=== PATIENT | female | born 1970 | race African-American/Black ===

== ENCOUNTER 2016-12-03 16:21 | Emergency (ER) | payer MEDICARE, OTHER ==
[~2016-12-03] VITALS: Ht 149.9 cm; Wt 85.5 kg
[~2016-12-03 16:21] MED LIST: ALPR0.5T PO; AMLO10TA2 PO; AMLO5TAB4 PO; ATORVASTATIN CA80 MG PO; BENZ100C2 PO; CETI10TA22 PO; CLOB15CR TP; DULERA; EZET10TA3 PO; FLUT16SP NS; FLUT9.9S NS; HYDR-2666 PO; HYDR-2762 PO; IPRA3AMP NEB; LOSA25TA PO; LOSA50TA6 PO; MECL25TA PO; METO-269 PO; MOME13HF2 IH; MONT10TA9 PO; MV,C1TAB19 PO; OXYC10TA PO; OXYC1TAB9 PO; PANT40TA3 PO; PRED-220 PO; PREG50CA PO; PROAIR HFA8.5 GM INH; Promethazine Hcl/Codeine PO; TOPI50TA38 PO
[2016-12-03 19:31] LABS: BASO # 0.1 x10^3/uL (0.0-0.2); BASO % 1 % (0-3); EOS % 0 % (0-3); HEMATOCRIT 45.2 % (36.0-47.0); HEMOGLOBIN 14.7 g/dL (12.0-15.5); LYMPH # 2.5 x10^3/uL (1.0-4.8); LYMPH % 30 % (24-48); MEAN CORPUSCULAR HEMOGLOBIN 30 pg (25-35); MEAN CORPUSCULAR HGB CONC 33 g/dL (31-37); MEAN CORPUSCULAR VOLUME 92 fL (79-100); MONO % 8 % (0-9); NEUT % 60 % (31-73); PLATELET COUNT 179 x10^3/uL (140-400); RED BLOOD COUNT 4.92 x10^6/uL (3.50-5.40); RED CELL DISTRIBUTION WIDTH 14.5 % (11.5-14.5); WHITE BLOOD COUNT 8.5 x10^3/uL (4.0-11.0)
[2016-12-03 19:52] LABS: CALCIUM 9.8 mg/dL (8.5-10.1); CREATININE 0.9 mg/dL (0.6-1.0); GFR 81.2; POTASSIUM 3.7 mmol/L (3.5-5.1)
[2016-12-03 19:58] LABS: DIRECT BILIRUBIN 0.1 mg/dL (0.0-0.2); TOTAL BILIRUBIN 0.4 mg/dL (0.2-1.0); TOTAL PROTEIN 8.4 g/dL (6.4-8.2)
[2016-12-03] MEDS ORDERED: ONDANSETRON PF 4 MG/2 ML VIAL. IV PRN ×2 (20:15→21:45)
[2016-12-03] MEDS ORDERED: IOHEXOL 300 MG/ML 75 ML VIAL IV ONE (20:15)
[2016-12-03] MEDS ORDERED: IPRATRPIUM/ALBUTEROL 0.5/2.5MG 3 ML NEBU. NEB ONE (20:15)
[2016-12-03] MEDS ORDERED: IV NORMAL SALINE 1000ML BAG 1,000 ML IV ONE (20:15)
--- NOTE | 2016-12-03 20:48 | RAD ---
PROCEDURE CT abdomen pelvis with intravenous contrast. HISTORY Epigastric pain, hemoptysis for 3 days. TECHNIQUE After administration of intravenous contrast only, 75 mL Omnipaque 300, CT of the abdomen and pelvis was performed. Exposure: One or more of the following individualized dose reduction techniques were utilized for this examination: 1. Automated exposure control. 2. Adjustment of the mA and/or kV according to patient size. 3. Use of iterative reconstruction technique. COMPARISON CT abdomen pelvis April 11, 2013. FINDINGS Evaluation of enteric structures may be limited by lack of oral contrast. Liver, spleen, pancreas, and bilateral adrenal glands are unremarkable. Gallbladder is absent. Bilateral kidneys enhance symmetrically. No bowel obstruction or inflammation is appreciated. Appendix is without evidence of inflammation. Urinary bladder is unremarkable. Uterus is absent. Right ovary demonstrates 3.1 centimeter cyst. IMPRESSION 1. No acute abnormality identified in the abdomen or pelvis. 2. Status post cholecystectomy and hysterectomy. 3. 3.1 centimeter right ovarian cyst. Electronically signed by: Vijay Angeles MD (Dec 03, 2016 20:47:40)
[2016-12-03] MEDS: HYDROMORPHONE 2 MG/ML VIAL. IV PRN (20:51)
[2016-12-03] MEDS ORDERED: HYDR-2666 PO (21:11)
[2016-12-03] MEDS ORDERED: PROAIR HFA8.5 GM INH (21:11)
--- NOTE | 2016-12-03 21:11 | PHYS DOC ---
Past Medical History Past Medical History: Asthma, COPD, High Cholesterol, Hypertension, Other Additional Past Medical Histor: ibs Past Surgical History: Cholecystectomy, Hysterectomy, Tubal ligation, Other Additional Past Surgical Histo: neck sx, hernia repair, Alcohol Use: Rarely Drug Use: None Adult General Chief Complaint Chief Complaint: SHORTNESS OF BREATH HPI HPI 46-year-old female presenting to the emergency department with multiple complaints. Chiefly her complaint is epigastric abdominal pain for the last 5 days. She has taken Bentyl without relief. The pain is sharp nonradiating moderate and intermittent. She denies blood in her stool. She denies nausea or vomiting. She also has had worsening dyspnea over the past 2 days. Review of Systems Review of Systems ROS positive for shortness of breath abdominal pain. She denies chest pain. She denies blood in stools. She denies fevers or chills. All other review of systems is negative unless otherwise noted in history of present illness. Current Medications Current Medications Current Medications Medications (Trade) Dose Ordered Sig/Guillermina Start Time Stop Time Status Last Admin Dose Admin Albuterol/ Ipratropium (Duoneb) 3 ml 1X ONCE 12/03/16 20:15 12/03/16 20:16 DC 12/03/16 20:26 3 ML Hydromorphone HCl 0.5 mg 0.5 mg PRN Q1HR PRN 12/03/16 20:15 12/04/16 20:14 12/03/16 20:51 0.5 MG Iohexol (Omnipaque 300 Mg/ml) 75 ml 1X ONCE 12/03/16 20:15 12/03/16 20:16 DC 12/03/16 20:31 75 ML Ondansetron HCl (Zofran) 4 mg PRN Q30MIN PRN 12/03/16 20:15 12/04/16 20:14 12/03/16 20:51 4 MG Sodium Chloride (Iv Sodium Chloride 0.9% 1000ml Bag) 1,000 ml @ 1,000 mls/hr 1X ONCE 12/03/16 20:15 12/03/16 21:14 DC 12/03/16 20:52 1,000 MLS/HR Allergies Allergies Allergies Coded Allergies Type Severity Reaction Last Updated Verified poppyseed oil Allergy Severe Hives 05/02/16 Yes Penicillins Allergy Intermediate HIVES 05/02/16 Yes Physical Exam Physical Exam Constitutional: Well developed, well nourished, no acute distress, non-toxic appearance. HENT: Normocephalic, atraumatic, bilateral external ears normal, oropharynx moist, no oral exudates, nose normal. [] Eyes: PERRLA, EOMI, conjunctiva normal, no discharge. Neck: Normal range of motion, no tenderness, supple, no stridor. [] Cardiovascular:Heart rate regular rhythm, no murmur [] Lungs & Thorax: mild wheezing present. Abdomen: Abdomen shows mild tenderness in the epigastric region. No rebound tenderness or guarding present. Nontender appendix. Skin: Warm, dry, no erythema, no rash. Back: No tenderness, no CVA tenderness. [] Extremities: No tenderness, no cyanosis, no clubbing, ROM intact, no edema. Neurologic: Alert and oriented X 3, normal motor function, normal sensory function, no focal deficits noted. [] Psychologic: Affect normal, judgement normal, mood normal. [] Current Patient Data Vital Signs Vital Signs Date Time Temp Pulse Resp B/P Pulse Ox O2 Delivery O2 Flow Rate FiO2 12/03/16 21:25 98 18 154/79 98 Room Air 12/03/16 18:47 98.6 98.6 Lab Values Laboratory Tests Test 12/03/16 19:00 White Blood Count 8.5x10^3/uL (4.0-11.0) Red Blood Count 4.92x10^6/uL (3.50-5.40) Hemoglobin 14.7g/dL (12.0-15.5) Hematocrit 45.2% (36.0-47.0) Mean Corpuscular Volume 92fL (79-100) Mean Corpuscular Hemoglobin 30pg (25-35) Mean Corpuscular Hemoglobin Concent 33g/dL (31-37) Red Cell Distribution Width 14.5% (11.5-14.5) Platelet Count 179x10^3/uL (140-400) Neutrophils (%) (Auto) 60% (31-73) Lymphocytes (%) (Auto) 30% (24-48) Monocytes (%) (Auto) 8% (0-9) Eosinophils (%) (Auto) 0% (0-3) Basophils (%) (Auto) 1% (0-3) Neutrophils # (Auto) 5.1x10^3uL (1.8-7.7) Lymphocytes # (Auto) 2.5x10^3/uL (1.0-4.8) Monocytes # (Auto) 0.7x10^3/uL (0.0-1.1) Eosinophils # (Auto) 0.0x10^3/uL (0.0-0.7) Basophils # (Auto) 0.1x10^3/uL (0.0-0.2) Sodium Level 140mmol/L (136-145) Potassium Level 3.7mmol/L (3.5-5.1) Chloride Level 102mmol/L (98-107) Carbon Dioxide Level 29mmol/L (21-32) Anion Gap 9 (6-14) Blood Urea Nitrogen 13mg/dL (7-20) Creatinine 0.9mg/dL (0.6-1.0) Estimated GFR (Cockcroft-Gault) 81.2 Glucose Level 91mg/dL (70-99) Calcium Level 9.8mg/dL (8.5-10.1) Total Bilirubin 0.4mg/dL (0.2-1.0) Direct Bilirubin 0.1mg/dL (0.0-0.2) Aspartate Amino Transferase (AST) 18U/L (15-37) Alanine Aminotransferase (ALT) 33U/L (14-59) Alkaline Phosphatase 74U/L (46-116) Troponin I Quantitative < 0.017ng/mL (0.000-0.055) SQ-Spm-P-Type Natriuretic Peptide 23pg/mL (0-124) Total Protein 8.4g/dL (6.4-8.2) H Albumin 4.0g/dL (3.4-5.0) Lipase 138U/L (73-393) Laboratory Tests 12/03/16 19:00 Laboratory Tests 12/03/16 19:00 EKG EKG EKG shows sinus rhythm with a regular rate. [place] leftward. ST segments congruent. Intervals normal. [] Radiology/Procedures Radiology/Procedures [facility] [address] [place], [place] [id number] IMAGING REPORT Signed PATIENT: GABRIELE MUHAMMAD ACCOUNT: [id number] : 1970 LOCATION: ER AGE: 46 SEX: F EXAM STATUS: REG ER ORD. PHYSICIAN: MANA PHAN MD REASON: abdominal pain epigastric eval gallbladder and appendix PROCEDURE: ABD PELV W/ IV CONTRAST ONLY PROCEDURE CT abdomen pelvis with intravenous contrast. HISTORY Epigastric pain, hemoptysis for 3 days. TECHNIQUE After administration of intravenous contrast only, 75 mL Omnipaque 300, CT of the abdomen and pelvis was performed. Exposure: One or more of the following individualized dose reduction techniques were utilized for this examination: 1. Automated exposure control. 2. Adjustment of the mA and/or kV according to patient size. 3. Use of iterative reconstruction technique. COMPARISON CT abdomen pelvis April 11, 2013. FINDINGS Evaluation of enteric structures may be limited by lack of oral contrast. Liver, spleen, pancreas, and bilateral adrenal glands are unremarkable. Gallbladder is absent. Bilateral kidneys enhance symmetrically. No bowel obstruction or inflammation is appreciated. Appendix is without evidence of inflammation. Urinary bladder is unremarkable. Uterus is absent. Right ovary demonstrates 3.1 centimeter cyst. IMPRESSION 1. No acute abnormality identified in the abdomen or pelvis. 2. Status post cholecystectomy and hysterectomy. 3. 3.1 centimeter right ovarian cyst. Electronically signed by: Vijay Angeles MD (Dec 03, 2016 20:47:40) [] Course & Med Decision Making Course & Med Decision Making Pertinent Labs and Imaging studies reviewed. (See chart for details) [] 46-year-old female presenting to the emergency department with shortness of breath and abdominal pain. On evaluation the patient had normal vital signs other than a very mild hypertension. Physical exam showed a mildly tender in abdomen in the epigastric region otherwise showed mild wheezing in her lungs. Chest x-ray showed no obvious infiltrate or pneumothorax. CT the abdomen pelvis was unremarkable for acute pathology. She did have an ovarian cyst that I recommended she follow up with her PCP about. Her shortness of breath improved with a nebulizer in the emergency department. Otherwise the patient blood work was unremarkable. EKG unremarkable. On reevaluation, the patient's pain had not improved. She was subsequently admitted for further evaluation workup and care. Dragon Disclaimer Dragon Disclaimer This electronic medical record was generated, in whole or in part, using a voice recognition dictation system. Departure Departure Impression: Primary Impression: Shortness of breath Additional Impression: Abdominal pain Disposition: ADMITTED INPATIENT Condition: IMPROVED Referrals: SHARMIN ESQUEDA (PCP) Patient Instructions: Abdominal Pain, Shortness of Breath Scripts Hydrocodone Bit/Acetaminophen (Hydrocodone-Apap 5-325 )1 Each Tablet1 Tab PO PRN Q6HRS PRN PAIN #15 TAB Be careful as this medication may cause you to be drowsy or tired. Do not drive on this medication. Prov:MANA PHAN MD 12/03/16 Albuterol Sulfate (Proair Hfa Inhaler)8.5 Gm Hfa.[id number].[id number] Puff INH PRN Q6HRS PRN SHORTNESS OF BREATH #1 INHALER Prov:MANA PHAN MD 12/03/16 Problem Qualifiers MANA PHAN MD Dec 03, 2016 21:11
[2016-12-03] MEDS ORDERED: FENTANYL PF 100 MCG/2 ML VIAL. IV PRN (21:45)
--- NOTE | 2016-12-03 23:28 | ACF ---
Admission Forms Criteria ABDOMINAL PAIN Clinical Indications for Admission to Inpatient Care (Place 'X' for any and all applicable criteria): Admission is indicated for ANY ONE of the following(1)(2)(3)(4)(5): [ X]I. Inpatient admission required rather than observation care (Also use Abdominal Pain: Observation Care, as appropriate) because of ANY ONE of the following: [ X]a) Severe pain requiring acute inpatient management [ ]b) Identification of etiology/finding that requires inpatient care (eg, aortic dissection, free air) [ ]c) Absent bowel sounds with complete ileus(6) [ ]d) Suspected toxic megacolon [ ]e) Severe electrolyte abnormalities requiring inpatient care [ ]f) High fever or infection requiring inpatient admission as indicated by ANY ONE of following(7)(8): [ ] i) Appropriate outpatient or observational care antimicrobial treatment unavailable, not effective, or not feasible [ ] ii) Documented bacteremia [ ] iii) Temperature > 104.9 degrees F (oral) [ ] iv) T >103.1 F (oral) or < 96.8 F(rectal) that does not respond to all emergency treatment measures [ ]g) Signs of intestinal obstruction [B] [ ]h) Hemodynamic instability [ ]i) IV fluid to replace significant ongoing losses (greater than 3 L/m2 per day) (12)(13) [ ]j) Percutaneous or open drainage (eg, abscess, biliary tract ) procedures [ ]k) Parenteral nutrition regimen that must be implemented on inpatient basis [ X]l) Other condition,treatment or monitoring requiring inpatient admission. [ ]II. Peritoneal signs present [ ]III. Surgery needed that cannot be performed on an ambulatory basis. [ ]IV. Evaluation requires patient to not eat or drink for extended period ( eg, more than 24 hours). [ ]V. Contraindications and/or Inappropriate clinical situations for Observational Care in patients with abdominal pain, when ANY ONE of the following is required: [ ]a) Thorough evaluation is required to prevent catastrophic events due to delays in diagnosing (e.g.Mesenteric ischemia) 1,3 [ ]b) Patient with severe pathology or with chronic symptoms unlikely to improve in the ED stay (3) [ ]. General contraindications and/or Inappropriate clinical situations for Observational Care in patients with abdominal pain, when ANY ONE of the following is required: [ ]a) Prediction of prolongation of LOS based on ANY ONE of the following may be considered as a contraindication for observational care 2, 3, 4, 5, 6, 7, 8, 9, 10, 11 [ ]i) Age > 65 yrs. [ ]ii) Patient arriving by ambulance [ ]iii) Patient with high acuity [ ]iv) Patient requiring vital sign monitoring [ ]v) Patient on IV medication [ ]b) Systolic blood pressures 180mmHg 3,12 [ ]c) Patient with altered mental status including delirium and other alteration of consciousness, (3) [ ]d) Patient whose discharge disposition will be to a residential home or rehabilitation home should not be managed in Emergency Department Observation Unit. CMS rule requires 3 days hospital stay before such placement.3,13 [ ]e) Patient with failure to thrive due to broad array of etiologies 3,16,17 [ ]f) Inability to ambulate 3,14 Extended stay beyond goal length of stay may be needed for(2)(3): [ ]a) Persistent abdominal pain with suspected intra-abdominal process [ ]b) Diagnosed condition requiring continued stay (e.g., pancreatitis, complicated diverticulitis) [ ]c) Surgery (e.g., colectomy) The original [employer] content created by [employer] has been revised. The portions of the content which have been revised are identified through the use of italic text or in bold, and [facility] [employer] has neither reviewed nor approved the modified material.All other unmodified content is copyright [employer]. Please see references footnoted in the original [employer] edition 2016 Admission Criteria Met?: Yes VLADIMIR PEÑA Dec 03, 2016 23:28
[2016-12-04] VITALS (7 sets, daily range): BP systolic 128–156; BP diastolic 85–101
[2016-12-04] MEDS ORDERED: LOSA50TA6 PO (01:00)
[2016-12-04] MEDS ORDERED: OXYC10TA PO (01:00)
[2016-12-04] MEDS ORDERED: METO25TA9 PO (01:02)
[2016-12-04] MEDS: HYDROMORPHONE 2 MG/ML VIAL. IV PRN ×2 (01:17→07:42)
[2016-12-04 04:57] LABS: BASO % 0 % (0-3); EOS % 1 % (0-3); HEMATOCRIT 38.1 % (36.0-47.0); HEMOGLOBIN 12.4 g/dL (12.0-15.5); LYMPH # 2.6 x10^3/uL (1.0-4.8); LYMPH % 34 % (24-48); MEAN CORPUSCULAR HEMOGLOBIN 30 pg (25-35); MEAN CORPUSCULAR HGB CONC 33 g/dL (31-37); MEAN CORPUSCULAR VOLUME 92 fL (79-100); MONO % 12 % (0-9); NEUT % 53 % (31-73); PLATELET COUNT 149 x10^3/uL (140-400); RED BLOOD COUNT 4.15 x10^6/uL (3.50-5.40); RED CELL DISTRIBUTION WIDTH 14.5 % (11.5-14.5); WHITE BLOOD COUNT 7.7 x10^3/uL (4.0-11.0)
[2016-12-04 05:25] LABS: CALCIUM 8.6 mg/dL (8.5-10.1); CREATININE 0.8 mg/dL (0.6-1.0); POTASSIUM 3.7 mmol/L (3.5-5.1)
--- NOTE | 2016-12-04 08:54 | RAD ---
Portable chest, 12/03/2016: History: Chest pain Comparison is made to a study from 11/03/2016. The heart size and pulmonary vascularity are normal. The lungs are clear. There is no evidence of pleural fluid. Moderate spurring is present in the spine. IMPRESSION: No acute cardiopulmonary abnormality is detected.
[2016-12-04] MEDS: MORPHINE SULFATE 2 MG/ML DISP.SYRIN. IV PRN ×4 (12:02→21:24)
--- NOTE | 2016-12-04 12:19 | EKG ---
[facility] [address] [place] [address] Test Date: 2016-12-03 Test Time: 20:01:18 Pat Name: GABRIELE MUHAMMAD Department: Room: 565 Gender: F Sensitizer: : 1970 Requested By: MANA PHAN Order Number: [id number] Reading MD: Alcira Rock Measurements Intervals [place] Rate: 85 P: 48 [place]: 132 QRS: -4 QRSD: 76 T: 7 QT: 364 QTc: 433 Interpretive Statements SINUS RHYTHM LEFT ATRIAL ABNORMALITY LEFTWARD AXIS ABNORMAL ECG RI6.01 Compared to ECG 11/03/2016 20:04:29 Myocardial infarct finding no longer present Electronically Signed On 12-06-2016 0:22:45 [employer] MAN by Alcira Rock
--- NOTE | 2016-12-04 14:13 | PDOC1 ---
History and Physical Date of Admission Date of Admission 12/04/16 Identification/Chief Complaint Chief Complaint diarrhea Problems: Source Source: Chart review, Patient History of Present Illness History of Present Illness HPI HPI 46-year-old female presenting to the emergency department with diarrhea and abd pain , epigastric , for 5ds. Denies eating anything wrong. no N/V, fever, chills. no sob. pt USUALly comes here every 2-3 months for [address]hma. abd ct neg. Past Medical History CENTRAL NERVOUS SYSTEM: Other Heme/Onc: Anemia NOS Hepatobiliary: No pertinent hx Rheumatologic: No pertinent hx Infectious disease: No pertinent hx Renal/: Other Endocrine: Diabetes Past Surgical History Past Surgical History: Cholecystectomy, Hernia Repair, Tubal Ligation, Hysterectomy, Other Family History Family History: Cancer, Other Social History Smoke: No ALCOHOL: social Drugs: None Current Problem List Problem List Problems Medical Problems: (1) Abdominal pain Status: Acute (2) Continuous severe abdominal pain Status: Acute (3) Shortness of breath Status: Acute Current Medications Current Medications Current Medications Medications (Trade) Dose Ordered Sig/Guillermina Start Time Stop Time Status Last Admin Dose Admin Albuterol/ Ipratropium (Duoneb) 3 ml 1X ONCE 12/03/16 20:15 12/03/16 20:16 DC 12/03/16 20:26 3 ML Fentanyl Citrate (Fentanyl 2ml Vial) 50 mcg PRN Q2HR PRN 12/03/16 21:45 12/04/16 21:44 Hydromorphone HCl 0.5 mg 0.5 mg PRN Q1HR PRN 12/03/16 20:15 12/04/16 07:42 DC 12/04/16 07:42 0.5 MG Iohexol (Omnipaque 300 Mg/ml) 75 ml 1X ONCE 12/03/16 20:15 12/03/16 20:16 DC 12/03/16 20:31 75 ML Morphine Sulfate 2 mg PRN Q2HR PRN 12/03/16 21:45 12/04/16 21:44 12/04/16 12:02 2 MG Ondansetron HCl (Zofran) 4 mg PRN Q8HRS PRN 12/03/16 21:45 12/04/16 21:44 Sodium Chloride (Iv Sodium Chloride 0.9% 1000ml Bag) 1,000 ml @ 1,000 mls/hr 1X ONCE 12/03/16 20:15 12/03/16 21:14 DC 12/03/16 20:52 1,000 MLS/HR Allergies Allergies Allergies Coded Allergies Type Severity Reaction Last Updated Verified poppyseed oil Allergy Severe Hives 05/02/16 Yes Penicillins Allergy Intermediate HIVES 05/02/16 Yes ROS Review of System CONSTITUTIONAL: No fever or chills EYES: No recent changes SKIN: No rash or itching CARDIOVASCULAR: No chest pain, syncope, palpitations, or edema RESPIRATORY: No SOB or cough GASTROINTESTINAL: No nausea, vomiting or abdominal pain NEUROLOGICAL: No headaches or weakness ENDOCRINE: No cold or heat intolerance GENITOURINARY: No urgency or frequency of urination MUSCULOSKELETAL: No back pain or joint pain LYMPHATICS: No enlarged lymph nodes PSYCHIATRIC: No anxiety or depression Physical Exam Physical Exam GEN.: No apparent distress. Alert and oriented. HEENT: Head is normocephalic, atraumatic NECK: Supple. LUNGS: Clear to auscultation. HEART: RRR, S1, S2 present. Peripheral pulses intact ABDOMEN: Soft, Positive bowel sounds. upper abd mild tenderness EXTREMITIES: Without any cyanosis. NEUROLOGIC: Normal speech, normal tone PSYCHIATRIC: Normal affect, normal mood. SKIN: No ulcerations Vitals Vitals Vital Signs Date Time Temp Pulse Resp B/P Pulse Ox O2 Delivery O2 Flow Rate FiO2 12/04/16 11:13 98.2 87 18 128/85 97 Room Air 98.2 Labs Labs Laboratory Tests Test 12/03/16 19:00 12/03/16 22:05 12/04/16 04:00 White Blood Count 8.5x10^3/uL (4.0-11.0) 7.7x10^3/uL (4.0-11.0) Red Blood Count 4.92x10^6/uL (3.50-5.40) 4.15x10^6/uL (3.50-5.40) Hemoglobin 14.7g/dL (12.0-15.5) 12.4g/dL (12.0-15.5) Hematocrit 45.2% (36.0-47.0) 38.1% (36.0-47.0) Mean Corpuscular Volume 92fL (79-100) 92fL (79-100) Mean Corpuscular Hemoglobin 30pg (25-35) 30pg (25-35) Mean Corpuscular Hemoglobin Concent 33g/dL (31-37) 33g/dL (31-37) Red Cell Distribution Width 14.5% (11.5-14.5) 14.5% (11.5-14.5) Platelet Count 179x10^3/uL (140-400) 149x10^3/uL (140-400) Neutrophils (%) (Auto) 60% (31-73) 53% (31-73) Lymphocytes (%) (Auto) 30% (24-48) 34% (24-48) Monocytes (%) (Auto) 8% (0-9) 12% (0-9) Eosinophils (%) (Auto) 0% (0-3) 1% (0-3) Basophils (%) (Auto) 1% (0-3) 0% (0-3) Neutrophils # (Auto) 5.1x10^3uL (1.8-7.7) 4.1x10^3uL (1.8-7.7) Lymphocytes # (Auto) 2.5x10^3/uL (1.0-4.8) 2.6x10^3/uL (1.0-4.8) Monocytes # (Auto) 0.7x10^3/uL (0.0-1.1) 0.9x10^3/uL (0.0-1.1) Eosinophils # (Auto) 0.0x10^3/uL (0.0-0.7) 0.1x10^3/uL (0.0-0.7) Basophils # (Auto) 0.1x10^3/uL (0.0-0.2) 0.0x10^3/uL (0.0-0.2) Sodium Level 140mmol/L (136-145) 139mmol/L (136-145) Potassium Level 3.7mmol/L (3.5-5.1) 3.7mmol/L (3.5-5.1) Chloride Level 102mmol/L (98-107) 105mmol/L (98-107) Carbon Dioxide Level 29mmol/L (21-32) 24mmol/L (21-32) Anion Gap 9 (6-14) 10 (6-14) Blood Urea Nitrogen 13mg/dL (7-20) 13mg/dL (7-20) Creatinine 0.9mg/dL (0.6-1.0) 0.8mg/dL (0.6-1.0) Estimated GFR (Cockcroft-Gault) 81.2 93.0 Glucose Level 91mg/dL (70-99) 102mg/dL (70-99) Calcium Level 9.8mg/dL (8.5-10.1) 8.6mg/dL (8.5-10.1) Total Bilirubin 0.4mg/dL (0.2-1.0) Direct Bilirubin 0.1mg/dL (0.0-0.2) Aspartate Amino Transf (AST/SGOT) 18U/L (15-37) Alanine Aminotransferase (ALT/SGPT) 33U/L (14-59) Alkaline Phosphatase 74U/L (46-116) Troponin I Quantitative < 0.017ng/mL (0.000-0.055) GW-Wia-G-Type Natriuretic Peptide 23pg/mL (0-124) Total Protein 8.4g/dL (6.4-8.2) Albumin 4.0g/dL (3.4-5.0) Lipase 138U/L (73-393) Lactic Acid Level 0.9mmol/L (0.4-2.0) Laboratory Tests Test 12/03/16 19:00 12/03/16 22:05 12/04/16 04:00 White Blood Count 8.5x10^3/uL (4.0-11.0) 7.7x10^3/uL (4.0-11.0) Red Blood Count 4.92x10^6/uL (3.50-5.40) 4.15x10^6/uL (3.50-5.40) Hemoglobin 14.7g/dL (12.0-15.5) 12.4g/dL (12.0-15.5) Hematocrit 45.2% (36.0-47.0) 38.1% (36.0-47.0) Mean Corpuscular Volume 92fL (79-100) 92fL (79-100) Mean Corpuscular Hemoglobin 30pg (25-35) 30pg (25-35) Mean Corpuscular Hemoglobin Concent 33g/dL (31-37) 33g/dL (31-37) Red Cell Distribution Width 14.5% (11.5-14.5) 14.5% (11.5-14.5) Platelet Count 179x10^3/uL (140-400) 149x10^3/uL (140-400) Neutrophils (%) (Auto) 60% (31-73) 53% (31-73) Lymphocytes (%) (Auto) 30% (24-48) 34% (24-48) Monocytes (%) (Auto) 8% (0-9) 12% (0-9) Eosinophils (%) (Auto) 0% (0-3) 1% (0-3) Basophils (%) (Auto) 1% (0-3) 0% (0-3) Neutrophils # (Auto) 5.1x10^3uL (1.8-7.7) 4.1x10^3uL (1.8-7.7) Lymphocytes # (Auto) 2.5x10^3/uL (1.0-4.8) 2.6x10^3/uL (1.0-4.8) Monocytes # (Auto) 0.7x10^3/uL (0.0-1.1) 0.9x10^3/uL (0.0-1.1) Eosinophils # (Auto) 0.0x10^3/uL (0.0-0.7) 0.1x10^3/uL (0.0-0.7) Basophils # (Auto) 0.1x10^3/uL (0.0-0.2) 0.0x10^3/uL (0.0-0.2) Sodium Level 140mmol/L (136-145) 139mmol/L (136-145) Potassium Level 3.7mmol/L (3.5-5.1) 3.7mmol/L (3.5-5.1) Chloride Level 102mmol/L (98-107) 105mmol/L (98-107) Carbon Dioxide Level 29mmol/L (21-32) 24mmol/L (21-32) Anion Gap 9 (6-14) 10 (6-14) Blood Urea Nitrogen 13mg/dL (7-20) 13mg/dL (7-20) Creatinine 0.9mg/dL (0.6-1.0) 0.8mg/dL (0.6-1.0) Estimated GFR (Cockcroft-Gault) 81.2 93.0 Glucose Level 91mg/dL (70-99) 102mg/dL (70-99) Calcium Level 9.8mg/dL (8.5-10.1) 8.6mg/dL (8.5-10.1) Total Bilirubin 0.4mg/dL (0.2-1.0) Direct Bilirubin 0.1mg/dL (0.0-0.2) Aspartate Amino Transf (AST/SGOT) 18U/L (15-37) Alanine Aminotransferase (ALT/SGPT) 33U/L (14-59) Alkaline Phosphatase 74U/L (46-116) Troponin I Quantitative < 0.017ng/mL (0.000-0.055) TE-Zve-O-Type Natriuretic Peptide 23pg/mL (0-124) Total Protein 8.4g/dL (6.4-8.2) Albumin 4.0g/dL (3.4-5.0) Lipase 138U/L (73-393) Lactic Acid Level 0.9mmol/L (0.4-2.0) VTE Prophylaxis Ordered VTE Prophylaxis Devices: No VTE Pharmacological Prophylaxi: Yes Assessment/Plan Assessment/Plan 1. diarrhea, enteritis viral likely 2. asthma, copd 3. HTN 4. hld 5. chronic coarse voice 6. obesity 7. possible RADHIKA plan: 1. check stool cx, cdiff 2. ivf 3. full liquid 4 cont home meds labs tmr dvt ,gi ppx RADHA WILKERSON MD Dec 04, 2016 14:13
[2016-12-04] MEDS ORDERED: ALPRAZOLAM 0.5 MG TABLET PO PRN (14:15)
[2016-12-04] MEDS ORDERED: ONDANSETRON PF 4 MG/2 ML VIAL. IV PRN (14:15)
[2016-12-04] MEDS ORDERED: HYDROCODONE/APAP 7.5/325MG TABLET. PO PRN (14:15)
[2016-12-04] MEDS ORDERED: MORPHINE SULFATE 2 MG/ML DISP.SYRIN. IV PRN (14:15)
[2016-12-04] MEDS ORDERED: NON FORMULARY ITEM (Albuterol Sulfate (Proair Hfa Inhaler) 1 PUFF) INH PRN (14:15)
[2016-12-04] MEDS ORDERED: ACETAMINOPHEN 325 MG TABLET. PO PRN (14:15)
[2016-12-04] MEDS ORDERED: METOPROLOL SUCC 24HR ER 50 MG TAB.ER.24H. PO SCH ×2 (15:00→21:00)
[2016-12-04] MEDS ORDERED: ALBUTEROL SULFATE 2.5 MG/3 ML NEBU. NEB PRN (15:00)
[2016-12-04] MEDS ORDERED: OXYCODONE IR 5 MG TABLET. PO PRN (15:00)
[2016-12-04] MEDS ORDERED: NON FORMULARY ITEM (Oxycodone Hcl 1 TAB) PO PRN (15:00)
[2016-12-04] MEDS ORDERED: ENOXAPARIN 40 MG/0.4 ML DISP.SYRIN. SQ SCH (15:00)
[2016-12-04] MEDS: LOSARTAN POTASSIUM 50 MG TABLET. PO SCH (15:17)
[2016-12-04] MEDS: AMLODIPINE BESYLATE 10 MG TABLET PO SCH (15:17)
[2016-12-04] MEDS: PANTOPRAZOLE 40 MG TABLET. PO SCH (17:26)
[2016-12-04] MEDS: IPRATRPIUM/ALBUTEROL 0.5/2.5MG 3 ML NEBU. NEB SCH (17:59)
[2016-12-04] MEDS ORDERED: EZETIMIBE 10 MG TABLET PO SCH (21:00)
[2016-12-04] MEDS ORDERED: ATORVASTATIN CALCIUM 40 MG TABLET. PO SCH (21:00)
[2016-12-05 02:33] VITALS: BP 138/94
[2016-12-05] MEDS: IPRATRPIUM/ALBUTEROL 0.5/2.5MG 3 ML NEBU. NEB SCH ×2 (07:44→11:34)
[2016-12-05 08:00] VITALS: BP 109/73
[2016-12-05] MEDS: PANTOPRAZOLE 40 MG TABLET. PO SCH (08:24)
[2016-12-05 08:59] LABS: BASO % 1 % (0-3); EOS % 2 % (0-3); HEMATOCRIT 41.5 % (36.0-47.0); HEMOGLOBIN 13.4 g/dL (12.0-15.5); LYMPH # 2.3 x10^3/uL (1.0-4.8); LYMPH % 40 % (24-48); MEAN CORPUSCULAR HEMOGLOBIN 30 pg (25-35); MEAN CORPUSCULAR HGB CONC 32 g/dL (31-37); MEAN CORPUSCULAR VOLUME 92 fL (79-100); MONO % 10 % (0-9); NEUT % 48 % (31-73); PLATELET COUNT 157 x10^3/uL (140-400); RED BLOOD COUNT 4.52 x10^6/uL (3.50-5.40); RED CELL DISTRIBUTION WIDTH 14.4 % (11.5-14.5); WHITE BLOOD COUNT 5.6 x10^3/uL (4.0-11.0)
[2016-12-05] MEDS: LOSARTAN POTASSIUM 50 MG TABLET. PO SCH (09:19)
[2016-12-05] MEDS: AMLODIPINE BESYLATE 10 MG TABLET PO SCH (09:19)
[2016-12-05 09:20] VITALS: BP 134/96
[2016-12-05 09:24] LABS: CREATININE 0.7 mg/dL (0.6-1.0); GFR 108.5; POTASSIUM 3.9 mmol/L (3.5-5.1)
[2016-12-05 11:15] VITALS: BP 123/88
[2016-12-05] MEDS ORDERED: Promethazine Hcl/Codeine PO (11:22)
--- NOTE | 2016-12-05 13:23 | PDOC3 ---
Discharge Summary [facility] Date of Admission: Dec 03, 2016 Discharge Date: Dec 05, 2016 Admitting Diagnosis 1. diarrhea, enteritis viral likely 2. asthma, copd 3. HTN 4. hld 5. chronic coarse voice 6. obesity 7. possible RADHIKA Problems: Final Diagnosis Problems Medical Problems: (1) Abdominal pain Status: Acute (2) Continuous severe abdominal pain Status: Acute (3) Shortness of breath Status: Acute Brief Hospital Course 46-year-old female presenting to the emergency department with diarrhea and abd pain , epigastric , for 5ds. Denies eating anything wrong. no N/V, fever, chills. no sob. pt USUALly comes here every 2-[address] abd [address] neg. pt abd pain better, no diarrhea, no stool sample enough to check cdiff. dc home dc time 35min GEN.: No apparent distress. Alert and oriented. HEENT: Head is normocephalic, atraumatic NECK: Supple. LUNGS: Clear to auscultation. HEART: RRR, S1, S2 present. Peripheral pulses intact ABDOMEN: Soft, Positive bowel sounds. upper abd mild tenderness EXTREMITIES: Without any cyanosis. NEUROLOGIC: Normal speech, normal tone PSYCHIATRIC: Normal affect, normal mood. SKIN: No ulcerations Patient History: FH: lung cancer grandfather FH: sarcoidosis 33 FATHER Family history: Diabetes mellitus (situation) maternal grandmother Family history: Hypertension (situation) maternal grandmother Unknown Problems: Disposition home CONDITION AT DISCHARGE: Improved Diet regular Scheduled Amlodipine Besylate (Amlodipine Besylate) 10 MG PO DAILY Atorvastatin Calcium (Atorvastatin Calcium) 80 MG PO HS (Reported) Ezetimibe (Zetia) 1 TAB PO QHS (Reported) Losartan Potassium (Losartan Potassium) 50 MG PO DAILY (Reported) Metoprolol Succinate (Metoprolol Succinate ( Xl )) 2 TAB PO DAILY (Reported) Pantoprazole Sodium (Protonix) 40 MG PO DAILYAC Scheduled PRN ([Promethazine Hcl/Codeine]) 5 ML PO PRN Q6HRS PRN PRN COUGH Albuterol Sulfate (Proair Hfa Inhaler) 2 PUFF INH PRN Q6HRS PRN PRN SHORTNESS OF BREATH (Reported) Albuterol Sulfate (Proair Hfa Inhaler) 1 PUFF INH PRN Q6HRS PRN PRN SHORTNESS OF BREATH Alprazolam (Xanax) 1 TAB PO BID PRN PRN ANXIETY / AGITATION (Reported) Hydrocodone Bit/Acetaminophen (Hydrocodone-Apap 7.5-325 ) 1 TAB PO PRN TID PRN PRN PAIN (Reported) Ipratropium/Albuterol Sulfate (Duoneb 0.5-3(2.5) Mg/3 Ml) 3 ML NEB QIDPRN PRN PRN WHEEZING (Reported) Oxycodone Hcl (Oxycodone Hcl) 1 TAB PO PRN QID PRN PRN PAIN (Reported) Follow Up pcp in 2 weeks RADHA WILKERSON MD Dec 05, 2016 13:23
--- NOTE | 2016-12-05 22:52 | CONS ---
DATE OF CONSULTATION: 12/05/[address] Gerson Zamora dictating a GI consultation for Dr. Sandeep Gillespie. I am covering for him today. REQUESTING PHYSICIAN: Dr. Fierro PRIMARY CARE PHYSICIAN: Dr. Sharmin Mg REASON FOR CONSULTATION: Abdominal pain. HISTORY OF PRESENT ILLNESS: This is a 46-year-old female with a past medical history of asthma who was admitted to [facility] on 12/04/2016 for abdominal pain. She reports a 5-day history of epigastric abdominal pain and diarrhea. She denies any blood in her stool or dark tarry stools. She also had nausea without any emesis. She reports that she has had an EGD and colonoscopy at [facility] within the last 2 years, reportedly negative. She denies NSAID use and had been taking Protonix daily. She has not had an antibiotic in over a month. She also denies eating any unusual foods. Her evaluation did include a CT scan of the abdomen and pelvis that showed a post-cholecystectomy state, but no abnormalities within the GI tract. A 3.1 cm right ovarian cyst was noted. Her laboratory values showed a normal CBC and a normal BMP. Her LFTs were normal on 12/03/2016. Currently, she reports resolution of her pain. She states that she was having the pain at home despite taking oxycodone which she had for neck pain. PAST MEDICAL HISTORY: 1. Cholecystectomy. 2. Hernia repair. 3. Tubal ligation. 4. Hysterectomy. 5. She reports an EGD and colonoscopy at [facility] within the last 2 years are reportedly negative. FAMILY MEDICAL HISTORY: Her paternal aunt with colon cancer. SOCIAL HISTORY: No tobacco. She drinks socially. No IV drug abuse. HOME MEDICATIONS: Include: 1. Albuterol. 2. Alprazolam. 3. Amlodipine. 4. Atorvastatin. 5. Zetia. 6. Hydrocodone. 7. Losartan. 8. Metoprolol. 9. Oxycodone. 10. Protonix. REVIEW OF SYSTEMS: She admits to anemia, but otherwise, 13-point review of systems is positive as per HPI and otherwise negative. ALLERGIES: Poppy seed oil and penicillin. PHYSICAL EXAMINATION: VITAL SIGNS: Temperature is 97.9, blood pressure 109/73, heart rate 74. GENERAL: She is a well-developed -Thai female in no apparent distress. HEENT: Oropharynx is clear. CARDIOVASCULAR: S1, S2. LUNGS: Have decreased breath sounds anteriorly. ABDOMEN: Has normoactive bowel sounds, is soft and is tender to palpation in epigastric region. EXTREMITIES: No edema. NEUROLOGIC: Awake, alert and oriented x 3. LABORATORY VALUES: White blood cell count of 5.6 with a hemoglobin of 13, MCV of 92, platelets are 157, LFTs are normal. Today, her sodium is 138, potassium is 3.9 and her glucose is 131. IMAGING: CT of the abdomen and pelvis demonstrates a 3.1 cm right ovarian cyst and is status post cholecystectomy and hysterectomy. ASSESSMENT AND PLAN: 1. Epigastric pain: This has resolved today. She reports that she had been taking Protonix as well as taking oxycodone with this pain previously. She denies any alcohol use and her LFTs are normal. I think it is reasonable to check. Her lipase is also normal on 12/03/2016 at 138. 2. Peptic ulcer disease does remain in the differential given her history of asthma and likely steroid use. She would like to go home today, but does not want to have to return as an outpatient for an endoscopy. I think that if her symptoms are stable, she can likely go home and if she has a recurrence, could be seen as an outpatient. I will discuss this with Dr. Gillespie. He was consulted ____ he would prefer to keep her in-house for an EGD. 3. Nausea: This has resolved. There was no vomiting associated with it. 4. Diarrhea: This has resolved since she has been admitted. No stool studies have been collected. 5. Family history of colorectal cancer: This is in her paternal aunt. Thank you for allowing me and Dr. Gillespie to participate in the care of this patient. Fax number: [phone]. GERSON ZAMORA MD DR: YENY/darien JOB#: [id number] / [id number] SHARMIN Suero MD, RADHA ORTEZ MD, MD
== END 2016-12-05 13:37 | disposition home or self-care (01) ==
LOC: ER 16:21 → EEVIPCON 16:21 → 5 SOUTH 21:41
PROVIDERS: ADMIT Internal Medicine; ATTEND Internal Medicine
DX: R10.13 Epigastric pain (principal); R19.7 Diarrhea, unspecified; J44.9 Chronic obstructive pulmonary disease, unspecified; J45.909 Unspecified asthma, uncomplicated; E78.00 Pure hypercholesterolemia, unspecified; E11.9 Type 2 diabetes mellitus without complications; N83.201 Unspecified ovarian cyst, right side; I10 Essential (primary) hypertension; R11.0 Nausea; K58.9 Irritable bowel syndrome, unspecified; E78.5 Hyperlipidemia, unspecified; E66.9 Obesity, unspecified; Z80.0 Family history of malignant neoplasm of digestive organs; Z82.49 Family history of ischemic heart disease and other diseases of the circulatory system; Z83.3 Family history of diabetes mellitus
CPT/HCPCS: 36415; 71010; 74177; 80048; 80076; 82947; 83605; 83690; 83880; 84484; 85027; 93005; 94250; 94640; 96361; 96372; 96374; 96375; 96376; 99285; G0378; J1170; J1650; J2270; J2405; J7030; J7620; Q9967; G0379

== ENCOUNTER 2016-12-25 18:13 | Emergency (ER) | payer MEDICARE, OTHER ==
[~2016-12-25 18:13] MED LIST changes: +METO25TA9 PO
[2016-12-25 18:24] VITALS: BP 151/87
[2016-12-25] MEDS ORDERED: methylPREDNISolone SOD SUCC PF 125 MG/2 ML VIAL. IV ONE (18:30)
[2016-12-25] MEDS ORDERED: IPRATRPIUM/ALBUTEROL 0.5/2.5MG 3 ML NEBU. NEB ONE (18:30)
[2016-12-25 18:43] LABS: BASO # 0.1 x10^3/uL (0.0-0.2); BASO % 1 % (0-3); EOS % 1 % (0-3); HEMATOCRIT 43.2 % (36.0-47.0); HEMOGLOBIN 14.3 g/dL (12.0-15.5); LYMPH # 4.1 x10^3/uL (1.0-4.8); LYMPH % 33 % (24-48); MEAN CORPUSCULAR HEMOGLOBIN 30 pg (25-35); MEAN CORPUSCULAR HGB CONC 33 g/dL (31-37); MEAN CORPUSCULAR VOLUME 89 fL (79-100); MONO % 7 % (0-9); NEUT % 59 % (31-73); PLATELET COUNT 192 x10^3/uL (140-400); RED BLOOD COUNT 4.85 x10^6/uL (3.50-5.40); RED CELL DISTRIBUTION WIDTH 13.8 % (11.5-14.5); WHITE BLOOD COUNT 12.6 x10^3/uL (4.0-11.0)
[2016-12-25 18:58] LABS: CALCIUM 9.3 mg/dL (8.5-10.1); CREATININE 0.9 mg/dL (0.6-1.0); GFR 81.2; POTASSIUM 3.5 mmol/L (3.5-5.1)
[2016-12-25 19:04] LABS: ALBUMIN 3.5 g/dL (3.4-5.0); ALBUMIN/GLOBULIN RATIO 1.1 (1.0-1.7); TOTAL BILIRUBIN 0.2 mg/dL (0.2-1.0); TOTAL PROTEIN 6.8 g/dL (6.4-8.2)
--- NOTE | 2016-12-25 19:04 | EKG ---
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
[2016-12-25] MEDS ORDERED: PRED20TA PO (19:11)
[2016-12-25] MEDS ORDERED: PROVENTIL HFA6.7 GM IH (19:11)
[2016-12-25] MEDS ORDERED: AZIT250T PO (19:11)
--- NOTE | 2016-12-25 19:11 | PHYS DOC ---
Past Medical History Past Medical History: Asthma, COPD, High Cholesterol, Hypertension, Other Additional Past Medical Histor: ibs Past Surgical History: Cholecystectomy, Hysterectomy, Tubal ligation, Other Additional Past Surgical Histo: neck sx, hernia repair, Alcohol Use: Rarely Drug Use: None Adult General Chief Complaint Chief Complaint: SHORTNESS OF BREATH HPI HPI 46-year-old female with history of asthma/COPD presents with a several hour history of progressive wheezing. She states she uses nebulizers at home without relief. Patient denies any fever chills sweats nausea vomiting or diarrhea. She denies any chest pain. She denies hemoptysis. [] Review of Systems Review of Systems Constitutional: Denies fever or chills [] Eyes: Denies change in visual acuity, redness, or eye pain [] HENT: Denies nasal congestion or sore throat [] Respiratory: Per history of present illness [] Cardiovascular: No additional information not addressed in HPI [] GI: Denies abdominal pain, nausea, vomiting, bloody stools or diarrhea [] : Denies dysuria or hematuria [] Musculoskeletal: Denies back pain or joint pain [] Integument: Denies rash or skin lesions [] Neurologic: Denies headache, focal weakness or sensory changes [] Endocrine: Denies polyuria or polydipsia [] Current Medications Current Medications Current Medications Medications (Trade) Dose Ordered Sig/Guillermina Start Time Stop Time Status Last Admin Dose Admin Albuterol/ Ipratropium (Duoneb) 6 ml 1X ONCE 12/25/16 18:30 12/25/16 18:31 DC 12/25/16 18:24 6 ML Methylprednisolone Sodium Succinate (Solu-Medrol 125mg Vial) 125 mg 1X ONCE 12/25/16 18:30 12/25/16 18:31 DC 12/25/16 18:35 125 MG Allergies Allergies Allergies Coded Allergies Type Severity Reaction Last Updated Verified poppyseed oil Allergy Severe Hives 05/02/16 Yes Penicillins Allergy Intermediate HIVES 05/02/16 Yes Physical Exam Physical Exam Constitutional: Well developed, well nourished, no acute distress, non-toxic appearance. [] HENT: Normocephalic, atraumatic, bilateral external ears normal, oropharynx moist, no oral exudates, nose normal. [] Eyes: PERRLA, EOMI, conjunctiva normal, no discharge. [] Neck: Normal range of motion, no tenderness, supple, no stridor. [] Cardiovascular:Heart rate regular rhythm, no murmur [] Lungs & Thorax: Bilateral breath sounds clear to auscultation [] Abdomen: Bowel sounds normal, soft, no tenderness, no masses, no pulsatile masses. [] Skin: Warm, dry, no erythema, no rash. [] Back: No tenderness, no CVA tenderness. [] Extremities: No tenderness, no cyanosis, no clubbing, ROM intact, no edema. [] Neurologic: Alert and oriented X 3, normal motor function, normal sensory function, no focal deficits noted. [] Psychologic: Affect normal, judgement normal, mood normal. [] Current Patient Data Vital Signs Vital Signs Date Time Temp Pulse Resp B/P Pulse Ox O2 Delivery O2 Flow Rate FiO2 12/25/16 18:26 95 Room Air 12/25/16 18:24 98.5 114 14 151/87 98.5 Lab Values Laboratory Tests Test 12/25/16 18:30 White Blood Count 12.6x10^3/uL (4.0-11.0) H Red Blood Count 4.85x10^6/uL (3.50-5.40) Hemoglobin 14.3g/dL (12.0-15.5) Hematocrit 43.2% (36.0-47.0) Mean Corpuscular Volume 89fL (79-100) Mean Corpuscular Hemoglobin 30pg (25-35) Mean Corpuscular Hemoglobin Concent 33g/dL (31-37) Red Cell Distribution Width 13.8% (11.5-14.5) Platelet Count 192x10^3/uL (140-400) Neutrophils (%) (Auto) 59% (31-73) Lymphocytes (%) (Auto) 33% (24-48) Monocytes (%) (Auto) 7% (0-9) Eosinophils (%) (Auto) 1% (0-3) Basophils (%) (Auto) 1% (0-3) Neutrophils # (Auto) 7.4x10^3uL (1.8-7.7) Lymphocytes # (Auto) 4.1x10^3/uL (1.0-4.8) Monocytes # (Auto) 0.9x10^3/uL (0.0-1.1) Eosinophils # (Auto) 0.1x10^3/uL (0.0-0.7) Basophils # (Auto) 0.1x10^3/uL (0.0-0.2) Sodium Level 139mmol/L (136-145) Potassium Level 3.5mmol/L (3.5-5.1) Chloride Level 100mmol/L (98-107) Carbon Dioxide Level 28mmol/L (21-32) Anion Gap 11 (6-14) Blood Urea Nitrogen 18mg/dL (7-20) Creatinine 0.9mg/dL (0.6-1.0) Estimated GFR (Cockcroft-Gault) 81.2 BUN/Creatinine Ratio 20 (6-20) Glucose Level 110mg/dL (70-99) H Calcium Level 9.3mg/dL (8.5-10.1) Total Bilirubin Pending Aspartate Amino Transferase (AST) Pending Alanine Aminotransferase (ALT) Pending Alkaline Phosphatase Pending Total Protein Pending Albumin Pending Albumin/Globulin Ratio Pending Laboratory Tests 12/25/16 18:30 Laboratory Tests 12/25/16 18:30 EKG EKG EKG: Normal sinus rhythm rate of [address]-T changes [] Radiology/Procedures Radiology/Procedures [] Impressions: Chest x-ray: Poor inspiration otherwise unremarkable as interpreted by me Course & Med Decision Making Course & Med Decision Making Pertinent Labs and Imaging studies reviewed. (See chart for details) [ED course: Evaluation reveals a 46-year-old female who was wheezing. She was given [id number] DuoNeb treatments as well as 125 of Solu-Medrol. After the treatments her reexamination showed that she had no further wheezing in her lungs. Patient is stable for discharge home.] Dragon Disclaimer Dragon Disclaimer This electronic medical record was generated, in whole or in part, using a voice recognition dictation system. Departure Departure Impression: Primary Impression: Asthma exacerbation Disposition: 01 HOME, SELF-CARE Condition: IMPROVED Referrals: SHARMIN ESQUEDA (PCP) Patient Instructions: Asthma Attacks, Prevention, Asthma, Acute Bronchospasm Additional Instructions: Thank you for allowing us to participate in your care today. Followup with your primary care physician in 3 days if your symptoms do not improve. Return to the emergency department you have any new or concerning findings. This should be evaluated by the primary care physician and any necessary consulting services for continued management within a few days after discharge. Return to emergency room if you have any new or concerning symptoms including but not limited to fever, chills, nausea, vomiting, intractable pain, any new rashes, chest pain, shortness of air, uncontrolled bleeding, difficulty breathing, and/or vision loss. You may have been prescribed medication that can change in your level of thinking and ability to operate machinery. These medications include hydrocodone and Ativan. Also, Benadryl has been known to do this as well. Be sure to check with your pharmacist and ask if the medications you've prescribed can affect your level of consciousness. I recommend not operating heavy machinery or driving while on medication such as these. Scripts Albuterol Sulfate (Proventil Hfa Inhaler)6.7 Gm Hfa.aer.ad1 Puff IH PRN Q4HRS PRN asthma #1 INHALER NS Prov:OLIVIA LEWIS DO 12/25/16 Prednisone 20 Mg Tablet2 Tab PO DAILY PRN COUGH #14 TAB Prov:OLIVIA LEWIS DO 12/25/16 Azithromycin (Zithromax)250 Mg Tablet1 Pkg PO UD bronchitis #6 TAB Take 2 tablets on day 1 and then 1 tablet each day for the next 4 days as directed Prov:OLIVIA LEWIS DO 12/25/16 OLIVIA LEWIS DO Dec 25, 2016 19:11
--- NOTE | 2016-12-26 07:50 | RAD ---
Single view chest History:Shortness of air and wheezing for about 1 hour, diagnosed with pneumonia a few days ago An AP view of the chest is submitted. Comparison: 12/03/2016. Findings: There is a lesser degree of inspiration for this exam, lower lung volumes. There is no significant infiltrate, pleural effusion, or pneumothorax. The pericardial cardiac silhouette is within normal limits in size. The trachea is in the midline. No acute osseous abnormality is identified. Impression: There is suboptimal inspiration, no new infiltrate identified..
== END 2016-12-25 19:25 | disposition home or self-care (01) ==
LOC: ER 18:13
DX: J45.901 Unspecified asthma with (acute) exacerbation (principal); J44.9 Chronic obstructive pulmonary disease, unspecified; E78.00 Pure hypercholesterolemia, unspecified; I10 Essential (primary) hypertension; K58.9 Irritable bowel syndrome, unspecified; Z91.018 Allergy to other foods; Z88.0 Allergy status to penicillin; Z90.49 Acquired absence of other specified parts of digestive tract; Z90.710 Acquired absence of both cervix and uterus
CPT/HCPCS: 36415; 71010; 80053; 83880; 84484; 85027; 93005; 94640; 96374; 99285; J2930; J7620

== ENCOUNTER 2017-01-02 21:39 | Emergency (ER) | payer MEDICARE, OTHER ==
[~2017-01-02] VITALS: Ht 149.9 cm; Wt 85.3 kg
[~2017-01-02 21:39] MED LIST changes: +AZIT250T PO; +PRED20TA PO; +PROVENTIL HFA6.7 GM IH
[2017-01-02 22:21] VITALS: BP 143/74
[2017-01-02 23:02] LABS: BASO # 0.1 x10^3/uL (0.0-0.2); BASO % 1 % (0-3); EOS % 2 % (0-3); LYMPH # 2.7 x10^3/uL (1.0-4.8); LYMPH % 28 % (24-48); MEAN CORPUSCULAR HEMOGLOBIN 30 pg (25-35); MEAN CORPUSCULAR HGB CONC 33 g/dL (31-37); MEAN CORPUSCULAR VOLUME 89 fL (79-100); MONO % 7 % (0-9); NEUT % 62 % (31-73); PLATELET COUNT 145 x10^3/uL (140-400); RED BLOOD COUNT 4.04 x10^6/uL (3.50-5.40); RED CELL DISTRIBUTION WIDTH 13.7 % (11.5-14.5); WHITE BLOOD COUNT 9.8 x10^3/uL (4.0-11.0)
[2017-01-02 23:12] LABS: ANION GAP 9 (6-14); BLOOD UREA NITROGEN 14 mg/dL (7-20); CALCIUM 8.9 mg/dL (8.5-10.1); CARBON DIOXIDE 28 mmol/L (21-32); CHLORIDE 104 mmol/L (98-107); CREATININE 0.8 mg/dL (0.6-1.0); GLUCOSE 140 mg/dL (70-99); POTASSIUM 3.9 mmol/L (3.5-5.1); SODIUM 141 mmol/L (136-145)
[2017-01-02 23:18] LABS: ALBUMIN 3.1 g/dL (3.4-5.0); ALK PHOS 57 U/L (46-116); ALT (SGPT) 43 U/L (14-59); AST (SGOT) 15 U/L (15-37); DIRECT BILIRUBIN < 0.1 mg/dL (0.0-0.2); TOTAL BILIRUBIN 0.2 mg/dL (0.2-1.0); TOTAL PROTEIN 6.1 g/dL (6.4-8.2)
[2017-01-03 01:13] LABS: BILIRUBIN,URINE NEGATIVE (NEG); GLUCOSE,URINE NEGATIVE (NEG); NITRITE,URINE NEGATIVE (NEG); PROTEIN,URINE NEGATIVE (NEG-TRACE); UROBILINOGEN,URINE 0.2 mg/dL (0.2 mg/dL)
[2017-01-03 01:21] LABS: BACTERIA,URINE 0 /HPF (0-FEW); RBC,URINE 0 /HPF (0-2); SQUAMOUS EPITHELIAL CELL,UR FEW /LPF; WBC,URINE 0 /HPF (0-4)
--- NOTE | 2017-01-03 01:32 | PHYS DOC ---
Past Medical History Past Medical History: Asthma, COPD, High Cholesterol, Hypertension, Other Additional Past Medical Histor: ibs Past Surgical History: Cholecystectomy, Hysterectomy, Tubal ligation, Other Additional Past Surgical Histo: neck sx, hernia repair, Alcohol Use: Rarely Drug Use: None Adult General Chief Complaint Chief Complaint: DIZZY/LIGHT HEADED HPI HPI 46-year-old female presenting the emergency department with lightheadedness and intermittent blurred vision with swelling bilaterally. She describes her lightheadedness is worse when she stands up. She denies vertigo. She states that her vision currently is not blurry. Onset started on . Location generalized. Duration intermittent. Worse with standing up. No alleviating factors present. The patient also reports recently starting on prazosin for hypertension. Review of systems is negative for chest pain shortness of breath abdominal pain nausea or vomiting. All other review of systems is negative unless otherwise noted in history of present illness. Review of Systems Review of Systems SEE ABOVE. Allergies Allergies Allergies Coded Allergies Type Severity Reaction Last Updated Verified poppyseed oil Allergy Severe Hives 05/02/16 Yes Penicillins Allergy Intermediate HIVES 05/02/16 Yes Physical Exam Physical Exam Constitutional: Well developed, well nourished, no acute distress, non-toxic appearance. HENT: Normocephalic, atraumatic, bilateral external ears normal, oropharynx moist, no oral exudates, nose normal. [] Eyes: PERRLA, EOMI, conjunctiva normal, no discharge. Neck: Normal range of motion, no tenderness, supple, no stridor. Cardiovascular:Heart rate regular rhythm, no murmur [] Lungs & Thorax: Bilateral breath sounds clear to auscultation Abdomen: Bowel sounds normal, soft, no tenderness, no masses, no pulsatile masses. Skin: Warm, dry, no erythema, no rash. [] Back: No tenderness, no CVA tenderness. Extremities: No tenderness, no cyanosis, no clubbing, ROM intact, 1+ edema. Neurologic: Alert and oriented X 3, normal motor function, normal sensory function, no focal deficits noted. Psychologic: Affect normal, judgement normal, mood normal. [] Current Patient Data Vital Signs Vital Signs Date Time Temp Pulse Resp B/P Pulse Ox O2 Delivery O2 Flow Rate FiO2 01/02/17 22:21 98.6 85 20 143/74 98 Room Air 98.6 Lab Values Laboratory Tests Test 01/02/17 22:52 01/03/17 01:00 White Blood Count 9.8x10^3/uL (4.0-11.0) Red Blood Count 4.04x10^6/uL (3.50-5.40) Hemoglobin 12.0g/dL (12.0-15.5) Hematocrit 36.0% (36.0-47.0) Mean Corpuscular Volume 89fL (79-100) Mean Corpuscular Hemoglobin 30pg (25-35) Mean Corpuscular Hemoglobin Concent 33g/dL (31-37) Red Cell Distribution Width 13.7% (11.5-14.5) Platelet Count 145x10^3/uL (140-400) Neutrophils (%) (Auto) 62% (31-73) Lymphocytes (%) (Auto) 28% (24-48) Monocytes (%) (Auto) 7% (0-9) Eosinophils (%) (Auto) 2% (0-3) Basophils (%) (Auto) 1% (0-3) Neutrophils # (Auto) 6.1x10^3uL (1.8-7.7) Lymphocytes # (Auto) 2.7x10^3/uL (1.0-4.8) Monocytes # (Auto) 0.7x10^3/uL (0.0-1.1) Eosinophils # (Auto) 0.2x10^3/uL (0.0-0.7) Basophils # (Auto) 0.1x10^3/uL (0.0-0.2) Sodium Level 141mmol/L (136-145) Potassium Level 3.9mmol/L (3.5-5.1) Chloride Level 104mmol/L (98-107) Carbon Dioxide Level 28mmol/L (21-32) Anion Gap 9 (6-14) Blood Urea Nitrogen 14mg/dL (7-20) Creatinine 0.8mg/dL (0.6-1.0) Estimated GFR (Cockcroft-Gault) 93.0 Glucose Level 140mg/dL (70-99) H Calcium Level 8.9mg/dL (8.5-10.1) Total Bilirubin 0.2mg/dL (0.2-1.0) Direct Bilirubin < 0.1mg/dL (0.0-0.2) Aspartate Amino Transferase (AST) 15U/L (15-37) Alanine Aminotransferase (ALT) 43U/L (14-59) Alkaline Phosphatase 57U/L (46-116) Troponin I Quantitative < 0.017ng/mL (0.000-0.055) Total Protein 6.1g/dL (6.4-8.2) L Albumin 3.1g/dL (3.4-5.0) L Lipase 140U/L (73-393) Urine Collection Type Unknown Urine Color Yellow Urine Clarity Clear Urine pH 7.0 Urine Specific [place] 1.010 Urine Protein Negativemg/dL (NEG-TRACE) Urine Glucose (UA) Negativemg/dL (NEG) Urine Ketones (Stick) Negativemg/dL (NEG) Urine Blood Negative (NEG) Urine Nitrite Negative (NEG) Urine Bilirubin Negative (NEG) Urine Urobilinogen Dipstick 0.2mg/dL (0.2 mg/dL) Urine Leukocyte Esterase Negative (NEG) Urine RBC 0/HPF (0-2) Urine WBC 0/HPF (0-4) Urine Squamous Epithelial Cells Few/LPF Urine Bacteria 0/HPF (0-FEW) Urine Mucus Slight/LPF Laboratory Tests 01/02/17 22:52 Laboratory Tests 01/02/17 22:52 EKG EKG [] Radiology/Procedures Radiology/Procedures []Chest x-ray reviewed by myself shows no obvious infiltrate or pneumothorax present. No obvious acute cardiopulmonary process present. Course & Med Decision Making Course & Med Decision Making Pertinent Labs and Imaging studies reviewed. (See chart for details) [] 46-year-old female presenting to the emergency department today with lightheadedness and mild swelling of the ankles after starting a medication prazosin. On examination the patient was afebrile with normal vital signs. Physical exam was otherwise unremarkable. Blood work is obtained which was unremarkable. Given the timing of the medication being administered I recommended stopping the prazosin and following up with her primary care physician in 2-3 days for further evaluation workup and care in the outpatient setting. She did have mild edema without any clinical evidence of pulmonary edema. Not hypoxic. Not dyspneic. Dragon Disclaimer Dragon Disclaimer This electronic medical record was generated, in whole or in part, using a voice recognition dictation system. Departure Departure Impression: Primary Impression: Edema Additional Impressions: Lightheadedness Malaise Disposition: 01 HOME, SELF-CARE Condition: STABLE Referrals: SHARMIN ESQUEDA (PCP) Patient Instructions: Dizziness Additional Instructions: Thank you for allowing us to participate in your care today. I recommend you stop taking prazosin and follow up with her primary care doctor over the next day or 2 to reevaluate her blood pressure medications. Followup with your primary care physician in 1-2 days. If you do not have a primary care provider you can ask for a list of our primary care providers. Return to the emergency department you have any new or concerning findings. This should be evaluated by the primary care physician and any necessary consulting services for continued management within a few days after discharge. Return to emergency room if you have any new or concerning symptoms including but not limited to fever, chills, nausea, vomiting, intractable pain, any new rashes, chest pain, shortness of air, uncontrolled bleeding, difficulty breathing, and/or vision loss. Problem Qualifiers MANA PHAN MD Jan 03, 2017 01:32
--- NOTE | 2017-01-03 07:17 | RAD ---
Chest, 2 views, 01/02/2017: History: Asthma, lightheadedness The heart size and pulmonary vascularity are normal. No pulmonary infiltrates are seen. There is no evidence of pleural fluid. Moderate spurring is present in the spine. IMPRESSION: No acute cardiopulmonary abnormality is detected.
--- NOTE | 2017-01-03 09:23 | EKG ---
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
== END 2017-01-03 01:51 | disposition home or self-care (01) ==
LOC: ER 21:39
DX: R60.0 Localized edema (principal); R42 Dizziness and giddiness; R53.81 Other malaise; J45.909 Unspecified asthma, uncomplicated; J44.9 Chronic obstructive pulmonary disease, unspecified; E78.00 Pure hypercholesterolemia, unspecified; I10 Essential (primary) hypertension; K58.9 Irritable bowel syndrome, unspecified; Z79.899 Other long term (current) drug therapy; Z91.018 Allergy to other foods; Z88.0 Allergy status to penicillin
CPT/HCPCS: 36415; 71020; 80048; 80076; 81001; 83690; 84484; 85027; 93005; 99285-25

== ENCOUNTER 2017-02-11 12:36 | Emergency (ER) | payer MEDICARE, OTHER ==
[~2017-02-11] VITALS: Ht 152.4 cm; Wt 84.8 kg
[2017-02-11 13:02] VITALS: BP 151/92
--- NOTE | 2017-02-11 14:29 | PHYS DOC ---
Past Medical History Past Medical History: Asthma, COPD, DVT, High Cholesterol, Hypertension, Other Additional Past Medical Histor: ibs Past Surgical History: Cholecystectomy, Hysterectomy, Tubal ligation, Other Additional Past Surgical Histo: neck sx, hernia repair, Alcohol Use: Rarely Drug Use: None Adult General Chief Complaint Chief Complaint: LOWER EXT PAIN HPI HPI Patient is a 46 year old female who presents with right calf pain. Patient reports 2 day history of soreness in right posterior calf and behind her right knee. Denies any history of trauma. Denies fevers or chills, chest pain or shortness of breath, skin changes. Recently hospitalized 5 days at an outside hospital for allergic reaction. States she was not receiving DVT prophylaxis at that time. She has previous history of lower extremity DVT, not on chronic anticoagulation. Otherwise previously healthy, denies use of control. Review of Systems Review of Systems Constitutional: Denies fever or chills HENT: Denies nasal congestion or sore throat Respiratory: Denies cough or shortness of breath Cardiovascular: Denies chest pain or edema GI: Denies abdominal pain, nausea, vomiting Musculoskeletal: Denies back pain, reports calf pain Integument: Denies rash or skin lesions Neurologic: Denies headache Allergies Allergies Allergies Coded Allergies Type Severity Reaction Last Updated Verified poppyseed oil Allergy Severe Hives 02/11/17 Yes Penicillins Allergy Intermediate HIVES 02/11/17 Yes Uncoded Allergies Type Severity Reaction Last Updated Verified mustard seed Allergy Severe hives/angioedema 02/11/17 Physical Exam Physical Exam Constitutional: Obese, no acute distress, non-toxic appearance. HENT: Normocephalic, atraumatic, bilateral external ears normal, oropharynx moist, nose normal. Eyes: conjunctiva normal, no discharge. Neck: supple, no stridor. Cardiovascular: RRR, no murmurs, no edema. Lungs & Thorax: LCTAB, no wheezing, no respiratory distress. Abdomen: nondistended. Skin: Warm, dry, no erythema, no rash. Extremities: Right lower extremity no swelling or deformity, tenderness posteriorly over the calf, no erythema, warmth, swelling, no edema, distally neurovascularly intact. Neurologic: Alert and oriented X 3 Current Patient Data Vital Signs Vital Signs Date Time Temp Pulse Resp B/P Pulse Ox O2 Delivery O2 Flow Rate FiO2 02/11/17 13:02 98.8 71 20 151/92 99 Room Air 98.8 EKG EKG [] Radiology/Procedures Radiology/Procedures [] Course & Med Decision Making Course & Med Decision Making Pertinent Labs and Imaging studies reviewed. (See chart for details) Patient presents with calf pain on the right lower extremity. She declined need for pain medication. She was concerned about DVT due to previous history. Ultrasound was ordered. There were several patients ahead of this individual to receive ultrasound exam. She became impatient while waiting and needed to leave to pick her son up from school. The technical sales support specialist was in the doorway and available to complete the exam immediately but the patient stated she needed to leave rather than having the exam completed. She is in stable condition and I encouraged her that she could return at any time if she is significantly concerned, otherwise she may follow up with her primary care physician. She is discharged in stable condition. Dragon Disclaimer Dragon Disclaimer This electronic medical record was generated, in whole or in part, using a voice recognition dictation system. Departure Departure Impression: Primary Impression: Calf pain Disposition: 01 HOME, SELF-CARE Condition: STABLE Referrals: SHARMIN ESQUEDA (PCP) Patient Instructions: Musculoskeletal Pain Additional Instructions: You were seen in the emergency department today for calf pain. An ultrasound was ordered but you needed to leave before be performed. We were not able to tell you whether or not you have a blood clot. Please follow-up with primary care physician as soon as possible if symptoms don't go away. Come back for severe shortness of breath or chest pain, or any otherwise worsening condition. GENNY BRYANT MD Feb 11, 2017 14:29
== END 2017-02-11 14:40 | disposition home or self-care (01) ==
LOC: ER 12:36
DX: M79.661 Pain in right lower leg (principal); E78.00 Pure hypercholesterolemia, unspecified; J44.0 Chronic obstructive pulmonary disease with (acute) lower respiratory infection; J45.909 Unspecified asthma, uncomplicated; K58.9 Irritable bowel syndrome, unspecified; I10 Essential (primary) hypertension; Z86.718 Personal history of other venous thrombosis and embolism; Z88.0 Allergy status to penicillin; Z90.710 Acquired absence of both cervix and uterus; Z90.49 Acquired absence of other specified parts of digestive tract; Z98.51 Tubal ligation status; Z98.890 Other specified postprocedural states; Z91.018 Allergy to other foods
CPT/HCPCS: 99284

== ENCOUNTER 2017-02-17 08:40 | Emergency (ER) | payer MEDICARE, OTHER ==
[~2017-02-17] VITALS: Ht 152.4 cm; Wt 82.6 kg
[2017-02-17 08:43] VITALS: BP 148/93
[2017-02-17] MEDS ORDERED: FAMO-63 PO (09:00)
--- NOTE | 2017-02-17 09:00 | PHYS DOC ---
Past Medical History Past Medical History: Asthma, COPD, DVT, High Cholesterol, Hypertension, Other Additional Past Medical Histor: ibs Past Surgical History: Cholecystectomy, Hysterectomy, Tubal ligation, Other Additional Past Surgical Histo: neck sx, hernia repair, Alcohol Use: Rarely Drug Use: None Adult General Chief Complaint Chief Complaint: FACE PROBLEM HPI HPI Patient is a 46 year old female presents emergency room with complaint of swelling and redness to the left side of her for head and around her left eye secondary to an insect bite or sting that occurred yesterday afternoon. Patient states that she took Benadryl last night. She has not taken any additional Benadryl. She is also been applying warm compresses to the area. Patient denies any other facial swelling, airway swelling or difficulty breathing. Review of Systems Review of Systems Constitutional: Denies fever or chills [] Eyes: Denies change in visual acuity, redness, or eye pain [] HENT: Denies nasal congestion or sore throat [] Respiratory: Denies cough or shortness of breath [] Cardiovascular: No additional information not addressed in HPI [] GI: Denies abdominal pain, nausea, vomiting, bloody stools or diarrhea [] : Denies dysuria or hematuria [] Musculoskeletal: Denies back pain or joint pain [] Integument: Denies rash or skin lesions [] Neurologic: Denies headache, focal weakness or sensory changes [] Endocrine: Denies polyuria or polydipsia [] Allergies Allergies Allergies Coded Allergies Type Severity Reaction Last Updated Verified poppyseed oil Allergy Severe Hives 02/11/17 Yes Penicillins Allergy Intermediate HIVES 02/11/17 Yes Uncoded Allergies Type Severity Reaction Last Updated Verified mustard seed Allergy Severe hives/angioedema 02/11/17 Physical Exam Physical Exam Constitutional: Well developed, well nourished, no acute distress, non-toxic appearance. [] HENT: Normocephalic, atraumatic, bilateral external ears normal, oropharynx moist, no oral exudates, nose normal. There is no angioedema. There is a mild amount of swelling to the left lateral eyebrow and left lower lid. There is mild erythema to the area. There is no heat to the touch. There is a punctum in the center of the swelling to the left lateral forehead. Eyes: PERRLA, EOMI, conjunctiva normal, no discharge. Neck: Normal range of motion, no tenderness, supple, no stridor. [] Cardiovascular:Heart rate regular rhythm, no murmur [] Lungs & Thorax: Bilateral breath sounds clear to auscultation [] Abdomen: Bowel sounds normal, soft, no tenderness, no masses, no pulsatile masses. [] Skin: Warm, dry, no erythema, no rash. [] Back: No tenderness, no CVA tenderness. [] Extremities: No tenderness, no cyanosis, no clubbing, ROM intact, no edema. [] Neurologic: Alert and oriented X 3, normal motor function, normal sensory function, no focal deficits noted. [] Psychologic: Affect normal, judgement normal, mood normal. [] Current Patient Data Vital Signs Vital Signs Date Time Temp Pulse Resp B/P Pulse Ox O2 Delivery O2 Flow Rate FiO2 02/17/17 08:43 98.1 83 18 98 Room Air 98.1 EKG EKG [] Radiology/Procedures Radiology/Procedures [] Course & Med Decision Making Course & Med Decision Making Pertinent Labs and Imaging studies reviewed. (See chart for details) [] Dragon Disclaimer Dragon Disclaimer This electronic medical record was generated, in whole or in part, using a voice recognition dictation system. Departure Departure Impression: Primary Impression: Insect sting Disposition: HOME, SELF-CARE Condition: GOOD Referrals: SHARMIN ESQUEDA (PCP) Patient Instructions: Insect Bite, [id number] Additional Instructions: 1. There is no evidence of infection. As discussed, it takes 72-96 hours to develop an infection from an insect bite or sting if it is going to happen. 2. Take Benadryl every 6-8 hours for the itching, apply [id number] antibiotic cream such as bacitracin or triple antibiotic 3 times a day to help prevent an infection. Apply cool compresses to the area every 2 hours for 20-30 minutes at a time to help with the swelling. 3. Review the discharge instructions provided for self-care and reasons to return to the emergency department. 4. Take the medications as prescribed. 5. Contact your primary care doctor to schedule an appointment for reevaluation by Tuesday. Scripts Famotidine (Pepcid)20 Mg [id number] Mg PO BID insect bite/sting 5 Days Prov:RODRICK BROWN 02/17/17 RODRICK BROWN Feb 17, 2017 09:00
[2017-02-17] MEDS ORDERED: PRED20TA PO (09:05)
== END 2017-02-17 09:15 | disposition home or self-care (01) ==
LOC: ER 08:40
DX: T63.481A Toxic effect of venom of other arthropod, accidental (unintentional), initial encounter (principal); J45.909 Unspecified asthma, uncomplicated; J44.9 Chronic obstructive pulmonary disease, unspecified; E78.00 Pure hypercholesterolemia, unspecified; I10 Essential (primary) hypertension; K58.9 Irritable bowel syndrome, unspecified; Z86.718 Personal history of other venous thrombosis and embolism; Z91.018 Allergy to other foods; Z88.0 Allergy status to penicillin; Y92.89 Other specified places as the place of occurrence of the external cause
CPT/HCPCS: 99283

== ENCOUNTER 2017-02-22 22:19 | Inpatient (IN) | payer MEDICARE, OTHER ==
[~2017-02-22] VITALS: Ht 152.4 cm; Wt 84.8 kg
[~2017-02-22 22:19] MED LIST changes: +FAMO-63 PO
[2017-02-22 22:58] LABS: BASO # 0.1 x10^3/uL (0.0-0.2); BASO % 1 % (0-3); EOS % 3 % (0-3); HEMATOCRIT 39.2 % (36.0-47.0); HEMOGLOBIN 12.9 g/dL (12.0-15.5); LYMPH # 2.2 x10^3/uL (1.0-4.8); LYMPH % 29 % (24-48); MEAN CORPUSCULAR HEMOGLOBIN 29 pg (25-35); MEAN CORPUSCULAR HGB CONC 33 g/dL (31-37); MEAN CORPUSCULAR VOLUME 88 fL (79-100); MONO % 10 % (0-9); NEUT % 57 % (31-73); PLATELET COUNT 169 x10^3/uL (140-400); RED BLOOD COUNT 4.44 x10^6/uL (3.50-5.40); RED CELL DISTRIBUTION WIDTH 14.4 % (11.5-14.5); WHITE BLOOD COUNT 7.5 x10^3/uL (4.0-11.0)
[2017-02-22] MEDS ORDERED: IV NORMAL SALINE 1000ML BAG 1,000 ML IV SCH (23:00)
[2017-02-22] MEDS ORDERED: NITROGLYCERIN SUBLINGUAL 0.4 MG BOTTLE OF 25. SL PRN (23:00)
[2017-02-22] MEDS ORDERED: ASPIRIN CHEWABLE 81 MG TABLET. PO ONE (23:00)
--- NOTE | 2017-02-22 23:00 | PHYS DOC ---
Past Medical History Past Medical History: Asthma, COPD, DVT, High Cholesterol, Hypertension, Other Additional Past Medical Histor: ibs Past Surgical History: Cholecystectomy, Hysterectomy, Tubal ligation, Other Additional Past Surgical Histo: neck sx, hernia repair, Alcohol Use: Rarely Drug Use: None Adult General Chief Complaint Chief Complaint: CHEST PAIN HPI HPI Patient is a 46 year old female who presents with complaint of chest pain. Patient states her symptoms started approximately 1 hour prior to arrival. Patient states that her symptoms came on suddenly at rest. Patient states that the pain is in the middle of her chest but also notes pain and discomfort in her right jaw. Patient has had associated shortness of breath and nausea with her symptoms. The patient states that she has history of DVT and she is concerned that she may be having a recurrence as she has been having right calf pain for the last week. Patient is not currently on any blood thinners. Patient rates her pain as 4 out of 10. Patient denies any exacerbating symptoms. Patient also admits to history of hypertension and hyperlipidemia as well as history of tobacco use. Patient has not taken any medications to help with her symptoms at this time. Review of Systems Review of Systems Constitutional: Denies fever or chills [] Eyes: Denies change in visual acuity, redness, or eye pain [] HENT: Denies nasal congestion or sore throat [] Respiratory: Shortness of breath [] Cardiovascular: Chest pain, denies edema [] GI: Nausea, denies abdominal pain, vomiting, bloody stools or diarrhea [] : Denies dysuria or hematuria [] Musculoskeletal: Denies back pain or joint pain [] Integument: Denies rash or skin lesions [] Neurologic: Denies headache, focal weakness or sensory changes [] Current Medications Current Medications Current Medications Medications (Trade) Dose Ordered Sig/Guillermina Start Time Stop Time Status Last Admin Dose Admin Acetaminophen (Tylenol) 650 mg PRN Q4HRS PRN 02/23/17 00:00 02/23/17 23:59 Aspirin (Children'S Aspirin) 324 mg 1X ONCE 02/22/17 23:00 02/22/17 23:01 DC 02/22/17 23:14 324 MG Fentanyl Citrate 50 mcg 50 mcg PRN Q2HR PRN 02/23/17 00:00 02/23/17 23:59 Nitroglycerin (Nitrostat) 0.4 mg PRN Q5MIN PRN 02/22/17 23:00 02/23/17 22:59 Ondansetron HCl (Zofran) 4 mg PRN Q8HRS PRN 02/23/17 00:00 02/23/17 23:59 Sodium Chloride (Iv Sodium Chloride 0.9% 1000ml Bag) 1,000 ml @ 100 mls/hr Q10H 02/23/17 00:00 02/23/17 00:01 DC Allergies Allergies Allergies Coded Allergies Type Severity Reaction Last Updated Verified poppyseed oil Allergy Severe Hives 02/11/17 Yes Penicillins Allergy Intermediate HIVES 02/11/17 Yes Uncoded Allergies Type Severity Reaction Last Updated Verified mustard seed Allergy Severe hives/angioedema 02/11/17 Physical Exam Physical Exam Constitutional: Alert, afebrile, appears in mild to moderate discomfort. [] HENT: Normocephalic, atraumatic, bilateral external ears normal, oropharynx moist, no oral exudates, nose normal. [] Eyes: PERRLA, EOMI, conjunctiva normal, no discharge. [] Neck: Normal range of motion, no tenderness, supple, no stridor. [] Cardiovascular:Heart rate regular rhythm, no murmur [] Lungs & Thorax: Bilateral breath sounds clear to auscultation [] Abdomen: Bowel sounds normal, soft, no tenderness, no masses, no pulsatile masses. [] Skin: Warm, dry, no erythema, no rash. [] Back: No tenderness, no CVA tenderness. [] Extremities: Right calf tenderness to palpation, no cyanosis, no clubbing, ROM intact, no edema. [] Neurologic: Alert and oriented X 3, normal motor function, normal sensory function, no focal deficits noted. [] Current Patient Data Vital Signs Vital Signs Date Time Temp Pulse Resp B/P Pulse Ox O2 Delivery O2 Flow Rate FiO2 02/22/17 22:33 98.1 77 16 159/97 100 Room Air 98.1 Lab Values Laboratory Tests Test 02/22/17 22:47 White Blood Count 7.5x10^3/uL (4.0-11.0) Red Blood Count 4.44x10^6/uL (3.50-5.40) Hemoglobin 12.9g/dL (12.0-15.5) Hematocrit 39.2% (36.0-47.0) Mean Corpuscular Volume 88fL (79-100) Mean Corpuscular Hemoglobin 29pg (25-35) Mean Corpuscular Hemoglobin Concent 33g/dL (31-37) Red Cell Distribution Width 14.4% (11.5-14.5) Platelet Count 169x10^3/uL (140-400) Neutrophils (%) (Auto) 57% (31-73) Lymphocytes (%) (Auto) 29% (24-48) Monocytes (%) (Auto) 10% (0-9) H Eosinophils (%) (Auto) 3% (0-3) Basophils (%) (Auto) 1% (0-3) Neutrophils # (Auto) 4.2x10^3uL (1.8-7.7) Lymphocytes # (Auto) 2.2x10^3/uL (1.0-4.8) Monocytes # (Auto) 0.7x10^3/uL (0.0-1.1) Eosinophils # (Auto) 0.2x10^3/uL (0.0-0.7) Basophils # (Auto) 0.1x10^3/uL (0.0-0.2) D-Dimer (Merlene) 0.84ug/mlFEU (0.00-0.50) H Sodium Level 142mmol/L (136-145) Potassium Level 3.9mmol/L (3.5-5.1) Chloride Level 104mmol/L (98-107) Carbon Dioxide Level 26mmol/L (21-32) Anion Gap 12 (6-14) Blood Urea Nitrogen 12mg/dL (7-20) Creatinine 1.3mg/dL (0.6-1.0) H Estimated GFR (Cockcroft-Gault) 53.1 Glucose Level 115mg/dL (70-99) H Calcium Level 8.8mg/dL (8.5-10.1) Magnesium Level 1.6mg/dL (1.8-2.4) L Total Bilirubin 0.5mg/dL (0.2-1.0) Direct Bilirubin 0.1mg/dL (0.0-0.2) Aspartate Amino Transferase (AST) 16U/L (15-37) Alanine Aminotransferase (ALT) 29U/L (14-59) Alkaline Phosphatase 62U/L (46-116) Creatine Kinase 154U/L (26-192) Creatine Kinase MB (Mass) 1.6ng/mL (0.0-3.6) Creatine Kinase MB Relative Index 1.0% (0-4) Troponin I Quantitative 0.021ng/mL (0.000-0.055) Total Protein 6.7g/dL (6.4-8.2) Albumin 3.6g/dL (3.4-5.0) Lipase 84U/L (73-393) Laboratory Tests 02/22/17 22:47 Laboratory Tests 02/22/17 22:47 EKG EKG Interpreted by me: Heart rate 76, sinus rhythm, normal intervals, nonspecific T- wave inversion in lead 3, no acute ST elevations or depressions [] Radiology/Procedures Radiology/Procedures One view AP chest x-ray interpreted by me: No infiltrate, no effusions, normal cardiac silhouette [] Course & Med Decision Making Course & Med Decision Making Pertinent Labs and Imaging studies reviewed. (See chart for details) The patient's initial workup did show a positive D-dimer test. The patient also has significant risk factors for possible coronary artery disease including hyperlipidemia, hypertension, and history of tobacco use. Due to positive d- dimer, chest pain, and history of DVT, the patient will require CT angiography for rule out of pulmonary embolism. The patient will require admission to the hospital for further workup and treatment of patient's chest pain. I spoke with Dr. Dean who accepted care patient in hospital. Patient's CT scan will be completed tonight and results will be followed up by Dr. Ulloa. Dragon Disclaimer Dragon Disclaimer This electronic medical record was generated, in whole or in part, using a voice recognition dictation system. Departure Departure Impression: Primary Impression: Chest pain Disposition: ADMITTED INPATIENT Admitting Physician: Other Condition: STABLE Referrals: SHARMIN ESQUEDA (PCP) Problem Qualifiers Primary Impression: Chest pain Chest pain type: unspecified Qualified Code: R07.9 - Chest pain, unspecified GEOVANNY PATEL MD Feb 22, 2017 23:00
[2017-02-22 23:17] LABS: CALCIUM 8.8 mg/dL (8.5-10.1); CREATININE 1.3 mg/dL (0.6-1.0); GFR 53.1; POTASSIUM 3.9 mmol/L (3.5-5.1)
[2017-02-22 23:24] LABS: ALBUMIN 3.6 g/dL (3.4-5.0); DIRECT BILIRUBIN 0.1 mg/dL (0.0-0.2); TOTAL BILIRUBIN 0.5 mg/dL (0.2-1.0); TOTAL PROTEIN 6.7 g/dL (6.4-8.2)
[2017-02-22] MEDS ORDERED: ONDANSETRON PF 4 MG/2 ML VIAL. IV ONE (23:30)
[2017-02-22 23:47] LABS: CKMB MASS 1.6 ng/mL (0.0-3.6)
[2017-02-23] MEDS ORDERED: IV NORMAL SALINE 1000ML BAG 1,000 ML IV SCH
[2017-02-23] MEDS ORDERED: ONDANSETRON PF 4 MG/2 ML VIAL. IV PRN
--- NOTE | 2017-02-23 00:43 | ACF ---
Admission Forms Criteria CHEST PAIN Clinical Indications for Admission to Inpatient Care (Place 'X' for any and all applicable criteria): Admission is indicated for chest pain and ANY ONE of the following(1)(2)(3)(4)(5 ): [ ]I. Angina with acute coronary syndrome (Also use Myocardial Infarction or Angina guideline) [ ]II. Hemodynamic instability [ ]III. Angina needing acute intervention as indicated by ALL of the following( 11)(12): [ ]a) Unstable angina is present as indicated by angina that is ANY ONE of the following: [ ]i) New onset [ ]ii) Nocturnal [ ]iii) Prolonged at rest [ ]iv) Progressive [ ]b) Angina warrants acute intervention as indicated by ANY ONE of the following: [ ]i) Recurrent angina (e.g, not responding as previously to treatment) [ ]ii) Angina at rest or with low-level activities despite initial medical therapy [ ]iii) New or presumably new ST-segment depression on ECG [ ]iv) Signs or symptoms of heart failure (eg, dyspnea, pulmonary edema) [ ]v) New or worsening mitral regurgitation [ ]vi) Hemodynamic instability [ ]vii) Dangerous arrhythmia (eg, sustained ventricular tachycardia) [ ]viii) History of percutaneous coronary intervention within 6 months [ ]ix) History of coronary artery bypass graft surgery [ ]x) THALIA risk score of 2 or greater[A] [ ]xi) History of Diabetes(14) [ ]xii) High-risk cardiac ischemia findings on noninvasive testing (e.g, echocardiogram, treadmill testing, nuclear scan) [ ]xiii) Chronic renal insufficiency (ie, estimated GFR less than 60 mL/min/1.732m) [ ]xiv) Left ventricular ejection fraction less than 40% [ ]IV. Evidence of AR (eg, cardiac biomarkers positive, ST-segment elevation on ECG) also use Myocardial Infarction Criteria Form. [ ]V. Pulmonary edema [ ]. Respiratory distress [ ]VII. Chest pain indicative of serious diagnosis other than coronary artery disease (eg, aortic dissection) [ ]VIII. Contraindications and/or Inappropriate clinical situations for Observational Care in patients with Chest Pain, when ANY ONE of the following is required: [ ]a) Patient with risk factor for pulmonary embolism, acute coronary syndrome and myocardial infarction (18) [ ]b) Patient with Pulmonary embolism require an average LOS of 4.3 days, therefore emergency department observation management is inappropriate 18,23 [ ]c) Painful condition/s in the elderly, have the highest rate of recidivism after emergency department observation management (10.8%) 20,21,22 [ ]d) Elevated cardiac biomarker requires intensive and exhaustive care (19) [X]IX. General contraindications and/or Inappropriate clinical situations for Observational Care in patients with Chest Pain, when ANY ONE of the following is required: [X]a) Prediction of prolongation of LOS based on ANY ONE of the following may be considered as a contraindication for observational care 2, 3, 4, 5, 6, 7, 8, 9, 10, 11 [ ]i) Age > 65 yrs. [ ]ii) Patient arriving by ambulance [ ]iii) Patient with high acuity [X]iv) Patient requiring vital sign monitoring [ ]v) Patient on IV medication [ ]b) Systolic blood pressures 180mmHg 3,12 [ ]c) Patient with altered mental status including delirium and other alteration of consciousness, (3) [ ]d) Patient whose discharge disposition will be to a prison home or rehabilitation home should not be managed in Emergency Department Observation Unit. CMS rule requires 3 days hospital stay before such placement. 3,13 [ ]e) Patient with failure to thrive due to broad array of etiologies 3,16,17 [ ]f) Inability to ambulate 3,14 Extended stay beyond goal length of stay may be needed for (1)(28): [ ]a) Specific condition diagnosed after evaluation (eg, pulmonary embolism, aortic dissection) [ ]b) Unstable angina [ ]c) Continued suspicion of acute coronary syndrome with inability to complete needed cardiac evaluation (eg, patient clinically unable to undergo stress testing) [ ]d) Myocardial infarction (Contents from ANGINA and CHEST PAIN clinical indications for admission to inpatient care have been integrated in this form) The original [email or web address] content created by [employer] has been revised. The portions of the content which have been revised are identified through the use of italic text or in bold, and [email or web address] [employer] has neither reviewed nor approved the modified material. All other unmodified content is copyright [email or web address]. Please see references footnoted in the original [email or web address] edition 2016 Admission Criteria Met?: Yes CARSON COMBS Feb 23, 2017 00:43
[2017-02-23] MEDS ORDERED: IOHEXOL 300 MG/ML 75 ML VIAL IV ONE (00:45)
--- NOTE | 2017-02-23 01:36 | RAD ---
INDICATION: Chest pain. COMPARISON: July 26, 2016 TECHNIQUE: Axial CT images obtained through the chest. Intravenous contrast was utilized. 3D images processed per protocol. One or more of the following individualized dose reduction techniques were utilized for this examination: 1. Automated exposure control; 2. Adjustment of the mA and/or kV according to patient size; 3. Use of iterative reconstruction technique. FINDINGS: No focal airspace consolidation. No pneumothorax. No pulmonary edema. Thoracic aorta not grossly aneurysmal. Ascending thoracic aorta is largely obscured by motion. No gross osseous destructive lesion. No central pulmonary embolus. Limited peripheral evaluation secondary to motion Similar appearance of 4 millimeter nodules right mid and lower lung anteriorly. Degenerative changes of spine. IMPRESSION: No focal airspace consolidation, pneumothorax or pulmonary edema. No embolus in main, right main or left main pulmonary artery. Large amount of patient motion obscures peripheral vessels. There are couple of sub 4 millimeter right lung pulmonary nodules again seen and similar to prior but the right mid lung nodule may be slightly more prominent when compared to 2015. If the patient has risk factors a follow-up CT could be obtained in a year to ensure no growth. Electronically signed by: Asif Hook (Feb 23, 2017 01:34:07)
[2017-02-23] MEDS: fentaNYL PF VIAL 100 MCG/2 ML VIAL IV PRN ×6 (01:52→21:15)
[2017-02-23] MEDS ORDERED: ALBU2.5V5 NEB (03:08)
[2017-02-23] MEDS ORDERED: PROAIR HFA8.5 GM INH (03:08)
[2017-02-23 03:15] VITALS: BP 133/81
[2017-02-23 06:20] LABS: CALCIUM 8.4 mg/dL (8.5-10.1); CREATININE 1.4 mg/dL (0.6-1.0); GFR 48.8; POTASSIUM 3.7 mmol/L (3.5-5.1)
--- NOTE | 2017-02-23 06:51 | EKG ---
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
[2017-02-23 06:54] LABS: BASO % 1 % (0-3); EOS % 3 % (0-3); HEMOGLOBIN 12.9 g/dL (12.0-15.5); LYMPH # 1.8 x10^3/uL (1.0-4.8); LYMPH % 29 % (24-48); MEAN CORPUSCULAR HEMOGLOBIN 30 pg (25-35); MEAN CORPUSCULAR HGB CONC 34 g/dL (31-37); MEAN CORPUSCULAR VOLUME 87 fL (79-100); MONO % 13 % (0-9); NEUT % 55 % (31-73); PLATELET COUNT 164 x10^3/uL (140-400); RED BLOOD COUNT 4.38 x10^6/uL (3.50-5.40); RED CELL DISTRIBUTION WIDTH 14.3 % (11.5-14.5); WHITE BLOOD COUNT 6.2 x10^3/uL (4.0-11.0)
[2017-02-23 07:00] VITALS: BP 135/67
--- NOTE | 2017-02-23 08:33 | RAD ---
Portable AP upright view CXR: Clinical indications: Chest pain today. Comparison: January 02, 2017. Findings: No acute lung infiltrate or pleural effusion or pulmonary edema or lung mass or pneumothorax is seen. The heart size, pulmonary vasculature, mediastinum and both ronaldo are unremarkable. Impression: No acute radiographic abnormality is seen.
--- NOTE | 2017-02-23 09:13 | PDOC2 ---
SUSIE RAMOS MANAGER NEWS 02/23/17 0913: CARDIAC CONSULT DATE OF CONSULT Date of Consult DATE: 02/23/17 TIME: 09:02 REASON FOR CONSULT Reason for Consult: Chest pain REFERRING PHYSICIAN Referring Physician: Lonny SOURCE Source: Chart review, Patient HISTORY OF PRESENT ILLNESS HISTORY OF PRESENT ILLNESS This is a pleasant 46 yo female admitted for complains of chest pain. Reports that her CP is dull isolated to bilateral lower rib cage region. This has been nagging her. Also with nausea and right side jaw discomfort. All of these symptoms are currently absent. Denies any frequent heartburn. Also has been having feeling of weakness but she is mainly sedentary. Denies any falls, recent injury. Denies any SOA, palpitations. She does have hx of anxiety, chronic pain with her neck and lower back and on chronic opioid use. She had cardiac workup in 10/2016 stress test and echocardiogram which were all normal. She does have persistent right leg pain mainly behind her right knee and she has hx of DVT. PAST MEDICAL HISTORY Past Medical History Cardiovascular: HTN, Hyperlipidemia, Other ("dysrhythmias"?) Pulmonary: Asthma, Other (RLE DVT - 2009) CENTRAL NERVOUS SYSTEM: Other (none) GI: GERD, Irritable bowel disease, Other (? of "spleen bleeding" seen on CT scan 01/2016 @ [facility]) Heme/Onc: Anemia NOS (20 years ago) Hepatobiliary: No pertinent hx Psych: Anxiety, Depression Musculoskeletal: low back pain (chronic; lumbar disease; spinal stenosis; spondylosis), Other (chronic neck pain ) Rheumatologic: No pertinent hx Infectious disease: No pertinent hx ENT: Allergic Rhinitis Renal/: Other (renal calculi) Endocrine: Diabetes (pre-diabetic), subclinical hyperthyroidism Dermatology: No pertinent hx PAST SURGICAL HISTORY Past Surgical History Cholecystectomy, Tubal Ligation, Hysterectomy, Other (cervical neck surgery; hysteroscopy with ablation) FAMILY HISTORY Family History Cancer (lung - father), Other (sarcoidosis - father) SOCIAL HISTORY Social History Smoke: Quit (> 25 years ago) ALCOHOL: social Drugs: None Lives: with Family (son) CURRENT MEDICATIONS CURRENT MEDICATIONS Current Medications Medications (Trade) Dose Ordered Sig/Guillermina Route PRN Reason Start Time Stop Time Status Last Admin Dose Admin Aspirin 324 mg 324 mg 1X ONCE PO 02/22/17 23:00 02/22/17 23:01 DC 02/22/17 23:14 Sodium Chloride (Iv Sodium Chloride 0.9% 1000ml Bag) 1,000 ml @ 100 mls/hr Q10H IV 02/22/17 23:00 02/23/17 08:59 DC 02/22/17 23:15 Ondansetron HCl (Zofran) 4 mg 1X ONCE IV 02/22/17 23:30 02/22/17 23:31 DC 02/22/17 23:19 Fentanyl Citrate (Fentanyl 2ml Vial) 50 mcg PRN Q2HR PRN IV PAIN 02/23/17 00:00 02/23/17 23:59 02/23/17 06:17 Iohexol (Omnipaque 300 Mg/ml) 75 ml 1X ONCE IV 02/23/17 00:45 02/23/17 00:46 DC 02/23/17 01:06 ALLERGIES ALLERGIES: Coded Allergies: poppyseed oil (Verified Allergy, Severe, Hives, 02/11/17) POPPYSEEDS Penicillins (Verified Allergy, Intermediate, HIVES, 02/11/17) Uncoded Allergies: mustard seed (Allergy, Severe, hives/angioedema, 02/11/17) ROS Review of System 14 point ROS evaluated with pertinent positives noted per HPI PHYSICAL EXAM General: Alert, Oriented X3, Cooperative, No acute distress HEENT: Atraumatic, Mucous membr. moist/pink Lungs: Clear to auscultation, Normal air movement Heart: Regular rate (SR), Normal S1, Normal S2, No murmurs Abdomen: Soft, Other (diffuse abdominal tenderness with palpation mainly to upper quadrants; truncal obesity) Extremities: No cyanosis, No edema, Other (tenderness to RLE) Skin: No breakdown, No significant lesion Neuro: Normal speech, Sensation intact Psych/Mental Status: Mental status NL, Mood NL MUSCULOSKELETAL: Osteoarthritic changes both hands VITALS VITALS Vital Signs Date Time Temp Pulse Resp B/P Pulse Ox O2 Delivery O2 Flow Rate FiO2 02/23/17 08:16 92 18 141/73 99 Room Air 02/23/17 07:00 98.1 98.1 LABS Lab: Laboratory Tests Test 02/22/17 22:47 02/23/17 05:40 White Blood Count 7.5x10^3/uL (4.0-11.0) 6.2x10^3/uL (4.0-11.0) Red Blood Count 4.44x10^6/uL (3.50-5.40) 4.38x10^6/uL (3.50-5.40) Hemoglobin 12.9g/dL (12.0-15.5) 12.9g/dL (12.0-15.5) Hematocrit 39.2% (36.0-47.0) 38.0% (36.0-47.0) Mean Corpuscular Volume 88fL (79-100) 87fL (79-100) Mean Corpuscular Hemoglobin 29pg (25-35) 30pg (25-35) Mean Corpuscular Hemoglobin Concent 33g/dL (31-37) 34g/dL (31-37) Red Cell Distribution Width 14.4% (11.5-14.5) 14.3% (11.5-14.5) Platelet Count 169x10^3/uL (140-400) 164x10^3/uL (140-400) Neutrophils (%) (Auto) 57% (31-73) 55% (31-73) Lymphocytes (%) (Auto) 29% (24-48) 29% (24-48) Monocytes (%) (Auto) 10% (0-9) 13% (0-9) Eosinophils (%) (Auto) 3% (0-3) 3% (0-3) Basophils (%) (Auto) 1% (0-3) 1% (0-3) Neutrophils # (Auto) 4.2x10^3uL (1.8-7.7) 3.4x10^3uL (1.8-7.7) Lymphocytes # (Auto) 2.2x10^3/uL (1.0-4.8) 1.8x10^3/uL (1.0-4.8) Monocytes # (Auto) 0.7x10^3/uL (0.0-1.1) 0.8x10^3/uL (0.0-1.1) Eosinophils # (Auto) 0.2x10^3/uL (0.0-0.7) 0.2x10^3/uL (0.0-0.7) Basophils # (Auto) 0.1x10^3/uL (0.0-0.2) 0.0x10^3/uL (0.0-0.2) D-Dimer (Merlene) 0.84ug/mlFEU (0.00-0.50) Sodium Level 142mmol/L (136-145) 143mmol/L (136-145) Potassium Level 3.9mmol/L (3.5-5.1) 3.7mmol/L (3.5-5.1) Chloride Level 104mmol/L (98-107) 106mmol/L (98-107) Carbon Dioxide Level 26mmol/L (21-32) 29mmol/L (21-32) Anion Gap 12 (6-14) 8 (6-14) Blood Urea Nitrogen 12mg/dL (7-20) 12mg/dL (7-20) Creatinine 1.3mg/dL (0.6-1.0) 1.4mg/dL (0.6-1.0) Estimated GFR (Cockcroft-Gault) 53.1 48.8 Glucose Level 115mg/dL (70-99) 110mg/dL (70-99) Calcium Level 8.8mg/dL (8.5-10.1) 8.4mg/dL (8.5-10.1) Magnesium Level 1.6mg/dL (1.8-2.4) Total Bilirubin 0.5mg/dL (0.2-1.0) Direct Bilirubin 0.1mg/dL (0.0-0.2) Aspartate Amino Transf (AST/SGOT) 16U/L (15-37) Alanine Aminotransferase (ALT/SGPT) 29U/L (14-59) Alkaline Phosphatase 62U/L (46-116) Creatine Kinase 154U/L (26-192) Creatine Kinase MB (Mass) 1.6ng/mL (0.0-3.6) Creatine Kinase MB Relative Index 1.0% (0-4) Troponin I Quantitative 0.021ng/mL (0.000-0.055) < 0.017ng/mL (0.000-0.055) Total Protein 6.7g/dL (6.4-8.2) Albumin 3.6g/dL (3.4-5.0) Lipase 84U/L (73-393) ECHOCARDIOGRAM ECHOCARDIOGRAM <Conclusion> The left ventricular systolic function is normal. The ejection fraction is estimated at 65%. There is normal LV segmental wall motion. Trace tricuspid regurgitation. The PA pressure was estimated at 24 mmHg. There is no evidence of significant pericardial effusion. DATE: 11/04/16 1324 STRESS TEST STRESS TEST Conclusion 1. Regadenoson cardioisotope stress test did not show any evidence of ischemia or infarct. 2. Normal left ventricular systolic function with ejection fraction calculated at 77%. 3. Low risk for cardiac events. DATE: 11/04/16 1322 ASSESSMENT/PLAN ASSESSMENT/PLAN 1. Atypical CP: mainly to bilateral subcostal region with diffuse abd tenderness. Suspect GI vs MSK. Troponins normal, EKG SR without acute changes. Recent MPI/TTE unremarkable 10/2016. CTA neg for PE 2. Right leg pain with hx of DVT 3. Hx of asthma 4. GERD 5. Obesity/dysmetabolic X syndrome/deconditioning 6. Chronic pain syndrome lumbar and cervical radiculopathy 7. Anxiety 8. HTN 9. HLP 10. Suspect CKD3 Recommendations 1, GI cocktail, ASA, PPI 2. Resume opioids per PCP 3. TSH, lipids, replace Mg 4. Encourage exercise, weight loss, diet modifications. 5. Continue compliance with routine meds. 6. LE venous doppler 7. No further cardiac recommendation at this point Problems: REKHA MEZA MD 02/23/17 2235: CARDIAC CONSULT ALLERGIES ALLERGIES: Coded Allergies: poppyseed oil (Verified Allergy, Severe, Hives, 02/11/17) POPPYSEEDS Penicillins (Verified Allergy, Intermediate, HIVES, 02/11/17) Uncoded Allergies: mustard seed (Allergy, Severe, hives/angioedema, 02/11/17) ASSESSMENT/PLAN ASSESSMENT/PLAN Pt. seen and examined. Agree with above NAMED ACCOUNT EXECUTIVE note. 46 y.o woman with asthma. No clear cardiac issues. Significant wheezing on exam. Cardiac eval thus far is negative. Supportive care. Pls call with questions. thanks for consulta. Problems: SUSIE RAMOS APRN Feb 23, 2017 09:13 REKHA MEZA MD Feb 23, 2017 22:35
[2017-02-23] MEDS ORDERED: HYDROcodone/APAP 5/325MG 1 TAB TABLET PO PRN (10:00)
[2017-02-23 10:11] LABS: CHOLESTEROL/HDL RATIO 4.1; MAGNESIUM 1.7 mg/dL (1.8-2.4)
[2017-02-23] MEDS ORDERED: ACETAMINOPHEN 325 MG TABLET. PO PRN ×2 (10:30)
[2017-02-23] MEDS ORDERED: LIDO:MAALOX:DONNATAL 1:1:1 15 ML SINGLE DOSE SWSW PRN (10:30)
[2017-02-23] MEDS ORDERED: MAGNESIUM SULFATE 2GM 50 ML IV ONE (10:45)
[2017-02-23 11:00] VITALS: BP 136/86
[2017-02-23] MEDS ORDERED: METOPROLOL SUCC 24HR ER 50 MG TAB.ER.24H. PO SCH (11:00)
[2017-02-23] MEDS: LOSARTAN POTASSIUM 50 MG TABLET. PO SCH (11:54)
[2017-02-23] MEDS: PANTOPRAZOLE 40 MG TABLET.DR. PO SCH (11:55)
[2017-02-23] MEDS: ASPIRIN ENTERIC COATED 81 MG TABLET.DR. PO SCH (11:55)
[2017-02-23] MEDS ORDERED: NON FORMULARY ITEM (Albuterol Sulfate (Proair Hfa Inhaler) 2 PUFF) INH PRN (12:30)
--- NOTE | 2017-02-23 12:31 | PDOC1 ---
History and Physical Past Medical History CENTRAL NERVOUS SYSTEM: Other Heme/Onc: Anemia NOS Hepatobiliary: No pertinent hx Rheumatologic: No pertinent hx Infectious disease: No pertinent hx Renal/: Other Endocrine: Diabetes Past Surgical History Past Surgical History: Cholecystectomy, Hernia Repair, Tubal Ligation, Hysterectomy, Other Family History Family History: Cancer, Other Social History ALCOHOL: social Drugs: None Current Problem List Problem List Problems Medical Problems: (1) Chest pain Status: Acute Current Medications Current Medications Current Medications Medications (Trade) Dose Ordered Sig/Guillermina Start Time Stop Time Status Last Admin Dose Admin Acetaminophen (Tylenol) 325 mg PRN Q6HRS PRN 02/23/17 10:30 Acetaminophen/ Hydrocodone Bitart (Lortab 5/325) 1 tab PRN Q6HRS PRN 02/23/17 10:00 Acetaminophen/ Hydrocodone Bitart (Lortab 7.5/325) 1 tab PRN TID PRN 02/23/17 12:30 UNV Albuterol Sulfate (Ventolin Neb Soln) 2.5 mg QID 02/23/17 13:00 UNV Alprazolam (Xanax) 0.5 mg BID 02/23/17 21:00 UNV Aspirin (Children'S Aspirin) 324 mg 1X ONCE 02/22/17 23:00 02/22/17 23:01 DC 02/22/17 23:14 324 MG Aspirin (Ecotrin) 81 mg [id number] 02/23/17 12:00 02/23/17 11:55 81 MG Atorvastatin Calcium (Lipitor) 80 mg QHS 02/23/17 21:00 EZETIMIBE (Zetia) 10 mg QHS 02/23/17 21:00 Fentanyl Citrate 50 mcg 50 mcg PRN Q2HR PRN 02/23/17 00:00 02/23/17 23:59 02/23/17 10:56 50 MCG Hydralazine HCl (Apresoline) 10 mg PRN Q4HRS PRN 02/23/17 10:00 Iohexol 75 ml 75 ml 1X ONCE 02/23/17 00:45 02/23/17 00:46 DC 02/23/17 01:06 60 ML Losartan Potassium (Cozaar) 50 mg DAILY 02/23/17 11:00 02/23/17 11:54 50 MG Magnesium Sulfate/ Dextrose (Magnesium Sulfate PREMIX 2GM) 50 ml @ 25 mls/hr 1X ONCE 02/23/17 10:45 02/23/17 12:44 02/23/17 10:56 25 MLS/HR Metoprolol Succinate (Toprol Xl) 50 mg DAILY 02/23/17 11:00 02/23/17 11:55 50 MG Multi-Ingredient Mouthwash/Gargle (Gi Cocktail Single Dose) 15 ml PRN 1X PRN 02/23/17 10:30 Nitroglycerin (Nitrostat) 0.4 mg PRN Q5MIN PRN 02/22/17 23:00 02/23/17 22:59 Non-Formulary Medication 2 puff BID PRN 02/23/17 12:30 UNV Ondansetron HCl (Zofran) 4 mg PRN Q8HRS PRN 02/23/17 10:00 Pantoprazole Sodium (Protonix) 40 mg DAILYAC 02/23/17 11:00 02/23/17 11:55 40 MG Sodium Chloride (Iv Sodium Chloride 0.9% 1000ml Bag) 1,000 ml @ 100 mls/hr Q10H 02/23/17 00:00 02/23/17 00:01 DC 02/23/17 10:52 100 MLS/HR Allergies Allergies Allergies Coded Allergies Type Severity Reaction Last Updated Verified poppyseed oil Allergy Severe Hives 02/11/17 Yes Penicillins Allergy Intermediate HIVES 02/11/17 Yes Uncoded Allergies Type Severity Reaction Last Updated Verified mustard seed Allergy Severe hives/angioedema 02/11/17 ROS Review of System CONSTITUTIONAL: No fever or chills, not feeling well. EYES: No recent changes SKIN: No rash or itching CARDIOVASCULAR: chest pain, no syncope, palpitations, or edema RESPIRATORY: cough GASTROINTESTINAL: No nausea, vomiting or abdominal pain NEUROLOGICAL: No headaches or weakness ENDOCRINE: No cold or heat intolerance GENITOURINARY: No urgency or frequency of urination MUSCULOSKELETAL: No back pain or joint pain LYMPHATICS: No enlarged lymph nodes PSYCHIATRIC: No anxiety or depression Physical Exam Physical Exam GEN.: No apparent distress. Alert and oriented. HEENT: Head is normocephalic, atraumatic NECK: Supple. no JVD LUNGS: wheezing, HEART: RRR, S1, S2 present. Peripheral pulses intact ABDOMEN: Soft, nontender. Positive bowel sounds. EXTREMITIES: Without any cyanosis. NEUROLOGIC: Normal speech, normal tone PSYCHIATRIC: Normal affect, normal mood. SKIN: No ulcerations Vitals Vitals Vital Signs Date Time Temp Pulse Resp B/P Pulse Ox O2 Delivery O2 Flow Rate FiO2 02/23/17 11:58 Room Air 02/23/17 11:55 85 136/86 02/23/17 11:00 97.9 20 96 97.9 Labs Labs Laboratory Tests Test 02/22/17 22:47 02/23/17 05:40 02/23/17 11:30 White Blood Count 7.5x10^3/uL (4.0-11.0) 6.2x10^3/uL (4.0-11.0) Red Blood Count 4.44x10^6/uL (3.50-5.40) 4.38x10^6/uL (3.50-5.40) Hemoglobin 12.9g/dL (12.0-15.5) 12.9g/dL (12.0-15.5) Hematocrit 39.2% (36.0-47.0) 38.0% (36.0-47.0) Mean Corpuscular Volume 88fL (79-100) 87fL (79-100) Mean Corpuscular Hemoglobin 29pg (25-35) 30pg (25-35) Mean Corpuscular Hemoglobin Concent 33g/dL (31-37) 34g/dL (31-37) Red Cell Distribution Width 14.4% (11.5-14.5) 14.3% (11.5-14.5) Platelet Count 169x10^3/uL (140-400) 164x10^3/uL (140-400) Neutrophils (%) (Auto) 57% (31-73) 55% (31-73) Lymphocytes (%) (Auto) 29% (24-48) 29% (24-48) Monocytes (%) (Auto) 10% (0-9) 13% (0-9) Eosinophils (%) (Auto) 3% (0-3) 3% (0-3) Basophils (%) (Auto) 1% (0-3) 1% (0-3) Neutrophils # (Auto) 4.2x10^3uL (1.8-7.7) 3.4x10^3uL (1.8-7.7) Lymphocytes # (Auto) 2.2x10^3/uL (1.0-4.8) 1.8x10^3/uL (1.0-4.8) Monocytes # (Auto) 0.7x10^3/uL (0.0-1.1) 0.8x10^3/uL (0.0-1.1) Eosinophils # (Auto) 0.2x10^3/uL (0.0-0.7) 0.2x10^3/uL (0.0-0.7) Basophils # (Auto) 0.1x10^3/uL (0.0-0.2) 0.0x10^3/uL (0.0-0.2) D-Dimer (Merlene) 0.84ug/mlFEU (0.00-0.50) Sodium Level 142mmol/L (136-145) 143mmol/L (136-145) Potassium Level 3.9mmol/L (3.5-5.1) 3.7mmol/L (3.5-5.1) Chloride Level 104mmol/L (98-107) 106mmol/L (98-107) Carbon Dioxide Level 26mmol/L (21-32) 29mmol/L (21-32) Anion Gap 12 (6-14) 8 (6-14) Blood Urea Nitrogen 12mg/dL (7-20) 12mg/dL (7-20) Creatinine 1.3mg/dL (0.6-1.0) 1.4mg/dL (0.6-1.0) Estimated GFR (Cockcroft-Gault) 53.1 48.8 Glucose Level 115mg/dL (70-99) 110mg/dL (70-99) Calcium Level 8.8mg/dL (8.5-10.1) 8.4mg/dL (8.5-10.1) Magnesium Level 1.6mg/dL (1.8-2.4) 1.7mg/dL (1.8-2.4) Total Bilirubin 0.5mg/dL (0.2-1.0) Direct Bilirubin 0.1mg/dL (0.0-0.2) Aspartate Amino Transf (AST/SGOT) 16U/L (15-37) Alanine Aminotransferase (ALT/SGPT) 29U/L (14-59) Alkaline Phosphatase 62U/L (46-116) Creatine Kinase 154U/L (26-192) Creatine Kinase MB (Mass) 1.6ng/mL (0.0-3.6) Creatine Kinase MB Relative Index 1.0% (0-4) Troponin I Quantitative 0.021ng/mL (0.000-0.055) < 0.017ng/mL (0.000-0.055) < 0.017ng/mL (0.000-0.055) Total Protein 6.7g/dL (6.4-8.2) Albumin 3.6g/dL (3.4-5.0) Lipase 84U/L (73-393) Triglycerides Level 217mg/dL (0-150) Cholesterol Level 199mg/dL (0-200) LDL Cholesterol, Calculated 107mg/dL (0-100) VLDL Cholesterol, Calculated 43mg/dL (0-40) HDL Cholesterol 49mg/dL (40-60) Cholesterol/HDL Ratio 4.1 Thyroid Stimulating Hormone (TSH) 0.667uIU/mL (0.358-3.74) Laboratory Tests Test 02/22/17 22:47 02/23/17 05:40 02/23/17 11:30 White Blood Count 7.5x10^3/uL (4.0-11.0) 6.2x10^3/uL (4.0-11.0) Red Blood Count 4.44x10^6/uL (3.50-5.40) 4.38x10^6/uL (3.50-5.40) Hemoglobin 12.9g/dL (12.0-15.5) 12.9g/dL (12.0-15.5) Hematocrit 39.2% (36.0-47.0) 38.0% (36.0-47.0) Mean Corpuscular Volume 88fL (79-100) 87fL (79-100) Mean Corpuscular Hemoglobin 29pg (25-35) 30pg (25-35) Mean Corpuscular Hemoglobin Concent 33g/dL (31-37) 34g/dL (31-37) Red Cell Distribution Width 14.4% (11.5-14.5) 14.3% (11.5-14.5) Platelet Count 169x10^3/uL (140-400) 164x10^3/uL (140-400) Neutrophils (%) (Auto) 57% (31-73) 55% (31-73) Lymphocytes (%) (Auto) 29% (24-48) 29% (24-48) Monocytes (%) (Auto) 10% (0-9) 13% (0-9) Eosinophils (%) (Auto) 3% (0-3) 3% (0-3) Basophils (%) (Auto) 1% (0-3) 1% (0-3) Neutrophils # (Auto) 4.2x10^3uL (1.8-7.7) 3.4x10^3uL (1.8-7.7) Lymphocytes # (Auto) 2.2x10^3/uL (1.0-4.8) 1.8x10^3/uL (1.0-4.8) Monocytes # (Auto) 0.7x10^3/uL (0.0-1.1) 0.8x10^3/uL (0.0-1.1) Eosinophils # (Auto) 0.2x10^3/uL (0.0-0.7) 0.2x10^3/uL (0.0-0.7) Basophils # (Auto) 0.1x10^3/uL (0.0-0.2) 0.0x10^3/uL (0.0-0.2) D-Dimer (Merlene) 0.84ug/mlFEU (0.00-0.50) Sodium Level 142mmol/L (136-145) 143mmol/L (136-145) Potassium Level 3.9mmol/L (3.5-5.1) 3.7mmol/L (3.5-5.1) Chloride Level 104mmol/L (98-107) 106mmol/L (98-107) Carbon Dioxide Level 26mmol/L (21-32) 29mmol/L (21-32) Anion Gap 12 (6-14) 8 (6-14) Blood Urea Nitrogen 12mg/dL (7-20) 12mg/dL (7-20) Creatinine 1.3mg/dL (0.6-1.0) 1.4mg/dL (0.6-1.0) Estimated GFR (Cockcroft-Gault) 53.1 48.8 Glucose Level 115mg/dL (70-99) 110mg/dL (70-99) Calcium Level 8.8mg/dL (8.5-10.1) 8.4mg/dL (8.5-10.1) Magnesium Level 1.6mg/dL (1.8-2.4) 1.7mg/dL (1.8-2.4) Total Bilirubin 0.5mg/dL (0.2-1.0) Direct Bilirubin 0.1mg/dL (0.0-0.2) Aspartate Amino Transf (AST/SGOT) 16U/L (15-37) Alanine Aminotransferase (ALT/SGPT) 29U/L (14-59) Alkaline Phosphatase 62U/L (46-116) Creatine Kinase 154U/L (26-192) Creatine Kinase MB (Mass) 1.6ng/mL (0.0-3.6) Creatine Kinase MB Relative Index 1.0% (0-4) Troponin I Quantitative 0.021ng/mL (0.000-0.055) < 0.017ng/mL (0.000-0.055) < 0.017ng/mL (0.000-0.055) Total Protein 6.7g/dL (6.4-8.2) Albumin 3.6g/dL (3.4-5.0) Lipase 84U/L (73-393) Triglycerides Level 217mg/dL (0-150) Cholesterol Level 199mg/dL (0-200) LDL Cholesterol, Calculated 107mg/dL (0-100) VLDL Cholesterol, Calculated 43mg/dL (0-40) HDL Cholesterol 49mg/dL (40-60) Cholesterol/HDL Ratio 4.1 Thyroid Stimulating Hormone (TSH) 0.667uIU/mL (0.358-3.74) VTE Prophylaxis Ordered VTE Prophylaxis Devices: Yes VTE Pharmacological Prophylaxi: No PAGE HICKS MD Feb 23, 2017 12:31
[2017-02-23] MEDS: ALBUTEROL SULFATE 2.5 MG/3 ML NEBU. NEB SCH ×3 (12:42→19:13)
--- NOTE | 2017-02-23 12:51 | RAD ---
Bilateral lower extremity venous ultrasound, 02/23/2017: History: Leg pain, previous DVT Duplex evaluation of the deep veins in the lower extremities was performed including grayscale, color-flow and spectral Doppler analysis. The femoral and popliteal veins demonstrate normal compressibility and normal responses to distal augmentation maneuvers. Color imaging of those vessels shows no evidence of intraluminal clot. The visualized deep veins in both calves are patent. IMPRESSION: There is no sonographic evidence of deep vein thrombosis in either lower extremity.
[2017-02-23] MEDS: methylPREDNISolone SOD SUCC PF 40 MG/ML VIAL. IV SCH ×2 (14:38→21:16)
[2017-02-23 15:00] VITALS: BP_SYST 164; BP_DIAS 115; BP_DIAS 86
[2017-02-23] MEDS: ONDANSETRON PF 4 MG/2 ML VIAL. IV PRN (16:53)
[2017-02-23] MEDS ORDERED: diphenhydrAMINE HCL 25 MG CAPSULE PO ONE (18:00)
[2017-02-23] MEDS ORDERED: DOXA4TAB3 PO (18:27)
[2017-02-23 19:48] VITALS: BP 155/92
[2017-02-23] MEDS: EZETIMIBE 10 MG TABLET. PO SCH (21:16)
[2017-02-23] MEDS: ATORVASTATIN CALCIUM 40 MG TABLET. PO SCH (21:16)
[2017-02-23] MEDS: ALPRAZolam 0.5 MG TABLET PO SCH (21:16)
[2017-02-23] MEDS: METOPROLOL SUCC 24HR ER 50 MG TAB.ER.24H. PO SCH (21:54)
[2017-02-23 22:41] VITALS: BP 168/96
[2017-02-24] MEDS: HYDROcodone/APAP 7.5/325MG 1 TAB TABLET PO PRN ×2 (01:47→11:24)
[2017-02-24] MEDS: ALBUTEROL SULFATE 2.5 MG/3 ML NEBU. NEB PRN (01:59)
[2017-02-24 02:13] VITALS: BP 136/96
--- NOTE | 2017-02-24 03:53 | HP ---
ADMIT DATE: 02/23/2017 CHIEF COMPLAINT: Chest pain. HISTORY OF PRESENT ILLNESS: A 46-year-old -[place] female patient with several comorbid conditions such as hypertension, right lower extremity DVT, disabled and chronic back pain, presented to the ER with complaints of chest pain, dull in nature. It has been there for the last few days and this morning, the patient felt some right-sided discomfort, which made her to come to the ER. She denies any nausea, vomiting or profuse sweating. Mostly, the patient is sedentary due to her disability. She denies any syncope or palpitations or lower extremity swelling; however, she had episodic cough and wheezing. PAST MEDICAL HISTORY: Hypertension, hyperlipidemia, right lower extremity DVT, questionable irritable bowel syndrome, anemia, anxiety, depression and chronic low back pain. PAST SURGICAL HISTORY: 1. Cholecystectomy. 2. Tubal ligation. 3. Hysterectomy. FAMILY HISTORY: Cancer in father, sarcoidosis in father. SOCIAL HISTORY: Quit smoking more than 20 years ago. No alcohol, no drug abuse. ALLERGIES: PENICILLIN, ____ POPPY SEEDS. REVIEW OF SYSTEMS AND PHYSICAL EXAMINATION: Please see my electronic H and P. LABORATORY FINDINGS: CBC within normal limits. Chemistry panel: Sodium 145, potassium 3.7, chloride is 106, gap is 8, BUN is 12, creatinine 1.4, glucose 110, calcium is 8.4 and magnesium is 1.7. ____ triglycerides 217, cholesterol 199, LDL 109. IMAGING STUDIES: CTA of the chest, no focal air space consolidation or pneumothorax or pulmonary edema or ____ 4 mm right lung pulmonary nodule seen, which has been compared with 2015. Lower extremity ultrasound: No sonographic evidence of DVT. Chest x-ray: No acute process seen. EKG: Not able to personally review. As per the ER report, no acute ST-T wave changes seen. ASSESSMENT AND PLAN: 1. Atypical chest pain, unclear etiology, possible musculoskeletal in nature. 2. History of asthma with active wheezing. 3. Gastroesophageal reflux disease. 4. Chronic pain syndrome with low back pain. 5. Anxiety. 6. Hypertension. 7. Hyperlipidemia. 8. Hypomagnesemia. PLAN: 1. Electrolytes have been replaced before the patient presented to the ER. 2. At the time of examination, she is actively wheezing and having intractable cough, which could be due to viral reactive process. I will start her on IV Solu-Medrol as the patient has a history of asthma in the past. 3. Periodic nebulizations. 4. If symptoms persist, we will consult Pulmonology. 5. Cardiology has been consulted and we will get 3 sets of troponins and rule out ACS. She had a workup in the past. At that time, she had a stress test, which was negative for any ischemia. 6. Physical therapy and occupational therapy. 7. Home medications reviewed and reconciled. 8. Plan explained to the patient. She needs outpatient followup with Pulmonology for pulmonary nodules. Followup next 1 year. PAGE HICKS MD DR: JOSE/darien JOB#: [id number] / [id number] [facility]
[2017-02-24] MEDS: ONDANSETRON PF 4 MG/2 ML VIAL. IV PRN ×2 (04:51→18:09)
[2017-02-24] MEDS: methylPREDNISolone SOD SUCC PF 40 MG/ML VIAL. IV SCH ×3 (05:14→22:34)
[2017-02-24 05:21] LABS: BASO % 0 % (0-3); EOS % 0 % (0-3); LYMPH # 1.3 x10^3/uL (1.0-4.8); LYMPH % 16 % (24-48); MEAN CORPUSCULAR HEMOGLOBIN 29 pg (25-35); MEAN CORPUSCULAR HGB CONC 33 g/dL (31-37); MEAN CORPUSCULAR VOLUME 88 fL (79-100); MONO % 7 % (0-9); NEUT % 77 % (31-73); PLATELET COUNT 172 x10^3/uL (140-400); RED BLOOD COUNT 4.21 x10^6/uL (3.50-5.40); RED CELL DISTRIBUTION WIDTH 14.4 % (11.5-14.5)
[2017-02-24 05:28] LABS: CALCIUM 8.7 mg/dL (8.5-10.1); CREATININE 1.2 mg/dL (0.6-1.0); GFR 58.3; POTASSIUM 4.1 mmol/L (3.5-5.1)
[2017-02-24 07:00] VITALS: BP 187/102
[2017-02-24] MEDS: ALBUTEROL SULFATE 2.5 MG/3 ML NEBU. NEB SCH ×4 (07:25→20:31)
[2017-02-24] MEDS: ALPRAZolam 0.5 MG TABLET PO SCH ×2 (08:27→20:39)
[2017-02-24] MEDS: ASPIRIN ENTERIC COATED 81 MG TABLET.DR. PO SCH (08:27)
[2017-02-24] MEDS: PANTOPRAZOLE 40 MG TABLET.DR. PO SCH (08:27)
[2017-02-24] MEDS: LOSARTAN POTASSIUM 50 MG TABLET. PO SCH (08:28)
[2017-02-24] MEDS: METOPROLOL SUCC 24HR ER 50 MG TAB.ER.24H. PO SCH ×2 (08:28→20:38)
[2017-02-24 10:36] VITALS: BP 163/90
--- NOTE | 2017-02-24 11:14 | PDOC ---
PROGRESS NOTES Chief Complaint Chief Complaint cc: Chest pain 1. Atypical chest pain, unclear etiology, possible musculoskeletal in nature.: Recent stress test negative, tortonis negative. cardiology signed off. 2. History of asthma with active wheezing, possible exacerbation: on IV solumedrol, prn nebulizations, pulmonology consultation. 3. Gastroesophageal reflux disease with active nausea and vomiting: PRN zofran , NPO, if persists add compazine. 4. Chronic pain syndrome with low back pain.: continue home medications with PRN [place]. 5. Anxiety. 6. Hypertension. 7. Hyperlipidemia. 8. Hypomagnesemia. replaced. History of Present Illness History of Present Illness nausea. wheezing vomiting. Vitals Vitals Vital Signs Date Time Temp Pulse Resp B/P Pulse Ox O2 Delivery O2 Flow Rate FiO2 02/24/17 10:36 98.0 64 24 163/90 99 Room Air 98.0 Physical Exam General: Alert, Oriented X3, Cooperative, No acute distress Heart: Regular rate (SR), Normal S1, Normal S2, No murmurs Lungs: Wheezing, Other Abdomen: Soft, Other Extremities: No cyanosis, No edema, Other Skin: No breakdown, No significant lesion Labs LABS Laboratory Tests Test 02/23/17 11:30 02/24/17 04:50 Troponin I Quantitative < 0.017ng/mL (0.000-0.055) White Blood Count 8.0x10^3/uL (4.0-11.0) Red Blood Count 4.21x10^6/uL (3.50-5.40) Hemoglobin 12.0g/dL (12.0-15.5) Hematocrit 37.0% (36.0-47.0) Mean Corpuscular Volume 88fL (79-100) Mean Corpuscular Hemoglobin 29pg (25-35) Mean Corpuscular Hemoglobin Concent 33g/dL (31-37) Red Cell Distribution Width 14.4% (11.5-14.5) Platelet Count 172x10^3/uL (140-400) Neutrophils (%) (Auto) 77% (31-73) Lymphocytes (%) (Auto) 16% (24-48) Monocytes (%) (Auto) 7% (0-9) Eosinophils (%) (Auto) 0% (0-3) Basophils (%) (Auto) 0% (0-3) Neutrophils # (Auto) 6.2x10^3uL (1.8-7.7) Lymphocytes # (Auto) 1.3x10^3/uL (1.0-4.8) Monocytes # (Auto) 0.5x10^3/uL (0.0-1.1) Eosinophils # (Auto) 0.0x10^3/uL (0.0-0.7) Basophils # (Auto) 0.0x10^3/uL (0.0-0.2) Sodium Level 139mmol/L (136-145) Potassium Level 4.1mmol/L (3.5-5.1) Chloride Level 103mmol/L (98-107) Carbon Dioxide Level 24mmol/L (21-32) Anion Gap 12 (6-14) Blood Urea Nitrogen 10mg/dL (7-20) Creatinine 1.2mg/dL (0.6-1.0) Estimated GFR (Cockcroft-Gault) 58.3 Glucose Level 148mg/dL (70-99) Calcium Level 8.7mg/dL (8.5-10.1) Assessment and Plan Assessmemt and Plan Problems Medical Problems: (1) Chest pain Status: Acute Problems: Comment Review of Relevant I have reviewed the following items meghna (where applicable) has been applied. Labs Laboratory Tests Test 02/22/17 22:47 02/23/17 05:40 02/23/17 11:30 02/24/17 04:50 White Blood Count 7.5x10^3/uL (4.0-11.0) 6.2x10^3/uL (4.0-11.0) 8.0x10^3/uL (4.0-11.0) Red Blood Count 4.44x10^6/uL (3.50-5.40) 4.38x10^6/uL (3.50-5.40) 4.21x10^6/uL (3.50-5.40) Hemoglobin 12.9g/dL (12.0-15.5) 12.9g/dL (12.0-15.5) 12.0g/dL (12.0-15.5) Hematocrit 39.2% (36.0-47.0) 38.0% (36.0-47.0) 37.0% (36.0-47.0) Mean Corpuscular Volume 88fL (79-100) 87fL (79-100) 88fL (79-100) Mean Corpuscular Hemoglobin 29pg (25-35) 30pg (25-35) 29pg (25-35) Mean Corpuscular Hemoglobin Concent 33g/dL (31-37) 34g/dL (31-37) 33g/dL (31-37) Red Cell Distribution Width 14.4% (11.5-14.5) 14.3% (11.5-14.5) 14.4% (11.5-14.5) Platelet Count 169x10^3/uL (140-400) 164x10^3/uL (140-400) 172x10^3/uL (140-400) Neutrophils (%) (Auto) 57% (31-73) 55% (31-73) 77% (31-73) Lymphocytes (%) (Auto) 29% (24-48) 29% (24-48) 16% (24-48) Monocytes (%) (Auto) 10% (0-9) 13% (0-9) 7% (0-9) Eosinophils (%) (Auto) 3% (0-3) 3% (0-3) 0% (0-3) Basophils (%) (Auto) 1% (0-3) 1% (0-3) 0% (0-3) Neutrophils # (Auto) 4.2x10^3uL (1.8-7.7) 3.4x10^3uL (1.8-7.7) 6.2x10^3uL (1.8-7.7) Lymphocytes # (Auto) 2.2x10^3/uL (1.0-4.8) 1.8x10^3/uL (1.0-4.8) 1.3x10^3/uL (1.0-4.8) Monocytes # (Auto) 0.7x10^3/uL (0.0-1.1) 0.8x10^3/uL (0.0-1.1) 0.5x10^3/uL (0.0-1.1) Eosinophils # (Auto) 0.2x10^3/uL (0.0-0.7) 0.2x10^3/uL (0.0-0.7) 0.0x10^3/uL (0.0-0.7) Basophils # (Auto) 0.1x10^3/uL (0.0-0.2) 0.0x10^3/uL (0.0-0.2) 0.0x10^3/uL (0.0-0.2) D-Dimer (Merlene) 0.84ug/mlFEU (0.00-0.50) Sodium Level 142mmol/L (136-145) 143mmol/L (136-145) 139mmol/L (136-145) Potassium Level 3.9mmol/L (3.5-5.1) 3.7mmol/L (3.5-5.1) 4.1mmol/L (3.5-5.1) Chloride Level 104mmol/L (98-107) 106mmol/L (98-107) 103mmol/L (98-107) Carbon Dioxide Level 26mmol/L (21-32) 29mmol/L (21-32) 24mmol/L (21-32) Anion Gap 12 (6-14) 8 (6-14) 12 (6-14) Blood Urea Nitrogen 12mg/dL (7-20) 12mg/dL (7-20) 10mg/dL (7-20) Creatinine 1.3mg/dL (0.6-1.0) 1.4mg/dL (0.6-1.0) 1.2mg/dL (0.6-1.0) Estimated GFR (Cockcroft-Gault) 53.1 48.8 58.3 Glucose Level 115mg/dL (70-99) 110mg/dL (70-99) 148mg/dL (70-99) Calcium Level 8.8mg/dL (8.5-10.1) 8.4mg/dL (8.5-10.1) 8.7mg/dL (8.5-10.1) Magnesium Level 1.6mg/dL (1.8-2.4) 1.7mg/dL (1.8-2.4) Total Bilirubin 0.5mg/dL (0.2-1.0) Direct Bilirubin 0.1mg/dL (0.0-0.2) Aspartate Amino Transf (AST/SGOT) 16U/L (15-37) Alanine Aminotransferase (ALT/SGPT) 29U/L (14-59) Alkaline Phosphatase 62U/L (46-116) Creatine Kinase 154U/L (26-192) Creatine Kinase MB (Mass) 1.6ng/mL (0.0-3.6) Creatine Kinase MB Relative Index 1.0% (0-4) Troponin I Quantitative 0.021ng/mL (0.000-0.055) < 0.017ng/mL (0.000-0.055) < 0.017ng/mL (0.000-0.055) Total Protein 6.7g/dL (6.4-8.2) Albumin 3.6g/dL (3.4-5.0) Lipase 84U/L (73-393) Triglycerides Level 217mg/dL (0-150) Cholesterol Level 199mg/dL (0-200) LDL Cholesterol, Calculated 107mg/dL (0-100) VLDL Cholesterol, Calculated 43mg/dL (0-40) HDL Cholesterol 49mg/dL (40-60) Cholesterol/HDL Ratio 4.1 Thyroid Stimulating Hormone (TSH) 0.667uIU/mL (0.358-3.74) Laboratory Tests Test 02/23/17 11:30 02/24/17 04:50 Troponin I Quantitative < 0.017ng/mL (0.000-0.055) White Blood Count 8.0x10^3/uL (4.0-11.0) Red Blood Count 4.21x10^6/uL (3.50-5.40) Hemoglobin 12.0g/dL (12.0-15.5) Hematocrit 37.0% (36.0-47.0) Mean Corpuscular Volume 88fL (79-100) Mean Corpuscular Hemoglobin 29pg (25-35) Mean Corpuscular Hemoglobin Concent 33g/dL (31-37) Red Cell Distribution Width 14.4% (11.5-14.5) Platelet Count 172x10^3/uL (140-400) Neutrophils (%) (Auto) 77% (31-73) Lymphocytes (%) (Auto) 16% (24-48) Monocytes (%) (Auto) 7% (0-9) Eosinophils (%) (Auto) 0% (0-3) Basophils (%) (Auto) 0% (0-3) Neutrophils # (Auto) 6.2x10^3uL (1.8-7.7) Lymphocytes # (Auto) 1.3x10^3/uL (1.0-4.8) Monocytes # (Auto) 0.5x10^3/uL (0.0-1.1) Eosinophils # (Auto) 0.0x10^3/uL (0.0-0.7) Basophils # (Auto) 0.0x10^3/uL (0.0-0.2) Sodium Level 139mmol/L (136-145) Potassium Level 4.1mmol/L (3.5-5.1) Chloride Level 103mmol/L (98-107) Carbon Dioxide Level 24mmol/L (21-32) Anion Gap 12 (6-14) Blood Urea Nitrogen 10mg/dL (7-20) Creatinine 1.2mg/dL (0.6-1.0) Estimated GFR (Cockcroft-Gault) 58.3 Glucose Level 148mg/dL (70-99) Calcium Level 8.7mg/dL (8.5-10.1) Medications Current Medications Aspirin (Children'S Aspirin) 324 mg 1X ONCE PO Last administered on 02/22/17 23:14; Start 02/22/17 at 23:00; Stop 02/22/17 at 23:01; Status DC Nitroglycerin 0.4 mg 0.4 mg PRN Q5MIN PRN SL CP RATING > 1/10; Start 02/22/17 at 23:00; Stop 02/23/17 at 22:59; Status DC Sodium Chloride (Iv Sodium Chloride 0.9% 1000ml Bag) 1,000 ml @ 100 mls/hr Q10H IV Last administered on 02/22/17 23:15; Start 02/22/17 at 23:00; Stop 10/30 at 08:59; Status DC Ondansetron HCl (Zofran) 4 mg 1X ONCE IV Last administered on 02/22/17 23:19 ; Start 02/22/17 at 23:30; Stop 02/22/17 at 23:31; Status DC Ondansetron HCl (Zofran) 4 mg PRN Q8HRS PRN IV NAUSEA/VOMITING; Start 02/23/17 at 00:00; Stop 02/23/17 at 23:59; Status DC Fentanyl Citrate 50 mcg 50 mcg PRN Q2HR PRN IV PAIN Last administered on 21:15; Start 02/23/17 at 00:00; Stop 02/23/17 at 23:59; Status DC Sodium Chloride (Iv Sodium Chloride 0.9% 1000ml Bag) 1,000 ml @ 100 mls/hr Q10H IV Last administered on 02/23/17 10:52; Start 02/23/17 at 00:00; Stop 10/30 at 00:01; Status DC Acetaminophen (Tylenol) 650 mg PRN Q4HRS PRN PO FEVER; Start 02/23/17 at 00:00 ; Stop 02/23/17 at 23:59; Status DC Iohexol 75 ml 75 ml 1X ONCE IV Last administered on 02/23/17 01:06; Start 10/30 at 00:45; Stop 02/23/17 at 00:46; Status DC Magnesium Sulfate/ Dextrose (Magnesium Sulfate PREMIX 2GM) 50 ml @ 25 mls/hr 1X ONCE IV Last administered on 02/23/17 10:56; Start 02/23/17 at 10:45; Stop 02/23/17 at 12:44; Status DC Acetaminophen (Tylenol) 325 mg PRN Q6HRS PRN PO MILD PAIN / TEMP; Start at 10:30 Acetaminophen/ Hydrocodone Bitart (Lortab 5/325) 1 tab PRN Q6HRS PRN PO MODERATE TO SEVERE PAIN Last administered on 02/23/17 21:16; Start 02/23/17 at 10:00 Hydralazine HCl (Apresoline) 10 mg PRN Q4HRS PRN IVP ELEVATED BP, SEE COMMENTS ; Start 02/23/17 at 10:00 Ondansetron HCl (Zofran) 4 mg PRN Q8HRS PRN IV NAUSEA/VOMITING Last administered on 02/24/17 04:51; Start 02/23/17 at 10:00 Albuterol Sulfate (Ventolin Neb Soln) 2.5 mg PRN Q4HRS PRN NEB SHORTNESS OF BREATH Last administered on 02/24/17 01:59; Start 02/23/17 at 10:00 Multi-Ingredient Mouthwash/Gargle (Gi Cocktail Single Dose) 15 ml PRN 1X PRN SWSW CHEST PAIN; Start 02/23/17 at 10:30 EZETIMIBE (Zetia) 10 mg QHS PO Last administered on 02/23/17 21:16; Start 10/30 at 21:00 Losartan Potassium (Cozaar) 50 mg DAILY PO Last administered on 02/24/17 08:28 ; Start 02/23/17 at 11:00 Metoprolol Succinate (Toprol Xl) 50 mg DAILY PO Last administered on 02/23/17 11:55; Start 02/23/17 at 11:00; Stop 02/23/17 at 21:33; Status DC Pantoprazole Sodium (Protonix) 40 mg DAILYAC PO Last administered on 02/24/17 08:27; Start 02/23/17 at 11:00 Atorvastatin Calcium (Lipitor) 80 mg QHS PO Last administered on 02/23/17 21: 16; Start 02/23/17 at 21:00 Aspirin (Ecotrin) 81 mg DAILYWBKFT PO Last administered on 02/24/17 08:27; Start 02/23/17 at 12:00 Albuterol Sulfate (Ventolin Neb Soln) 2.5 mg QID NEB Last administered on 07:25; Start 02/23/17 at 13:00 Alprazolam (Xanax) 0.5 mg BID PO Last administered on 02/24/17 08:27; Start at 21:00 Acetaminophen/ Hydrocodone Bitart (Lortab 7.5/325) 1 tab PRN TID PRN PO PAIN Last administered on 02/24/17 01:47; Start 02/23/17 at 12:30 Non-Formulary Medication 2 puff BID PRN INH SHORTNESS OF BREATH; Start at 12:30; Status UNV Methylprednisolone Sodium Succinate (Solu-Medrol 40mg Vial) 40 mg Q8HRS IV Last administered on 02/24/17 05:14; Start 02/23/17 at 14:00 Diphenhydramine HCl (Benadryl) 25 mg 1X ONCE PO Last administered on 18:13; Start 02/23/17 at 18:00; Stop 02/23/17 at 18:01; Status DC Metoprolol Succinate (Toprol Xl) 50 mg BID PO Last administered on 02/24/17 08 :28; Start 02/23/17 at 22:00 Active Scripts Active [Promethazine Hcl/Codeine] 5 ML Syrup 5 Ml PO PRN Q6HRS PRN 10 Days Protonix (Pantoprazole Sodium) 40 Mg Tablet 40 Mg PO DAILYAC Reported Doxazosin Mesylate 4 Mg Tablet 1 Tab PO DAILY Albuterol Sulfate Neb Soln (Albuterol Sulfate) 2.5 Mg/3 Ml Vial.neb 1 Vial NEB QID Proair Hfa Inhaler (Albuterol Sulfate) 8.5 Gm Hfa.aer.ad 2 Puff INH BID PRN Metoprolol Succinate ( Xl ) (Metoprolol Succinate) 25 Mg Tab.er.24h 2 Tab PO DAILY Gave last night Take night Losartan Potassium 50 Mg Tablet 50 Mg PO DAILY Gave this morning Take tomorrow Oxycodone Hcl 10 Mg Tablet 1 Tab PO PRN QID PRN Last dose given last night Take when needed Hydrocodone-Apap 7.5-325 (Hydrocodone Bit/Acetaminophen) 1 Each Tablet 1 Tab PO PRN TID PRN Not given on this admission Take when needed Xanax (Alprazolam) 0.5 Mg Tablet 1 Tab PO BID Not given on this admission Take when needed Zetia (Ezetimibe) 10 Mg Tablet 1 Tab PO QHS Gave last night Take tonight Atorvastatin Calcium 80 Mg Tablet 80 Mg PO HS Gave last night Take mahogany Vitals/I & O Vital Sign - Last 24 Hours 02/23/17 02/23/17 02/23/17 02/23/17 11:54 11:55 12:46 14:35 Pulse 85 85 B/P 136/86 136/86 Pulse Ox 100 100 O2 Delivery Room Air Room Air 02/23/17 02/23/17 02/23/17 02/23/17 15:00 15:09 15:51 18:22 Temp 98.9 98.9 Pulse 87 Resp 18 B/P 164/115 Pulse Ox 98 98 O2 Delivery Room Air Room Air Room Air 02/23/17 02/23/17 02/23/17 02/23/17 19:15 19:48 19:49 20:00 Temp 98.4 98.4 Pulse 84 Resp 18 B/P 155/92 Pulse Ox 95 O2 Delivery Room Air Room Air Room Air Room Air 02/23/17 02/23/17 02/23/17 02/23/17 21:15 21:16 21:54 22:41 Temp 98.1 98.1 Pulse 84 89 Resp 18 B/P 155/92 168/96 Pulse Ox 95 95 97 O2 Delivery Room Air Room Air Room Air 02/24/17 02/24/17 02/24/17 02/24/17 01:47 01:59 02:13 07:00 Temp 97.9 97.9 97.9 97.9 Pulse 85 79 Resp 18 B/P 136/96 187/102 Pulse Ox 97 100 97 95 O2 Delivery Room Air Room Air Room Air Room Air 02/24/17 02/24/17 02/24/17 02/24/17 07:25 08:28 08:28 10:36 Temp 98.0 98.0 Pulse 79 79 64 Resp 24 B/P 187/102 187/102 163/90 Pulse Ox 100 99 O2 Delivery Room Air Room Air Intake and Output 02/23/17 02/23/17 02/24/17 14:59 22:59 06:59 Intake Total 300 ml 400 ml 780 ml Output Total 700 ml Balance -400 ml 400 ml 780 ml PAGE HICKS MD Feb 24, 2017 11:14
[2017-02-24] MEDS ORDERED: ONDANSETRON PF 4 MG/2 ML VIAL. IV ONE (12:00)
[2017-02-24] MEDS: IV NORMAL SALINE 1000ML BAG 1,000 ML IV SCH (13:14)
--- NOTE | 2017-02-24 16:23 | RAD ---
Ultrasound of the abdomen 02/24/2017 Clinical history: Abdominal pain. Technique: A real-time ultrasound examination of the abdomen was performed. Multiple images were obtained. Findings: Comparison is made to the patient's CT scan of the abdomen dated 12/03/2016. The gallbladder is not visualized consistent with a cholecystectomy. The common bile duct measures 3 mm in diameter which is within normal limits. The liver is within the upper limits of normal in size measuring 18 cm in length. Increased echogenicity of the liver parenchyma is seen consistent with mild fatty infiltration. No focal abnormality of the liver is noted. The spleen is normal in size measuring 8.2 cm in length. The visualized portions of the pancreas and both kidneys are within normal limits. The abdominal aorta tapers normally. The inferior vena cava is within normal limits. No free fluid is seen. Impression: 1. Status post cholecystectomy. 2. Mild fatty infiltration of the liver.
[2017-02-24 19:00] VITALS: BP 178/70
[2017-02-24] MEDS: fentaNYL PF VIAL 100 MCG/2 ML VIAL IV PRN ×2 (19:25→22:34)
[2017-02-24] MEDS: ATORVASTATIN CALCIUM 40 MG TABLET. PO SCH (20:38)
[2017-02-24] MEDS: EZETIMIBE 10 MG TABLET. PO SCH (20:38)
[2017-02-24 23:00] VITALS: BP 170/94
[2017-02-25] VITALS (7 sets, daily range): BP systolic 147–187; BP diastolic 69–117
[2017-02-25] MEDS: IV NORMAL SALINE 1000ML BAG 1,000 ML IV SCH ×3 (02:36→23:58)
[2017-02-25] MEDS: fentaNYL PF VIAL 100 MCG/2 ML VIAL IV PRN (02:37)
[2017-02-25] MEDS: PROCHLORPERAZINE 10 MG/2 ML VIAL. IV PRN ×2 (02:37→12:41)
[2017-02-25] MEDS: ALBUTEROL SULFATE 2.5 MG/3 ML NEBU. NEB PRN (03:19)
[2017-02-25 04:11] LABS: BASO % 0 % (0-3); EOS % 0 % (0-3); HEMATOCRIT 37.7 % (36.0-47.0); HEMOGLOBIN 12.6 g/dL (12.0-15.5); LYMPH # 1.1 x10^3/uL (1.0-4.8); LYMPH % 10 % (24-48); MEAN CORPUSCULAR HEMOGLOBIN 30 pg (25-35); MEAN CORPUSCULAR HGB CONC 33 g/dL (31-37); MEAN CORPUSCULAR VOLUME 89 fL (79-100); MONO % 3 % (0-9); NEUT % 87 % (31-73); PLATELET COUNT 172 x10^3/uL (140-400); RED BLOOD COUNT 4.26 x10^6/uL (3.50-5.40); RED CELL DISTRIBUTION WIDTH 14.1 % (11.5-14.5); WHITE BLOOD COUNT 11.4 x10^3/uL (4.0-11.0)
[2017-02-25 04:28] LABS: CALCIUM 8.7 mg/dL (8.5-10.1); GFR 71.9; POTASSIUM 4.4 mmol/L (3.5-5.1)
[2017-02-25] MEDS: methylPREDNISolone SOD SUCC PF 40 MG/ML VIAL. IV SCH ×2 (05:35→16:10)
[2017-02-25] MEDS: PANTOPRAZOLE 40 MG TABLET.DR. PO SCH (08:10)
[2017-02-25] MEDS: METOPROLOL SUCC 24HR ER 50 MG TAB.ER.24H. PO SCH ×2 (08:12→20:42)
[2017-02-25] MEDS: ALBUTEROL SULFATE 2.5 MG/3 ML NEBU. NEB SCH ×3 (08:12→21:00)
[2017-02-25] MEDS: LOSARTAN POTASSIUM 50 MG TABLET. PO SCH (08:13)
[2017-02-25] MEDS: ALPRAZolam 0.5 MG TABLET PO SCH ×2 (08:13→20:44)
[2017-02-25] MEDS: ASPIRIN ENTERIC COATED 81 MG TABLET.DR. PO SCH (08:13)
[2017-02-25 10:18] LABS: % BASOS 1 % (0-3)
[2017-02-25 10:23] LABS: PLT ESTIMATE ADEQUATE (ADEQUATE)
[2017-02-25] MEDS: hydrALAZINE 20 MG/ML VIAL. IVP PRN (10:54)
--- NOTE | 2017-02-25 14:43 | PDOC ---
PROGRESS NOTES Chief Complaint Chief Complaint cc: Chest pain 1. Atypical chest pain, unclear etiology, possible musculoskeletal in nature.: Recent stress test negative, tortonis negative. cardiology signed off. 2. History of asthma with active wheezing, possible exacerbation: on IV solumedrol, prn nebulizations, pulmonology consultation. 3. Gastroesophageal reflux disease with active nausea and vomiting: PRN Zofran , NPO, if persists add compazine. , US abdomen, no acute process, consult GI for persistent symptoms 4. Chronic pain syndrome with low back pain.: continue home medications with PRN [place]. 5. Anxiety. 6. Hypertension. 7. Hyperlipidemia. 8. Hypomagnesemia. replaced. History of Present Illness History of Present Illness nausea. wheezing vomiting. Vitals Vitals Vital Signs Date Time Temp Pulse Resp B/P Pulse Ox O2 Delivery O2 Flow Rate FiO2 02/25/17 11:41 79 20 166/95 98 Room Air 02/25/17 11:00 97.5 97.5 Physical Exam General: Alert, Oriented X3, Cooperative, No acute distress Heart: Regular rate, Normal S1, Normal S2, No murmurs Lungs: Wheezing, Other Abdomen: Soft, Other Extremities: No cyanosis, No edema, Other Skin: No breakdown, No significant lesion Labs LABS Laboratory Tests Test 02/25/17 03:30 White Blood Count 11.4x10^3/uL (4.0-11.0) Red Blood Count 4.26x10^6/uL (3.50-5.40) Hemoglobin 12.6g/dL (12.0-15.5) Hematocrit 37.7% (36.0-47.0) Mean Corpuscular Volume 89fL (79-100) Mean Corpuscular Hemoglobin 30pg (25-35) Mean Corpuscular Hemoglobin Concent 33g/dL (31-37) Red Cell Distribution Width 14.1% (11.5-14.5) Platelet Count 172x10^3/uL (140-400) Neutrophils (%) (Auto) 87% (31-73) Lymphocytes (%) (Auto) 10% (24-48) Monocytes (%) (Auto) 3% (0-9) Eosinophils (%) (Auto) 0% (0-3) Basophils (%) (Auto) 0% (0-3) Neutrophils # (Auto) 9.9x10^3uL (1.8-7.7) Lymphocytes # (Auto) 1.1x10^3/uL (1.0-4.8) Monocytes # (Auto) 0.3x10^3/uL (0.0-1.1) Eosinophils # (Auto) 0.0x10^3/uL (0.0-0.7) Basophils # (Auto) 0.0x10^3/uL (0.0-0.2) Segmented Neutrophils % 86% (35-66) Lymphocytes % 9% (24-48) Monocytes % 4% (0-10) Basophils % 1% (0-3) Platelet Estimate Adequate (ADEQUATE) Sodium Level 139mmol/L (136-145) Potassium Level 4.4mmol/L (3.5-5.1) Chloride Level 103mmol/L (98-107) Carbon Dioxide Level 29mmol/L (21-32) Anion Gap 7 (6-14) Blood Urea Nitrogen 15mg/dL (7-20) Creatinine 1.0mg/dL (0.6-1.0) Estimated GFR (Cockcroft-Gault) 71.9 Glucose Level 168mg/dL (70-99) Calcium Level 8.7mg/dL (8.5-10.1) Assessment and Plan Assessmemt and Plan Problems Medical Problems: (1) Chest pain Status: Acute Problems: Comment Review of Relevant I have reviewed the following items meghna (where applicable) has been applied. Labs Laboratory Tests Test 02/24/17 04:50 02/25/17 03:30 White Blood Count 8.0x10^3/uL (4.0-11.0) 11.4x10^3/uL (4.0-11.0) Red Blood Count 4.21x10^6/uL (3.50-5.40) 4.26x10^6/uL (3.50-5.40) Hemoglobin 12.0g/dL (12.0-15.5) 12.6g/dL (12.0-15.5) Hematocrit 37.0% (36.0-47.0) 37.7% (36.0-47.0) Mean Corpuscular Volume 88fL (79-100) 89fL (79-100) Mean Corpuscular Hemoglobin 29pg (25-35) 30pg (25-35) Mean Corpuscular Hemoglobin Concent 33g/dL (31-37) 33g/dL (31-37) Red Cell Distribution Width 14.4% (11.5-14.5) 14.1% (11.5-14.5) Platelet Count 172x10^3/uL (140-400) 172x10^3/uL (140-400) Neutrophils (%) (Auto) 77% (31-73) 87% (31-73) Lymphocytes (%) (Auto) 16% (24-48) 10% (24-48) Monocytes (%) (Auto) 7% (0-9) 3% (0-9) Eosinophils (%) (Auto) 0% (0-3) 0% (0-3) Basophils (%) (Auto) 0% (0-3) 0% (0-3) Neutrophils # (Auto) 6.2x10^3uL (1.8-7.7) 9.9x10^3uL (1.8-7.7) Lymphocytes # (Auto) 1.3x10^3/uL (1.0-4.8) 1.1x10^3/uL (1.0-4.8) Monocytes # (Auto) 0.5x10^3/uL (0.0-1.1) 0.3x10^3/uL (0.0-1.1) Eosinophils # (Auto) 0.0x10^3/uL (0.0-0.7) 0.0x10^3/uL (0.0-0.7) Basophils # (Auto) 0.0x10^3/uL (0.0-0.2) 0.0x10^3/uL (0.0-0.2) Sodium Level 139mmol/L (136-145) 139mmol/L (136-145) Potassium Level 4.1mmol/L (3.5-5.1) 4.4mmol/L (3.5-5.1) Chloride Level 103mmol/L (98-107) 103mmol/L (98-107) Carbon Dioxide Level 24mmol/L (21-32) 29mmol/L (21-32) Anion Gap 12 (6-14) 7 (6-14) Blood Urea Nitrogen 10mg/dL (7-20) 15mg/dL (7-20) Creatinine 1.2mg/dL (0.6-1.0) 1.0mg/dL (0.6-1.0) Estimated GFR (Cockcroft-Gault) 58.3 71.9 Glucose Level 148mg/dL (70-99) 168mg/dL (70-99) Calcium Level 8.7mg/dL (8.5-10.1) 8.7mg/dL (8.5-10.1) Segmented Neutrophils % 86% (35-66) Lymphocytes % 9% (24-48) Monocytes % 4% (0-10) Basophils % 1% (0-3) Platelet Estimate Adequate (ADEQUATE) Laboratory Tests Test 02/25/17 03:30 White Blood Count 11.4x10^3/uL (4.0-11.0) Red Blood Count 4.26x10^6/uL (3.50-5.40) Hemoglobin 12.6g/dL (12.0-15.5) Hematocrit 37.7% (36.0-47.0) Mean Corpuscular Volume 89fL (79-100) Mean Corpuscular Hemoglobin 30pg (25-35) Mean Corpuscular Hemoglobin Concent 33g/dL (31-37) Red Cell Distribution Width 14.1% (11.5-14.5) Platelet Count 172x10^3/uL (140-400) Neutrophils (%) (Auto) 87% (31-73) Lymphocytes (%) (Auto) 10% (24-48) Monocytes (%) (Auto) 3% (0-9) Eosinophils (%) (Auto) 0% (0-3) Basophils (%) (Auto) 0% (0-3) Neutrophils # (Auto) 9.9x10^3uL (1.8-7.7) Lymphocytes # (Auto) 1.1x10^3/uL (1.0-4.8) Monocytes # (Auto) 0.3x10^3/uL (0.0-1.1) Eosinophils # (Auto) 0.0x10^3/uL (0.0-0.7) Basophils # (Auto) 0.0x10^3/uL (0.0-0.2) Segmented Neutrophils % 86% (35-66) Lymphocytes % 9% (24-48) Monocytes % 4% (0-10) Basophils % 1% (0-3) Platelet Estimate Adequate (ADEQUATE) Sodium Level 139mmol/L (136-145) Potassium Level 4.4mmol/L (3.5-5.1) Chloride Level 103mmol/L (98-107) Carbon Dioxide Level 29mmol/L (21-32) Anion Gap 7 (6-14) Blood Urea Nitrogen 15mg/dL (7-20) Creatinine 1.0mg/dL (0.6-1.0) Estimated GFR (Cockcroft-Gault) 71.9 Glucose Level 168mg/dL (70-99) Calcium Level 8.7mg/dL (8.5-10.1) Medications Current Medications Aspirin (Children'S Aspirin) 324 mg 1X ONCE PO Last administered on 02/22/17 23:14; Start 02/22/17 at 23:00; Stop 02/22/17 at 23:01; Status DC Nitroglycerin 0.4 mg 0.4 mg PRN Q5MIN PRN SL CP RATING > 1/10; Start 02/22/17 at 23:00; Stop 02/23/17 at 22:59; Status DC Sodium Chloride (Iv Sodium Chloride 0.9% 1000ml Bag) 1,000 ml @ 100 mls/hr Q10H IV Last administered on 02/22/17 23:15; Start 02/22/17 at 23:00; Stop 10/30 at 08:59; Status DC Ondansetron HCl (Zofran) 4 mg 1X ONCE IV Last administered on 02/22/17 23:19 ; Start 02/22/17 at 23:30; Stop 02/22/17 at 23:31; Status DC Ondansetron HCl (Zofran) 4 mg PRN Q8HRS PRN IV NAUSEA/VOMITING; Start 02/23/17 at 00:00; Stop 02/23/17 at 23:59; Status DC Fentanyl Citrate 50 mcg 50 mcg PRN Q2HR PRN IV PAIN Last administered on 21:15; Start 02/23/17 at 00:00; Stop 02/23/17 at 23:59; Status DC Sodium Chloride (Iv Sodium Chloride 0.9% 1000ml Bag) 1,000 ml @ 100 mls/hr Q10H IV Last administered on 02/23/17 10:52; Start 02/23/17 at 00:00; Stop 10/30 at 00:01; Status DC Acetaminophen (Tylenol) 650 mg PRN Q4HRS PRN PO FEVER; Start 02/23/17 at 00:00 ; Stop 02/23/17 at 23:59; Status DC Iohexol 75 ml 75 ml 1X ONCE IV Last administered on 02/23/17 01:06; Start 10/30 at 00:45; Stop 02/23/17 at 00:46; Status DC Magnesium Sulfate/ Dextrose (Magnesium Sulfate PREMIX 2GM) 50 ml @ 25 mls/hr 1X ONCE IV Last administered on 02/23/17 10:56; Start 02/23/17 at 10:45; Stop 02/23/17 at 12:44; Status DC Acetaminophen (Tylenol) 325 mg PRN Q6HRS PRN PO MILD PAIN / TEMP; Start at 10:30 Acetaminophen/ Hydrocodone Bitart (Lortab 5/325) 1 tab PRN Q6HRS PRN PO MODERATE TO SEVERE PAIN Last administered on 02/23/17 21:16; Start 02/23/17 at 10:00 Hydralazine HCl (Apresoline) 10 mg PRN Q4HRS PRN IVP ELEVATED BP, SEE COMMENTS Last administered on 02/25/17 10:54; Start 02/23/17 at 10:00 Ondansetron HCl (Zofran) 4 mg PRN Q8HRS PRN IV NAUSEA/VOMITING 1ST CHOICE Last administered on 02/24/17 18:09; Start 02/23/17 at 10:00 Albuterol Sulfate (Ventolin Neb Soln) 2.5 mg PRN Q4HRS PRN NEB SHORTNESS OF BREATH Last administered on 02/25/17 03:19; Start 02/23/17 at 10:00 Multi-Ingredient Mouthwash/Gargle (Gi Cocktail Single Dose) 15 ml PRN 1X PRN SWSW CHEST PAIN; Start 02/23/17 at 10:30 EZETIMIBE (Zetia) 10 mg QHS PO Last administered on 02/24/17 20:38; Start 10/30 at 21:00 Losartan Potassium (Cozaar) 50 mg DAILY PO Last administered on 02/25/17 08:13 ; Start 02/23/17 at 11:00 Metoprolol Succinate (Toprol Xl) 50 mg DAILY PO Last administered on 02/23/17 11:55; Start 02/23/17 at 11:00; Stop 02/23/17 at 21:33; Status DC Pantoprazole Sodium (Protonix) 40 mg DAILYAC PO Last administered on 02/25/17 08:10; Start 02/23/17 at 11:00 Atorvastatin Calcium (Lipitor) 80 mg QHS PO Last administered on 02/24/17 20: 38; Start 02/23/17 at 21:00 Aspirin (Ecotrin) 81 mg [id number] PO Last administered on 02/25/17 08:13; Start 02/23/17 at 12:00 Albuterol Sulfate (Ventolin Neb Soln) 2.5 mg QID NEB Last administered on 08:12; Start 02/23/17 at 13:00 Alprazolam (Xanax) 0.5 mg BID PO Last administered on 02/25/17 08:13; Start at 21:00 Acetaminophen/ Hydrocodone Bitart (Lortab 7.5/325) 1 tab PRN TID PRN PO PAIN Last administered on 02/24/17 11:24; Start 02/23/17 at 12:30 Non-Formulary Medication 2 puff BID PRN INH SHORTNESS OF BREATH; Start at 12:30; Status UNV Methylprednisolone Sodium Succinate (Solu-Medrol 40mg Vial) 40 mg Q8HRS IV Last administered on 02/25/17 05:35; Start 02/23/17 at 14:00 Diphenhydramine HCl (Benadryl) 25 mg 1X ONCE PO Last administered on 18:13; Start 02/23/17 at 18:00; Stop 02/23/17 at 18:01; Status DC Metoprolol Succinate (Toprol Xl) 50 mg BID PO Last administered on 02/25/17 08 :12; Start 02/23/17 at 22:00 Ondansetron HCl (Zofran) 4 mg 1X ONCE IV Last administered on 02/24/17 12:00 ; Start 02/24/17 at 12:00; Stop 02/24/17 at 12:01; Status DC Prochlorperazine Edisylate 10 mg 10 mg PRN Q6HRS PRN IV NAUSEA/VOMITING 2ND CHOICE Last administered on 02/25/17 12:41; Start 02/24/17 at 12:00 Sodium Chloride (Iv Sodium Chloride 0.9% 1000ml Bag) 1,000 ml @ 75 mls/hr [id number] IV Last administered on 02/25/17 02:36; Start 02/24/17 at 12:00 Fentanyl Citrate (Fentanyl 2ml Vial) 50 mcg PRN Q2HR PRN IV PAIN Last administered on 02/25/17 02:37; Start 02/24/17 at 18:00 Active Scripts Active [Promethazine Hcl/Codeine] 5 ML Syrup 5 Ml PO PRN Q6HRS PRN 10 Days Protonix (Pantoprazole Sodium) 40 Mg Tablet 40 Mg PO DAILYAC Reported Doxazosin Mesylate 4 Mg Tablet 1 Tab PO DAILY Albuterol Sulfate Neb Soln (Albuterol Sulfate) 2.5 Mg/3 Ml Vial.neb 1 Vial NEB QID Proair Hfa Inhaler (Albuterol Sulfate) 8.5 Gm Hfa.aer.ad 2 Puff INH BID PRN Metoprolol Succinate ( Xl ) (Metoprolol Succinate) 25 Mg Tab.er.24h 2 Tab PO DAILY Gave last night Take night Losartan Potassium 50 Mg Tablet 50 Mg PO DAILY Gave this morning Take tomorrow Oxycodone Hcl 10 Mg Tablet 1 Tab PO PRN QID PRN Last dose given last night Take when needed Hydrocodone-Apap 7.5-325 (Hydrocodone Bit/Acetaminophen) 1 Each Tablet 1 Tab PO PRN TID PRN Not given on this admission Take when needed Xanax (Alprazolam) 0.5 Mg Tablet 1 Tab PO BID Not given on this admission Take when needed Zetia (Ezetimibe) 10 Mg Tablet 1 Tab PO QHS Gave last night Take tonight Atorvastatin Calcium 80 Mg Tablet 80 Mg PO HS Gave last night Take tongiht Vitals/I & O Vital Sign - Last 24 Hours 02/24/17 02/24/17 02/24/17 02/24/17 15:55 19:00 19:25 20:00 Temp 98.1 98.1 Pulse 84 Resp 18 B/P 178/70 Pulse Ox 98 94 O2 Delivery Room Air Room Air Room Air Room Air 02/24/17 02/24/17 02/24/17 02/25/17 20:36 20:38 23:00 03:00 Temp 97.9 97.5 97.9 97.5 Pulse 84 80 68 Resp 18 19 B/P 178/70 170/94 148/69 Pulse Ox 99 98 96 O2 Delivery Room Air Room Air Room Air 02/25/17 02/25/17 02/25/17 02/25/17 03:19 07:00 08:12 08:12 Temp 97.5 97.5 Pulse 71 71 Resp 22 B/P 173/85 173/85 Pulse Ox 95 O2 Delivery Room Air Room Air Room Air 02/25/17 02/25/17 02/25/17 02/25/17 08:13 08:18 10:54 11:00 Temp 97.5 97.5 Pulse 71 67 67 Resp 20 B/P 173/85 187/117 187/117 Pulse Ox 98 98 O2 Delivery Room Air Room Air 02/25/17 11:41 Pulse 79 Resp 20 B/P 166/95 Pulse Ox 98 O2 Delivery Room Air Intake and Output 02/24/17 02/24/17 02/25/17 15:00 23:00 07:00 Intake Total 640 ml 250 ml Output Total 800 ml Balance 640 ml -550 ml PAGE HICKS MD Feb 25, 2017 14:43
[2017-02-25] MEDS ORDERED: fentaNYL PF VIAL 100 MCG/2 ML VIAL IV PRN (14:45)
--- NOTE | 2017-02-25 17:59 | PDOC ---
PULMONARY PROGRESS NOTES Vitals Vital Signs Date Time Temp Pulse Resp B/P Pulse Ox O2 Delivery O2 Flow Rate FiO2 02/25/17 15:00 97.7 77 20 147/76 98 Room Air 97.7 Extremities: No Edema Labs Laboratory Tests Test 02/24/17 04:50 02/25/17 03:30 White Blood Count 8.0x10^3/uL (4.0-11.0) 11.4x10^3/uL (4.0-11.0) Red Blood Count 4.21x10^6/uL (3.50-5.40) 4.26x10^6/uL (3.50-5.40) Hemoglobin 12.0g/dL (12.0-15.5) 12.6g/dL (12.0-15.5) Hematocrit 37.0% (36.0-47.0) 37.7% (36.0-47.0) Mean Corpuscular Volume 88fL (79-100) 89fL (79-100) Mean Corpuscular Hemoglobin 29pg (25-35) 30pg (25-35) Mean Corpuscular Hemoglobin Concent 33g/dL (31-37) 33g/dL (31-37) Red Cell Distribution Width 14.4% (11.5-14.5) 14.1% (11.5-14.5) Platelet Count 172x10^3/uL (140-400) 172x10^3/uL (140-400) Neutrophils (%) (Auto) 77% (31-73) 87% (31-73) Lymphocytes (%) (Auto) 16% (24-48) 10% (24-48) Monocytes (%) (Auto) 7% (0-9) 3% (0-9) Eosinophils (%) (Auto) 0% (0-3) 0% (0-3) Basophils (%) (Auto) 0% (0-3) 0% (0-3) Neutrophils # (Auto) 6.2x10^3uL (1.8-7.7) 9.9x10^3uL (1.8-7.7) Lymphocytes # (Auto) 1.3x10^3/uL (1.0-4.8) 1.1x10^3/uL (1.0-4.8) Monocytes # (Auto) 0.5x10^3/uL (0.0-1.1) 0.3x10^3/uL (0.0-1.1) Eosinophils # (Auto) 0.0x10^3/uL (0.0-0.7) 0.0x10^3/uL (0.0-0.7) Basophils # (Auto) 0.0x10^3/uL (0.0-0.2) 0.0x10^3/uL (0.0-0.2) Sodium Level 139mmol/L (136-145) 139mmol/L (136-145) Potassium Level 4.1mmol/L (3.5-5.1) 4.4mmol/L (3.5-5.1) Chloride Level 103mmol/L (98-107) 103mmol/L (98-107) Carbon Dioxide Level 24mmol/L (21-32) 29mmol/L (21-32) Anion Gap 12 (6-14) 7 (6-14) Blood Urea Nitrogen 10mg/dL (7-20) 15mg/dL (7-20) Creatinine 1.2mg/dL (0.6-1.0) 1.0mg/dL (0.6-1.0) Estimated GFR (Cockcroft-Gault) 58.3 71.9 Glucose Level 148mg/dL (70-99) 168mg/dL (70-99) Calcium Level 8.7mg/dL (8.5-10.1) 8.7mg/dL (8.5-10.1) Segmented Neutrophils % 86% (35-66) Lymphocytes % 9% (24-48) Monocytes % 4% (0-10) Basophils % 1% (0-3) Platelet Estimate Adequate (ADEQUATE) Laboratory Tests Test 02/25/17 03:30 White Blood Count 11.4x10^3/uL (4.0-11.0) Red Blood Count 4.26x10^6/uL (3.50-5.40) Hemoglobin 12.6g/dL (12.0-15.5) Hematocrit 37.7% (36.0-47.0) Mean Corpuscular Volume 89fL (79-100) Mean Corpuscular Hemoglobin 30pg (25-35) Mean Corpuscular Hemoglobin Concent 33g/dL (31-37) Red Cell Distribution Width 14.1% (11.5-14.5) Platelet Count 172x10^3/uL (140-400) Neutrophils (%) (Auto) 87% (31-73) Lymphocytes (%) (Auto) 10% (24-48) Monocytes (%) (Auto) 3% (0-9) Eosinophils (%) (Auto) 0% (0-3) Basophils (%) (Auto) 0% (0-3) Neutrophils # (Auto) 9.9x10^3uL (1.8-7.7) Lymphocytes # (Auto) 1.1x10^3/uL (1.0-4.8) Monocytes # (Auto) 0.3x10^3/uL (0.0-1.1) Eosinophils # (Auto) 0.0x10^3/uL (0.0-0.7) Basophils # (Auto) 0.0x10^3/uL (0.0-0.2) Segmented Neutrophils % 86% (35-66) Lymphocytes % 9% (24-48) Monocytes % 4% (0-10) Basophils % 1% (0-3) Platelet Estimate Adequate (ADEQUATE) Sodium Level 139mmol/L (136-145) Potassium Level 4.4mmol/L (3.5-5.1) Chloride Level 103mmol/L (98-107) Carbon Dioxide Level 29mmol/L (21-32) Anion Gap 7 (6-14) Blood Urea Nitrogen 15mg/dL (7-20) Creatinine 1.0mg/dL (0.6-1.0) Estimated GFR (Cockcroft-Gault) 71.9 Glucose Level 168mg/dL (70-99) Calcium Level 8.7mg/dL (8.5-10.1) Medications Active Scripts Medications Dose Route/Sig Days Date Category Dose Instructions Doxazosin Mesylate 4 Mg Tablet 1 Tab PO DAILY 02/23/17 Reported Albuterol Sulfate Neb Soln (Albuterol Sulfate) 2.5 Mg/3 Ml Vial.neb 1 Vial NEB QID 02/23/17 Reported Proair Hfa Inhaler (Albuterol Sulfate) 8.5 Gm Hfa.aer.ad 2 Puff INH BID PRN 02/23/17 Reported [Promethazine Hcl/Codeine] 5 ML Syrup 5 Ml PO PRN Q6HRS PRN 10 12/05/16 Rx Metoprolol Succinate ( Xl ) (Metoprolol Succinate) 25 Mg Tab.er.24h 2 Tab PO DAILY 12/04/16 Reported Gave last night Take night Losartan Potassium 50 Mg Tablet 50 Mg PO DAILY 12/04/16 Reported Gave this morning Take tomorrow Oxycodone Hcl 10 Mg Tablet 1 Tab PO PRN QID PRN 12/04/16 Reported Last dose given last night Take when needed Hydrocodone-Apap 7.5-325 (Hydrocodone Bit/Acetaminophen) 1 Each Tablet 1 Tab PO PRN TID PRN 07/26/16 Reported Not given on this admission Take when needed Xanax (Alprazolam) 0.5 Mg Tablet 1 Tab PO BID 03/17/15 Reported Not given on this admission Take when needed Zetia (Ezetimibe) 10 Mg Tablet 1 Tab PO QHS 03/17/15 Reported Gave last night Take tonight Protonix (Pantoprazole Sodium) 40 Mg Tablet 40 Mg PO DAILYAC 05/04/14 Rx Atorvastatin Calcium 80 Mg Tablet 80 Mg PO HS 05/03/14 Reported Gave last night Take mahog[place] Impression . [id number] PULMONARY NODULES NEEDS FOLLOW UP AECOPD OK TO D/C IN AM THANKS AIDA OSHEA MD Feb 25, 2017 17:59
[2017-02-25] MEDS ORDERED: CALCIUM CARBONATE 500 MG TAB.CHEW PO PRN (19:00)
[2017-02-25] MEDS: EZETIMIBE 10 MG TABLET. PO SCH (20:42)
[2017-02-25] MEDS: ATORVASTATIN CALCIUM 40 MG TABLET. PO SCH (20:43)
[2017-02-26 03:42] VITALS: BP 162/86
[2017-02-26 05:32] LABS: BASO % 0 % (0-3); EOS % 0 % (0-3); HEMATOCRIT 38.7 % (36.0-47.0); HEMOGLOBIN 12.4 g/dL (12.0-15.5); LYMPH # 1.9 x10^3/uL (1.0-4.8); LYMPH % 15 % (24-48); MEAN CORPUSCULAR HEMOGLOBIN 29 pg (25-35); MEAN CORPUSCULAR HGB CONC 32 g/dL (31-37); MEAN CORPUSCULAR VOLUME 89 fL (79-100); MONO % 7 % (0-9); NEUT % 78 % (31-73); PLATELET COUNT 178 x10^3/uL (140-400); RED BLOOD COUNT 4.35 x10^6/uL (3.50-5.40); RED CELL DISTRIBUTION WIDTH 14.5 % (11.5-14.5); WHITE BLOOD COUNT 12.7 x10^3/uL (4.0-11.0)
[2017-02-26 05:47] LABS: CALCIUM 8.6 mg/dL (8.5-10.1); CREATININE 0.9 mg/dL (0.6-1.0); GFR 81.2; POTASSIUM 3.9 mmol/L (3.5-5.1)
[2017-02-26 07:00] VITALS: BP 196/112
[2017-02-26] MEDS: METOPROLOL SUCC 24HR ER 50 MG TAB.ER.24H. PO SCH (08:07)
[2017-02-26] MEDS: LOSARTAN POTASSIUM 50 MG TABLET. PO SCH (08:08)
[2017-02-26] MEDS: ASPIRIN ENTERIC COATED 81 MG TABLET.DR. PO SCH (08:09)
[2017-02-26] MEDS: PANTOPRAZOLE 40 MG TABLET.DR. PO SCH (08:09)
[2017-02-26] MEDS: ALPRAZolam 0.5 MG TABLET PO SCH ×2 (08:09→10:55)
--- NOTE | 2017-02-26 08:48 | CONS ---
DATE OF CONSULTATION: 02/25/2017 ATTENDING PHYSICIAN: Dr. Cardenas. REASON FOR CONSULTATION: The patient is seen in pulmonary consultation at the request of Dr. Cardenas for abnormal CT chest revealing pulmonary nodules. HISTORY OF PRESENT ILLNESS: The patient is a 46-year-old female, known to me from a previous hospitalization. She has underlying COPD - used to smoke, hypertension, hyperlipidemia, previous lower extremity DVT, anxiety, depression, and chronic lower back pain, who presents mostly with chest pain and increasing shortness of breath. The chest discomfort was radiating down to the right and left lower rib area. The patient was evaluated with CT angiogram. CT angiogram was reviewed. There was no evidence of pulmonary embolism. There are pulmonary nodules. I was asked to see him in consultation. PAST MEDICAL HISTORY: COPD, hypertension, hyperlipidemia, right lower extremity DVT, and anxiety. PAST SURGICAL HISTORY: Status post cholecystectomy, tubal ligation, and hysterectomy. ALLERGIES: TO PENICILLIN. CURRENT MEDICATIONS: List was reviewed. Please see the MRAD. FAMILY HISTORY: Cancer, sarcoid. REVIEW OF SYSTEMS: As indicated in the history of present illness, otherwise, a 14-point system was reviewed and negative. PHYSICAL EXAMINATION: VITAL SIGNS: Stable. O2 saturation on room air 95%. HEENT: Eyes - the sclerae were nonicteric. NECK: Jugular venous distention was not elevated. No lymphadenopathy. CHEST: Full expansion. LUNGS: Adequate airway flow with no wheezes. CARDIOVASCULAR: Regular rate and rhythm with S1 and S2, no S3. ABDOMEN: Soft, nontender, and nondistended. EXTREMITIES: No clubbing, cyanosis, or pitting edema. NEUROLOGIC: The patient was awake and alert, following commands. A detailed neurological exam was not performed. IMPRESSION: 1. Abnormal CT of the chest, revealing pulmonary nodules. No evidence of pulmonary embolism. 2. Several sub 4-mm right lower lobe pulmonary nodules, slightly more prominent in the film of 2014. 3. Acute exacerbation of chronic obstructive pulmonary disease upon presentation. The patient was wheezing, received IV Solu-Medrol, nebulized treatments and is now improved. 4. Obesity. 5. Acute nonspecific bronchitis. 6. Atypical chest pain. PLAN 1. From a pulmonary standpoint of view, the patient has improved, recommend switching over to p.o. prednisone and possibly discharge home in the a.m. 2. Follow up in my office in May with a repeat CT of the chest. 3. Continue nebulized treatments. I do appreciate the privilege in sharing in the patient's care. AIDA OSHEA MD DR: FRANC/darien JOB#: [id number] / [id number]
[2017-02-26] MEDS: ALBUTEROL SULFATE 2.5 MG/3 ML NEBU. NEB SCH (08:49)
[2017-02-26] MEDS ORDERED: predniSONE 20 MG TABLET PO SCH (09:00)
--- NOTE | 2017-02-26 10:51 | PDOC ---
PULMONARY PROGRESS NOTES Subjective no sob, occ cough, no cp, no runny nose Vitals Vital Signs Date Time Temp Pulse Resp B/P Pulse Ox O2 Delivery O2 Flow Rate FiO2 02/26/17 08:49 98 Room Air 02/26/17 08:08 61 196/112 02/26/17 07:00 98.0 16 98.0 ROS: No Nausea, No Chest Pain, No Abdominal Pain General: Alert, Oriented X4 HEENT: Other (nc at perrl. throat nose clear) Lungs: Clear Cardiovascular: S1, S2 Abdomen: Soft, Non-tender Neuro Exam: Alert, Oriented Extremities: No Edema Skin: Warm Labs Laboratory Tests Test 02/25/17 03:30 02/26/17 04:00 White Blood Count 11.4x10^3/uL (4.0-11.0) 12.7x10^3/uL (4.0-11.0) Red Blood Count 4.26x10^6/uL (3.50-5.40) 4.35x10^6/uL (3.50-5.40) Hemoglobin 12.6g/dL (12.0-15.5) 12.4g/dL (12.0-15.5) Hematocrit 37.7% (36.0-47.0) 38.7% (36.0-47.0) Mean Corpuscular Volume 89fL (79-100) 89fL (79-100) Mean Corpuscular Hemoglobin 30pg (25-35) 29pg (25-35) Mean Corpuscular Hemoglobin Concent 33g/dL (31-37) 32g/dL (31-37) Red Cell Distribution Width 14.1% (11.5-14.5) 14.5% (11.5-14.5) Platelet Count 172x10^3/uL (140-400) 178x10^3/uL (140-400) Neutrophils (%) (Auto) 87% (31-73) 78% (31-73) Lymphocytes (%) (Auto) 10% (24-48) 15% (24-48) Monocytes (%) (Auto) 3% (0-9) 7% (0-9) Eosinophils (%) (Auto) 0% (0-3) 0% (0-3) Basophils (%) (Auto) 0% (0-3) 0% (0-3) Neutrophils # (Auto) 9.9x10^3uL (1.8-7.7) 9.8x10^3uL (1.8-7.7) Lymphocytes # (Auto) 1.1x10^3/uL (1.0-4.8) 1.9x10^3/uL (1.0-4.8) Monocytes # (Auto) 0.3x10^3/uL (0.0-1.1) 0.9x10^3/uL (0.0-1.1) Eosinophils # (Auto) 0.0x10^3/uL (0.0-0.7) 0.0x10^3/uL (0.0-0.7) Basophils # (Auto) 0.0x10^3/uL (0.0-0.2) 0.0x10^3/uL (0.0-0.2) Segmented Neutrophils % 86% (35-66) Lymphocytes % 9% (24-48) Monocytes % 4% (0-10) Basophils % 1% (0-3) Platelet Estimate Adequate (ADEQUATE) Sodium Level 139mmol/L (136-145) 140mmol/L (136-145) Potassium Level 4.4mmol/L (3.5-5.1) 3.9mmol/L (3.5-5.1) Chloride Level 103mmol/L (98-107) 102mmol/L (98-107) Carbon Dioxide Level 29mmol/L (21-32) 29mmol/L (21-32) Anion Gap 7 (6-14) 9 (6-14) Blood Urea Nitrogen 15mg/dL (7-20) 16mg/dL (7-20) Creatinine 1.0mg/dL (0.6-1.0) 0.9mg/dL (0.6-1.0) Estimated GFR (Cockcroft-Gault) 71.9 81.2 Glucose Level 168mg/dL (70-99) 107mg/dL (70-99) Calcium Level 8.7mg/dL (8.5-10.1) 8.6mg/dL (8.5-10.1) Laboratory Tests Test 02/26/17 04:00 White Blood Count 12.7x10^3/uL (4.0-11.0) Red Blood Count 4.35x10^6/uL (3.50-5.40) Hemoglobin 12.4g/dL (12.0-15.5) Hematocrit 38.7% (36.0-47.0) Mean Corpuscular Volume 89fL (79-100) Mean Corpuscular Hemoglobin 29pg (25-35) Mean Corpuscular Hemoglobin Concent 32g/dL (31-37) Red Cell Distribution Width 14.5% (11.5-14.5) Platelet Count 178x10^3/uL (140-400) Neutrophils (%) (Auto) 78% (31-73) Lymphocytes (%) (Auto) 15% (24-48) Monocytes (%) (Auto) 7% (0-9) Eosinophils (%) (Auto) 0% (0-3) Basophils (%) (Auto) 0% (0-3) Neutrophils # (Auto) 9.8x10^3uL (1.8-7.7) Lymphocytes # (Auto) 1.9x10^3/uL (1.0-4.8) Monocytes # (Auto) 0.9x10^3/uL (0.0-1.1) Eosinophils # (Auto) 0.0x10^3/uL (0.0-0.7) Basophils # (Auto) 0.0x10^3/uL (0.0-0.2) Sodium Level 140mmol/L (136-145) Potassium Level 3.9mmol/L (3.5-5.1) Chloride Level 102mmol/L (98-107) Carbon Dioxide Level 29mmol/L (21-32) Anion Gap 9 (6-14) Blood Urea Nitrogen 16mg/dL (7-20) Creatinine 0.9mg/dL (0.6-1.0) Estimated GFR (Cockcroft-Gault) 81.2 Glucose Level 107mg/dL (70-99) Calcium Level 8.6mg/dL (8.5-10.1) Medications Active Scripts Medications Dose Route/Sig Days Date Category Dose Instructions Doxazosin Mesylate 4 Mg Tablet 1 Tab PO DAILY 02/23/17 Reported Albuterol Sulfate Neb Soln (Albuterol Sulfate) 2.5 Mg/3 Ml Vial.neb 1 Vial NEB QID 02/23/17 Reported Proair Hfa Inhaler (Albuterol Sulfate) 8.5 Gm Hfa.aer.ad 2 Puff INH BID PRN 02/23/17 Reported [Promethazine Hcl/Codeine] 5 ML Syrup 5 Ml PO PRN Q6HRS PRN 10 12/05/16 Rx Metoprolol Succinate ( Xl ) (Metoprolol Succinate) 25 Mg Tab.er.24h 2 Tab PO DAILY 12/04/16 Reported Gave last night Take night Losartan Potassium 50 Mg Tablet 50 Mg PO DAILY 12/04/16 Reported Gave this morning Take tomorrow Oxycodone Hcl 10 Mg Tablet 1 Tab PO PRN QID PRN 12/04/16 Reported Last dose given last night Take when needed Hydrocodone-Apap 7.5-325 (Hydrocodone Bit/Acetaminophen) 1 Each Tablet 1 Tab PO PRN TID PRN 07/26/16 Reported Not given on this admission Take when needed Xanax (Alprazolam) 0.5 Mg Tablet 1 Tab PO BID 03/17/15 Reported Not given on this admission Take when needed Zetia (Ezetimibe) 10 Mg Tablet 1 Tab PO QHS 03/17/15 Reported Gave last night Take tonight Protonix (Pantoprazole Sodium) 40 Mg Tablet 40 Mg PO DAILYAC 05/04/14 Rx Atorvastatin Calcium 80 Mg Tablet 80 Mg PO HS 05/03/14 Reported Gave last night Take mahogany Impression . IMPRESSION: 1. Abnormal CT of the chest, revealing pulmonary nodules. No evidence of pulmonary embolism. 2. Several sub 4-mm right lower lobe pulmonary nodules, slightly more prominent in the film of 2014. 3. Acute exacerbation of chronic obstructive pulmonary disease upon presentation. The patient was wheezing, received IV Solu-Medrol, nebulized treatments and is now improved. 4. Obesity. 5. Acute nonspecific bronchitis. 6. Atypical chest pain. Plan . PLAN 1. From a pulmonary standpoint of view, the patient has improved, recommend prednisone w taper by 10 mg q 3d, ok to discharge home 2. Follow up in dr rust office in May with a repeat CT of the chest. 3. Continue nebulized treatments. discussed w rn, pt LOUIS DURAN MD Feb 26, 2017 10:51
[2017-02-26 10:53] VITALS: BP 193/118
[2017-02-26] MEDS: hydrALAZINE 20 MG/ML VIAL. IVP PRN (10:56)
--- NOTE | 2017-02-26 11:42 | PDOC ---
PROGRESS NOTES Chief Complaint Chief Complaint cc: Chest pain 1. Atypical chest pain, unclear etiology, possible musculoskeletal in nature.: Recent stress test negative, tortonis negative. cardiology signed off. 2. History of asthma with active wheezing, possible exacerbation: Taper prednisone 3. Gastroesophageal reflux disease with active nausea and vomiting: PRN Zofran , Resolved, US negative. 4. Chronic pain syndrome with low back pain.: continue home medications with PRN [place]. 5. Anxiety. 6. Hypertension. not controlled, anticipated DC today, if SBP< 150. 7. Hyperlipidemia. 8. Hypomagnesemia. replaced. History of Present Illness History of Present Illness no nausea. no sob Vitals Vitals Vital Signs Date Time Temp Pulse Resp B/P Pulse Ox O2 Delivery O2 Flow Rate FiO2 02/26/17 10:56 62 193/118 02/26/17 10:53 97.9 18 100 Room Air 97.9 Physical Exam General: Alert, Oriented X3, Cooperative, No acute distress Heart: Regular rate, Normal S1, Normal S2, No murmurs Lungs: Clear Abdomen: Soft, Other Extremities: No cyanosis, No edema, Other Skin: No breakdown, No significant lesion Labs LABS Laboratory Tests Test 02/26/17 04:00 White Blood Count 12.7x10^3/uL (4.0-11.0) Red Blood Count 4.35x10^6/uL (3.50-5.40) Hemoglobin 12.4g/dL (12.0-15.5) Hematocrit 38.7% (36.0-47.0) Mean Corpuscular Volume 89fL (79-100) Mean Corpuscular Hemoglobin 29pg (25-35) Mean Corpuscular Hemoglobin Concent 32g/dL (31-37) Red Cell Distribution Width 14.5% (11.5-14.5) Platelet Count 178x10^3/uL (140-400) Neutrophils (%) (Auto) 78% (31-73) Lymphocytes (%) (Auto) 15% (24-48) Monocytes (%) (Auto) 7% (0-9) Eosinophils (%) (Auto) 0% (0-3) Basophils (%) (Auto) 0% (0-3) Neutrophils # (Auto) 9.8x10^3uL (1.8-7.7) Lymphocytes # (Auto) 1.9x10^3/uL (1.0-4.8) Monocytes # (Auto) 0.9x10^3/uL (0.0-1.1) Eosinophils # (Auto) 0.0x10^3/uL (0.0-0.7) Basophils # (Auto) 0.0x10^3/uL (0.0-0.2) Sodium Level 140mmol/L (136-145) Potassium Level 3.9mmol/L (3.5-5.1) Chloride Level 102mmol/L (98-107) Carbon Dioxide Level 29mmol/L (21-32) Anion Gap 9 (6-14) Blood Urea Nitrogen 16mg/dL (7-20) Creatinine 0.9mg/dL (0.6-1.0) Estimated GFR (Cockcroft-Gault) 81.2 Glucose Level 107mg/dL (70-99) Calcium Level 8.6mg/dL (8.5-10.1) Assessment and Plan Assessmemt and Plan Problems Medical Problems: (1) Chest pain Status: Acute Problems: Comment Review of Relevant I have reviewed the following items meghna (where applicable) has been applied. Labs Laboratory Tests Test 02/25/17 03:30 02/26/17 04:00 White Blood Count 11.4x10^3/uL (4.0-11.0) 12.7x10^3/uL (4.0-11.0) Red Blood Count 4.26x10^6/uL (3.50-5.40) 4.35x10^6/uL (3.50-5.40) Hemoglobin 12.6g/dL (12.0-15.5) 12.4g/dL (12.0-15.5) Hematocrit 37.7% (36.0-47.0) 38.7% (36.0-47.0) Mean Corpuscular Volume 89fL (79-100) 89fL (79-100) Mean Corpuscular Hemoglobin 30pg (25-35) 29pg (25-35) Mean Corpuscular Hemoglobin Concent 33g/dL (31-37) 32g/dL (31-37) Red Cell Distribution Width 14.1% (11.5-14.5) 14.5% (11.5-14.5) Platelet Count 172x10^3/uL (140-400) 178x10^3/uL (140-400) Neutrophils (%) (Auto) 87% (31-73) 78% (31-73) Lymphocytes (%) (Auto) 10% (24-48) 15% (24-48) Monocytes (%) (Auto) 3% (0-9) 7% (0-9) Eosinophils (%) (Auto) 0% (0-3) 0% (0-3) Basophils (%) (Auto) 0% (0-3) 0% (0-3) Neutrophils # (Auto) 9.9x10^3uL (1.8-7.7) 9.8x10^3uL (1.8-7.7) Lymphocytes # (Auto) 1.1x10^3/uL (1.0-4.8) 1.9x10^3/uL (1.0-4.8) Monocytes # (Auto) 0.3x10^3/uL (0.0-1.1) 0.9x10^3/uL (0.0-1.1) Eosinophils # (Auto) 0.0x10^3/uL (0.0-0.7) 0.0x10^3/uL (0.0-0.7) Basophils # (Auto) 0.0x10^3/uL (0.0-0.2) 0.0x10^3/uL (0.0-0.2) Segmented Neutrophils % 86% (35-66) Lymphocytes % 9% (24-48) Monocytes % 4% (0-10) Basophils % 1% (0-3) Platelet Estimate Adequate (ADEQUATE) Sodium Level 139mmol/L (136-145) 140mmol/L (136-145) Potassium Level 4.4mmol/L (3.5-5.1) 3.9mmol/L (3.5-5.1) Chloride Level 103mmol/L (98-107) 102mmol/L (98-107) Carbon Dioxide Level 29mmol/L (21-32) 29mmol/L (21-32) Anion Gap 7 (6-14) 9 (6-14) Blood Urea Nitrogen 15mg/dL (7-20) 16mg/dL (7-20) Creatinine 1.0mg/dL (0.6-1.0) 0.9mg/dL (0.6-1.0) Estimated GFR (Cockcroft-Gault) 71.9 81.2 Glucose Level 168mg/dL (70-99) 107mg/dL (70-99) Calcium Level 8.7mg/dL (8.5-10.1) 8.6mg/dL (8.5-10.1) Laboratory Tests Test 02/26/17 04:00 White Blood Count 12.7x10^3/uL (4.0-11.0) Red Blood Count 4.35x10^6/uL (3.50-5.40) Hemoglobin 12.4g/dL (12.0-15.5) Hematocrit 38.7% (36.0-47.0) Mean Corpuscular Volume 89fL (79-100) Mean Corpuscular Hemoglobin 29pg (25-35) Mean Corpuscular Hemoglobin Concent 32g/dL (31-37) Red Cell Distribution Width 14.5% (11.5-14.5) Platelet Count 178x10^3/uL (140-400) Neutrophils (%) (Auto) 78% (31-73) Lymphocytes (%) (Auto) 15% (24-48) Monocytes (%) (Auto) 7% (0-9) Eosinophils (%) (Auto) 0% (0-3) Basophils (%) (Auto) 0% (0-3) Neutrophils # (Auto) 9.8x10^3uL (1.8-7.7) Lymphocytes # (Auto) 1.9x10^3/uL (1.0-4.8) Monocytes # (Auto) 0.9x10^3/uL (0.0-1.1) Eosinophils # (Auto) 0.0x10^3/uL (0.0-0.7) Basophils # (Auto) 0.0x10^3/uL (0.0-0.2) Sodium Level 140mmol/L (136-145) Potassium Level 3.9mmol/L (3.5-5.1) Chloride Level 102mmol/L (98-107) Carbon Dioxide Level 29mmol/L (21-32) Anion Gap 9 (6-14) Blood Urea Nitrogen 16mg/dL (7-20) Creatinine 0.9mg/dL (0.6-1.0) Estimated GFR (Cockcroft-Gault) 81.2 Glucose Level 107mg/dL (70-99) Calcium Level 8.6mg/dL (8.5-10.1) Medications Current Medications Aspirin (Children'S Aspirin) 324 mg 1X ONCE PO Last administered on 02/22/17 23:14; Start 02/22/17 at 23:00; Stop 02/22/17 at 23:01; Status DC Nitroglycerin 0.4 mg 0.4 mg PRN Q5MIN PRN SL CP RATING > 10; Start 02/22/17 at 23:00; Stop 02/23/17 at 22:59; Status DC Sodium Chloride (Iv Sodium Chloride 0.9% 1000ml Bag) 1,000 ml @ 100 mls/hr Q10H IV Last administered on 02/22/17 23:15; Start 02/22/17 at 23:00; Stop 10/30 at 08:59; Status DC Ondansetron HCl (Zofran) 4 mg 1X ONCE IV Last administered on 02/22/17 23:19 ; Start 02/22/17 at 23:30; Stop 02/22/17 at 23:31; Status DC Ondansetron HCl (Zofran) 4 mg PRN Q8HRS PRN IV NAUSEA/VOMITING; Start 02/23/17 at 00:00; Stop 02/23/17 at 23:59; Status DC Fentanyl Citrate 50 mcg 50 mcg PRN Q2HR PRN IV PAIN Last administered on 21:15; Start 02/23/17 at 00:00; Stop 02/23/17 at 23:59; Status DC Sodium Chloride (Iv Sodium Chloride 0.9% 1000ml Bag) 1,000 ml @ 100 mls/hr Q10H IV Last administered on 02/23/17 10:52; Start 02/23/17 at 00:00; Stop 10/30 at 00:01; Status DC Acetaminophen (Tylenol) 650 mg PRN Q4HRS PRN PO FEVER; Start 02/23/17 at 00:00 ; Stop 02/23/17 at 23:59; Status DC Iohexol 75 ml 75 ml 1X ONCE IV Last administered on 02/23/17 01:06; Start 10/30 at 00:45; Stop 02/23/17 at 00:46; Status DC Magnesium Sulfate/ Dextrose (Magnesium Sulfate PREMIX 2GM) 50 ml @ 25 mls/hr 1X ONCE IV Last administered on 02/23/17 10:56; Start 02/23/17 at 10:45; Stop 02/23/17 at 12:44; Status DC Acetaminophen (Tylenol) 325 mg PRN Q6HRS PRN PO MILD PAIN / TEMP; Start at 10:30 Acetaminophen/ Hydrocodone Bitart (Lortab 5/325) 1 tab PRN Q6HRS PRN PO MODERATE TO SEVERE PAIN Last administered on 02/23/17 21:16; Start 02/23/17 at 10:00 Hydralazine HCl (Apresoline) 10 mg PRN Q4HRS PRN IVP ELEVATED BP, SEE COMMENTS Last administered on 02/26/17 10:56; Start 02/23/17 at 10:00 Ondansetron HCl (Zofran) 4 mg PRN Q8HRS PRN IV NAUSEA/VOMITING 1ST CHOICE Last administered on 02/24/17 18:09; Start 02/23/17 at 10:00 Albuterol Sulfate (Ventolin Neb Soln) 2.5 mg PRN Q4HRS PRN NEB SHORTNESS OF BREATH Last administered on 02/25/17 03:19; Start 02/23/17 at 10:00 Multi-Ingredient Mouthwash/Gargle (Gi Cocktail Single Dose) 15 ml PRN 1X PRN SWSW CHEST PAIN; Start 02/23/17 at 10:30 EZETIMIBE (Zetia) 10 mg QHS PO Last administered on 02/25/17 20:42; Start 10/30 at 21:00 Losartan Potassium (Cozaar) 50 mg DAILY PO Last administered on 02/26/17 08:08 ; Start 02/23/17 at 11:00 Metoprolol Succinate (Toprol Xl) 50 mg DAILY PO Last administered on 02/23/17 11:55; Start 02/23/17 at 11:00; Stop 02/23/17 at 21:33; Status DC Pantoprazole Sodium (Protonix) 40 mg DAILYAC PO Last administered on 02/26/17 08:09; Start 02/23/17 at 11:00 Atorvastatin Calcium (Lipitor) 80 mg QHS PO Last administered on 02/25/17 20: 43; Start 02/23/17 at 21:00 Aspirin (Ecotrin) 81 mg DAILYWBKFT PO Last administered on 02/26/17 08:09; Start 02/23/17 at 12:00 Albuterol Sulfate (Ventolin Neb Soln) 2.5 mg QID NEB Last administered on 08:49; Start 02/23/17 at 13:00 Alprazolam (Xanax) 0.5 mg BID PO Last administered on 02/26/17 10:55; Start at 21:00 Acetaminophen/ Hydrocodone Bitart (Lortab 7.5/325) 1 tab PRN TID PRN PO PAIN Last administered on 02/24/17 11:24; Start 02/23/17 at 12:30 Non-Formulary Medication 2 puff BID PRN INH SHORTNESS OF BREATH; Start at 12:30; Status UNV Methylprednisolone Sodium Succinate (Solu-Medrol 40mg Vial) 40 mg Q8HRS IV Last administered on 02/25/17 16:10; Start 02/23/17 at 14:00; Stop 02/25/17 at 18:01; Status DC Diphenhydramine HCl (Benadryl) 25 mg 1X ONCE PO Last administered on 18:13; Start 02/23/17 at 18:00; Stop 02/23/17 at 18:01; Status DC Metoprolol Succinate (Toprol Xl) 50 mg BID PO Last administered on 02/26/17 08 :07; Start 02/23/17 at 22:00 Ondansetron HCl (Zofran) 4 mg 1X ONCE IV Last administered on 02/24/17 12:00 ; Start 02/24/17 at 12:00; Stop 02/24/17 at 12:01; Status DC Prochlorperazine Edisylate 10 mg 10 mg PRN Q6HRS PRN IV NAUSEA/VOMITING 2ND CHOICE Last administered on 02/25/17 12:41; Start 02/24/17 at 12:00 Sodium Chloride (Iv Sodium Chloride 0.9% 1000ml Bag) 1,000 ml @ 75 mls/hr [id number] IV Last administered on 02/25/17 02:36; Start 02/24/17 at 12:00 Fentanyl Citrate (Fentanyl 2ml Vial) 50 mcg PRN Q2HR PRN IV PAIN Last administered on 02/25/17 02:37; Start 02/24/17 at 18:00; Stop 02/25/17 at 14:42 ; Status DC Fentanyl Citrate (Fentanyl 2ml Vial) 25 mcg PRN Q2HR PRN IV PAIN Last administered on 02/25/17 23:58; Start 02/25/17 at 14:45 Prednisone (Prednisone) 30 mg DAILY PO Last administered on 02/26/17 08:09; Start 02/26/17 at 09:00 Calcium Carbonate/ Glycine (Tums) 500 mg PRN AFTMEALHC PRN PO INDIGESTION; Start 02/25/17 at 19:00 Active Scripts Active [Promethazine Hcl/Codeine] 5 ML Syrup 5 Ml PO PRN Q6HRS PRN 10 Days Protonix (Pantoprazole Sodium) 40 Mg Tablet 40 Mg PO DAILYAC Reported Doxazosin Mesylate 4 Mg Tablet 1 Tab PO DAILY Albuterol Sulfate Neb Soln (Albuterol Sulfate) 2.5 Mg/3 Ml Vial.neb 1 Vial NEB QID Proair Hfa Inhaler (Albuterol Sulfate) 8.5 Gm Hfa.aer.ad 2 Puff INH BID PRN Metoprolol Succinate ( Xl ) (Metoprolol Succinate) 25 Mg Tab.er.24h 2 Tab PO DAILY Gave last night Take night Losartan Potassium 50 Mg Tablet 50 Mg PO DAILY Gave this morning Take tomorrow Oxycodone Hcl 10 Mg Tablet 1 Tab PO PRN QID PRN Last dose given last night Take when needed Hydrocodone-Apap 7.5-325 (Hydrocodone Bit/Acetaminophen) 1 Each Tablet 1 Tab PO PRN TID PRN Not given on this admission Take when needed Xanax (Alprazolam) 0.5 Mg Tablet 1 Tab PO BID Not given on this admission Take when needed Zetia (Ezetimibe) 10 Mg Tablet 1 Tab PO QHS Gave last night Take tonight Atorvastatin Calcium 80 Mg Tablet 80 Mg PO HS Gave last night Take tongiht Vitals/I & O Vital Sign - Last 24 Hours 02/25/17 02/25/17 02/25/17 02/25/17 11:41 15:00 19:05 19:46 Temp 97.7 97.9 97.7 97.9 Pulse 79 77 76 Resp 20 20 16 B/P 166/95 147/76 165/108 Pulse Ox 98 98 99 O2 Delivery Room Air Room Air Room Air Room Air 02/25/17 02/25/17 02/26/17 02/26/17 20:42 23:10 03:42 07:00 Temp 97.7 97.7 98.0 97.7 97.7 98.0 Pulse 76 69 64 61 Resp 16 16 16 B/P 165/108 160/85 162/86 196/112 Pulse Ox 94 95 97 O2 Delivery Room Air Room Air Room Air 02/26/17 02/26/17 02/26/17 02/26/17 08:00 08:07 08:08 08:49 Pulse 61 61 B/P 196/112 196/112 Pulse Ox 98 O2 Delivery Room Air Room Air 02/26/17 02/26/17 10:53 10:56 Temp 97.9 97.9 Pulse 62 62 Resp 18 B/P 193/118 193/118 Pulse Ox 100 O2 Delivery Room Air Intake and Output 02/25/17 02/25/17 02/26/17 15:00 23:00 07:00 Intake Total 480 ml 480 ml 480 ml Output Total 1000 ml 500 ml Balance 480 ml -520 ml -20 ml PAGE HICKS MD Feb 26, 2017 11:42
[2017-02-26 11:48] VITALS: BP 132/82
--- NOTE | 2017-02-26 14:05 | PDOC ---
G I PROGRESS NOTE Review of Relevant I have reviewed the following items meghna (where applicable) has been applied. Labs Laboratory Tests Test 02/25/17 03:30 02/26/17 04:00 White Blood Count 11.4x10^3/uL (4.0-11.0) 12.7x10^3/uL (4.0-11.0) Red Blood Count 4.26x10^6/uL (3.50-5.40) 4.35x10^6/uL (3.50-5.40) Hemoglobin 12.6g/dL (12.0-15.5) 12.4g/dL (12.0-15.5) Hematocrit 37.7% (36.0-47.0) 38.7% (36.0-47.0) Mean Corpuscular Volume 89fL (79-100) 89fL (79-100) Mean Corpuscular Hemoglobin 30pg (25-35) 29pg (25-35) Mean Corpuscular Hemoglobin Concent 33g/dL (31-37) 32g/dL (31-37) Red Cell Distribution Width 14.1% (11.5-14.5) 14.5% (11.5-14.5) Platelet Count 172x10^3/uL (140-400) 178x10^3/uL (140-400) Neutrophils (%) (Auto) 87% (31-73) 78% (31-73) Lymphocytes (%) (Auto) 10% (24-48) 15% (24-48) Monocytes (%) (Auto) 3% (0-9) 7% (0-9) Eosinophils (%) (Auto) 0% (0-3) 0% (0-3) Basophils (%) (Auto) 0% (0-3) 0% (0-3) Neutrophils # (Auto) 9.9x10^3uL (1.8-7.7) 9.8x10^3uL (1.8-7.7) Lymphocytes # (Auto) 1.1x10^3/uL (1.0-4.8) 1.9x10^3/uL (1.0-4.8) Monocytes # (Auto) 0.3x10^3/uL (0.0-1.1) 0.9x10^3/uL (0.0-1.1) Eosinophils # (Auto) 0.0x10^3/uL (0.0-0.7) 0.0x10^3/uL (0.0-0.7) Basophils # (Auto) 0.0x10^3/uL (0.0-0.2) 0.0x10^3/uL (0.0-0.2) Segmented Neutrophils % 86% (35-66) Lymphocytes % 9% (24-48) Monocytes % 4% (0-10) Basophils % 1% (0-3) Platelet Estimate Adequate (ADEQUATE) Sodium Level 139mmol/L (136-145) 140mmol/L (136-145) Potassium Level 4.4mmol/L (3.5-5.1) 3.9mmol/L (3.5-5.1) Chloride Level 103mmol/L (98-107) 102mmol/L (98-107) Carbon Dioxide Level 29mmol/L (21-32) 29mmol/L (21-32) Anion Gap 7 (6-14) 9 (6-14) Blood Urea Nitrogen 15mg/dL (7-20) 16mg/dL (7-20) Creatinine 1.0mg/dL (0.6-1.0) 0.9mg/dL (0.6-1.0) Estimated GFR (Cockcroft-Gault) 71.9 81.2 Glucose Level 168mg/dL (70-99) 107mg/dL (70-99) Calcium Level 8.7mg/dL (8.5-10.1) 8.6mg/dL (8.5-10.1) Laboratory Tests Test 02/26/17 04:00 White Blood Count 12.7x10^3/uL (4.0-11.0) Red Blood Count 4.35x10^6/uL (3.50-5.40) Hemoglobin 12.4g/dL (12.0-15.5) Hematocrit 38.7% (36.0-47.0) Mean Corpuscular Volume 89fL (79-100) Mean Corpuscular Hemoglobin 29pg (25-35) Mean Corpuscular Hemoglobin Concent 32g/dL (31-37) Red Cell Distribution Width 14.5% (11.5-14.5) Platelet Count 178x10^3/uL (140-400) Neutrophils (%) (Auto) 78% (31-73) Lymphocytes (%) (Auto) 15% (24-48) Monocytes (%) (Auto) 7% (0-9) Eosinophils (%) (Auto) 0% (0-3) Basophils (%) (Auto) 0% (0-3) Neutrophils # (Auto) 9.8x10^3uL (1.8-7.7) Lymphocytes # (Auto) 1.9x10^3/uL (1.0-4.8) Monocytes # (Auto) 0.9x10^3/uL (0.0-1.1) Eosinophils # (Auto) 0.0x10^3/uL (0.0-0.7) Basophils # (Auto) 0.0x10^3/uL (0.0-0.2) Sodium Level 140mmol/L (136-145) Potassium Level 3.9mmol/L (3.5-5.1) Chloride Level 102mmol/L (98-107) Carbon Dioxide Level 29mmol/L (21-32) Anion Gap 9 (6-14) Blood Urea Nitrogen 16mg/dL (7-20) Creatinine 0.9mg/dL (0.6-1.0) Estimated GFR (Cockcroft-Gault) 81.2 Glucose Level 107mg/dL (70-99) Calcium Level 8.6mg/dL (8.5-10.1) Medications Current Medications Aspirin (Children'S Aspirin) 324 mg 1X ONCE PO Last administered on 02/22/17 23:14; Start 02/22/17 at 23:00; Stop 02/22/17 at 23:01; Status DC Nitroglycerin 0.4 mg 0.4 mg PRN Q5MIN PRN SL CP RATING > 1/10; Start 02/22/17 at 23:00; Stop 02/23/17 at 22:59; Status DC Sodium Chloride (Iv Sodium Chloride 0.9% 1000ml Bag) 1,000 ml @ 100 mls/hr Q10H IV Last administered on 02/22/17 23:15; Start 02/22/17 at 23:00; Stop 10/30 at 08:59; Status DC Ondansetron HCl (Zofran) 4 mg 1X ONCE IV Last administered on 02/22/17 23:19 ; Start 02/22/17 at 23:30; Stop 02/22/17 at 23:31; Status DC Ondansetron HCl (Zofran) 4 mg PRN Q8HRS PRN IV NAUSEA/VOMITING; Start 02/23/17 at 00:00; Stop 02/23/17 at 23:59; Status DC Fentanyl Citrate 50 mcg 50 mcg PRN Q2HR PRN IV PAIN Last administered on 21:15; Start 02/23/17 at 00:00; Stop 02/23/17 at 23:59; Status DC Sodium Chloride (Iv Sodium Chloride 0.9% 1000ml Bag) 1,000 ml @ 100 mls/hr Q10H IV Last administered on 02/23/17 10:52; Start 02/23/17 at 00:00; Stop 10/30 at 00:01; Status DC Acetaminophen (Tylenol) 650 mg PRN Q4HRS PRN PO FEVER; Start 02/23/17 at 00:00 ; Stop 02/23/17 at 23:59; Status DC Iohexol 75 ml 75 ml 1X ONCE IV Last administered on 02/23/17 01:06; Start 10/30 at 00:45; Stop 02/23/17 at 00:46; Status DC Magnesium Sulfate/ Dextrose (Magnesium Sulfate PREMIX 2GM) 50 ml @ 25 mls/hr 1X ONCE IV Last administered on 02/23/17 10:56; Start 02/23/17 at 10:45; Stop 02/23/17 at 12:44; Status DC Acetaminophen (Tylenol) 325 mg PRN Q6HRS PRN PO MILD PAIN / TEMP; Start at 10:30; Stop 02/26/17 at 13:07; Status DC Acetaminophen/ Hydrocodone Bitart (Lortab 5/325) 1 tab PRN Q6HRS PRN PO MODERATE TO SEVERE PAIN Last administered on 02/23/17 21:16; Start 02/23/17 at 10:00; Stop 02/26/17 at 13:07; Status DC Hydralazine HCl (Apresoline) 10 mg PRN Q4HRS PRN IVP ELEVATED BP, SEE COMMENTS Last administered on 02/26/17 10:56; Start 02/23/17 at 10:00; Stop 02/26/17 at 13:07; Status DC Ondansetron HCl (Zofran) 4 mg PRN Q8HRS PRN IV NAUSEA/VOMITING 1ST CHOICE Last administered on 02/24/17 18:09; Start 02/23/17 at 10:00; Stop 02/26/17 at 13:07 ; Status DC Albuterol Sulfate (Ventolin Neb Soln) 2.5 mg PRN Q4HRS PRN NEB SHORTNESS OF BREATH Last administered on 02/25/17 03:19; Start 02/23/17 at 10:00; Stop 02/26 at 13:07; Status DC Multi-Ingredient Mouthwash/Gargle (Gi Cocktail Single Dose) 15 ml PRN 1X PRN SWSW CHEST PAIN; Start 02/23/17 at 10:30; Stop 02/26/17 at 13:07; Status DC EZETIMIBE (Zetia) 10 mg QHS PO Last administered on 02/25/17 20:42; Start 10/30 at 21:00; Stop 02/26/17 at 13:07; Status DC Losartan Potassium (Cozaar) 50 mg DAILY PO Last administered on 02/26/17 08:08 ; Start 02/23/17 at 11:00; Stop 02/26/17 at 13:07; Status DC Metoprolol Succinate (Toprol Xl) 50 mg DAILY PO Last administered on 02/23/17 11:55; Start 02/23/17 at 11:00; Stop 02/23/17 at 21:33; Status DC Pantoprazole Sodium (Protonix) 40 mg DAILYAC PO Last administered on 02/26/17 08:09; Start 02/23/17 at 11:00; Stop 02/26/17 at 13:07; Status DC Atorvastatin Calcium (Lipitor) 80 mg QHS PO Last administered on 02/25/17 20: 43; Start 02/23/17 at 21:00; Stop 02/26/17 at 13:07; Status DC Aspirin (Ecotrin) 81 mg [id number] PO Last administered on 02/26/17 08:09; Start 02/23/17 at 12:00; Stop 02/26/17 at 13:07; Status DC Albuterol Sulfate (Ventolin Neb Soln) 2.5 mg QID NEB Last administered on 08:49; Start 02/23/17 at 13:00; Stop 02/26/17 at 13:07; Status DC Alprazolam (Xanax) 0.5 mg BID PO Last administered on 02/26/17 10:55; Start at 21:00; Stop 02/26/17 at 13:07; Status DC Acetaminophen/ Hydrocodone Bitart (Lortab 7.5/325) 1 tab PRN TID PRN PO PAIN Last administered on 02/24/17 11:24; Start 02/23/17 at 12:30; Stop 02/26/17 at 13:07; Status DC Non-Formulary Medication 2 puff BID PRN INH SHORTNESS OF BREATH; Start at 12:30; Status UNV Methylprednisolone Sodium Succinate (Solu-Medrol 40mg Vial) 40 mg Q8HRS IV Last administered on 02/25/17 16:10; Start 02/23/17 at 14:00; Stop 02/25/17 at 18:01; Status DC Diphenhydramine HCl (Benadryl) 25 mg 1X ONCE PO Last administered on 18:13; Start 02/23/17 at 18:00; Stop 02/23/17 at 18:01; Status DC Metoprolol Succinate (Toprol Xl) 50 mg BID PO Last administered on 02/26/17 08 :07; Start 02/23/17 at 22:00; Stop 02/26/17 at 13:07; Status DC Ondansetron HCl (Zofran) 4 mg 1X ONCE IV Last administered on 02/24/17 12:00 ; Start 02/24/17 at 12:00; Stop 02/24/17 at 12:01; Status DC Prochlorperazine Edisylate 10 mg 10 mg PRN Q6HRS PRN IV NAUSEA/VOMITING 2ND CHOICE Last administered on 02/25/17 12:41; Start 02/24/17 at 12:00; Stop 02/26 at 13:07; Status DC Sodium Chloride (Iv Sodium Chloride 0.9% 1000ml Bag) 1,000 ml @ 75 mls/hr [id number] IV Last administered on 02/25/17 02:36; Start 02/24/17 at 12:00; Stop 02/26/17 at 13:07; Status DC Fentanyl Citrate (Fentanyl 2ml Vial) 50 mcg PRN Q2HR PRN IV PAIN Last administered on 02/25/17 02:37; Start 02/24/17 at 18:00; Stop 02/25/17 at 14:42 ; Status DC Fentanyl Citrate (Fentanyl 2ml Vial) 25 mcg PRN Q2HR PRN IV PAIN Last administered on 02/25/17 23:58; Start 02/25/17 at 14:45; Stop 02/26/17 at 13:07 ; Status DC Prednisone (Prednisone) 30 mg DAILY PO Last administered on 02/26/17 08:09; Start 02/26/17 at 09:00; Stop 02/26/17 at 13:07; Status DC Calcium Carbonate/ Glycine (Tums) 500 mg PRN AFTMEALHC PRN PO INDIGESTION; Start 02/25/17 at 19:00; Stop 02/26/17 at 13:07; Status DC Active Scripts Active [Promethazine Hcl/Codeine] 5 ML Syrup 5 Ml PO PRN Q6HRS PRN 10 Days Protonix (Pantoprazole Sodium) 40 Mg Tablet 40 Mg PO DAILYAC Reported Doxazosin Mesylate 4 Mg Tablet 1 Tab PO DAILY Albuterol Sulfate Neb Soln (Albuterol Sulfate) 2.5 Mg/3 Ml Vial.neb 1 Vial NEB QID Proair Hfa Inhaler (Albuterol Sulfate) 8.5 Gm Hfa.aer.ad 2 Puff INH BID PRN Metoprolol Succinate ( Xl ) (Metoprolol Succinate) 25 Mg Tab.er.24h 2 Tab PO DAILY Gave last night Take night Losartan Potassium 50 Mg Tablet 50 Mg PO DAILY Gave this morning Take tomorrow Oxycodone Hcl 10 Mg Tablet 1 Tab PO PRN QID PRN Last dose given last night Take when needed Hydrocodone-Apap 7.5-325 (Hydrocodone Bit/Acetaminophen) 1 Each Tablet 1 Tab PO PRN TID PRN Not given on this admission Take when needed Xanax (Alprazolam) 0.5 Mg Tablet 1 Tab PO BID Not given on this admission Take when needed Zetia (Ezetimibe) 10 Mg Tablet 1 Tab PO QHS Gave last night Take tonight Atorvastatin Calcium 80 Mg Tablet 80 Mg PO HS Gave last night Take mahogany Vitals/I & O Vital Sign - Last 24 Hours 02/25/17 02/25/17 02/25/17 02/25/17 15:00 19:05 19:46 20:42 Temp 97.7 97.9 97.7 97.9 Pulse 77 76 76 Resp 20 16 B/P 147/76 165/108 165/108 Pulse Ox 98 99 O2 Delivery Room Air Room Air Room Air 02/25/17 02/26/17 02/26/17 02/26/17 23:10 03:42 07:00 08:00 Temp 97.7 97.7 98.0 97.7 97.7 98.0 Pulse 69 64 61 Resp 16 16 16 B/P 160/85 162/86 196/112 Pulse Ox 94 95 97 O2 Delivery Room Air Room Air Room Air Room Air 02/26/17 02/26/17 02/26/17 02/26/17 08:07 08:08 08:49 10:53 Temp 97.9 97.9 Pulse 61 61 62 Resp 18 B/P 196/112 196/112 193/118 Pulse Ox 98 100 O2 Delivery Room Air Room Air 02/26/17 02/26/17 10:56 11:48 Temp 98.1 98.1 Pulse 62 90 Resp 16 B/P 193/118 132/82 Pulse Ox 99 O2 Delivery Room Air Intake and Output 02/25/17 02/25/17 02/26/17 15:00 23:00 07:00 Intake Total 480 ml 480 ml 480 ml Output Total 1000 ml 500 ml Balance 480 ml -520 ml -20 ml Problem List Problems Medical Problems: (1) Chest pain Status: Acute Assessment Dismissed before we could see her. Plan of Care: Continue current Tx, Mgmt Plan of Care Note Call if she returns. RADHA DUBON MD Feb 26, 2017 14:05
--- NOTE | 2017-03-06 23:09 | DS ---
DATE OF DISCHARGE: 02/26/2017 DISCHARGE DIAGNOSES: 1. Atypical chest pain, most likely musculoskeletal in nature. The patient's stress test is negative. Troponins negative. 2. History of asthma with active wheezing, possible exacerbation. 3. Gastroesophageal reflux disease with active nausea and vomiting, resolved. 4. Chronic pain syndrome with low back pain. 5. Anxiety, stable. 6. Hypertension, stable. 7. Hyperlipidemia, stable. 8. Hypomagnesemia, replaced. BRIEF HOSPITAL COURSE: A 46-year-old female patient admitted to the hospital on 02/22/2017 for chest pain; however, the patient's chest pain appears to be atypical in nature and also musculoskeletal in nature and Cardiology initially saw her and they signed off. However, the patient developed some active wheezing. She might have asthma excerebration. She was placed on periodic nebulizations and IV Solu-Medrol. Symptoms slowly improved. On 02/26/2017 patient is clinically stable and sent home in stable condition. She is recommended to follow up with Pulmonology for pulmonary nodules. Followup appointment has been scheduled and patient has been educated about it. DISCHARGE EXAMINATION: Please see my progress note. DISCHARGE CONDITION: Stable. MEDICATIONS: Reviewed. Please see my discharge instructions. FOLLOWUP: With primary care doctor and . ____ as scheduled. Total time spent for discharge is 32 minutes for patient education, counseling, and coordination of care. PAGE HICKS MD DR: JOSE/darien JOB#: [id number] / [id number] TRACI
== END 2017-02-26 13:06 | disposition home or self-care (01) | DRG 202 ==
LOC: ER 22:19 → ED HOLD 23:41 → 6 SOUTH 02-23 10:21
PROVIDERS: ADMIT Internal Medicine Hematology & Oncology; ATTEND Internal Medicine Hematology & Oncology
DX: J45.901 Unspecified asthma with (acute) exacerbation (principal); J44.1 Chronic obstructive pulmonary disease with (acute) exacerbation; J20.9 Acute bronchitis, unspecified; R07.89 Other chest pain; K21.9 Gastro-esophageal reflux disease without esophagitis; E66.9 Obesity, unspecified; E11.9 Type 2 diabetes mellitus without complications; E78.00 Pure hypercholesterolemia, unspecified; E78.5 Hyperlipidemia, unspecified; E83.42 Hypomagnesemia; F41.9 Anxiety disorder, unspecified; G89.4 Chronic pain syndrome; I10 Essential (primary) hypertension; K58.9 Irritable bowel syndrome, unspecified; M54.12 Radiculopathy, cervical region; D64.9 Anemia, unspecified; F32.9 Major depressive disorder, single episode, unspecified; M47.9 Spondylosis, unspecified; M48.00 Spinal stenosis, site unspecified; E05.90 Thyrotoxicosis, unspecified without thyrotoxic crisis or storm; M54.5 Low back pain; M79.604 Pain in right leg; R11.2 Nausea with vomiting, unspecified; Z79.891 Long term (current) use of opiate analgesic; Z80.1 Family history of malignant neoplasm of trachea, bronchus and lung; Z86.718 Personal history of other venous thrombosis and embolism; Z87.442 Personal history of urinary calculi; Z87.891 Personal history of nicotine dependence; Z90.49 Acquired absence of other specified parts of digestive tract; Z98.51 Tubal ligation status; Z90.710 Acquired absence of both cervix and uterus; Z79.899 Other long term (current) drug therapy; Z79.82 Long term (current) use of aspirin; Z88.0 Allergy status to penicillin; Z88.8 Allergy status to other drugs, medicaments and biological substances; Z91.018 Allergy to other foods; Z68.36 Body mass index [BMI] 36.0-36.9, adult
CPT/HCPCS: 36415; 71010; 71275; 76700; 80048; 80061; 80076; 82553; 83690; 83735; 84443; 84484; 85007; 85027; 85379; 93005; 93970; 94250; 94640; 94760; 96361; 96374; J0360; J0780; J2405; J2920; J3010; J7030; J7060; J7512; Q0163; Q9967; 99285-25

== ENCOUNTER 2017-04-08 10:04 | Inpatient (IN) | payer MEDICARE, OTHER ==
[~2017-04-08] VITALS: Ht 149.9 cm; Wt 88.5 kg
[~2017-04-08 10:04] MED LIST changes: +ALBU2.5V5 NEB; +DOXA4TAB3 PO
[2017-04-08] MEDS ORDERED: IPRATRPIUM/ALBUTEROL 0.5/2.5MG 3 ML NEBU. NEB ONE (10:30)
[2017-04-08] MEDS ORDERED: methylPREDNISolone SOD SUCC PF 125 MG/2 ML VIAL. IM ONE (10:30)
--- NOTE | 2017-04-08 10:32 | PHYS DOC ---
Past Medical History Past Medical History: Asthma, COPD, DVT, High Cholesterol, Hypertension, Other Additional Past Medical Histor: ibs Past Surgical History: Cholecystectomy, Hysterectomy, Tubal ligation, Other Additional Past Surgical Histo: neck sx, hernia repair, Alcohol Use: Rarely Drug Use: None Adult General Chief Complaint Chief Complaint: ASTHMA HPI HPI Patient is a 47 year old female presents to the emergency department with a history of asthma. Patient had finished prednisone 3 days ago. Patient developed increase SOA with wheezing 2 days ago. She had used her albuterol inhaler without relief. Patient denies fever, chills, nausea or vomiting. Denies productive cough. Review of Systems Review of Systems Constitutional: Denies fever or chills [] Eyes: Denies change in visual acuity, redness, or eye pain [] HENT: Denies nasal congestion or sore throat [] Respiratory: Denies cough C/o shortness of breath and wheezing [] Cardiovascular: No additional information not addressed in HPI [] GI: Denies abdominal pain, nausea, vomiting, bloody stools or diarrhea [] : Denies dysuria or hematuria [] Musculoskeletal: Denies back pain or joint pain [] Integument: Denies rash or skin lesions [] Neurologic: Denies headache, focal weakness or sensory changes [] Endocrine: Denies polyuria or polydipsia [] Current Medications Current Medications Current Medications Medications (Trade) Dose Ordered Sig/Guillermina Start Time Stop Time Status Last Admin Dose Admin Albuterol Sulfate (Ventolin Neb Soln) 10 mg 1X ONCE 04/08/17 11:15 04/08/17 11:16 DC 04/08/17 11:23 10 MG Albuterol/ Ipratropium (Duoneb) 3 ml 1X ONCE 04/08/17 10:30 04/08/17 10:31 DC 04/08/17 10:35 3 ML Methylprednisolone Sodium Succinate (SOLU-Medrol 125MG VIAL) 125 mg 1X ONCE 04/08/17 10:30 04/08/17 10:31 DC 04/08/17 10:52 125 MG Ondansetron HCl (Zofran Odt) 4 mg 1X ONCE 04/08/17 11:15 04/08/17 11:16 DC 04/08/17 11:18 4 MG Sodium Chloride 1,000 ml @ 100 mls/hr Q10H 04/08/17 12:31 04/08/17 22:30 04/08/17 13:20 100 MLS/HR Allergies Allergies Allergies Coded Allergies Type Severity Reaction Last Updated Verified mustard Allergy Severe ANGIOEDEMA/HIVES 02/24/17 Yes poppyseed oil Allergy Severe Hives 02/11/17 Yes Penicillins Allergy Intermediate HIVES 02/11/17 Yes Physical Exam Physical Exam Constitutional: Well developed, well nourished, no acute distress, non-toxic appearance. [] HENT: Normocephalic, atraumatic, bilateral external ears normal, oropharynx moist, no oral exudates, nose normal. [] Eyes: PERRLA, EOMI, conjunctiva normal, no discharge. [] Neck: Normal range of motion, no tenderness, supple, no stridor. [] Cardiovascular:Heart rate regular rhythm, no murmur [] Lungs & Thorax: Bilateral breath sounds decreased breath sounds with audible wheezing noted. Skin: Warm, dry, no erythema, no rash. [] Back: No tenderness Extremities: No tenderness, no cyanosis, no clubbing, ROM intact, no edema. [] Neurologic: Alert and oriented X 3, normal motor function, normal sensory function, no focal deficits noted. [] Psychologic: Affect normal, judgement normal, mood normal. [] Current Patient Data Vital Signs Vital Signs Date Time Temp Pulse Resp B/P (MAP) Pulse Ox O2 Delivery O2 Flow Rate FiO2 04/08/17 12:10 76 24 140/81 (100) 04/08/17 11:40 100 04/08/17 10:13 98.1 98.1 EKG EKG Not performed [] Radiology/Procedures Radiology/Procedures [facility] [address] [place] [address] IMAGING REPORT Signed PATIENT: GABRIELE MUHAMMAD ACCOUNT: [id number] : 1970 LOCATION: ER AGE: 47 SEX: F EXAM STATUS: PRE ER ORD. PHYSICIAN: MELO العراقي APRN REASON: SOA, wheezing PROCEDURE: PORTABLE CHEST 1V Portable chest, 04/08/2017: History: Asthma, shortness of breath, wheezing Comparison is made to a study from 02/22/2017. The patient positioning is lordotic. The depth of inspiration is suboptimal. The heart size and pulmonary vascularity are normal. No pulmonary infiltrates are seen. There is no evidence of pleural fluid. Moderate spurring is present in the spine. IMPRESSION: No acute cardiopulmonary abnormality is detected. DICTATED and SIGNED BY: KEREN MCDANIELS MD DATE: 04/08/17 1059 CC: SHARMIN ESQUEDA; MELO العراقي APRN ~ [] Course & Med Decision Making Course & Med Decision Making Pertinent Labs and Imaging studies reviewed. (See chart for details) Patient continued to have wheezes after her DuoNeb treatment. Patient was provided with a continuous albuterol treatment. [address] Patel in regards to this patient. 1200 care of this patient was given to Dr Patel I took over care of patient at 1200. I evaluated the patient post hour-long treatment with albuterol. The patient continued to display increased work of breathing and audible wheezing. The patient just recently finished up with a prednisone treatment for asthma exacerbation. The patient has failed outpatient treatment and continues to have work of breathing that we'll need further treatment in hospital. Patient started on IV Solu-Medrol. I spoke with Dr. Fierro who accepted care patient in hospital. [] Dragon Disclaimer Dragon Disclaimer This electronic medical record was generated, in whole or in part, using a voice recognition dictation system. Departure Departure Impression: Primary Impression: Asthma exacerbation Disposition: ADMITTED INPATIENT Admitting Physician: Jarret Ontiveros Condition: STABLE Referrals: SHARMIN ESQUEDA (PCP) MELO العراقي APRN April 08, 2017 10:32 GEOVANNY PATEL MD April 08, 2017 12:30
--- NOTE | 2017-04-08 11:03 | RAD ---
Portable chest, 04/08/2017: History: Asthma, shortness of breath, wheezing Comparison is made to a study from 02/22/2017. The patient positioning is lordotic. The depth of inspiration is suboptimal. The heart size and pulmonary vascularity are normal. No pulmonary infiltrates are seen. There is no evidence of pleural fluid. Moderate spurring is present in the spine. IMPRESSION: No acute cardiopulmonary abnormality is detected.
[2017-04-08] MEDS ORDERED: ALBUTEROL SULFATE 2.5 MG/3 ML NEBU. CONT NEB ONE (11:15)
[2017-04-08] MEDS ORDERED: ONDANSETRON ODT 4 MG TAB.RAPDIS. PO ONE (11:15)
[2017-04-08] MEDS ORDERED: IV NORMAL SALINE 1000ML BAG 1,000 ML IV SCH (12:31)
[2017-04-08 12:57] LABS: BASO # 0.1 x10^3/uL (0.0-0.2); BASO % 1 % (0-3); EOS % 1 % (0-3); HEMATOCRIT 39.5 % (36.0-47.0); HEMOGLOBIN 13.3 g/dL (12.0-15.5); LYMPH % 27 % (24-48); MEAN CORPUSCULAR HEMOGLOBIN 30 pg (25-35); MEAN CORPUSCULAR HGB CONC 34 g/dL (31-37); MEAN CORPUSCULAR VOLUME 88 fL (79-100); MONO % 6 % (0-9); NEUT % 64 % (31-73); PLATELET COUNT 201 x10^3/uL (140-400); RED BLOOD COUNT 4.49 x10^6/uL (3.50-5.40); RED CELL DISTRIBUTION WIDTH 14.9 % (11.5-14.5); WHITE BLOOD COUNT 7.4 x10^3/uL (4.0-11.0)
[2017-04-08 13:04] LABS: CALCIUM 9.2 mg/dL (8.5-10.1); CREATININE 1.8 mg/dL (0.6-1.0); GFR 36.3
[2017-04-08 13:10] LABS: ALBUMIN 3.8 g/dL (3.4-5.0); TOTAL BILIRUBIN 0.5 mg/dL (0.2-1.0); TOTAL PROTEIN 7.7 g/dL (6.4-8.2)
[2017-04-08 13:12] LABS: POTASSIUM 4.3 mmol/L (3.5-5.1)
--- NOTE | 2017-04-08 13:33 | PDOC1 ---
History and Physical Date of Admission Date of Admission 04/08/17 Identification/Chief Complaint Chief Complaint sob Problems: Source Source: Chart review, Patient History of Present Illness History of Present Illness HPI HPI Patient is a 47 year old female presents to the emergency department with a history of asthma/copd for 1 day. Pt comes here every month for either sob, chest pain or abd pain, last time was 1m ago for sob. Pt said she was sob and got prednisone from PCP, finished 3 days ago, was doing ok till today , she has severe sob, dry cough. Denies fever, + chills, denies runny nose, sore throat, + chest pain at bl rib cage when coughing. She denies sick contact, not sure about the flare reasons. + nausea, no vomiting, + diarrhea for 2 days, 7-8 times daily with loose stool. low po intake. CXR ok in ER, Cr 1.8. Past Medical History Cardiovascular: HTN Pulmonary: Asthma, COPD CENTRAL NERVOUS SYSTEM: Other Heme/Onc: Anemia NOS Hepatobiliary: No pertinent hx Rheumatologic: No pertinent hx Infectious disease: No pertinent hx Renal/: Other Endocrine: Diabetes Past Surgical History Past Surgical History: Cholecystectomy, Hernia Repair, Tubal Ligation, Hysterectomy, Other Family History Family History: Cancer, Other Social History Smoke: No ALCOHOL: social Drugs: None Current Problem List Problem List Problems Medical Problems: (1) Asthma exacerbation Status: Acute Current Medications Current Medications Current Medications Medications (Trade) Dose Ordered Sig/Guillermina Start Time Stop Time Status Last Admin Dose Admin Albuterol Sulfate (Ventolin Neb Soln) 10 mg 1X ONCE 04/08/17 11:15 04/08/17 11:16 DC 04/08/17 11:23 10 MG Albuterol/ Ipratropium (Duoneb) 3 ml 1X ONCE 04/08/17 10:30 04/08/17 10:31 DC 04/08/17 10:35 3 ML Methylprednisolone Sodium Succinate (SOLU-Medrol 125MG VIAL) 125 mg 1X ONCE 04/08/17 10:30 04/08/17 10:31 DC 04/08/17 10:52 125 MG Ondansetron HCl (Zofran Odt) 4 mg 1X ONCE 04/08/17 11:15 04/08/17 11:16 DC 04/08/17 11:18 4 MG Sodium Chloride 1,000 ml @ 100 mls/hr Q10H 04/08/17 12:31 04/08/17 22:30 04/08/17 13:20 100 MLS/HR Allergies Allergies Allergies Coded Allergies Type Severity Reaction Last Updated Verified mustard Allergy Severe ANGIOEDEMA/HIVES 02/24/17 Yes poppyseed oil Allergy Severe Hives 02/11/17 Yes Penicillins Allergy Intermediate HIVES 02/11/17 Yes ROS Review of System CONSTITUTIONAL: No fever or chills EYES: No recent changes SKIN: No rash or itching CARDIOVASCULAR: No chest pain, syncope, palpitations, or edema RESPIRATORY: No SOB or cough GASTROINTESTINAL: No nausea, vomiting or abdominal pain NEUROLOGICAL: No headaches or weakness ENDOCRINE: No cold or heat intolerance GENITOURINARY: No urgency or frequency of urination MUSCULOSKELETAL: No back pain or joint pain LYMPHATICS: No enlarged lymph nodes PSYCHIATRIC: No anxiety or depression Physical Exam Physical Exam GEN.: mild sob. Alert and oriented. HEENT: Head is normocephalic, atraumatic NECK: Supple. LUNGS: bl coarse bs, left basilar mild wheezing HEART: RRR, S1, S2 present. Peripheral pulses intact ABDOMEN: Soft, nontender. Positive bowel sounds. EXTREMITIES: Without any cyanosis. NEUROLOGIC: Normal speech, normal tone PSYCHIATRIC: Normal affect, normal mood. SKIN: No ulcerations Vitals Vitals Vital Signs Date Time Temp Pulse Resp B/P (MAP) Pulse Ox O2 Delivery O2 Flow Rate FiO2 04/08/17 12:10 76 24 140/81 (100) 04/08/17 11:40 100 Room Air 04/08/17 10:13 98.1 98.1 Labs Labs Laboratory Tests Test 04/08/17 12:50 White Blood Count 7.4 x10^3/uL (4.0-11.0) Red Blood Count 4.49 x10^6/uL (3.50-5.40) Hemoglobin 13.3 g/dL (12.0-15.5) Hematocrit 39.5 % (36.0-47.0) Mean Corpuscular Volume 88 fL (79-100) Mean Corpuscular Hemoglobin 30 pg (25-35) Mean Corpuscular Hemoglobin Concent 34 g/dL (31-37) Red Cell Distribution Width 14.9 % (11.5-14.5) Platelet Count 201 x10^3/uL (140-400) Neutrophils (%) (Auto) 64 % (31-73) Lymphocytes (%) (Auto) 27 % (24-48) Monocytes (%) (Auto) 6 % (0-9) Eosinophils (%) (Auto) 1 % (0-3) Basophils (%) (Auto) 1 % (0-3) Neutrophils # (Auto) 4.8 x10^3uL (1.8-7.7) Lymphocytes # (Auto) 2.0 x10^3/uL (1.0-4.8) Monocytes # (Auto) 0.4 x10^3/uL (0.0-1.1) Eosinophils # (Auto) 0.1 x10^3/uL (0.0-0.7) Basophils # (Auto) 0.1 x10^3/uL (0.0-0.2) Sodium Level 140 mmol/L (136-145) Potassium Level 4.3 mmol/L (3.5-5.1) Chloride Level 102 mmol/L (98-107) Carbon Dioxide Level 27 mmol/L (21-32) Anion Gap 11 (6-14) Blood Urea Nitrogen 25 mg/dL (7-20) Creatinine 1.8 mg/dL (0.6-1.0) Estimated GFR (Cockcroft-Gault) 36.3 BUN/Creatinine Ratio 14 (6-20) Glucose Level 113 mg/dL (70-99) Calcium Level 9.2 mg/dL (8.5-10.1) Total Bilirubin 0.5 mg/dL (0.2-1.0) Aspartate Amino Transf (AST/SGOT) 27 U/L (15-37) Alanine Aminotransferase (ALT/SGPT) 21 U/L (14-59) Alkaline Phosphatase 67 U/L (46-116) Total Protein 7.7 g/dL (6.4-8.2) Albumin 3.8 g/dL (3.4-5.0) Albumin/Globulin Ratio 1.0 (1.0-1.7) Laboratory Tests Test 04/08/17 12:50 White Blood Count 7.4 x10^3/uL (4.0-11.0) Red Blood Count 4.49 x10^6/uL (3.50-5.40) Hemoglobin 13.3 g/dL (12.0-15.5) Hematocrit 39.5 % (36.0-47.0) Mean Corpuscular Volume 88 fL (79-100) Mean Corpuscular Hemoglobin 30 pg (25-35) Mean Corpuscular Hemoglobin Concent 34 g/dL (31-37) Red Cell Distribution Width 14.9 % (11.5-14.5) Platelet Count 201 x10^3/uL (140-400) Neutrophils (%) (Auto) 64 % (31-73) Lymphocytes (%) (Auto) 27 % (24-48) Monocytes (%) (Auto) 6 % (0-9) Eosinophils (%) (Auto) 1 % (0-3) Basophils (%) (Auto) 1 % (0-3) Neutrophils # (Auto) 4.8 x10^3uL (1.8-7.7) Lymphocytes # (Auto) 2.0 x10^3/uL (1.0-4.8) Monocytes # (Auto) 0.4 x10^3/uL (0.0-1.1) Eosinophils # (Auto) 0.1 x10^3/uL (0.0-0.7) Basophils # (Auto) 0.1 x10^3/uL (0.0-0.2) Sodium Level 140 mmol/L (136-145) Potassium Level 4.3 mmol/L (3.5-5.1) Chloride Level 102 mmol/L (98-107) Carbon Dioxide Level 27 mmol/L (21-32) Anion Gap 11 (6-14) Blood Urea Nitrogen 25 mg/dL (7-20) Creatinine 1.8 mg/dL (0.6-1.0) Estimated GFR (Cockcroft-Gault) 36.3 BUN/Creatinine Ratio 14 (6-20) Glucose Level 113 mg/dL (70-99) Calcium Level 9.2 mg/dL (8.5-10.1) Total Bilirubin 0.5 mg/dL (0.2-1.0) Aspartate Amino Transf (AST/SGOT) 27 U/L (15-37) Alanine Aminotransferase (ALT/SGPT) 21 U/L (14-59) Alkaline Phosphatase 67 U/L (46-116) Total Protein 7.7 g/dL (6.4-8.2) Albumin 3.8 g/dL (3.4-5.0) Albumin/Globulin Ratio 1.0 (1.0-1.7) VTE Prophylaxis Ordered VTE Prophylaxis Devices: Yes VTE Pharmacological Prophylaxi: Yes Assessment/Plan Assessment/Plan 1. sob, 2/2 asthma/copd exacerbation likely 2. bronchitis, possible viral infection 3. HTN 4. hld 5. chronic coarse voice 6. morbid obesity 7. possible RADHIKA 8. h/o DVT 9. nausea, diarrhea, low po intake, possible viral infection 10. JOHN , vasomotor plan: pulm consult add solumedrol 60mg iv bid, duoneb qid, albuterol prn cont home meds dvt , gi ppx cough meds ivf labs tmr check cdiff admit >2 nights RADHA WILKERSON MD April 08, 2017 13:33
[2017-04-08] MEDS ORDERED: traMADol 50 MG TABLET PO PRN (13:45)
[2017-04-08] MEDS ORDERED: ACETAMINOPHEN 325 MG TABLET. PO PRN (13:45)
[2017-04-08] MEDS ORDERED: DOCUSATE SODIUM 100 MG CAPSULE. PO PRN (13:45)
[2017-04-08] MEDS ORDERED: ALBUTEROL SULFATE 2.5 MG/3 ML NEBU. NEB PRN ×2 (13:45→14:00)
[2017-04-08] MEDS ORDERED: NON FORMULARY ITEM (Albuterol Sulfate (Proair Hfa Inhaler) 2 PUFF) INH PRN (13:45)
[2017-04-08] MEDS ORDERED: DOXAZOSIN MESYLATE 4 MG TABLET. PO SCH (14:00)
[2017-04-08] MEDS: LOSARTAN POTASSIUM 50 MG TABLET. PO SCH (14:00)
[2017-04-08] MEDS: METOPROLOL SUCC 24HR ER 25 MG TAB.ER.24H. PO SCH (14:00)
--- NOTE | 2017-04-08 14:04 | ACF ---
Admission Forms Criteria ASTHMA Clinical Indications for Admission to Inpatient Care (Place 'X' for any and all applicable criteria): Admission is indicated for ANY ONE of the following (1)(2)(3)(4)(5): [ ]I. Absent or markedly diminished breath sounds (silent chest) [ ]II. Oxygen saturation < 92% [ ]III. PaCO2 = / > 42 mm Hg (5.6 kPa) [ ]IV. Peak expiratory flow rate < 40% of predicted or personal best after treatment. [ ]V. Peak expiratory flow rate < 33% of predicted or personal before after treatment [ ]. Change in mental status [ ]VII. Ventilatory support required [ ]VIII. PaO2 < 60 mm Hg (8.0 kPa) [ ]IX. Cyanosis [ ]X. Cardiac dysrhythmia (e.g., bradycardia) [ ]XI. Hemodynamic instability [ ]XII. Radiographic evidence of complication requiring inpatient treatment (e.g., pneumonia, pneumothorax) [X]XIII. Inpatient admission required rather than observation care (also use Asthma: Observation Care guideline as appropriate) because of ANY ONE of the following: [X]a) Respiratory finding that is severe or persistent (eg, dyspnea, tachypnea, accessory muscle use) [ ]b) Airflow measurements less than 60% of predicted or personal best that persist (e.g., over 24 hours) or worsen despite treatments [ ]c) Supplemental oxygen or respiratory treatments for over 24 hours that are performable only in acute inpatient setting [ ]d) Other condition, treatment or monitoring requiring inpatient admission. Extended stay beyond goal length of stay may be needed for (26)(27)(28): [ ]a) Severe respiratory failure (23) (29) (30) [ ]b) Secondary causes and complications (25) [ ]c) Status asthmaticus [ ]d) Chronic obstructive asthma [ ]e) Older patients (29) [ ]f) Slow resolution [ ]g) Clinically significant exacerbation of comorbidities (eg, sandrita. heart failure, atrial fibrillation) The original [employer] content created by [employer] has been revised. The portions of the content which have been revised are identified through the use of italic text or in bold, and [facility] [employer] has neither reviewed nor approved the modified material. All other unmodified content is copyright [employer] [facility] Please see references footnoted in the original [facility] edition 2016 Admission Criteria Met?: Yes RENAN GUY April 08, 2017 14:04
[2017-04-08 14:05] VITALS: BP 141/91
[2017-04-08] MEDS: ENOXAPARIN 40 MG/0.4 ML SYRINGE. SQ SCH (15:18)
[2017-04-08] MEDS ORDERED: ONDANSETRON PF 4 MG/2 ML VIAL. IV PRN (15:30)
[2017-04-08] MEDS: ONDANSETRON PF 4 MG/2 ML VIAL. IV PRN ×2 (15:47→22:04)
[2017-04-08] MEDS: IPRATRPIUM/ALBUTEROL 0.5/2.5MG 3 ML NEBU. NEB SCH ×2 (15:48→19:25)
[2017-04-08] MEDS: MORPHINE SULFATE 2 MG/ML DISP.SYRIN. IV PRN ×2 (15:54→22:04)
[2017-04-08] MEDS ORDERED: IPRATRPIUM/ALBUTEROL 0.5/2.5MG 3 ML NEBU. NEB SCH (16:00)
[2017-04-08] MEDS ORDERED: methylPREDNISolone SOD SUCC PF 40 MG/ML VIAL. IV SCH (18:00)
[2017-04-08 19:00] VITALS: BP 152/97
[2017-04-08] MEDS: diphenhydrAMINE HCL 25 MG CAPSULE PO PRN (19:51)
[2017-04-08] MEDS: methylPREDNISolone SOD SUCC PF 40 MG/ML VIAL. IV SCH (21:39)
[2017-04-08] MEDS: ATORVASTATIN CALCIUM 40 MG TABLET. PO SCH (22:05)
[2017-04-08] MEDS: DOXAZOSIN MESYLATE 4 MG TABLET. PO SCH (22:05)
[2017-04-08] MEDS: ALPRAZolam 0.5 MG TABLET PO SCH (22:05)
[2017-04-08] MEDS: EZETIMIBE 10 MG TABLET. PO SCH (22:05)
[2017-04-08 23:00] VITALS: BP 132/101
[2017-04-09] MEDS: ALBUTEROL SULFATE 2.5 MG/3 ML NEBU. NEB PRN (00:28)
[2017-04-09 06:15] LABS: BASO % 0 % (0-3); EOS % 0 % (0-3); HEMATOCRIT 35.6 % (36.0-47.0); HEMOGLOBIN 11.7 g/dL (12.0-15.5); LYMPH # 1.2 x10^3/uL (1.0-4.8); LYMPH % 13 % (24-48); MEAN CORPUSCULAR HEMOGLOBIN 29 pg (25-35); MEAN CORPUSCULAR HGB CONC 33 g/dL (31-37); MEAN CORPUSCULAR VOLUME 89 fL (79-100); MONO % 3 % (0-9); NEUT % 84 % (31-73); PLATELET COUNT 192 x10^3/uL (140-400); RED BLOOD COUNT 3.99 x10^6/uL (3.50-5.40); RED CELL DISTRIBUTION WIDTH 14.7 % (11.5-14.5); WHITE BLOOD COUNT 8.9 x10^3/uL (4.0-11.0)
[2017-04-09 06:22] LABS: CREATININE 1.6 mg/dL (0.6-1.0); GFR 41.6; POTASSIUM 4.1 mmol/L (3.5-5.1)
[2017-04-09 07:00] VITALS: BP 125/76
[2017-04-09] MEDS: IPRATRPIUM/ALBUTEROL 0.5/2.5MG 3 ML NEBU. NEB SCH ×4 (07:24→19:49)
[2017-04-09] MEDS: ONDANSETRON PF 4 MG/2 ML VIAL. IV PRN ×2 (10:04→20:59)
[2017-04-09] MEDS: methylPREDNISolone SOD SUCC PF 40 MG/ML VIAL. IV SCH ×2 (10:05→20:59)
--- NOTE | 2017-04-09 10:21 | PDOC ---
PULMONARY PROGRESS NOTES Vitals Vital Signs Date Time Temp Pulse Resp B/P (MAP) Pulse Ox O2 Delivery O2 Flow Rate FiO2 04/09/17 07:24 96 Room Air 04/08/17 23:00 97.7 107 20 132/101 (111) 97.7 General: Alert, Oriented X4 HEENT: Other Lungs: Clear Cardiovascular: S1, S2 Abdomen: Soft, Non-tender Extremities: No Edema Labs Laboratory Tests Test 04/08/17 12:50 04/09/17 05:30 White Blood Count 7.4 x10^3/uL (4.0-11.0) 8.9 x10^3/uL (4.0-11.0) Red Blood Count 4.49 x10^6/uL (3.50-5.40) 3.99 x10^6/uL (3.50-5.40) Hemoglobin 13.3 g/dL (12.0-15.5) 11.7 g/dL (12.0-15.5) Hematocrit 39.5 % (36.0-47.0) 35.6 % (36.0-47.0) Mean Corpuscular Volume 88 fL (79-100) 89 fL (79-100) Mean Corpuscular Hemoglobin 30 pg (25-35) 29 pg (25-35) Mean Corpuscular Hemoglobin Concent 34 g/dL (31-37) 33 g/dL (31-37) Red Cell Distribution Width 14.9 % (11.5-14.5) 14.7 % (11.5-14.5) Platelet Count 201 x10^3/uL (140-400) 192 x10^3/uL (140-400) Neutrophils (%) (Auto) 64 % (31-73) 84 % (31-73) Lymphocytes (%) (Auto) 27 % (24-48) 13 % (24-48) Monocytes (%) (Auto) 6 % (0-9) 3 % (0-9) Eosinophils (%) (Auto) 1 % (0-3) 0 % (0-3) Basophils (%) (Auto) 1 % (0-3) 0 % (0-3) Neutrophils # (Auto) 4.8 x10^3uL (1.8-7.7) 7.5 x10^3uL (1.8-7.7) Lymphocytes # (Auto) 2.0 x10^3/uL (1.0-4.8) 1.2 x10^3/uL (1.0-4.8) Monocytes # (Auto) 0.4 x10^3/uL (0.0-1.1) 0.3 x10^3/uL (0.0-1.1) Eosinophils # (Auto) 0.1 x10^3/uL (0.0-0.7) 0.0 x10^3/uL (0.0-0.7) Basophils # (Auto) 0.1 x10^3/uL (0.0-0.2) 0.0 x10^3/uL (0.0-0.2) Sodium Level 140 mmol/L (136-145) 135 mmol/L (136-145) Potassium Level 4.3 mmol/L (3.5-5.1) 4.1 mmol/L (3.5-5.1) Chloride Level 102 mmol/L (98-107) 99 mmol/L (98-107) Carbon Dioxide Level 27 mmol/L (21-32) 22 mmol/L (21-32) Anion Gap 11 (6-14) 14 (6-14) Blood Urea Nitrogen 25 mg/dL (7-20) 18 mg/dL (7-20) Creatinine 1.8 mg/dL (0.6-1.0) 1.6 mg/dL (0.6-1.0) Estimated GFR (Cockcroft-Gault) 36.3 41.6 BUN/Creatinine Ratio 14 (6-20) Glucose Level 113 mg/dL (70-99) 144 mg/dL (70-99) Calcium Level 9.2 mg/dL (8.5-10.1) 9.0 mg/dL (8.5-10.1) Total Bilirubin 0.5 mg/dL (0.2-1.0) Aspartate Amino Transf (AST/SGOT) 27 U/L (15-37) Alanine Aminotransferase (ALT/SGPT) 21 U/L (14-59) Alkaline Phosphatase 67 U/L (46-116) Total Protein 7.7 g/dL (6.4-8.2) Albumin 3.8 g/dL (3.4-5.0) Albumin/Globulin Ratio 1.0 (1.0-1.7) Laboratory Tests Test 04/08/17 12:50 04/09/17 05:30 White Blood Count 7.4 x10^3/uL (4.0-11.0) 8.9 x10^3/uL (4.0-11.0) Red Blood Count 4.49 x10^6/uL (3.50-5.40) 3.99 x10^6/uL (3.50-5.40) Hemoglobin 13.3 g/dL (12.0-15.5) 11.7 g/dL (12.0-15.5) Hematocrit 39.5 % (36.0-47.0) 35.6 % (36.0-47.0) Mean Corpuscular Volume 88 fL (79-100) 89 fL (79-100) Mean Corpuscular Hemoglobin 30 pg (25-35) 29 pg (25-35) Mean Corpuscular Hemoglobin Concent 34 g/dL (31-37) 33 g/dL (31-37) Red Cell Distribution Width 14.9 % (11.5-14.5) 14.7 % (11.5-14.5) Platelet Count 201 x10^3/uL (140-400) 192 x10^3/uL (140-400) Neutrophils (%) (Auto) 64 % (31-73) 84 % (31-73) Lymphocytes (%) (Auto) 27 % (24-48) 13 % (24-48) Monocytes (%) (Auto) 6 % (0-9) 3 % (0-9) Eosinophils (%) (Auto) 1 % (0-3) 0 % (0-3) Basophils (%) (Auto) 1 % (0-3) 0 % (0-3) Neutrophils # (Auto) 4.8 x10^3uL (1.8-7.7) 7.5 x10^3uL (1.8-7.7) Lymphocytes # (Auto) 2.0 x10^3/uL (1.0-4.8) 1.2 x10^3/uL (1.0-4.8) Monocytes # (Auto) 0.4 x10^3/uL (0.0-1.1) 0.3 x10^3/uL (0.0-1.1) Eosinophils # (Auto) 0.1 x10^3/uL (0.0-0.7) 0.0 x10^3/uL (0.0-0.7) Basophils # (Auto) 0.1 x10^3/uL (0.0-0.2) 0.0 x10^3/uL (0.0-0.2) Sodium Level 140 mmol/L (136-145) 135 mmol/L (136-145) Potassium Level 4.3 mmol/L (3.5-5.1) 4.1 mmol/L (3.5-5.1) Chloride Level 102 mmol/L (98-107) 99 mmol/L (98-107) Carbon Dioxide Level 27 mmol/L (21-32) 22 mmol/L (21-32) Anion Gap 11 (6-14) 14 (6-14) Blood Urea Nitrogen 25 mg/dL (7-20) 18 mg/dL (7-20) Creatinine 1.8 mg/dL (0.6-1.0) 1.6 mg/dL (0.6-1.0) Estimated GFR (Cockcroft-Gault) 36.3 41.6 BUN/Creatinine Ratio 14 (6-20) Glucose Level 113 mg/dL (70-99) 144 mg/dL (70-99) Calcium Level 9.2 mg/dL (8.5-10.1) 9.0 mg/dL (8.5-10.1) Total Bilirubin 0.5 mg/dL (0.2-1.0) Aspartate Amino Transf (AST/SGOT) 27 U/L (15-37) Alanine Aminotransferase (ALT/SGPT) 21 U/L (14-59) Alkaline Phosphatase 67 U/L (46-116) Total Protein 7.7 g/dL (6.4-8.2) Albumin 3.8 g/dL (3.4-5.0) Albumin/Globulin Ratio 1.0 (1.0-1.7) Medications Active Scripts Medications Dose Route/Sig Max Daily Dose Days Date Category Dose Instructions Doxazosin Mesylate 4 Mg Tablet 1 Tab PO DAILY 02/23/17 Reported Albuterol Sulfate Neb Soln (Albuterol Sulfate) 2.5 Mg/3 Ml Vial.neb 1 Vial NEB QID 02/23/17 Reported Proair Hfa Inhaler (Albuterol Sulfate) 8.5 Gm Hfa.aer.ad 2 Puff INH BID PRN 02/23/17 Reported [Promethazine Hcl/Codeine] 5 ML Syrup 5 Ml PO PRN Q6HRS PRN 10 12/05/16 Rx Metoprolol Succinate ( Xl ) (Metoprolol Succinate) 25 Mg Tab.er.24h 2 Tab PO DAILY 12/04/16 Reported Gave last night Take night Losartan Potassium 50 Mg Tablet 50 Mg PO DAILY 12/04/16 Reported Gave this morning Take tomorrow Oxycodone Hcl 10 Mg Tablet 1 Tab PO PRN QID PRN 12/04/16 Reported Last dose given last night Take when needed Hydrocodone-Apap 7.5-325 (Hydrocodone Bit/Acetaminophen) 1 Each Tablet 1 Tab PO PRN TID PRN 07/26/16 Reported Not given on this admission Take when needed Xanax (Alprazolam) 0.5 Mg Tablet 1 Tab PO BID 03/17/15 Reported Not given on this admission Take when needed Zetia (Ezetimibe) 10 Mg Tablet 1 Tab PO QHS 03/17/15 Reported Gave last night Take tonight Protonix (Pantoprazole Sodium) 40 Mg Tablet 40 Mg PO DAILYAC 05/04/14 Rx Atorvastatin Calcium 80 Mg Tablet 80 Mg PO HS 05/03/14 Reported Gave last night Take tongiht Impression . full noted dictated agree with current rx possible d.c in [place] Anand MD April 09, 2017 10:20
[2017-04-09] MEDS: MORPHINE SULFATE 2 MG/ML DISP.SYRIN. IV PRN ×2 (10:44→14:48)
[2017-04-09] MEDS: ALPRAZolam 0.5 MG TABLET PO SCH ×2 (10:45→20:57)
[2017-04-09] MEDS: PANTOPRAZOLE 40 MG TABLET.DR. PO SCH (10:45)
[2017-04-09] MEDS: LOSARTAN POTASSIUM 50 MG TABLET. PO SCH (10:46)
[2017-04-09] MEDS: METOPROLOL SUCC 24HR ER 25 MG TAB.ER.24H. PO SCH (10:47)
[2017-04-09 11:00] VITALS: BP 129/54
[2017-04-09] MEDS ORDERED: PROCHLORPERAZINE 10 MG/2 ML VIAL. IV PRN (12:15)
--- NOTE | 2017-04-09 12:30 | PDOC ---
PROGRESS NOTES Chief Complaint Chief Complaint 1. Asthma 2. COPD 3. HTN 4. Anemia NOS 5. Diabetes-borderline 6. Cholecystectomy 7. Hernia Repair 8. Tubal Ligation 9. Hysterectomy History of Present Illness History of Present Illness Patient seen this am in in NAD. Patient said she doesn't have Diabetes when asked. Informed patient we would continue asthma meds and breathing treatments. Patient understands plan of action. Vitals Vitals Vital Signs Date Time Temp Pulse Resp B/P (MAP) Pulse Ox O2 Delivery O2 Flow Rate FiO2 04/09/17 10:57 Room Air 04/09/17 10:47 96 125/76 04/09/17 10:44 20 96 04/08/17 23:00 97.7 97.7 Physical Exam General: Alert, Oriented X3, Cooperative Heart: Regular rate, Normal S1, Normal S2 Lungs: Clear Abdomen: Normal bowel sounds, Soft, No tenderness Extremities: No cyanosis, No edema Skin: No rashes, No breakdown, No significant lesion Labs LABS Laboratory Tests Test 04/08/17 12:50 04/09/17 05:30 White Blood Count 7.4 x10^3/uL (4.0-11.0) 8.9 x10^3/uL (4.0-11.0) Red Blood Count 4.49 x10^6/uL (3.50-5.40) 3.99 x10^6/uL (3.50-5.40) Hemoglobin 13.3 g/dL (12.0-15.5) 11.7 g/dL (12.0-15.5) Hematocrit 39.5 % (36.0-47.0) 35.6 % (36.0-47.0) Mean Corpuscular Volume 88 fL (79-100) 89 fL (79-100) Mean Corpuscular Hemoglobin 30 pg (25-35) 29 pg (25-35) Mean Corpuscular Hemoglobin Concent 34 g/dL (31-37) 33 g/dL (31-37) Red Cell Distribution Width 14.9 % (11.5-14.5) 14.7 % (11.5-14.5) Platelet Count 201 x10^3/uL (140-400) 192 x10^3/uL (140-400) Neutrophils (%) (Auto) 64 % (31-73) 84 % (31-73) Lymphocytes (%) (Auto) 27 % (24-48) 13 % (24-48) Monocytes (%) (Auto) 6 % (0-9) 3 % (0-9) Eosinophils (%) (Auto) 1 % (0-3) 0 % (0-3) Basophils (%) (Auto) 1 % (0-3) 0 % (0-3) Neutrophils # (Auto) 4.8 x10^3uL (1.8-7.7) 7.5 x10^3uL (1.8-7.7) Lymphocytes # (Auto) 2.0 x10^3/uL (1.0-4.8) 1.2 x10^3/uL (1.0-4.8) Monocytes # (Auto) 0.4 x10^3/uL (0.0-1.1) 0.3 x10^3/uL (0.0-1.1) Eosinophils # (Auto) 0.1 x10^3/uL (0.0-0.7) 0.0 x10^3/uL (0.0-0.7) Basophils # (Auto) 0.1 x10^3/uL (0.0-0.2) 0.0 x10^3/uL (0.0-0.2) Sodium Level 140 mmol/L (136-145) 135 mmol/L (136-145) Potassium Level 4.3 mmol/L (3.5-5.1) 4.1 mmol/L (3.5-5.1) Chloride Level 102 mmol/L (98-107) 99 mmol/L (98-107) Carbon Dioxide Level 27 mmol/L (21-32) 22 mmol/L (21-32) Anion Gap 11 (6-14) 14 (6-14) Blood Urea Nitrogen 25 mg/dL (7-20) 18 mg/dL (7-20) Creatinine 1.8 mg/dL (0.6-1.0) 1.6 mg/dL (0.6-1.0) Estimated GFR (Cockcroft-Gault) 36.3 41.6 BUN/Creatinine Ratio 14 (6-20) Glucose Level 113 mg/dL (70-99) 144 mg/dL (70-99) Calcium Level 9.2 mg/dL (8.5-10.1) 9.0 mg/dL (8.5-10.1) Total Bilirubin 0.5 mg/dL (0.2-1.0) Aspartate Amino Transf (AST/SGOT) 27 U/L (15-37) Alanine Aminotransferase (ALT/SGPT) 21 U/L (14-59) Alkaline Phosphatase 67 U/L (46-116) Total Protein 7.7 g/dL (6.4-8.2) Albumin 3.8 g/dL (3.4-5.0) Albumin/Globulin Ratio 1.0 (1.0-1.7) Review of Systems Review of Systems No SONG/blurry vision No rashes No vomiting Assessment and Plan Assessmemt and Plan Problems Medical Problems: (1) Asthma exacerbation Status: Acute 2. COPD 3. HTN 4. Anemia NOS 5. Diabetes-borderline 6. Cholecystectomy 7. Hernia Repair 8. Tubal Ligation 9. Hysterectomy Plan: -Continue current medications and adjust accordingly as needed. -Administer Compazine q6hrs prn and begin NS 75 ml/hr. -Continue specialty consultation. -Involve PT/OT as tolerated. -Continue breathing treatments as needed. -Albuterol/Ipratropium and Methylprednisolone for acute asthma exacerbation. -Continue daily blood draws to monitor neutrophils. Last was 84% (04/09/17). Problems: Comment Review of Relevant I have reviewed the following items meghna (where applicable) has been applied. Labs Laboratory Tests Test 04/08/17 12:50 04/09/17 05:30 White Blood Count 7.4 x10^3/uL (4.0-11.0) 8.9 x10^3/uL (4.0-11.0) Red Blood Count 4.49 x10^6/uL (3.50-5.40) 3.99 x10^6/uL (3.50-5.40) Hemoglobin 13.3 g/dL (12.0-15.5) 11.7 g/dL (12.0-15.5) Hematocrit 39.5 % (36.0-47.0) 35.6 % (36.0-47.0) Mean Corpuscular Volume 88 fL (79-100) 89 fL (79-100) Mean Corpuscular Hemoglobin 30 pg (25-35) 29 pg (25-35) Mean Corpuscular Hemoglobin Concent 34 g/dL (31-37) 33 g/dL (31-37) Red Cell Distribution Width 14.9 % (11.5-14.5) 14.7 % (11.5-14.5) Platelet Count 201 x10^3/uL (140-400) 192 x10^3/uL (140-400) Neutrophils (%) (Auto) 64 % (31-73) 84 % (31-73) Lymphocytes (%) (Auto) 27 % (24-48) 13 % (24-48) Monocytes (%) (Auto) 6 % (0-9) 3 % (0-9) Eosinophils (%) (Auto) 1 % (0-3) 0 % (0-3) Basophils (%) (Auto) 1 % (0-3) 0 % (0-3) Neutrophils # (Auto) 4.8 x10^3uL (1.8-7.7) 7.5 x10^3uL (1.8-7.7) Lymphocytes # (Auto) 2.0 x10^3/uL (1.0-4.8) 1.2 x10^3/uL (1.0-4.8) Monocytes # (Auto) 0.4 x10^3/uL (0.0-1.1) 0.3 x10^3/uL (0.0-1.1) Eosinophils # (Auto) 0.1 x10^3/uL (0.0-0.7) 0.0 x10^3/uL (0.0-0.7) Basophils # (Auto) 0.1 x10^3/uL (0.0-0.2) 0.0 x10^3/uL (0.0-0.2) Sodium Level 140 mmol/L (136-145) 135 mmol/L (136-145) Potassium Level 4.3 mmol/L (3.5-5.1) 4.1 mmol/L (3.5-5.1) Chloride Level 102 mmol/L (98-107) 99 mmol/L (98-107) Carbon Dioxide Level 27 mmol/L (21-32) 22 mmol/L (21-32) Anion Gap 11 (6-14) 14 (6-14) Blood Urea Nitrogen 25 mg/dL (7-20) 18 mg/dL (7-20) Creatinine 1.8 mg/dL (0.6-1.0) 1.6 mg/dL (0.6-1.0) Estimated GFR (Cockcroft-Gault) 36.3 41.6 BUN/Creatinine Ratio 14 (6-20) Glucose Level 113 mg/dL (70-99) 144 mg/dL (70-99) Calcium Level 9.2 mg/dL (8.5-10.1) 9.0 mg/dL (8.5-10.1) Total Bilirubin 0.5 mg/dL (0.2-1.0) Aspartate Amino Transf (AST/SGOT) 27 U/L (15-37) Alanine Aminotransferase (ALT/SGPT) 21 U/L (14-59) Alkaline Phosphatase 67 U/L (46-116) Total Protein 7.7 g/dL (6.4-8.2) Albumin 3.8 g/dL (3.4-5.0) Albumin/Globulin Ratio 1.0 (1.0-1.7) Laboratory Tests Test 04/08/17 12:50 04/09/17 05:30 White Blood Count 7.4 x10^3/uL (4.0-11.0) 8.9 x10^3/uL (4.0-11.0) Red Blood Count 4.49 x10^6/uL (3.50-5.40) 3.99 x10^6/uL (3.50-5.40) Hemoglobin 13.3 g/dL (12.0-15.5) 11.7 g/dL (12.0-15.5) Hematocrit 39.5 % (36.0-47.0) 35.6 % (36.0-47.0) Mean Corpuscular Volume 88 fL (79-100) 89 fL (79-100) Mean Corpuscular Hemoglobin 30 pg (25-35) 29 pg (25-35) Mean Corpuscular Hemoglobin Concent 34 g/dL (31-37) 33 g/dL (31-37) Red Cell Distribution Width 14.9 % (11.5-14.5) 14.7 % (11.5-14.5) Platelet Count 201 x10^3/uL (140-400) 192 x10^3/uL (140-400) Neutrophils (%) (Auto) 64 % (31-73) 84 % (31-73) Lymphocytes (%) (Auto) 27 % (24-48) 13 % (24-48) Monocytes (%) (Auto) 6 % (0-9) 3 % (0-9) Eosinophils (%) (Auto) 1 % (0-3) 0 % (0-3) Basophils (%) (Auto) 1 % (0-3) 0 % (0-3) Neutrophils # (Auto) 4.8 x10^3uL (1.8-7.7) 7.5 x10^3uL (1.8-7.7) Lymphocytes # (Auto) 2.0 x10^3/uL (1.0-4.8) 1.2 x10^3/uL (1.0-4.8) Monocytes # (Auto) 0.4 x10^3/uL (0.0-1.1) 0.3 x10^3/uL (0.0-1.1) Eosinophils # (Auto) 0.1 x10^3/uL (0.0-0.7) 0.0 x10^3/uL (0.0-0.7) Basophils # (Auto) 0.1 x10^3/uL (0.0-0.2) 0.0 x10^3/uL (0.0-0.2) Sodium Level 140 mmol/L (136-145) 135 mmol/L (136-145) Potassium Level 4.3 mmol/L (3.5-5.1) 4.1 mmol/L (3.5-5.1) Chloride Level 102 mmol/L (98-107) 99 mmol/L (98-107) Carbon Dioxide Level 27 mmol/L (21-32) 22 mmol/L (21-32) Anion Gap 11 (6-14) 14 (6-14) Blood Urea Nitrogen 25 mg/dL (7-20) 18 mg/dL (7-20) Creatinine 1.8 mg/dL (0.6-1.0) 1.6 mg/dL (0.6-1.0) Estimated GFR (Cockcroft-Gault) 36.3 41.6 BUN/Creatinine Ratio 14 (6-20) Glucose Level 113 mg/dL (70-99) 144 mg/dL (70-99) Calcium Level 9.2 mg/dL (8.5-10.1) 9.0 mg/dL (8.5-10.1) Total Bilirubin 0.5 mg/dL (0.2-1.0) Aspartate Amino Transf (AST/SGOT) 27 U/L (15-37) Alanine Aminotransferase (ALT/SGPT) 21 U/L (14-59) Alkaline Phosphatase 67 U/L (46-116) Total Protein 7.7 g/dL (6.4-8.2) Albumin 3.8 g/dL (3.4-5.0) Albumin/Globulin Ratio 1.0 (1.0-1.7) Medications Current Medications Albuterol/ Ipratropium (Duoneb) 3 ml 1X ONCE NEB Last administered on 10:35; Start 04/08/17 at 10:30; Stop 04/08/17 at 10:31; Status DC Methylprednisolone Sodium Succinate (SOLU-Medrol 125MG VIAL) 125 mg 1X ONCE IM Last administered on 04/08/17 10:52; Start 04/08/17 at 10:30; Stop 04/08/17 at 10:31; Status DC Albuterol Sulfate (Ventolin Neb Soln) 10 mg 1X ONCE CONT NEB Last administered on 04/08/17 11:23; Start 04/08/17 at 11:15; Stop 04/08/17 at 11:16 ; Status DC Ondansetron HCl (Zofran Odt) 4 mg 1X ONCE PO Last administered on 04/08/17 11 :18; Start 04/08/17 at 11:15; Stop 04/08/17 at 11:16; Status DC Sodium Chloride 1,000 ml @ 100 mls/hr Q10H IV Last administered on 04/08/17 13:20; Start 04/08/17 at 12:31; Stop 04/08/17 at 22:30; Status DC Albuterol Sulfate (Ventolin Neb Soln) 2.5 mg PRN Q2HR PRN NEB SHORTNESS OF BREATH; Start 04/08/17 at 13:45; Stop 04/08/17 at 13:45; Status DC Alprazolam (Xanax) 0.5 mg BID PO Last administered on 04/09/17 10:45; Start at 21:00 Doxazosin Mesylate (Cardura) 4 mg DAILY PO ; Start 04/08/17 at 14:00; Stop 04/08 at 16:54; Status DC EZETIMIBE (Zetia) 10 mg QHS PO Last administered on 04/08/17 22:05; Start at 21:00 Acetaminophen/ Hydrocodone Bitart (Lortab 7.5/325) 1 tab PRN TID PRN PO PAIN; Start 04/08/17 at 13:45 Losartan Potassium (Cozaar) 50 mg DAILY PO Last administered on 04/09/17 10:46 ; Start 04/08/17 at 14:00 Metoprolol Succinate (Toprol Xl) 50 mg DAILY PO Last administered on 04/09/17 10:47; Start 04/08/17 at 14:00 Pantoprazole Sodium (Protonix) 40 mg DAILYAC PO Last administered on 04/09/17 10:45; Start 04/09/17 at 07:30 Non-Formulary Medication 2 puff BID PRN INH SHORTNESS OF BREATH; Start at 13:45; Stop 04/08/17 at 13:56; Status DC Atorvastatin Calcium (Lipitor) 80 mg QHS PO Last administered on 04/08/17 22: 05; Start 04/08/17 at 21:00 Oxycodone HCl (Roxicodone) 10 mg PRN QID PRN PO PAIN; Start 04/08/17 at 14:00 Promethazine HCl/ Codeine (Phenergan With Codeine) 5 ml PRN Q6HRS PRN PO COUGH ; Start 04/08/17 at 14:00 Acetaminophen (Tylenol) 650 mg PRN Q6HRS PRN PO FEVER; Start 04/08/17 at 13:45 Ondansetron HCl (Zofran) 4 mg PRN Q6HRS PRN IV NAUSEA/VOMITING Last administered on 04/09/17 10:04; Start 04/08/17 at 13:45 Morphine Sulfate 2 mg PRN Q2HR PRN IV PAIN Last administered on 04/09/17 10:44 ; Start 04/08/17 at 13:45 Tramadol HCl (Ultram) 50 mg PRN Q6HRS PRN PO PAIN; Start 04/08/17 at 13:45 Hydralazine HCl (Apresoline) 10 mg PRN Q4HRS PRN IVP ELEVATED BP, SEE COMMENTS ; Start 04/08/17 at 13:45 Docusate Sodium (Colace) 100 mg PRN DAILY PRN PO CONSTIPATION; Start 04/08/17 at 13:45 Albuterol/ Ipratropium (Duoneb) 3 ml RTQID NEB Last administered on 04/09/17 10:56; Start 04/08/17 at 16:00 Albuterol Sulfate (Ventolin Neb Soln) 2.5 mg PRN Q2HR PRN NEB SHORTNESS OF BREATH Last administered on 04/09/17 00:28; Start 04/08/17 at 13:45 Guaifenesin (Mucinex) 600 mg BID PO Last administered on 04/09/17 10:45; Start 04/08/17 at 21:00 Methylprednisolone Sodium Succinate (SOLU-Medrol 40MG VIAL) 60 mg Q12HR IV Last administered on 04/09/17 10:05; Start 04/08/17 at 21:00 Enoxaparin Sodium (Lovenox 40mg Syringe) 40 mg Q24H SQ Last administered on 15:18; Start 04/08/17 at 14:00 Albuterol Sulfate (Ventolin Neb Soln) 2.5 mg PRN BID PRN NEB SHORTNESS OF BREATH; Start 04/08/17 at 14:00; Stop 04/08/17 at 14:00; Status DC Ondansetron HCl (Zofran) 4 mg PRN Q8HRS PRN IV NAUSEA/VOMITING; Start 04/08/17 at 15:30; Stop 04/09/17 at 15:29 Albuterol/ Ipratropium (Duoneb) 3 ml RTQID NEB ; Start 04/08/17 at 16:00; Stop 04/09/17 at 15:59; Status UNV Methylprednisolone Sodium Succinate (SOLU-Medrol 40MG VIAL) 60 mg Q6HRS IV ; Start 04/08/17 at 18:00; Status UNV Doxazosin Mesylate (Cardura) 4 mg QHS PO Last administered on 04/08/17 22:05; Start 04/08/17 at 21:00 Diphenhydramine HCl (Benadryl) 25 mg PRN Q6HRS PRN PO ITCHING Last administered on 04/08/17 19:51; Start 04/08/17 at 19:45 Prochlorperazine Edisylate (Compazine) 10 mg PRN Q6HRS PRN IV NAUSEA/VOMITING; Start 04/09/17 at 12:15 Active Scripts Active [Promethazine Hcl/Codeine] 5 ML Syrup 5 Ml PO PRN Q6HRS PRN 10 Days Protonix (Pantoprazole Sodium) 40 Mg Tablet 40 Mg PO DAILYAC Reported Doxazosin Mesylate 4 Mg Tablet 1 Tab PO DAILY Albuterol Sulfate Neb Soln (Albuterol Sulfate) 2.5 Mg/3 Ml Vial.neb 1 Vial NEB QID Proair Hfa Inhaler (Albuterol Sulfate) 8.5 Gm Hfa.aer.ad 2 Puff INH BID PRN Metoprolol Succinate ( Xl ) (Metoprolol Succinate) 25 Mg Tab.er.24h 2 Tab PO DAILY Gave last night Take night Losartan Potassium 50 Mg Tablet 50 Mg PO DAILY Gave this morning Take tomorrow Oxycodone Hcl 10 Mg Tablet 1 Tab PO PRN QID PRN Last dose given last night Take when needed Hydrocodone-Apap 7.5-325 (Hydrocodone Bit/Acetaminophen) 1 Each Tablet 1 Tab PO PRN TID PRN Not given on this admission Take when needed Xanax (Alprazolam) 0.5 Mg Tablet 1 Tab PO BID Not given on this admission Take when needed Zetia (Ezetimibe) 10 Mg Tablet 1 Tab PO QHS Gave last night Take tonight Atorvastatin Calcium 80 Mg Tablet 80 Mg PO HS Gave last night Take mahogany Vitals/I & O Vital Sign - Last 24 Hours 04/08/17 04/08/17 04/08/17 04/08/17 13:20 13:40 14:05 15:48 Temp 97.9 97.9 Pulse 86 90 Resp 20 18 B/P (MAP) 136/85 (102) 132/75 (94) 141/91 (108) Pulse Ox 96 96 98 O2 Delivery Room Air Room Air Room Air 04/08/17 04/08/17 04/08/17 04/08/17 15:54 16:10 19:00 19:25 Temp 98.4 98.4 Pulse 105 Resp 20 B/P (MAP) 152/97 (115) Pulse Ox 93 98 O2 Delivery Room Air Room Air Room Air 04/08/17 04/08/17 04/08/17 04/08/17 20:00 22:04 22:05 22:34 Pulse 105 Resp 18 B/P (MAP) 152/97 Pulse Ox 98 98 O2 Delivery Room Air Room Air Room Air 04/08/17 04/09/17 04/09/17 04/09/17 23:00 00:30 07:24 10:44 Temp 97.7 97.7 Pulse 107 Resp 20 20 B/P (MAP) 132/101 (111) Pulse Ox 94 96 96 O2 Delivery Room Air Room Air Room Air 04/09/17 04/09/17 04/09/17 10:46 10:47 10:57 Pulse 96 96 B/P (MAP) 125/76 125/76 O2 Delivery Room Air Intake and Output 04/08/17 04/08/17 04/09/17 15:00 23:00 07:00 Intake Total 180 ml 1900 ml Output Total 100 ml Balance 80 ml 1900 ml LYDIA MARSH III DO April 09, 2017 12:30
[2017-04-09] MEDS ORDERED: PROCHLORPERAZINE 10 MG/2 ML VIAL. IM PRN (12:45)
[2017-04-09] MEDS: ENOXAPARIN 40 MG/0.4 ML SYRINGE. SQ SCH (14:41)
[2017-04-09] MEDS: IV NORMAL SALINE 1000ML BAG 1,000 ML IV SCH (14:45)
[2017-04-09 15:00] VITALS: BP 147/78
[2017-04-09] MEDS: PROMETH/CODEINE 6.25/10MG 5 ML SYRUP. PO PRN (15:04)
[2017-04-09 19:00] VITALS: BP 125/77
[2017-04-09] MEDS: ATORVASTATIN CALCIUM 40 MG TABLET. PO SCH (20:57)
[2017-04-09] MEDS: DOXAZOSIN MESYLATE 4 MG TABLET. PO SCH (20:58)
[2017-04-09] MEDS: EZETIMIBE 10 MG TABLET. PO SCH (20:58)
[2017-04-09] MEDS: HYDROcodone/APAP 7.5/325MG 1 TAB TABLET PO PRN (20:58)
[2017-04-09 23:00] VITALS: BP 134/82
--- NOTE | 2017-04-10 00:03 | CONS ---
DATE OF CONSULTATION: 04/09/2017 ATTENDING PHYSICIAN: Dr. Fierro. REASON FOR CONSULTATION: The patient seen in pulmonary consultation at the request of Dr. Fierro for increasing shortness of breath, wheeze. HISTORY OF PRESENT ILLNESS: The patient is a 47-year-old well known to me from previous hospitalization, history of asthma. She has done well in the past with Dulera and p.r.n. albuterol, presented with increasing shortness of breath, cough, wheeze. She got a hold of her primary care doctor. She was unable to see him in the office, as a consequence came into the Emergency Room. She was admitted. Chest x-ray was reviewed. There are no acute infiltrates. PAST MEDICAL HISTORY: Remarkable for: 1. Asthma, mostly driven by allergies. 2. Allergic rhinitis. 3. Seasonal allergies. 4. Hypertension. 5. Hyperlipidemia. 6. Irritable bowel. 7. Gastroesophageal reflux. 8. Anxiety and depression. 9. Abnormal CT, needs followup in 05/2017. PAST SURGICAL HISTORY: No recent major surgeries. ALLERGIES: PENICILLIN. FAMILY HISTORY: Mother with asthma. Two brothers with asthma. REVIEW OF SYSTEMS: As indicated above, otherwise a 10-point system was reviewed and negative. CURRENT MEDICATIONS: List was reviewed. Please see the MRAD. PHYSICAL EXAMINATION: GENERAL: The patient was on no oxygen supplementation. VITAL SIGNS: Stable. O2 saturation was greater than 92%. HEENT: Eyes, the sclerae were nonicteric. NECK: Jugular venous distention was not elevated. No lymphadenopathy. CHEST: Full expansion. LUNGS: Adequate airway flow, no wheezes. CARDIOVASCULAR: Regular rate and rhythm with S1, S2, no S3. ABDOMEN: Soft, nontender, nondistended. EXTREMITIES: No clubbing, cyanosis or edema. IMAGING: Chest x-ray was normal. No acute infiltrates. LABORATORY DATA: Reviewed. White count was normal. Electrolytes were noted. IMPRESSION: 1. Acute asthma exacerbation. 2. Acute nonspecific bronchitis. 3. Abnormal CT of the chest revealing some nodules. The patient is due to follow up in my office in 05/2017. 4. Seasonal allergies. 5. Allergic rhinitis. PLAN. 1. ____ medical management. 2. Possible discharge home in the a.m. and to taper prednisone and bronchodilators. 3. Follow up in my office in May as instructed to do so. I do appreciate the privilege in sharing in this patient's care. AIDA OSHEA MD DR: FRANC/darien JOB#: [id number] / [id number]
[2017-04-10] MEDS: oxyCODONE IR 5 MG TABLET PO PRN ×3 (00:38→18:44)
[2017-04-10] MEDS: IV NORMAL SALINE 1000ML BAG 1,000 ML IV SCH (01:54)
[2017-04-10] MEDS: ALBUTEROL SULFATE 2.5 MG/3 ML NEBU. NEB PRN (02:00)
[2017-04-10] MEDS: PROMETH/CODEINE 6.25/10MG 5 ML SYRUP. PO PRN (03:05)
[2017-04-10 03:13] VITALS: BP 135/73
[2017-04-10 04:29] LABS: BASO % 0 % (0-3); EOS % 0 % (0-3); HEMOGLOBIN 11.7 g/dL (12.0-15.5); LYMPH # 1.2 x10^3/uL (1.0-4.8); LYMPH % 11 % (24-48); MEAN CORPUSCULAR HEMOGLOBIN 29 pg (25-35); MEAN CORPUSCULAR HGB CONC 32 g/dL (31-37); MEAN CORPUSCULAR VOLUME 90 fL (79-100); MONO % 5 % (0-9); NEUT % 84 % (31-73); PLATELET COUNT 174 x10^3/uL (140-400); RED BLOOD COUNT 4.03 x10^6/uL (3.50-5.40); RED CELL DISTRIBUTION WIDTH 14.6 % (11.5-14.5); WHITE BLOOD COUNT 11.1 x10^3/uL (4.0-11.0)
[2017-04-10 04:35] LABS: CALCIUM 8.5 mg/dL (8.5-10.1); CREATININE 1.4 mg/dL (0.6-1.0); GFR 48.6; POTASSIUM 4.2 mmol/L (3.5-5.1)
[2017-04-10 07:00] VITALS: BP 148/89
[2017-04-10] MEDS: IPRATRPIUM/ALBUTEROL 0.5/2.5MG 3 ML NEBU. NEB SCH ×4 (07:20→19:00)
--- NOTE | 2017-04-10 07:20 | PDOC ---
PULMONARY PROGRESS NOTES Subjective PT STILLL SOA AT TIMES SOME ABD PAIN Vitals Vital Signs Date Time Temp Pulse Resp B/P (MAP) Pulse Ox O2 Delivery O2 Flow Rate FiO2 04/10/17 03:13 97.9 83 20 135/73 (93) 94 Room Air 97.9 General: Alert HEENT: Other Lungs: Wheezing Cardiovascular: S1, S2 Abdomen: Soft, Non-tender Neuro Exam: Alert Extremities: No Edema Skin: Warm Labs Laboratory Tests Test 04/08/17 12:50 04/09/17 05:30 04/10/17 03:34 White Blood Count 7.4 x10^3/uL (4.0-11.0) 8.9 x10^3/uL (4.0-11.0) 11.1 x10^3/uL (4.0-11.0) Red Blood Count 4.49 x10^6/uL (3.50-5.40) 3.99 x10^6/uL (3.50-5.40) 4.03 x10^6/uL (3.50-5.40) Hemoglobin 13.3 g/dL (12.0-15.5) 11.7 g/dL (12.0-15.5) 11.7 g/dL (12.0-15.5) Hematocrit 39.5 % (36.0-47.0) 35.6 % (36.0-47.0) 36.0 % (36.0-47.0) Mean Corpuscular Volume 88 fL (79-100) 89 fL (79-100) 90 fL (79-100) Mean Corpuscular Hemoglobin 30 pg (25-35) 29 pg (25-35) 29 pg (25-35) Mean Corpuscular Hemoglobin Concent 34 g/dL (31-37) 33 g/dL (31-37) 32 g/dL (31-37) Red Cell Distribution Width 14.9 % (11.5-14.5) 14.7 % (11.5-14.5) 14.6 % (11.5-14.5) Platelet Count 201 x10^3/uL (140-400) 192 x10^3/uL (140-400) 174 x10^3/uL (140-400) Neutrophils (%) (Auto) 64 % (31-73) 84 % (31-73) 84 % (31-73) Lymphocytes (%) (Auto) 27 % (24-48) 13 % (24-48) 11 % (24-48) Monocytes (%) (Auto) 6 % (0-9) 3 % (0-9) 5 % (0-9) Eosinophils (%) (Auto) 1 % (0-3) 0 % (0-3) 0 % (0-3) Basophils (%) (Auto) 1 % (0-3) 0 % (0-3) 0 % (0-3) Neutrophils # (Auto) 4.8 x10^3uL (1.8-7.7) 7.5 x10^3uL (1.8-7.7) 9.3 x10^3uL (1.8-7.7) Lymphocytes # (Auto) 2.0 x10^3/uL (1.0-4.8) 1.2 x10^3/uL (1.0-4.8) 1.2 x10^3/uL (1.0-4.8) Monocytes # (Auto) 0.4 x10^3/uL (0.0-1.1) 0.3 x10^3/uL (0.0-1.1) 0.5 x10^3/uL (0.0-1.1) Eosinophils # (Auto) 0.1 x10^3/uL (0.0-0.7) 0.0 x10^3/uL (0.0-0.7) 0.0 x10^3/uL (0.0-0.7) Basophils # (Auto) 0.1 x10^3/uL (0.0-0.2) 0.0 x10^3/uL (0.0-0.2) 0.0 x10^3/uL (0.0-0.2) Sodium Level 140 mmol/L (136-145) 135 mmol/L (136-145) 139 mmol/L (136-145) Potassium Level 4.3 mmol/L (3.5-5.1) 4.1 mmol/L (3.5-5.1) 4.2 mmol/L (3.5-5.1) Chloride Level 102 mmol/L (98-107) 99 mmol/L (98-107) 103 mmol/L (98-107) Carbon Dioxide Level 27 mmol/L (21-32) 22 mmol/L (21-32) 23 mmol/L (21-32) Anion Gap 11 (6-14) 14 (6-14) 13 (6-14) Blood Urea Nitrogen 25 mg/dL (7-20) 18 mg/dL (7-20) 17 mg/dL (7-20) Creatinine 1.8 mg/dL (0.6-1.0) 1.6 mg/dL (0.6-1.0) 1.4 mg/dL (0.6-1.0) Estimated GFR (Cockcroft-Gault) 36.3 41.6 48.6 BUN/Creatinine Ratio 14 (6-20) Glucose Level 113 mg/dL (70-99) 144 mg/dL (70-99) 184 mg/dL (70-99) Calcium Level 9.2 mg/dL (8.5-10.1) 9.0 mg/dL (8.5-10.1) 8.5 mg/dL (8.5-10.1) Total Bilirubin 0.5 mg/dL (0.2-1.0) Aspartate Amino Transf (AST/SGOT) 27 U/L (15-37) Alanine Aminotransferase (ALT/SGPT) 21 U/L (14-59) Alkaline Phosphatase 67 U/L (46-116) Total Protein 7.7 g/dL (6.4-8.2) Albumin 3.8 g/dL (3.4-5.0) Albumin/Globulin Ratio 1.0 (1.0-1.7) Laboratory Tests Test 04/10/17 03:34 White Blood Count 11.1 x10^3/uL (4.0-11.0) Red Blood Count 4.03 x10^6/uL (3.50-5.40) Hemoglobin 11.7 g/dL (12.0-15.5) Hematocrit 36.0 % (36.0-47.0) Mean Corpuscular Volume 90 fL (79-100) Mean Corpuscular Hemoglobin 29 pg (25-35) Mean Corpuscular Hemoglobin Concent 32 g/dL (31-37) Red Cell Distribution Width 14.6 % (11.5-14.5) Platelet Count 174 x10^3/uL (140-400) Neutrophils (%) (Auto) 84 % (31-73) Lymphocytes (%) (Auto) 11 % (24-48) Monocytes (%) (Auto) 5 % (0-9) Eosinophils (%) (Auto) 0 % (0-3) Basophils (%) (Auto) 0 % (0-3) Neutrophils # (Auto) 9.3 x10^3uL (1.8-7.7) Lymphocytes # (Auto) 1.2 x10^3/uL (1.0-4.8) Monocytes # (Auto) 0.5 x10^3/uL (0.0-1.1) Eosinophils # (Auto) 0.0 x10^3/uL (0.0-0.7) Basophils # (Auto) 0.0 x10^3/uL (0.0-0.2) Sodium Level 139 mmol/L (136-145) Potassium Level 4.2 mmol/L (3.5-5.1) Chloride Level 103 mmol/L (98-107) Carbon Dioxide Level 23 mmol/L (21-32) Anion Gap 13 (6-14) Blood Urea Nitrogen 17 mg/dL (7-20) Creatinine 1.4 mg/dL (0.6-1.0) Estimated GFR (Cockcroft-Gault) 48.6 Glucose Level 184 mg/dL (70-99) Calcium Level 8.5 mg/dL (8.5-10.1) Medications Active Scripts Medications Dose Route/Sig Max Daily Dose Days Date Category Dose Instructions Doxazosin Mesylate 4 Mg Tablet 1 Tab PO DAILY 02/23/17 Reported Albuterol Sulfate Neb Soln (Albuterol Sulfate) 2.5 Mg/3 Ml Vial.neb 1 Vial NEB QID 02/23/17 Reported Proair Hfa Inhaler (Albuterol Sulfate) 8.5 Gm Hfa.aer.ad 2 Puff INH BID PRN 02/23/17 Reported [Promethazine Hcl/Codeine] 5 ML Syrup 5 Ml PO PRN Q6HRS PRN 10 12/05/16 Rx Metoprolol Succinate ( Xl ) (Metoprolol Succinate) 25 Mg Tab.er.24h 2 Tab PO DAILY 12/04/16 Reported Gave last night Take night Losartan Potassium 50 Mg Tablet 50 Mg PO DAILY 12/04/16 Reported Gave this morning Take tomorrow Oxycodone Hcl 10 Mg Tablet 1 Tab PO PRN QID PRN 12/04/16 Reported Last dose given last night Take when needed Hydrocodone-Apap 7.5-325 (Hydrocodone Bit/Acetaminophen) 1 Each Tablet 1 Tab PO PRN TID PRN 07/26/16 Reported Not given on this admission Take when needed Xanax (Alprazolam) 0.5 Mg Tablet 1 Tab PO BID 03/17/15 Reported Not given on this admission Take when needed Zetia (Ezetimibe) 10 Mg Tablet 1 Tab PO QHS 03/17/15 Reported Gave last night Take tonight Protonix (Pantoprazole Sodium) 40 Mg Tablet 40 Mg PO DAILYAC 05/04/14 Rx Atorvastatin Calcium 80 Mg Tablet 80 Mg PO HS 05/03/14 Reported Gave last night Take calt Impression . 1. Acute asthma exacerbation. 2. Acute nonspecific bronchitis. 3. Abnormal CT of the chest revealing some nodules. The patient is due to follow up in my office in 05/2017. 4. Seasonal allergies. 5. Allergic rhinitis. Plan . 1. Continue medical management.slight improvement 2. Possible d/c tomorrow, taper prednisone and bronchodilators. 3. Follow up in my office in May as instructed to do so. AIDA OSHEA MD April 10, 2017 07:20
[2017-04-10] MEDS: methylPREDNISolone SOD SUCC PF 40 MG/ML VIAL. IV SCH ×2 (09:28→20:26)
[2017-04-10] MEDS: PANTOPRAZOLE 40 MG TABLET.DR. PO SCH (09:29)
[2017-04-10] MEDS: METOPROLOL SUCC 24HR ER 25 MG TAB.ER.24H. PO SCH (09:55)
[2017-04-10] MEDS: LOSARTAN POTASSIUM 50 MG TABLET. PO SCH (09:56)
[2017-04-10] MEDS: ALPRAZolam 0.5 MG TABLET PO SCH ×2 (09:56→20:25)
[2017-04-10] MEDS: ONDANSETRON PF 4 MG/2 ML VIAL. IV PRN (10:03)
[2017-04-10 11:00] VITALS: BP_SYST 167; BP_SYST 187; BP_DIAS 108; BP_DIAS 116
--- NOTE | 2017-04-10 13:18 | PDOC ---
PROGRESS NOTES Chief Complaint Chief Complaint 1. Asthma 2. COPD 3. HTN 4. Anemia NOS 5. Diabetes-borderline 6. Cholecystectomy 7. Hernia Repair 8. Tubal Ligation 9. Hysterectomy History of Present Illness History of Present Illness Patient seen this am in in NAD. Patient's asthma exacerbation has resolved, but she now has abdominal pain. Per patient, she can't keep any food down and it hurts when she eats. Patient says she's nausea, but not having diarrhea. Informed patient we would be consulting GI. Patient is requesting pain medications. Patient understands plan of action. Vitals Vitals Vital Signs Date Time Temp Pulse Resp B/P (MAP) Pulse Ox O2 Delivery O2 Flow Rate FiO2 04/10/17 11:12 Room Air 04/10/17 10:30 20 98 04/10/17 09:56 75 148/89 04/10/17 07:00 97.8 97.8 Physical Exam General: Alert, Oriented X3, Cooperative Heart: Regular rate, Normal S1, Normal S2 Lungs: Clear Abdomen: Normal bowel sounds, Soft, No hepatosplenomegaly Extremities: No cyanosis, No edema Skin: No rashes, No breakdown, No significant lesion Labs LABS Laboratory Tests Test 04/10/17 03:34 White Blood Count 11.1 x10^3/uL (4.0-11.0) Red Blood Count 4.03 x10^6/uL (3.50-5.40) Hemoglobin 11.7 g/dL (12.0-15.5) Hematocrit 36.0 % (36.0-47.0) Mean Corpuscular Volume 90 fL (79-100) Mean Corpuscular Hemoglobin 29 pg (25-35) Mean Corpuscular Hemoglobin Concent 32 g/dL (31-37) Red Cell Distribution Width 14.6 % (11.5-14.5) Platelet Count 174 x10^3/uL (140-400) Neutrophils (%) (Auto) 84 % (31-73) Lymphocytes (%) (Auto) 11 % (24-48) Monocytes (%) (Auto) 5 % (0-9) Eosinophils (%) (Auto) 0 % (0-3) Basophils (%) (Auto) 0 % (0-3) Neutrophils # (Auto) 9.3 x10^3uL (1.8-7.7) Lymphocytes # (Auto) 1.2 x10^3/uL (1.0-4.8) Monocytes # (Auto) 0.5 x10^3/uL (0.0-1.1) Eosinophils # (Auto) 0.0 x10^3/uL (0.0-0.7) Basophils # (Auto) 0.0 x10^3/uL (0.0-0.2) Sodium Level 139 mmol/L (136-145) Potassium Level 4.2 mmol/L (3.5-5.1) Chloride Level 103 mmol/L (98-107) Carbon Dioxide Level 23 mmol/L (21-32) Anion Gap 13 (6-14) Blood Urea Nitrogen 17 mg/dL (7-20) Creatinine 1.4 mg/dL (0.6-1.0) Estimated GFR (Cockcroft-Gault) 48.6 Glucose Level 184 mg/dL (70-99) Calcium Level 8.5 mg/dL (8.5-10.1) Review of Systems Review of Systems No SONG/blurry vision No JVD No rashes Assessment and Plan Assessmemt and Plan Problems Medical Problems: (1) Asthma exacerbation Status: Acute 2. COPD 3. HTN 4. Anemia NOS 5. Diabetes-borderline 6. Cholecystectomy 7. Hernia Repair 8. Tubal Ligation 9. Hysterectomy Plan: -Continue current medications and adjust accordingly as needed. -Patient has morphine and oxycodone prn pain. -Administer procalamine 75 ml/hr, since patient is unable to keep food down. -Continue current speciality consultation. -Consult GI for nausea/stomach pain. -Continue PT/OT as tolerated. Problems: Comment Review of Relevant I have reviewed the following items meghna (where applicable) has been applied. Labs Laboratory Tests Test 04/09/17 05:30 04/10/17 03:34 White Blood Count 8.9 x10^3/uL (4.0-11.0) 11.1 x10^3/uL (4.0-11.0) Red Blood Count 3.99 x10^6/uL (3.50-5.40) 4.03 x10^6/uL (3.50-5.40) Hemoglobin 11.7 g/dL (12.0-15.5) 11.7 g/dL (12.0-15.5) Hematocrit 35.6 % (36.0-47.0) 36.0 % (36.0-47.0) Mean Corpuscular Volume 89 fL (79-100) 90 fL (79-100) Mean Corpuscular Hemoglobin 29 pg (25-35) 29 pg (25-35) Mean Corpuscular Hemoglobin Concent 33 g/dL (31-37) 32 g/dL (31-37) Red Cell Distribution Width 14.7 % (11.5-14.5) 14.6 % (11.5-14.5) Platelet Count 192 x10^3/uL (140-400) 174 x10^3/uL (140-400) Neutrophils (%) (Auto) 84 % (31-73) 84 % (31-73) Lymphocytes (%) (Auto) 13 % (24-48) 11 % (24-48) Monocytes (%) (Auto) 3 % (0-9) 5 % (0-9) Eosinophils (%) (Auto) 0 % (0-3) 0 % (0-3) Basophils (%) (Auto) 0 % (0-3) 0 % (0-3) Neutrophils # (Auto) 7.5 x10^3uL (1.8-7.7) 9.3 x10^3uL (1.8-7.7) Lymphocytes # (Auto) 1.2 x10^3/uL (1.0-4.8) 1.2 x10^3/uL (1.0-4.8) Monocytes # (Auto) 0.3 x10^3/uL (0.0-1.1) 0.5 x10^3/uL (0.0-1.1) Eosinophils # (Auto) 0.0 x10^3/uL (0.0-0.7) 0.0 x10^3/uL (0.0-0.7) Basophils # (Auto) 0.0 x10^3/uL (0.0-0.2) 0.0 x10^3/uL (0.0-0.2) Sodium Level 135 mmol/L (136-145) 139 mmol/L (136-145) Potassium Level 4.1 mmol/L (3.5-5.1) 4.2 mmol/L (3.5-5.1) Chloride Level 99 mmol/L (98-107) 103 mmol/L (98-107) Carbon Dioxide Level 22 mmol/L (21-32) 23 mmol/L (21-32) Anion Gap 14 (6-14) 13 (6-14) Blood Urea Nitrogen 18 mg/dL (7-20) 17 mg/dL (7-20) Creatinine 1.6 mg/dL (0.6-1.0) 1.4 mg/dL (0.6-1.0) Estimated GFR (Cockcroft-Gault) 41.6 48.6 Glucose Level 144 mg/dL (70-99) 184 mg/dL (70-99) Calcium Level 9.0 mg/dL (8.5-10.1) 8.5 mg/dL (8.5-10.1) Laboratory Tests Test 04/10/17 03:34 White Blood Count 11.1 x10^3/uL (4.0-11.0) Red Blood Count 4.03 x10^6/uL (3.50-5.40) Hemoglobin 11.7 g/dL (12.0-15.5) Hematocrit 36.0 % (36.0-47.0) Mean Corpuscular Volume 90 fL (79-100) Mean Corpuscular Hemoglobin 29 pg (25-35) Mean Corpuscular Hemoglobin Concent 32 g/dL (31-37) Red Cell Distribution Width 14.6 % (11.5-14.5) Platelet Count 174 x10^3/uL (140-400) Neutrophils (%) (Auto) 84 % (31-73) Lymphocytes (%) (Auto) 11 % (24-48) Monocytes (%) (Auto) 5 % (0-9) Eosinophils (%) (Auto) 0 % (0-3) Basophils (%) (Auto) 0 % (0-3) Neutrophils # (Auto) 9.3 x10^3uL (1.8-7.7) Lymphocytes # (Auto) 1.2 x10^3/uL (1.0-4.8) Monocytes # (Auto) 0.5 x10^3/uL (0.0-1.1) Eosinophils # (Auto) 0.0 x10^3/uL (0.0-0.7) Basophils # (Auto) 0.0 x10^3/uL (0.0-0.2) Sodium Level 139 mmol/L (136-145) Potassium Level 4.2 mmol/L (3.5-5.1) Chloride Level 103 mmol/L (98-107) Carbon Dioxide Level 23 mmol/L (21-32) Anion Gap 13 (6-14) Blood Urea Nitrogen 17 mg/dL (7-20) Creatinine 1.4 mg/dL (0.6-1.0) Estimated GFR (Cockcroft-Gault) 48.6 Glucose Level 184 mg/dL (70-99) Calcium Level 8.5 mg/dL (8.5-10.1) Medications Current Medications Albuterol/ Ipratropium (Duoneb) 3 ml 1X ONCE NEB Last administered on 10:35; Start 04/08/17 at 10:30; Stop 04/08/17 at 10:31; Status DC Methylprednisolone Sodium Succinate (SOLU-Medrol 125MG VIAL) 125 mg 1X ONCE IM Last administered on 04/08/17 10:52; Start 04/08/17 at 10:30; Stop 04/08/17 at 10:31; Status DC Albuterol Sulfate (Ventolin Neb Soln) 10 mg 1X ONCE CONT NEB Last administered on 04/08/17 11:23; Start 04/08/17 at 11:15; Stop 04/08/17 at 11:16 ; Status DC Ondansetron HCl (Zofran Odt) 4 mg 1X ONCE PO Last administered on 04/08/17 11 :18; Start 04/08/17 at 11:15; Stop 04/08/17 at 11:16; Status DC Sodium Chloride 1,000 ml @ 100 mls/hr Q10H IV Last administered on 04/08/17 13:20; Start 04/08/17 at 12:31; Stop 04/08/17 at 22:30; Status DC Albuterol Sulfate (Ventolin Neb Soln) 2.5 mg PRN Q2HR PRN NEB SHORTNESS OF BREATH; Start 04/08/17 at 13:45; Stop 04/08/17 at 13:45; Status DC Alprazolam (Xanax) 0.5 mg BID PO Last administered on 04/10/17 09:56; Start at 21:00 Doxazosin Mesylate (Cardura) 4 mg DAILY PO ; Start 04/08/17 at 14:00; Stop 04/08 at 16:54; Status DC EZETIMIBE (Zetia) 10 mg QHS PO Last administered on 04/09/17 20:58; Start at 21:00 Acetaminophen/ Hydrocodone Bitart (Lortab 7.5/325) 1 tab PRN TID PRN PO MODERATE PAIN Last administered on 04/09/17 20:58; Start 04/08/17 at 13:45 Losartan Potassium (Cozaar) 50 mg DAILY PO Last administered on 04/10/17 09:56 ; Start 04/08/17 at 14:00 Metoprolol Succinate (Toprol Xl) 50 mg DAILY PO Last administered on 04/10/17 09:55; Start 04/08/17 at 14:00 Pantoprazole Sodium (Protonix) 40 mg DAILYAC PO Last administered on 04/10/17 09:29; Start 04/09/17 at 07:30 Non-Formulary Medication 2 puff BID PRN INH SHORTNESS OF BREATH; Start at 13:45; Stop 04/08/17 at 13:56; Status DC Atorvastatin Calcium (Lipitor) 80 mg QHS PO Last administered on 04/09/17 20: 57; Start 04/08/17 at 21:00 Oxycodone HCl (Roxicodone) 10 mg PRN QID PRN PO SEVERE PAIN Last administered on 04/10/17 09:30; Start 04/08/17 at 14:00 Promethazine HCl/ Codeine (Phenergan With Codeine) 5 ml PRN Q6HRS PRN PO COUGH Last administered on 04/10/17 03:05; Start 04/08/17 at 14:00 Acetaminophen (Tylenol) 650 mg PRN Q6HRS PRN PO FEVER; Start 04/08/17 at 13:45 Ondansetron HCl (Zofran) 4 mg PRN Q6HRS PRN IV NAUSEA/VOMITING Last administered on 04/10/17 10:03; Start 04/08/17 at 13:45 Morphine Sulfate 2 mg PRN Q2HR PRN IV PAIN Last administered on 04/09/17 14:48 ; Start 04/08/17 at 13:45 Tramadol HCl (Ultram) 50 mg PRN Q6HRS PRN PO MILD PAIN; Start 04/08/17 at 13:45 Hydralazine HCl (Apresoline) 10 mg PRN Q4HRS PRN IVP ELEVATED BP, SEE COMMENTS ; Start 04/08/17 at 13:45 Docusate Sodium (Colace) 100 mg PRN DAILY PRN PO CONSTIPATION; Start 04/08/17 at 13:45 Albuterol/ Ipratropium (Duoneb) 3 ml RTQID NEB Last administered on 04/10/17 11:08; Start 04/08/17 at 16:00 Albuterol Sulfate (Ventolin Neb Soln) 2.5 mg PRN Q2HR PRN NEB SHORTNESS OF BREATH Last administered on 04/10/17 02:00; Start 04/08/17 at 13:45 Guaifenesin (Mucinex) 600 mg BID PO Last administered on 04/10/17 09:56; Start 04/08/17 at 21:00 Methylprednisolone Sodium Succinate (SOLU-Medrol 40MG VIAL) 60 mg Q12HR IV Last administered on 04/10/17 09:28; Start 04/08/17 at 21:00 Enoxaparin Sodium (Lovenox 40mg Syringe) 40 mg Q24H SQ Last administered on 14:41; Start 04/08/17 at 14:00 Albuterol Sulfate (Ventolin Neb Soln) 2.5 mg PRN BID PRN NEB SHORTNESS OF BREATH; Start 04/08/17 at 14:00; Stop 04/08/17 at 14:00; Status DC Ondansetron HCl (Zofran) 4 mg PRN Q8HRS PRN IV NAUSEA/VOMITING; Start 04/08/17 at 15:30; Stop 04/09/17 at 15:29; Status DC Albuterol/ Ipratropium (Duoneb) 3 ml RTQID NEB ; Start 04/08/17 at 16:00; Stop 04/09/17 at 15:59; Status UNV Methylprednisolone Sodium Succinate (SOLU-Medrol 40MG VIAL) 60 mg Q6HRS IV ; Start 04/08/17 at 18:00; Status UNV Doxazosin Mesylate (Cardura) 4 mg QHS PO Last administered on 04/09/17 20:58; Start 04/08/17 at 21:00 Diphenhydramine HCl (Benadryl) 25 mg PRN Q6HRS PRN PO ITCHING Last administered on 04/08/17 19:51; Start 04/08/17 at 19:45 Prochlorperazine Edisylate (Compazine) 10 mg PRN Q6HRS PRN IV NAUSEA/VOMITING; Start 04/09/17 at 12:15 Sodium Chloride 1,000 ml @ 75 mls/hr [id number] IV Last administered on 01:54; Start 04/09/17 at 12:45 Prochlorperazine Edisylate (Compazine) 10 mg PRN Q6HRS PRN IM NAUSEA/VOMITING; Start 04/09/17 at 12:45 Active Scripts Active [Promethazine Hcl/Codeine] 5 ML Syrup 5 Ml PO PRN Q6HRS PRN 10 Days Protonix (Pantoprazole Sodium) 40 Mg Tablet 40 Mg PO DAILYAC Reported Doxazosin Mesylate 4 Mg Tablet 1 Tab PO DAILY Albuterol Sulfate Neb Soln (Albuterol Sulfate) 2.5 Mg/3 Ml Vial.neb 1 Vial NEB QID Proair Hfa Inhaler (Albuterol Sulfate) 8.5 Gm Hfa.aer.ad 2 Puff INH BID PRN Metoprolol Succinate ( Xl ) (Metoprolol Succinate) 25 Mg Tab.er.24h 2 Tab PO DAILY Gave last night Take night Losartan Potassium 50 Mg Tablet 50 Mg PO DAILY Gave this morning Take tomorrow Oxycodone Hcl 10 Mg Tablet 1 Tab PO PRN QID PRN Last dose given last night Take when needed Hydrocodone-Apap 7.5-325 (Hydrocodone Bit/Acetaminophen) 1 Each Tablet 1 Tab PO PRN TID PRN Not given on this admission Take when needed Xanax (Alprazolam) 0.5 Mg Tablet 1 Tab PO BID Not given on this admission Take when needed Zetia (Ezetimibe) 10 Mg Tablet 1 Tab PO QHS Gave last night Take tonight Atorvastatin Calcium 80 Mg Tablet 80 Mg PO HS Gave last night Take tonggeovannyt Vitals/I & O Vital Sign - Last 24 Hours 04/09/17 04/09/17 04/09/17 04/09/17 14:48 14:53 15:00 15:18 Temp 96.8 96.8 Pulse 80 Resp 20 16 20 B/P (MAP) 147/78 (101) Pulse Ox 96 98 98 O2 Delivery Room Air Room Air Room Air Room Air 04/09/17 04/09/17 04/09/17 04/09/17 19:00 19:20 19:25 19:45 Temp 97.5 97.5 Pulse 94 Resp 20 B/P (MAP) 125/77 (93) Pulse Ox 97 95 96 O2 Delivery Room Air Room Air Room Air Room Air 04/09/17 04/09/17 04/09/17 04/09/17 20:58 20:58 21:58 23:00 Temp 98.3 98.3 Pulse 72 97 Resp 20 B/P (MAP) 125/77 134/82 (99) Pulse Ox 96 96 98 O2 Delivery Room Air Room Air Room Air 04/10/17 04/10/17 04/10/17 04/10/17 00:38 01:59 03:13 07:00 Temp 97.9 97.8 97.9 97.8 Pulse 83 75 Resp 20 17 B/P (MAP) 135/73 (93) 148/89 (108) Pulse Ox 98 94 98 O2 Delivery Room Air Room Air Room Air Room Air 04/10/17 04/10/17 04/10/17 04/10/17 09:30 09:55 09:56 10:30 Pulse 75 75 Resp 20 20 B/P (MAP) 148/89 148/89 Pulse Ox 98 O2 Delivery Room Air Room Air 04/10/17 11:12 O2 Delivery Room Air Intake and Output 04/09/17 04/09/17 04/10/17 15:00 23:00 07:00 Intake Total 1500 ml Output Total 100 ml Balance -100 ml 1500 ml SALMANIAL K III DO April 10, 2017 13:18
[2017-04-10] MEDS: diphenhydrAMINE HCL 25 MG CAPSULE PO PRN (14:29)
[2017-04-10] MEDS: AMINO AC 3%/ELECTROLYTE/GLYCER 1,000 ML IV SCH (14:29)
[2017-04-10] MEDS: MORPHINE SULFATE 2 MG/ML DISP.SYRIN. IV PRN ×2 (14:30→21:50)
[2017-04-10] MEDS: ENOXAPARIN 40 MG/0.4 ML SYRINGE. SQ SCH (14:30)
[2017-04-10 15:00] VITALS: BP 169/103
--- NOTE | 2017-04-10 15:41 | PDOC2 ---
CONSULT Date of Consult Date of Consult DATE: 04/10/17 TIME: 15:20 Reason for Consult Reason for Consult: Abdominal pain, vomiting. Referring Physician Referring Physician: Dr. Fierro Source Source: Chart review, Patient History of Present Illness Reason for Visit: 47 y/o female known to our office. Admitted this occasion with asthma exacerbation. Along with this has developed abdominal pain, vomiting and intermittent diarrhea. Describes nearly immediate pc pain in lower quadrants w/ o urge to stool, etc. 2 days before admission started diarrhea, now intermittently present. Not bloody, though sees blood occasionally and h/o hemorrhoids. H/o IBS with at least 3 colonoscopies at [facility], last in 09/29. 10 years ago had self-limited colitis on biopsies; subsequently normal. May have had a dark stool recently. Denies PB use. Wt. stable. Appetite OK, but afraid to eat. Paternal aunt with colon cancer, otherwise negative GI FH. Long h/o dyspeptic symptoms with multiple EGD's at [facility] as well, last one with the last colon. "Gastritis" noted with biopsies generally showing inactive mild gastritis and no H.pylori. No one felt esophagus was abnormal, but takes PPI daily chronically. No odynophagia. No PUD, liver or pancreatic disease. Former smoker. Rare alcohol. No ASA or NSAIDS. On steroids and as far as I can tell, not receiving her PPI here until yesterday. Past Medical History Cardiovascular: HTN Pulmonary: Asthma, COPD Heme/Onc: Anemia NOS, Other (past DVT) Psych: Anxiety Musculoskeletal: Osteoarthritis, Other (Chronic neck pain) Renal/: Other (kidney stones) Endocrine: Diabetes Past Surgical History Past Surgical History: Cholecystectomy, Hernia Repair, Tubal Ligation, Hysterectomy, Other Family History Family History: Cancer (lung), Diabetes, Hypertension, Other (sarcoidosis) Social History No ALCOHOL: social Drugs: None Lives: with Family Domestic Violence: Neg Current Problem List Problem List Problems Medical Problems: (1) Asthma exacerbation Status: Acute Current Medications Current Medications Current Medications Albuterol/ Ipratropium (Duoneb) 3 ml 1X ONCE NEB Last administered on t 10:35; Start 04/08/17 at 10:30; Stop 04/08/17 at 10:31; Status DC Methylprednisolone Sodium Succinate (SOLU-Medrol 125MG VIAL) 125 mg 1X ONCE IM Last administered on 04/08/17 10:52; Start 04/08/17 at 10:30; Stop 04/08/17 at 10:31; Status DC Albuterol Sulfate (Ventolin Neb Soln) 10 mg 1X ONCE CONT NEB Last administered on 04/08/17 11:23; Start 04/08/17 at 11:15; Stop 04/08/17 at 11:16 ; Status DC Ondansetron HCl (Zofran Odt) 4 mg 1X ONCE PO Last administered on 04/08/17 11 :18; Start 04/08/17 at 11:15; Stop 04/08/17 at 11:16; Status DC Sodium Chloride 1,000 ml @ 100 mls/hr Q10H IV Last administered on 04/08/17 13:20; Start 04/08/17 at 12:31; Stop 04/08/17 at 22:30; Status DC Albuterol Sulfate (Ventolin Neb Soln) 2.5 mg PRN Q2HR PRN NEB SHORTNESS OF BREATH; Start 04/08/17 at 13:45; Stop 04/08/17 at 13:45; Status DC Alprazolam (Xanax) 0.5 mg BID PO Last administered on 04/10/17 09:56; Start at 21:00 Doxazosin Mesylate (Cardura) 4 mg DAILY PO ; Start 04/08/17 at 14:00; Stop 04/08 at 16:54; Status DC EZETIMIBE (Zetia) 10 mg QHS PO Last administered on 04/09/17 20:58; Start at 21:00 Acetaminophen/ Hydrocodone Bitart (Lortab 7.5/325) 1 tab PRN TID PRN PO MODERATE PAIN Last administered on 04/09/17 20:58; Start 04/08/17 at 13:45 Losartan Potassium (Cozaar) 50 mg DAILY PO Last administered on 04/10/17 09:56 ; Start 04/08/17 at 14:00 Metoprolol Succinate (Toprol Xl) 50 mg DAILY PO Last administered on 04/10/17 09:55; Start 04/08/17 at 14:00 Pantoprazole Sodium (Protonix) 40 mg DAILYAC PO Last administered on 04/10/17 09:29; Start 04/09/17 at 07:30 Non-Formulary Medication 2 puff BID PRN INH SHORTNESS OF BREATH; Start at 13:45; Stop 04/08/17 at 13:56; Status DC Atorvastatin Calcium (Lipitor) 80 mg QHS PO Last administered on 04/09/17 20: 57; Start 04/08/17 at 21:00 Oxycodone HCl (Roxicodone) 10 mg PRN QID PRN PO SEVERE PAIN Last administered on 04/10/17 09:30; Start 04/08/17 at 14:00 Promethazine HCl/ Codeine (Phenergan With Codeine) 5 ml PRN Q6HRS PRN PO COUGH Last administered on 04/10/17 03:05; Start 04/08/17 at 14:00 Acetaminophen (Tylenol) 650 mg PRN Q6HRS PRN PO FEVER; Start 04/08/17 at 13:45 Ondansetron HCl (Zofran) 4 mg PRN Q6HRS PRN IV NAUSEA/VOMITING Last administered on 04/10/17 10:03; Start 04/08/17 at 13:45 Morphine Sulfate 2 mg PRN Q2HR PRN IV PAIN Last administered on 04/10/17 14:30 ; Start 04/08/17 at 13:45 Tramadol HCl (Ultram) 50 mg PRN Q6HRS PRN PO MILD PAIN; Start 04/08/17 at 13:45 Hydralazine HCl (Apresoline) 10 mg PRN Q4HRS PRN IVP ELEVATED BP, SEE COMMENTS ; Start 04/08/17 at 13:45 Docusate Sodium (Colace) 100 mg PRN DAILY PRN PO CONSTIPATION; Start 04/08/17 at 13:45 Albuterol/ Ipratropium (Duoneb) 3 ml RTQID NEB Last administered on 04/10/17 11:08; Start 04/08/17 at 16:00 Albuterol Sulfate (Ventolin Neb Soln) 2.5 mg PRN Q2HR PRN NEB SHORTNESS OF BREATH Last administered on 04/10/17 02:00; Start 04/08/17 at 13:45 Guaifenesin (Mucinex) 600 mg BID PO Last administered on 04/10/17 09:56; Start 04/08/17 at 21:00 Methylprednisolone Sodium Succinate (SOLU-Medrol 40MG VIAL) 60 mg Q12HR IV Last administered on 04/10/17 09:28; Start 04/08/17 at 21:00 Enoxaparin Sodium (Lovenox 40mg Syringe) 40 mg Q24H SQ Last administered on 14:30; Start 04/08/17 at 14:00 Albuterol Sulfate (Ventolin Neb Soln) 2.5 mg PRN BID PRN NEB SHORTNESS OF BREATH; Start 04/08/17 at 14:00; Stop 04/08/17 at 14:00; Status DC Ondansetron HCl (Zofran) 4 mg PRN Q8HRS PRN IV NAUSEA/VOMITING; Start 04/08/17 at 15:30; Stop 04/09/17 at 15:29; Status DC Albuterol/ Ipratropium (Duoneb) 3 ml RTQID NEB ; Start 04/08/17 at 16:00; Stop 04/09/17 at 15:59; Status UNV Methylprednisolone Sodium Succinate (SOLU-Medrol 40MG VIAL) 60 mg Q6HRS IV ; Start 04/08/17 at 18:00; Status UNV Doxazosin Mesylate (Cardura) 4 mg QHS PO Last administered on 04/09/17 20:58; Start 04/08/17 at 21:00 Diphenhydramine HCl (Benadryl) 25 mg PRN Q6HRS PRN PO ITCHING Last administered on 04/10/17 14:29; Start 04/08/17 at 19:45 Prochlorperazine Edisylate (Compazine) 10 mg PRN Q6HRS PRN IV NAUSEA/VOMITING; Start 04/09/17 at 12:15 Sodium Chloride 1,000 ml @ 75 mls/hr [id number] IV Last administered on 01:54; Start 04/09/17 at 12:45; Stop 04/10/17 at 13:41; Status DC Prochlorperazine Edisylate (Compazine) 10 mg PRN Q6HRS PRN IM NAUSEA/VOMITING; Start 5/27/17 at 12:45 Amino Acids/ Glycerin/ Electrolytes 1,000 ml @ 75 mls/hr [id number] IV Last administered on 04/10/17t 14:29; Start 04/10/17 at 13:30 Active Scripts Active [Promethazine Hcl/Codeine] 5 ML Syrup 5 Ml PO PRN Q6HRS PRN 10 Days Protonix (Pantoprazole Sodium) 40 Mg Tablet 40 Mg PO DAILYAC Reported Doxazosin Mesylate 4 Mg Tablet 1 Tab PO DAILY Albuterol Sulfate Neb Soln (Albuterol Sulfate) 2.5 Mg/3 Ml Vial.neb 1 Vial NEB QID Proair Hfa Inhaler (Albuterol Sulfate) 8.5 Gm Hfa.aer.ad 2 Puff INH BID PRN Metoprolol Succinate ( Xl ) (Metoprolol Succinate) 25 Mg Tab.er.24h 2 Tab PO DAILY Gave last night Take night Losartan Potassium 50 Mg Tablet 50 Mg PO DAILY Gave this morning Take tomorrow Oxycodone Hcl 10 Mg Tablet 1 Tab PO PRN QID PRN Last dose given last night Take when needed Hydrocodone-Apap 7.5-325 (Hydrocodone Bit/Acetaminophen) 1 Each Tablet 1 Tab PO PRN TID PRN Not given on this admission Take when needed Xanax (Alprazolam) 0.5 Mg Tablet 1 Tab PO BID Not given on this admission Take when needed Zetia (Ezetimibe) 10 Mg Tablet 1 Tab PO QHS Gave last night Take tonight Atorvastatin Calcium 80 Mg Tablet 80 Mg PO HS Gave last night Take tongiht Allergies Allergies: Coded Allergies: mustard (Verified Allergy, Severe, ANGIOEDEMA/HIVES, 02/24/17) MUSTARD SEED poppyseed oil (Verified Allergy, Severe, Hives, 02/11/17) POPPYSEEDS Penicillins (Verified Allergy, Intermediate, HIVES, 02/11/17) ROS Review of System 10-point review otherwise negative. Physical Exam General: Alert, Oriented X3, Cooperative, No acute distress, Other (anxious) Lungs: Clear to auscultation Heart: Regular rate, Normal S1, Normal S2, No murmurs Abdomen: Normal bowel sounds, Soft, No hepatosplenomegaly, No masses, Other ( tender lower abdomen, not locallized) Extremities: No cyanosis, No edema Skin: No significant lesion Neuro: Normal speech, Strength at 5/5 X4 ext, Normal tone, Sensation intact, Cranial nerves 3-12 NL, Reflexes 2+ Psych/Mental Status: Mental status NL MUSCULOSKELETAL: No deformity, No swelling Vitals VITALS Vital Signs Date Time Temp Pulse Resp B/P (MAP) Pulse Ox O2 Delivery O2 Flow Rate FiO2 04/10/17 14:30 20 Room Air 04/10/17 11:00 97.7 69 167/116 (133) 96 97.7 Labs Labs Laboratory Tests Test 04/09/17 05:30 04/10/17 03:34 White Blood Count 8.9 x10^3/uL (4.0-11.0) 11.1 x10^3/uL (4.0-11.0) Red Blood Count 3.99 x10^6/uL (3.50-5.40) 4.03 x10^6/uL (3.50-5.40) Hemoglobin 11.7 g/dL (12.0-15.5) 11.7 g/dL (12.0-15.5) Hematocrit 35.6 % (36.0-47.0) 36.0 % (36.0-47.0) Mean Corpuscular Volume 89 fL (79-100) 90 fL (79-100) Mean Corpuscular Hemoglobin 29 pg (25-35) 29 pg (25-35) Mean Corpuscular Hemoglobin Concent 33 g/dL (31-37) 32 g/dL (31-37) Red Cell Distribution Width 14.7 % (11.5-14.5) 14.6 % (11.5-14.5) Platelet Count 192 x10^3/uL (140-400) 174 x10^3/uL (140-400) Neutrophils (%) (Auto) 84 % (31-73) 84 % (31-73) Lymphocytes (%) (Auto) 13 % (24-48) 11 % (24-48) Monocytes (%) (Auto) 3 % (0-9) 5 % (0-9) Eosinophils (%) (Auto) 0 % (0-3) 0 % (0-3) Basophils (%) (Auto) 0 % (0-3) 0 % (0-3) Neutrophils # (Auto) 7.5 x10^3uL (1.8-7.7) 9.3 x10^3uL (1.8-7.7) Lymphocytes # (Auto) 1.2 x10^3/uL (1.0-4.8) 1.2 x10^3/uL (1.0-4.8) Monocytes # (Auto) 0.3 x10^3/uL (0.0-1.1) 0.5 x10^3/uL (0.0-1.1) Eosinophils # (Auto) 0.0 x10^3/uL (0.0-0.7) 0.0 x10^3/uL (0.0-0.7) Basophils # (Auto) 0.0 x10^3/uL (0.0-0.2) 0.0 x10^3/uL (0.0-0.2) Sodium Level 135 mmol/L (136-145) 139 mmol/L (136-145) Potassium Level 4.1 mmol/L (3.5-5.1) 4.2 mmol/L (3.5-5.1) Chloride Level 99 mmol/L (98-107) 103 mmol/L (98-107) Carbon Dioxide Level 22 mmol/L (21-32) 23 mmol/L (21-32) Anion Gap 14 (6-14) 13 (6-14) Blood Urea Nitrogen 18 mg/dL (7-20) 17 mg/dL (7-20) Creatinine 1.6 mg/dL (0.6-1.0) 1.4 mg/dL (0.6-1.0) Estimated GFR (Cockcroft-Gault) 41.6 48.6 Glucose Level 144 mg/dL (70-99) 184 mg/dL (70-99) Calcium Level 9.0 mg/dL (8.5-10.1) 8.5 mg/dL (8.5-10.1) Laboratory Tests Test 04/10/17 03:34 White Blood Count 11.1 x10^3/uL (4.0-11.0) Red Blood Count 4.03 x10^6/uL (3.50-5.40) Hemoglobin 11.7 g/dL (12.0-15.5) Hematocrit 36.0 % (36.0-47.0) Mean Corpuscular Volume 90 fL (79-100) Mean Corpuscular Hemoglobin 29 pg (25-35) Mean Corpuscular Hemoglobin Concent 32 g/dL (31-37) Red Cell Distribution Width 14.6 % (11.5-14.5) Platelet Count 174 x10^3/uL (140-400) Neutrophils (%) (Auto) 84 % (31-73) Lymphocytes (%) (Auto) 11 % (24-48) Monocytes (%) (Auto) 5 % (0-9) Eosinophils (%) (Auto) 0 % (0-3) Basophils (%) (Auto) 0 % (0-3) Neutrophils # (Auto) 9.3 x10^3uL (1.8-7.7) Lymphocytes # (Auto) 1.2 x10^3/uL (1.0-4.8) Monocytes # (Auto) 0.5 x10^3/uL (0.0-1.1) Eosinophils # (Auto) 0.0 x10^3/uL (0.0-0.7) Basophils # (Auto) 0.0 x10^3/uL (0.0-0.2) Sodium Level 139 mmol/L (136-145) Potassium Level 4.2 mmol/L (3.5-5.1) Chloride Level 103 mmol/L (98-107) Carbon Dioxide Level 23 mmol/L (21-32) Anion Gap 13 (6-14) Blood Urea Nitrogen 17 mg/dL (7-20) Creatinine 1.4 mg/dL (0.6-1.0) Estimated GFR (Cockcroft-Gault) 48.6 Glucose Level 184 mg/dL (70-99) Calcium Level 8.5 mg/dL (8.5-10.1) Leukocytosis on steroids. Images Images NO abdominal imaging. Assessment/Plan Assessment/Plan IMP: 1. Nausea, vomiting--not on her PPI for a few days and this may contribute. Don't get strong feeling this is an obstructive issue, though has had abdominal surgeries. 2. Recurrent/intermittent diarrhea. IBS certainly plays a role, but prudent to r/o other causes. 3. GERD--negative endoscopically 4. S/p farooq for acalculous disease/low GBEF. 5. IBS, long-standing. 6. Occasional blood in stool likely from known hemorrhoids (described by all endoscopists). REC: 1. Continue PPI, iv if can't take po. 2. Stool for fecal leukocyes, C.diff. 3. If persistent vomiting, consider imaging to r/o SBO. --other pending. Thank you for allowing me to assist in the care of this patient. Please call if questions. RADHA DUBON MD April 10, 2017 15:41
[2017-04-10 18:37] VITALS: BP 153/92
[2017-04-10] MEDS: ATORVASTATIN CALCIUM 40 MG TABLET. PO SCH (20:25)
[2017-04-10] MEDS: EZETIMIBE 10 MG TABLET. PO SCH (20:25)
[2017-04-10] MEDS: DOXAZOSIN MESYLATE 4 MG TABLET. PO SCH (20:26)
[2017-04-10 22:50] VITALS: BP 142/88
[2017-04-11] MEDS: diphenhydrAMINE HCL 25 MG CAPSULE PO PRN (00:13)
[2017-04-11] MEDS: MORPHINE SULFATE 2 MG/ML DISP.SYRIN. IV PRN ×5 (02:37→21:56)
[2017-04-11] MEDS: AMINO AC 3%/ELECTROLYTE/GLYCER 1,000 ML IV SCH (02:37)
[2017-04-11 03:01] VITALS: BP 189/85
[2017-04-11 05:21] LABS: BASO % 0 % (0-3); EOS % 0 % (0-3); HEMATOCRIT 35.6 % (36.0-47.0); LYMPH % 10 % (24-48); MEAN CORPUSCULAR HEMOGLOBIN 30 pg (25-35); MEAN CORPUSCULAR HGB CONC 34 g/dL (31-37); MEAN CORPUSCULAR VOLUME 88 fL (79-100); MONO % 5 % (0-9); NEUT % 85 % (31-73); PLATELET COUNT 178 x10^3/uL (140-400); RED BLOOD COUNT 4.04 x10^6/uL (3.50-5.40); RED CELL DISTRIBUTION WIDTH 14.9 % (11.5-14.5); WHITE BLOOD COUNT 10.4 x10^3/uL (4.0-11.0)
[2017-04-11 05:48] LABS: CALCIUM 8.5 mg/dL (8.5-10.1); GFR 71.6; POTASSIUM 4.2 mmol/L (3.5-5.1)
[2017-04-11 07:00] VITALS: BP 193/111
[2017-04-11] MEDS: IPRATRPIUM/ALBUTEROL 0.5/2.5MG 3 ML NEBU. NEB SCH ×4 (07:13→19:36)
[2017-04-11] MEDS: PANTOPRAZOLE 40 MG TABLET.DR. PO SCH (09:45)
[2017-04-11] MEDS: ALPRAZolam 0.5 MG TABLET PO SCH ×2 (09:45→20:43)
[2017-04-11] MEDS: LOSARTAN POTASSIUM 50 MG TABLET. PO SCH (09:46)
[2017-04-11] MEDS: METOPROLOL SUCC 24HR ER 25 MG TAB.ER.24H. PO SCH (09:46)
[2017-04-11] MEDS: methylPREDNISolone SOD SUCC PF 40 MG/ML VIAL. IV SCH ×2 (09:47→20:43)
--- NOTE | 2017-04-11 09:49 | PDOC ---
G I PROGRESS NOTE Subjective Still with diarrhea. Unclear if still emesis. Didn't realize she would get more food if took clears well. Physical Exam Lungs clear. RRR Abdomen soft, not distended. Non-specific tenderness. Review of Relevant I have reviewed the following items meghna (where applicable) has been applied. Labs Laboratory Tests Test 04/10/17 03:34 04/11/17 03:50 White Blood Count 11.1 x10^3/uL (4.0-11.0) 10.4 x10^3/uL (4.0-11.0) Red Blood Count 4.03 x10^6/uL (3.50-5.40) 4.04 x10^6/uL (3.50-5.40) Hemoglobin 11.7 g/dL (12.0-15.5) 12.0 g/dL (12.0-15.5) Hematocrit 36.0 % (36.0-47.0) 35.6 % (36.0-47.0) Mean Corpuscular Volume 90 fL (79-100) 88 fL (79-100) Mean Corpuscular Hemoglobin 29 pg (25-35) 30 pg (25-35) Mean Corpuscular Hemoglobin Concent 32 g/dL (31-37) 34 g/dL (31-37) Red Cell Distribution Width 14.6 % (11.5-14.5) 14.9 % (11.5-14.5) Platelet Count 174 x10^3/uL (140-400) 178 x10^3/uL (140-400) Neutrophils (%) (Auto) 84 % (31-73) 85 % (31-73) Lymphocytes (%) (Auto) 11 % (24-48) 10 % (24-48) Monocytes (%) (Auto) 5 % (0-9) 5 % (0-9) Eosinophils (%) (Auto) 0 % (0-3) 0 % (0-3) Basophils (%) (Auto) 0 % (0-3) 0 % (0-3) Neutrophils # (Auto) 9.3 x10^3uL (1.8-7.7) 8.8 x10^3uL (1.8-7.7) Lymphocytes # (Auto) 1.2 x10^3/uL (1.0-4.8) 1.0 x10^3/uL (1.0-4.8) Monocytes # (Auto) 0.5 x10^3/uL (0.0-1.1) 0.5 x10^3/uL (0.0-1.1) Eosinophils # (Auto) 0.0 x10^3/uL (0.0-0.7) 0.0 x10^3/uL (0.0-0.7) Basophils # (Auto) 0.0 x10^3/uL (0.0-0.2) 0.0 x10^3/uL (0.0-0.2) Sodium Level 139 mmol/L (136-145) 140 mmol/L (136-145) Potassium Level 4.2 mmol/L (3.5-5.1) 4.2 mmol/L (3.5-5.1) Chloride Level 103 mmol/L (98-107) 104 mmol/L (98-107) Carbon Dioxide Level 23 mmol/L (21-32) 27 mmol/L (21-32) Anion Gap 13 (6-14) 9 (6-14) Blood Urea Nitrogen 17 mg/dL (7-20) 13 mg/dL (7-20) Creatinine 1.4 mg/dL (0.6-1.0) 1.0 mg/dL (0.6-1.0) Estimated GFR (Cockcroft-Gault) 48.6 71.6 Glucose Level 184 mg/dL (70-99) 157 mg/dL (70-99) Calcium Level 8.5 mg/dL (8.5-10.1) 8.5 mg/dL (8.5-10.1) Laboratory Tests Test 04/11/17 03:50 White Blood Count 10.4 x10^3/uL (4.0-11.0) Red Blood Count 4.04 x10^6/uL (3.50-5.40) Hemoglobin 12.0 g/dL (12.0-15.5) Hematocrit 35.6 % (36.0-47.0) Mean Corpuscular Volume 88 fL (79-100) Mean Corpuscular Hemoglobin 30 pg (25-35) Mean Corpuscular Hemoglobin Concent 34 g/dL (31-37) Red Cell Distribution Width 14.9 % (11.5-14.5) Platelet Count 178 x10^3/uL (140-400) Neutrophils (%) (Auto) 85 % (31-73) Lymphocytes (%) (Auto) 10 % (24-48) Monocytes (%) (Auto) 5 % (0-9) Eosinophils (%) (Auto) 0 % (0-3) Basophils (%) (Auto) 0 % (0-3) Neutrophils # (Auto) 8.8 x10^3uL (1.8-7.7) Lymphocytes # (Auto) 1.0 x10^3/uL (1.0-4.8) Monocytes # (Auto) 0.5 x10^3/uL (0.0-1.1) Eosinophils # (Auto) 0.0 x10^3/uL (0.0-0.7) Basophils # (Auto) 0.0 x10^3/uL (0.0-0.2) Sodium Level 140 mmol/L (136-145) Potassium Level 4.2 mmol/L (3.5-5.1) Chloride Level 104 mmol/L (98-107) Carbon Dioxide Level 27 mmol/L (21-32) Anion Gap 9 (6-14) Blood Urea Nitrogen 13 mg/dL (7-20) Creatinine 1.0 mg/dL (0.6-1.0) Estimated GFR (Cockcroft-Gault) 71.6 Glucose Level 157 mg/dL (70-99) Calcium Level 8.5 mg/dL (8.5-10.1) Stool studies pending. Medications Current Medications Albuterol/ Ipratropium (Duoneb) 3 ml 1X ONCE NEB Last administered on 10:35; Start 04/08/17 at 10:30; Stop 04/08/17 at 10:31; Status DC Methylprednisolone Sodium Succinate (SOLU-Medrol 125MG VIAL) 125 mg 1X ONCE IM Last administered on 04/08/17 10:52; Start 04/08/17 at 10:30; Stop 04/08/17 at 10:31; Status DC Albuterol Sulfate (Ventolin Neb Soln) 10 mg 1X ONCE CONT NEB Last administered on 04/08/17 11:23; Start 04/08/17 at 11:15; Stop 04/08/17 at 11:16 ; Status DC Ondansetron HCl (Zofran Odt) 4 mg 1X ONCE PO Last administered on 04/08/17 11 :18; Start 04/08/17 at 11:15; Stop 04/08/17 at 11:16; Status DC Sodium Chloride 1,000 ml @ 100 mls/hr Q10H IV Last administered on 04/08/17 13:20; Start 04/08/17 at 12:31; Stop 04/08/17 at 22:30; Status DC Albuterol Sulfate (Ventolin Neb Soln) 2.5 mg PRN Q2HR PRN NEB SHORTNESS OF BREATH; Start 04/08/17 at 13:45; Stop 04/08/17 at 13:45; Status DC Alprazolam (Xanax) 0.5 mg BID PO Last administered on 04/10/17 20:25; Start at 21:00 Doxazosin Mesylate (Cardura) 4 mg DAILY PO ; Start 04/08/17 at 14:00; Stop 04/08 at 16:54; Status DC EZETIMIBE (Zetia) 10 mg QHS PO Last administered on 04/10/17 20:25; Start at 21:00 Acetaminophen/ Hydrocodone Bitart (Lortab 7.5/325) 1 tab PRN TID PRN PO MODERATE PAIN Last administered on 04/09/17 20:58; Start 04/08/17 at 13:45 Losartan Potassium (Cozaar) 50 mg DAILY PO Last administered on 04/10/17 09:56 ; Start 04/08/17 at 14:00 Metoprolol Succinate (Toprol Xl) 50 mg DAILY PO Last administered on 04/10/17 09:55; Start 04/08/17 at 14:00 Pantoprazole Sodium (Protonix) 40 mg DAILYAC PO Last administered on 04/10/17 09:29; Start 04/09/17 at 07:30 Non-Formulary Medication 2 puff BID PRN INH SHORTNESS OF BREATH; Start at 13:45; Stop 04/08/17 at 13:56; Status DC Atorvastatin Calcium (Lipitor) 80 mg QHS PO Last administered on 04/10/17 20: 25; Start 04/08/17 at 21:00 Oxycodone HCl (Roxicodone) 10 mg PRN QID PRN PO SEVERE PAIN Last administered on 04/10/17 18:44; Start 04/08/17 at 14:00 Promethazine HCl/ Codeine (Phenergan With Codeine) 5 ml PRN Q6HRS PRN PO COUGH Last administered on 04/10/17 03:05; Start 04/08/17 at 14:00 Acetaminophen (Tylenol) 650 mg PRN Q6HRS PRN PO FEVER; Start 04/08/17 at 13:45 Ondansetron HCl (Zofran) 4 mg PRN Q6HRS PRN IV NAUSEA/VOMITING Last administered on 04/10/17 10:03; Start 04/08/17 at 13:45 Morphine Sulfate 2 mg PRN Q2HR PRN IV PAIN Last administered on 04/11/17 02:37 ; Start 04/08/17 at 13:45 Tramadol HCl (Ultram) 50 mg PRN Q6HRS PRN PO MILD PAIN; Start 04/08/17 at 13:45 Hydralazine HCl (Apresoline) 10 mg PRN Q4HRS PRN IVP ELEVATED BP, SEE COMMENTS ; Start 04/08/17 at 13:45 Docusate Sodium (Colace) 100 mg PRN DAILY PRN PO CONSTIPATION; Start 04/08/17 at 13:45 Albuterol/ Ipratropium (Duoneb) 3 ml RTQID NEB Last administered on 04/10/17 19:00; Start 04/08/17 at 16:00 Albuterol Sulfate (Ventolin Neb Soln) 2.5 mg PRN Q2HR PRN NEB SHORTNESS OF BREATH Last administered on 04/10/17 02:00; Start 04/08/17 at 13:45 Guaifenesin (Mucinex) 600 mg BID PO Last administered on 04/10/17 20:25; Start 04/08/17 at 21:00 Methylprednisolone Sodium Succinate (SOLU-Medrol 40MG VIAL) 60 mg Q12HR IV Last administered on 04/10/17 20:26; Start 04/08/17 at 21:00 Enoxaparin Sodium (Lovenox 40mg Syringe) 40 mg Q24H SQ Last administered on 14:30; Start 04/08/17 at 14:00 Albuterol Sulfate (Ventolin Neb Soln) 2.5 mg PRN BID PRN NEB SHORTNESS OF BREATH; Start 04/08/17 at 14:00; Stop 04/08/17 at 14:00; Status DC Ondansetron HCl (Zofran) 4 mg PRN Q8HRS PRN IV NAUSEA/VOMITING; Start 04/08/17 at 15:30; Stop 04/09/17 at 15:29; Status DC Albuterol/ Ipratropium (Duoneb) 3 ml RTQID NEB ; Start 04/08/17 at 16:00; Stop 04/09/17 at 15:59; Status UNV Methylprednisolone Sodium Succinate (SOLU-Medrol 40MG VIAL) 60 mg Q6HRS IV ; Start 04/08/17 at 18:00; Status UNV Doxazosin Mesylate (Cardura) 4 mg QHS PO Last administered on 04/10/17 20:26; Start 04/08/17 at 21:00 Diphenhydramine HCl (Benadryl) 25 mg PRN Q6HRS PRN PO ITCHING Last administered on 04/11/17 00:13; Start 04/08/17 at 19:45 Prochlorperazine Edisylate (Compazine) 10 mg PRN Q6HRS PRN IV NAUSEA/VOMITING; Start 04/09/17 at 12:15 Sodium Chloride 1,000 ml @ 75 mls/hr [id number] IV Last administered on 01:54; Start 04/09/17 at 12:45; Stop 04/10/17 at 13:41; Status DC Prochlorperazine Edisylate (Compazine) 10 mg PRN Q6HRS PRN IM NAUSEA/VOMITING; Start 04/09/17 at 12:45 Amino Acids/ Glycerin/ Electrolytes 1,000 ml @ 75 mls/hr [id number] IV Last administered on 04/11/17 02:37; Start 04/10/17 at 13:30 Active Scripts Active [Promethazine Hcl/Codeine] 5 ML Syrup 5 Ml PO PRN Q6HRS PRN 10 Days Protonix (Pantoprazole Sodium) 40 Mg Tablet 40 Mg PO DAILYAC Reported Doxazosin Mesylate 4 Mg Tablet 1 Tab PO DAILY Albuterol Sulfate Neb Soln (Albuterol Sulfate) 2.5 Mg/3 Ml Vial.neb 1 Vial NEB QID Proair Hfa Inhaler (Albuterol Sulfate) 8.5 Gm Hfa.aer.ad 2 Puff INH BID PRN Metoprolol Succinate ( Xl ) (Metoprolol Succinate) 25 Mg Tab.er.24h 2 Tab PO DAILY Gave last night Take night Losartan Potassium 50 Mg Tablet 50 Mg PO DAILY Gave this morning Take tomorrow Oxycodone Hcl 10 Mg Tablet 1 Tab PO PRN QID PRN Last dose given last night Take when needed Hydrocodone-Apap 7.5-325 (Hydrocodone Bit/Acetaminophen) 1 Each Tablet 1 Tab PO PRN TID PRN Not given on this admission Take when needed Xanax (Alprazolam) 0.5 Mg Tablet 1 Tab PO BID Not given on this admission Take when needed Zetia (Ezetimibe) 10 Mg Tablet 1 Tab PO QHS Gave last night Take tonight Atorvastatin Calcium 80 Mg Tablet 80 Mg PO HS Gave last night Take ter[place] Vitals/I & O Vital Sign - Last 24 Hours 04/10/17 04/10/17 04/10/17 04/10/17 09:55 09:56 10:30 11:00 Pulse 75 75 Resp 20 B/P (MAP) 148/89 148/89 187/108 (134) 04/10/17 04/10/17 04/10/17 04/10/17 11:00 11:12 14:30 15:00 Temp 97.7 97.7 Pulse 69 Resp 18 20 20 B/P (MAP) 167/116 (133) Pulse Ox 96 O2 Delivery Room Air Room Air Room Air 04/10/17 04/10/17 04/10/17 04/10/17 15:00 18:37 18:44 19:01 Temp 97.9 97.5 97.9 97.5 Pulse 70 81 Resp 18 18 20 B/P (MAP) 169/103 (125) 153/92 (112) Pulse Ox 97 97 97 99 O2 Delivery Room Air Room Air Room Air Room Air 04/10/17 04/10/17 04/10/17 04/10/17 19:41 19:44 20:26 21:50 Pulse 68 B/P (MAP) 159/78 Pulse Ox 99 99 O2 Delivery Room Air Room Air Room Air 04/10/17 04/11/17 04/11/17 04/11/17 22:50 02:37 03:01 03:07 Temp 97.7 97.9 97.7 97.9 Pulse 77 55 Resp 18 18 B/P (MAP) 142/88 (106) 189/85 (119) Pulse Ox 98 98 99 99 O2 Delivery Room Air Room Air Room Air Room Air Intake and Output 04/10/17 04/10/17 04/11/17 15:00 23:00 07:00 Intake Total 1000 ml 1940 ml 975 ml Output Total 100 ml Balance 900 ml 1940 ml 975 ml Problem List Problems Medical Problems: (1) Asthma exacerbation Status: Acute Assessment Suspect GI infection superimposed on chronic GERD/IBS issues. Plan of Care: Continue current Tx, Mgmt Plan of Care Note Await stool studies. Encouraged to try clears. RADHA DUBON MD April 11, 2017 09:49
[2017-04-11 10:12] LABS: PLT ESTIMATE ADEQUATE (ADEQUATE)
--- NOTE | 2017-04-11 11:22 | PDOC ---
PROGRESS NOTES Chief Complaint Chief Complaint 1. Asthma 2. COPD 3. HTN 4. Anemia NOS 5. Diabetes-borderline 6. Cholecystectomy 7. Hernia Repair 8. Tubal Ligation 9. Hysterectomy History of Present Illness History of Present Illness Patient seen this am in in NAD. Patient's asthma is much better, Per patient, she can't keep any food down and it hurts when she eats. diarrhea ongoing, studies sent overnight on clears, not eating much, may advance diet if tolerated Vitals Vitals Vital Signs Date Time Temp Pulse Resp B/P (MAP) Pulse Ox O2 Delivery O2 Flow Rate FiO2 04/11/17 10:59 99 Room Air 04/11/17 09:46 64 193/111 04/11/17 07:00 97.7 18 97.7 Physical Exam General: Alert, Oriented X3, Cooperative, No acute distress, Other (anxious) Heart: Regular rate, Normal S1, Normal S2, No murmurs Lungs: Clear Abdomen: Normal bowel sounds, Soft, No hepatosplenomegaly, No masses, Other ( tender lower abdomen, not locallized) Extremities: No cyanosis, No edema Skin: No rashes, No significant lesion Labs LABS Laboratory Tests Test 04/11/17 03:50 White Blood Count 10.4 x10^3/uL (4.0-11.0) Red Blood Count 4.04 x10^6/uL (3.50-5.40) Hemoglobin 12.0 g/dL (12.0-15.5) Hematocrit 35.6 % (36.0-47.0) Mean Corpuscular Volume 88 fL (79-100) Mean Corpuscular Hemoglobin 30 pg (25-35) Mean Corpuscular Hemoglobin Concent 34 g/dL (31-37) Red Cell Distribution Width 14.9 % (11.5-14.5) Platelet Count 178 x10^3/uL (140-400) Neutrophils (%) (Auto) 85 % (31-73) Lymphocytes (%) (Auto) 10 % (24-48) Monocytes (%) (Auto) 5 % (0-9) Eosinophils (%) (Auto) 0 % (0-3) Basophils (%) (Auto) 0 % (0-3) Neutrophils # (Auto) 8.8 x10^3uL (1.8-7.7) Lymphocytes # (Auto) 1.0 x10^3/uL (1.0-4.8) Monocytes # (Auto) 0.5 x10^3/uL (0.0-1.1) Eosinophils # (Auto) 0.0 x10^3/uL (0.0-0.7) Basophils # (Auto) 0.0 x10^3/uL (0.0-0.2) Segmented Neutrophils % 78 % (35-66) Band Neutrophils % 4 % (0-9) Lymphocytes % 10 % (24-48) Atypical Lymphocytes % (Manual) 1 % (0-0) Monocytes % 7 % (0-10) Platelet Estimate Adequate (ADEQUATE) Sodium Level 140 mmol/L (136-145) Potassium Level 4.2 mmol/L (3.5-5.1) Chloride Level 104 mmol/L (98-107) Carbon Dioxide Level 27 mmol/L (21-32) Anion Gap 9 (6-14) Blood Urea Nitrogen 13 mg/dL (7-20) Creatinine 1.0 mg/dL (0.6-1.0) Estimated GFR (Cockcroft-Gault) 71.6 Glucose Level 157 mg/dL (70-99) Calcium Level 8.5 mg/dL (8.5-10.1) Review of Systems Review of Systems postive for n,.v.d dyspnea is moderate to baseline Assessment and Plan Assessmemt and Plan Problems Medical Problems: (1) Asthma exacerbation Status: Acute Problems: Comment Review of Relevant I have reviewed the following items meghna (where applicable) has been applied. Labs Laboratory Tests Test 04/10/17 03:34 04/11/17 03:50 White Blood Count 11.1 x10^3/uL (4.0-11.0) 10.4 x10^3/uL (4.0-11.0) Red Blood Count 4.03 x10^6/uL (3.50-5.40) 4.04 x10^6/uL (3.50-5.40) Hemoglobin 11.7 g/dL (12.0-15.5) 12.0 g/dL (12.0-15.5) Hematocrit 36.0 % (36.0-47.0) 35.6 % (36.0-47.0) Mean Corpuscular Volume 90 fL (79-100) 88 fL (79-100) Mean Corpuscular Hemoglobin 29 pg (25-35) 30 pg (25-35) Mean Corpuscular Hemoglobin Concent 32 g/dL (31-37) 34 g/dL (31-37) Red Cell Distribution Width 14.6 % (11.5-14.5) 14.9 % (11.5-14.5) Platelet Count 174 x10^3/uL (140-400) 178 x10^3/uL (140-400) Neutrophils (%) (Auto) 84 % (31-73) 85 % (31-73) Lymphocytes (%) (Auto) 11 % (24-48) 10 % (24-48) Monocytes (%) (Auto) 5 % (0-9) 5 % (0-9) Eosinophils (%) (Auto) 0 % (0-3) 0 % (0-3) Basophils (%) (Auto) 0 % (0-3) 0 % (0-3) Neutrophils # (Auto) 9.3 x10^3uL (1.8-7.7) 8.8 x10^3uL (1.8-7.7) Lymphocytes # (Auto) 1.2 x10^3/uL (1.0-4.8) 1.0 x10^3/uL (1.0-4.8) Monocytes # (Auto) 0.5 x10^3/uL (0.0-1.1) 0.5 x10^3/uL (0.0-1.1) Eosinophils # (Auto) 0.0 x10^3/uL (0.0-0.7) 0.0 x10^3/uL (0.0-0.7) Basophils # (Auto) 0.0 x10^3/uL (0.0-0.2) 0.0 x10^3/uL (0.0-0.2) Sodium Level 139 mmol/L (136-145) 140 mmol/L (136-145) Potassium Level 4.2 mmol/L (3.5-5.1) 4.2 mmol/L (3.5-5.1) Chloride Level 103 mmol/L (98-107) 104 mmol/L (98-107) Carbon Dioxide Level 23 mmol/L (21-32) 27 mmol/L (21-32) Anion Gap 13 (6-14) 9 (6-14) Blood Urea Nitrogen 17 mg/dL (7-20) 13 mg/dL (7-20) Creatinine 1.4 mg/dL (0.6-1.0) 1.0 mg/dL (0.6-1.0) Estimated GFR (Cockcroft-Gault) 48.6 71.6 Glucose Level 184 mg/dL (70-99) 157 mg/dL (70-99) Calcium Level 8.5 mg/dL (8.5-10.1) 8.5 mg/dL (8.5-10.1) Segmented Neutrophils % 78 % (35-66) Band Neutrophils % 4 % (0-9) Lymphocytes % 10 % (24-48) Atypical Lymphocytes % (Manual) 1 % (0-0) Monocytes % 7 % (0-10) Platelet Estimate Adequate (ADEQUATE) Laboratory Tests Test 04/11/17 03:50 White Blood Count 10.4 x10^3/uL (4.0-11.0) Red Blood Count 4.04 x10^6/uL (3.50-5.40) Hemoglobin 12.0 g/dL (12.0-15.5) Hematocrit 35.6 % (36.0-47.0) Mean Corpuscular Volume 88 fL (79-100) Mean Corpuscular Hemoglobin 30 pg (25-35) Mean Corpuscular Hemoglobin Concent 34 g/dL (31-37) Red Cell Distribution Width 14.9 % (11.5-14.5) Platelet Count 178 x10^3/uL (140-400) Neutrophils (%) (Auto) 85 % (31-73) Lymphocytes (%) (Auto) 10 % (24-48) Monocytes (%) (Auto) 5 % (0-9) Eosinophils (%) (Auto) 0 % (0-3) Basophils (%) (Auto) 0 % (0-3) Neutrophils # (Auto) 8.8 x10^3uL (1.8-7.7) Lymphocytes # (Auto) 1.0 x10^3/uL (1.0-4.8) Monocytes # (Auto) 0.5 x10^3/uL (0.0-1.1) Eosinophils # (Auto) 0.0 x10^3/uL (0.0-0.7) Basophils # (Auto) 0.0 x10^3/uL (0.0-0.2) Segmented Neutrophils % 78 % (35-66) Band Neutrophils % 4 % (0-9) Lymphocytes % 10 % (24-48) Atypical Lymphocytes % (Manual) 1 % (0-0) Monocytes % 7 % (0-10) Platelet Estimate Adequate (ADEQUATE) Sodium Level 140 mmol/L (136-145) Potassium Level 4.2 mmol/L (3.5-5.1) Chloride Level 104 mmol/L (98-107) Carbon Dioxide Level 27 mmol/L (21-32) Anion Gap 9 (6-14) Blood Urea Nitrogen 13 mg/dL (7-20) Creatinine 1.0 mg/dL (0.6-1.0) Estimated GFR (Cockcroft-Gault) 71.6 Glucose Level 157 mg/dL (70-99) Calcium Level 8.5 mg/dL (8.5-10.1) Medications Current Medications Albuterol/ Ipratropium (Duoneb) 3 ml 1X ONCE NEB Last administered on 10:35; Start 04/08/17 at 10:30; Stop 04/08/17 at 10:31; Status DC Methylprednisolone Sodium Succinate (SOLU-Medrol 125MG VIAL) 125 mg 1X ONCE IM Last administered on 04/08/17 10:52; Start 04/08/17 at 10:30; Stop 04/08/17 at 10:31; Status DC Albuterol Sulfate (Ventolin Neb Soln) 10 mg 1X ONCE CONT NEB Last administered on 04/08/17 11:23; Start 04/08/17 at 11:15; Stop 04/08/17 at 11:16 ; Status DC Ondansetron HCl (Zofran Odt) 4 mg 1X ONCE PO Last administered on 04/08/17 11 :18; Start 04/08/17 at 11:15; Stop 04/08/17 at 11:16; Status DC Sodium Chloride 1,000 ml @ 100 mls/hr Q10H IV Last administered on 04/08/17 13:20; Start 04/08/17 at 12:31; Stop 04/08/17 at 22:30; Status DC Albuterol Sulfate (Ventolin Neb Soln) 2.5 mg PRN Q2HR PRN NEB SHORTNESS OF BREATH; Start 04/08/17 at 13:45; Stop 04/08/17 at 13:45; Status DC Alprazolam (Xanax) 0.5 mg BID PO Last administered on 04/11/17 09:45; Start at 21:00 Doxazosin Mesylate (Cardura) 4 mg DAILY PO ; Start 04/08/17 at 14:00; Stop 04/08 at 16:54; Status DC EZETIMIBE (Zetia) 10 mg QHS PO Last administered on 04/10/17 20:25; Start at 21:00 Acetaminophen/ Hydrocodone Bitart (Lortab 7.5/325) 1 tab PRN TID PRN PO MODERATE PAIN Last administered on 04/09/17 20:58; Start 04/08/17 at 13:45 Losartan Potassium (Cozaar) 50 mg DAILY PO Last administered on 04/11/17 09:46 ; Start 04/08/17 at 14:00 Metoprolol Succinate (Toprol Xl) 50 mg DAILY PO Last administered on 04/11/17 09:46; Start 04/08/17 at 14:00 Pantoprazole Sodium (Protonix) 40 mg DAILYAC PO Last administered on 04/11/17 09:45; Start 04/09/17 at 07:30 Non-Formulary Medication 2 puff BID PRN INH SHORTNESS OF BREATH; Start at 13:45; Stop 04/08/17 at 13:56; Status DC Atorvastatin Calcium (Lipitor) 80 mg QHS PO Last administered on 04/10/17 20: 25; Start 04/08/17 at 21:00 Oxycodone HCl (Roxicodone) 10 mg PRN QID PRN PO SEVERE PAIN Last administered on 04/10/17 18:44; Start 04/08/17 at 14:00 Promethazine HCl/ Codeine (Phenergan With Codeine) 5 ml PRN Q6HRS PRN PO COUGH Last administered on 04/10/17 03:05; Start 04/08/17 at 14:00 Acetaminophen (Tylenol) 650 mg PRN Q6HRS PRN PO FEVER; Start 04/08/17 at 13:45 Ondansetron HCl (Zofran) 4 mg PRN Q6HRS PRN IV NAUSEA/VOMITING Last administered on 04/10/17 10:03; Start 04/08/17 at 13:45 Morphine Sulfate 2 mg PRN Q2HR PRN IV PAIN Last administered on 04/11/17 10:22 ; Start 04/08/17 at 13:45 Tramadol HCl (Ultram) 50 mg PRN Q6HRS PRN PO MILD PAIN; Start 04/08/17 at 13:45 Hydralazine HCl (Apresoline) 10 mg PRN Q4HRS PRN IVP ELEVATED BP, SEE COMMENTS ; Start 04/08/17 at 13:45 Docusate Sodium (Colace) 100 mg PRN DAILY PRN PO CONSTIPATION; Start 04/08/17 at 13:45 Albuterol/ Ipratropium (Duoneb) 3 ml RTQID NEB Last administered on 04/11/17 10:58; Start 04/08/17 at 16:00 Albuterol Sulfate (Ventolin Neb Soln) 2.5 mg PRN Q2HR PRN NEB SHORTNESS OF BREATH Last administered on 04/10/17 02:00; Start 04/08/17 at 13:45 Guaifenesin (Mucinex) 600 mg BID PO Last administered on 04/11/17 09:45; Start 04/08/17 at 21:00 Methylprednisolone Sodium Succinate (SOLU-Medrol 40MG VIAL) 60 mg Q12HR IV Last administered on 04/11/17 09:47; Start 04/08/17 at 21:00 Enoxaparin Sodium (Lovenox 40mg Syringe) 40 mg Q24H SQ Last administered on 14:30; Start 04/08/17 at 14:00 Albuterol Sulfate (Ventolin Neb Soln) 2.5 mg PRN BID PRN NEB SHORTNESS OF BREATH; Start 04/08/17 at 14:00; Stop 04/08/17 at 14:00; Status DC Ondansetron HCl (Zofran) 4 mg PRN Q8HRS PRN IV NAUSEA/VOMITING; Start 04/08/17 at 15:30; Stop 04/09/17 at 15:29; Status DC Albuterol/ Ipratropium (Duoneb) 3 ml RTQID NEB ; Start 04/08/17 at 16:00; Stop 04/09/17 at 15:59; Status UNV Methylprednisolone Sodium Succinate (SOLU-Medrol 40MG VIAL) 60 mg Q6HRS IV ; Start 04/08/17 at 18:00; Status UNV Doxazosin Mesylate (Cardura) 4 mg QHS PO Last administered on 04/10/17 20:26; Start 04/08/17 at 21:00 Diphenhydramine HCl (Benadryl) 25 mg PRN Q6HRS PRN PO ITCHING Last administered on 04/11/17 00:13; Start 04/08/17 at 19:45 Prochlorperazine Edisylate (Compazine) 10 mg PRN Q6HRS PRN IV NAUSEA/VOMITING; Start 04/09/17 at 12:15 Sodium Chloride 1,000 ml @ 75 mls/hr [id number] IV Last administered on 01:54; Start 04/09/17 at 12:45; Stop 04/10/17 at 13:41; Status DC Prochlorperazine Edisylate (Compazine) 10 mg PRN Q6HRS PRN IM NAUSEA/VOMITING; Start 04/09/17 at 12:45 Amino Acids/ Glycerin/ Electrolytes 1,000 ml @ 75 mls/hr [id number] IV Last administered on 04/11/17 02:37; Start 04/10/17 at 13:30 Active Scripts Active [Promethazine Hcl/Codeine] 5 ML Syrup 5 Ml PO PRN Q6HRS PRN 10 Days Protonix (Pantoprazole Sodium) 40 Mg Tablet 40 Mg PO DAILYAC Reported Doxazosin Mesylate 4 Mg Tablet 1 Tab PO DAILY Albuterol Sulfate Neb Soln (Albuterol Sulfate) 2.5 Mg/3 Ml Vial.neb 1 Vial NEB QID Proair Hfa Inhaler (Albuterol Sulfate) 8.5 Gm Hfa.aer.ad 2 Puff INH BID PRN Metoprolol Succinate ( Xl ) (Metoprolol Succinate) 25 Mg Tab.er.24h 2 Tab PO DAILY Gave last night Take night Losartan Potassium 50 Mg Tablet 50 Mg PO DAILY Gave this morning Take tomorrow Oxycodone Hcl 10 Mg Tablet 1 Tab PO PRN QID PRN Last dose given last night Take when needed Hydrocodone-Apap 7.5-325 (Hydrocodone Bit/Acetaminophen) 1 Each Tablet 1 Tab PO PRN TID PRN Not given on this admission Take when needed Xanax (Alprazolam) 0.5 Mg Tablet 1 Tab PO BID Not given on this admission Take when needed Zetia (Ezetimibe) 10 Mg Tablet 1 Tab PO QHS Gave last night Take tonight Atorvastatin Calcium 80 Mg Tablet 80 Mg PO HS Gave last night Take [place] Vitals/I & O Vital Sign - Last 24 Hours 04/10/17 04/10/17 04/10/17 04/10/17 14:30 15:00 15:00 18:37 Temp 97.9 97.5 97.9 97.5 Pulse 70 81 Resp 20 20 18 18 B/P (MAP) 169/103 (125) 153/92 (112) Pulse Ox 97 97 O2 Delivery Room Air Room Air Room Air 04/10/17 04/10/17 04/10/17 04/10/17 18:44 19:01 19:41 19:44 Resp 20 Pulse Ox 97 99 99 O2 Delivery Room Air Room Air Room Air Room Air 04/10/17 04/10/17 04/10/17 04/11/17 20:26 21:50 22:50 02:37 Temp 97.7 97.7 Pulse 68 77 Resp 18 B/P (MAP) 159/78 142/88 (106) Pulse Ox 99 98 98 O2 Delivery Room Air Room Air Room Air 04/11/17 04/11/17 04/11/17 04/11/17 03:01 03:07 07:00 08:00 Temp 97.9 97.7 97.9 97.7 Pulse 55 64 Resp 18 18 B/P (MAP) 189/85 (119) 193/111 (138) Pulse Ox 99 99 99 O2 Delivery Room Air Room Air Room Air Room Air 04/11/17 04/11/17 04/11/17 04/11/17 09:46 09:46 10:22 10:59 Pulse 64 64 B/P (MAP) 193/111 193/111 Pulse Ox 99 99 O2 Delivery Room Air Room Air Intake and Output 04/10/17 04/10/17 04/11/17 15:00 23:00 07:00 Intake Total 1000 ml 1940 ml 975 ml Output Total 100 ml Balance 900 ml 1940 ml 975 ml VERÓNICA VILLALOBOS MD April 11, 2017 11:22
[2017-04-11] MEDS ORDERED: IV DEXTROSE 5 %-0.45 % NACL 1,000 ML IV ONE (11:30)
[2017-04-11 11:40] VITALS: BP 181/97
[2017-04-11] MEDS: ENOXAPARIN 40 MG/0.4 ML SYRINGE. SQ SCH (14:54)
[2017-04-11] MEDS: ONDANSETRON PF 4 MG/2 ML VIAL. IV PRN ×2 (14:55→21:57)
[2017-04-11] MEDS: oxyCODONE IR 5 MG TABLET PO PRN (15:11)
[2017-04-11 15:40] VITALS: BP 175/103
[2017-04-11 19:00] VITALS: BP 172/94
[2017-04-11] MEDS: DOXAZOSIN MESYLATE 4 MG TABLET. PO SCH (20:43)
[2017-04-11] MEDS: ATORVASTATIN CALCIUM 40 MG TABLET. PO SCH (20:43)
[2017-04-11] MEDS: EZETIMIBE 10 MG TABLET. PO SCH (20:43)
[2017-04-11] MEDS: PROMETH/CODEINE 6.25/10MG 5 ML SYRUP. PO PRN (21:55)
[2017-04-11 22:48] VITALS: BP 189/111
[2017-04-11] MEDS: hydrALAZINE 20 MG/ML VIAL. IVP PRN (23:21)
[2017-04-12 03:00] VITALS: BP 146/89
[2017-04-12] MEDS: MORPHINE SULFATE 2 MG/ML DISP.SYRIN. IV PRN ×5 (03:54→20:25)
[2017-04-12 04:35] LABS: BASO % 0 % (0-3); EOS % 0 % (0-3); HEMATOCRIT 38.2 % (36.0-47.0); HEMOGLOBIN 12.5 g/dL (12.0-15.5); LYMPH # 1.5 x10^3/uL (1.0-4.8); LYMPH % 15 % (24-48); MEAN CORPUSCULAR HEMOGLOBIN 29 pg (25-35); MEAN CORPUSCULAR HGB CONC 33 g/dL (31-37); MEAN CORPUSCULAR VOLUME 89 fL (79-100); MONO % 7 % (0-9); NEUT % 78 % (31-73); PLATELET COUNT 172 x10^3/uL (140-400); RED BLOOD COUNT 4.27 x10^6/uL (3.50-5.40); RED CELL DISTRIBUTION WIDTH 14.5 % (11.5-14.5); WHITE BLOOD COUNT 10.7 x10^3/uL (4.0-11.0)
[2017-04-12 04:55] LABS: CALCIUM 8.4 mg/dL (8.5-10.1); CREATININE 0.9 mg/dL (0.6-1.0); GFR 80.9; POTASSIUM 3.7 mmol/L (3.5-5.1)
[2017-04-12] MEDS: ONDANSETRON PF 4 MG/2 ML VIAL. IV PRN (06:25)
[2017-04-12] MEDS: ALPRAZolam 0.5 MG TABLET PO SCH ×2 (07:34→20:27)
[2017-04-12] MEDS: PANTOPRAZOLE 40 MG TABLET.DR. PO SCH (07:34)
[2017-04-12] MEDS: IPRATRPIUM/ALBUTEROL 0.5/2.5MG 3 ML NEBU. NEB SCH ×4 (07:35→19:20)
[2017-04-12] MEDS: METOPROLOL SUCC 24HR ER 25 MG TAB.ER.24H. PO SCH (07:35)
[2017-04-12] MEDS: methylPREDNISolone SOD SUCC PF 40 MG/ML VIAL. IV SCH ×2 (07:36→20:27)
[2017-04-12] MEDS: LOSARTAN POTASSIUM 50 MG TABLET. PO SCH (07:36)
[2017-04-12 07:57] VITALS: BP 179/103
--- NOTE | 2017-04-12 08:41 | PDOC ---
PULMONARY PROGRESS NOTES Subjective C/O ABDOMINAL PAIN WIT HEATING NO SOA Vitals Vital Signs Date Time Temp Pulse Resp B/P (MAP) Pulse Ox O2 Delivery O2 Flow Rate FiO2 04/12/17 07:57 98.0 70 20 179/103 (128) 96 Room Air 98.0 General: Alert HEENT: Other Lungs: Clear Cardiovascular: S1, S2 Abdomen: Soft Neuro Exam: Alert Extremities: No Edema Skin: Warm Labs Laboratory Tests Test 04/10/17 14:25 04/11/17 03:50 04/12/17 03:50 Clostridium difficile Toxin (PCR) Negative (Negative) White Blood Count 10.4 x10^3/uL (4.0-11.0) 10.7 x10^3/uL (4.0-11.0) Red Blood Count 4.04 x10^6/uL (3.50-5.40) 4.27 x10^6/uL (3.50-5.40) Hemoglobin 12.0 g/dL (12.0-15.5) 12.5 g/dL (12.0-15.5) Hematocrit 35.6 % (36.0-47.0) 38.2 % (36.0-47.0) Mean Corpuscular Volume 88 fL (79-100) 89 fL (79-100) Mean Corpuscular Hemoglobin 30 pg (25-35) 29 pg (25-35) Mean Corpuscular Hemoglobin Concent 34 g/dL (31-37) 33 g/dL (31-37) Red Cell Distribution Width 14.9 % (11.5-14.5) 14.5 % (11.5-14.5) Platelet Count 178 x10^3/uL (140-400) 172 x10^3/uL (140-400) Neutrophils (%) (Auto) 85 % (31-73) 78 % (31-73) Lymphocytes (%) (Auto) 10 % (24-48) 15 % (24-48) Monocytes (%) (Auto) 5 % (0-9) 7 % (0-9) Eosinophils (%) (Auto) 0 % (0-3) 0 % (0-3) Basophils (%) (Auto) 0 % (0-3) 0 % (0-3) Neutrophils # (Auto) 8.8 x10^3uL (1.8-7.7) 8.4 x10^3uL (1.8-7.7) Lymphocytes # (Auto) 1.0 x10^3/uL (1.0-4.8) 1.5 x10^3/uL (1.0-4.8) Monocytes # (Auto) 0.5 x10^3/uL (0.0-1.1) 0.8 x10^3/uL (0.0-1.1) Eosinophils # (Auto) 0.0 x10^3/uL (0.0-0.7) 0.0 x10^3/uL (0.0-0.7) Basophils # (Auto) 0.0 x10^3/uL (0.0-0.2) 0.0 x10^3/uL (0.0-0.2) Segmented Neutrophils % 78 % (35-66) Band Neutrophils % 4 % (0-9) Lymphocytes % 10 % (24-48) Atypical Lymphocytes % (Manual) 1 % (0-0) Monocytes % 7 % (0-10) Platelet Estimate Adequate (ADEQUATE) Sodium Level 140 mmol/L (136-145) 141 mmol/L (136-145) Potassium Level 4.2 mmol/L (3.5-5.1) 3.7 mmol/L (3.5-5.1) Chloride Level 104 mmol/L (98-107) 102 mmol/L (98-107) Carbon Dioxide Level 27 mmol/L (21-32) 29 mmol/L (21-32) Anion Gap 9 (6-14) 10 (6-14) Blood Urea Nitrogen 13 mg/dL (7-20) 12 mg/dL (7-20) Creatinine 1.0 mg/dL (0.6-1.0) 0.9 mg/dL (0.6-1.0) Estimated GFR (Cockcroft-Gault) 71.6 80.9 Glucose Level 157 mg/dL (70-99) 184 mg/dL (70-99) Calcium Level 8.5 mg/dL (8.5-10.1) 8.4 mg/dL (8.5-10.1) Laboratory Tests Test 04/12/17 03:50 White Blood Count 10.7 x10^3/uL (4.0-11.0) Red Blood Count 4.27 x10^6/uL (3.50-5.40) Hemoglobin 12.5 g/dL (12.0-15.5) Hematocrit 38.2 % (36.0-47.0) Mean Corpuscular Volume 89 fL (79-100) Mean Corpuscular Hemoglobin 29 pg (25-35) Mean Corpuscular Hemoglobin Concent 33 g/dL (31-37) Red Cell Distribution Width 14.5 % (11.5-14.5) Platelet Count 172 x10^3/uL (140-400) Neutrophils (%) (Auto) 78 % (31-73) Lymphocytes (%) (Auto) 15 % (24-48) Monocytes (%) (Auto) 7 % (0-9) Eosinophils (%) (Auto) 0 % (0-3) Basophils (%) (Auto) 0 % (0-3) Neutrophils # (Auto) 8.4 x10^3uL (1.8-7.7) Lymphocytes # (Auto) 1.5 x10^3/uL (1.0-4.8) Monocytes # (Auto) 0.8 x10^3/uL (0.0-1.1) Eosinophils # (Auto) 0.0 x10^3/uL (0.0-0.7) Basophils # (Auto) 0.0 x10^3/uL (0.0-0.2) Sodium Level 141 mmol/L (136-145) Potassium Level 3.7 mmol/L (3.5-5.1) Chloride Level 102 mmol/L (98-107) Carbon Dioxide Level 29 mmol/L (21-32) Anion Gap 10 (6-14) Blood Urea Nitrogen 12 mg/dL (7-20) Creatinine 0.9 mg/dL (0.6-1.0) Estimated GFR (Cockcroft-Gault) 80.9 Glucose Level 184 mg/dL (70-99) Calcium Level 8.4 mg/dL (8.5-10.1) Medications Active Scripts Medications Dose Route/Sig Max Daily Dose Days Date Category Dose Instructions Doxazosin Mesylate 4 Mg Tablet 1 Tab PO DAILY 02/23/17 Reported Albuterol Sulfate Neb Soln (Albuterol Sulfate) 2.5 Mg/3 Ml Vial.neb 1 Vial NEB QID 02/23/17 Reported Proair Hfa Inhaler (Albuterol Sulfate) 8.5 Gm Hfa.aer.ad 2 Puff INH BID PRN 02/23/17 Reported [Promethazine Hcl/Codeine] 5 ML Syrup 5 Ml PO PRN Q6HRS PRN 10 12/05/16 Rx Metoprolol Succinate ( Xl ) (Metoprolol Succinate) 25 Mg Tab.er.24h 2 Tab PO DAILY 12/04/16 Reported Gave last night Take night Losartan Potassium 50 Mg Tablet 50 Mg PO DAILY 12/04/16 Reported Gave this morning Take tomorrow Oxycodone Hcl 10 Mg Tablet 1 Tab PO PRN QID PRN 12/04/16 Reported Last dose given last night Take when needed Hydrocodone-Apap 7.5-325 (Hydrocodone Bit/Acetaminophen) 1 Each Tablet 1 Tab PO PRN TID PRN 07/26/16 Reported Not given on this admission Take when needed Xanax (Alprazolam) 0.5 Mg Tablet 1 Tab PO BID 03/17/15 Reported Not given on this admission Take when needed Zetia (Ezetimibe) 10 Mg Tablet 1 Tab PO QHS 03/17/15 Reported Gave last night Take tonight Protonix (Pantoprazole Sodium) 40 Mg Tablet 40 Mg PO DAILYAC 05/04/14 Rx Atorvastatin Calcium 80 Mg Tablet 80 Mg PO HS 05/03/14 Reported Gave last night Take tongiht Impression . 1. Acute asthma exacerbation. improved 2. Acute nonspecific bronchitis. 3. Abnormal CT of the chest revealing some nodules. The patient is due to follow up with Dr Manuel in office in 05/2017. 4. Seasonal allergies. 5. Allergic rhinitis. 6. Abd. pain/ h/o IBS Plan . 1. pulmonary status stable. 2. taper steroids /bronchodilators. 3. Follow up with Dr Manuel in May as instructed to do so. 5. can go home pulmonary [place]vall KHALIF ROLLINS MD April 12, 2017 08:41
[2017-04-12] MEDS ORDERED: CARV12.52 PO (08:45)
[2017-04-12] MEDS ORDERED: CLON0.1T PO (08:45)
[2017-04-12 10:29] LABS: PLT ESTIMATE ADEQUATE (ADEQUATE)
[2017-04-12] MEDS: hydrALAZINE 20 MG/ML VIAL. IVP PRN (11:31)
[2017-04-12 11:41] VITALS: BP 209/136
--- NOTE | 2017-04-12 13:17 | PDOC ---
Subjective: Subjective: 8/10 periumbilical pain, worse after eating. Nausea w/o vomiting. No diarrhea. Tried GI soft yesterday, felt worse, back to clears today. Has a bad headache, concerned about her blood pressure. Objective: Vital Signs: Vital Signs Date Time Temp Pulse Resp B/P (MAP) Pulse Ox O2 Delivery O2 Flow Rate FiO2 04/12/17 12:01 96 Room Air 04/12/17 11:41 97.7 68 19 209/136 (160) 97.7 Labs: Laboratory Tests Test 04/12/17 03:50 White Blood Count 10.7 x10^3/uL Red Blood Count 4.27 x10^6/uL Hemoglobin 12.5 g/dL Hematocrit 38.2 % Mean Corpuscular Volume 89 fL Mean Corpuscular Hemoglobin 29 pg Mean Corpuscular Hemoglobin Concent 33 g/dL Red Cell Distribution Width 14.5 % Platelet Count 172 x10^3/uL Neutrophils (%) (Auto) 78 % Lymphocytes (%) (Auto) 15 % Monocytes (%) (Auto) 7 % Eosinophils (%) (Auto) 0 % Basophils (%) (Auto) 0 % Neutrophils # (Auto) 8.4 x10^3uL Lymphocytes # (Auto) 1.5 x10^3/uL Monocytes # (Auto) 0.8 x10^3/uL Eosinophils # (Auto) 0.0 x10^3/uL Basophils # (Auto) 0.0 x10^3/uL Segmented Neutrophils % 67 % Band Neutrophils % 4 % Lymphocytes % 18 % Atypical Lymphocytes % (Manual) 2 % Monocytes % 8 % Myelocytes % 1 % Platelet Estimate Adequate Sodium Level 141 mmol/L Potassium Level 3.7 mmol/L Chloride Level 102 mmol/L Carbon Dioxide Level 29 mmol/L Anion Gap 10 Blood Urea Nitrogen 12 mg/dL Creatinine 0.9 mg/dL Estimated GFR (Cockcroft-Gault) 80.9 Glucose Level 184 mg/dL Calcium Level 8.4 mg/dL PE: GEN: NAD, was up walking to get chicken broth LUNGS: CTAB HEART: RRR ABD: periumbilical discomfort NEURO/PSYCH: A & O 3 A/P: Nausea, periumbilical pain -no vomiting or diarrhea x 2 days (C Diff and fecal WBCs neg) -h/o cholecystectomy, hernia repair, tubal ligation, hysterectomy -three previous EGDs and colonoscopies -h/o GERD, back on PPI here -h/o IBS Headache, HTN -per primary Asthma exacerbation - improved -pulm following Chronic neck pain -on narcotics at home (says some days takes none, some days takes multiple doses of oxycodone and hydrocodone) -- Vomiting and diarrhea better, pain ongoing. Will check CT. Other per Dr. Gillespie. SUMI MAJANO April 12, 2017 13:17
[2017-04-12] MEDS ORDERED: IOHEXOL 300 MG/ML 75 ML VIAL IV ONE (13:30)
[2017-04-12] MEDS ORDERED: CONTRAST GIVEN MC PRN (13:30)
[2017-04-12] MEDS ORDERED: IOHEXOL 240 MG/ML 50ML VIAL. PO ONE (13:30)
--- NOTE | 2017-04-12 14:38 | PDOC ---
PROGRESS NOTES Chief Complaint Chief Complaint acute abd pain, w/ nausea, poor PO [place] 1. Asthma 2. COPD 3. HTN 4. Anemia NOS 5. Diabetes-borderline 6. Cholecystectomy 7. Hernia Repair 8. Tubal Ligation 9. Hysterectomy 10 obesity, BMI 39 History of Present Illness History of Present Illness Patient seen this am in in NAD. reports breathing well cannot eat without pain on clears, not eating much, may advance diet if tolerated Vitals Vitals Vital Signs Date Time Temp Pulse Resp B/P (MAP) Pulse Ox O2 Delivery O2 Flow Rate FiO2 04/12/17 12:01 96 Room Air 04/12/17 11:41 97.7 68 19 209/136 (160) 97.7 Physical Exam General: Alert, Oriented X3, Cooperative, No acute distress, Other (anxious) Heart: Regular rate, Normal S1, Normal S2, No murmurs Lungs: Clear Abdomen: Normal bowel sounds, Soft, No masses, Other (tender higher in the abdomen today, no rebound, not locallized and diffuse pain, ) Extremities: No cyanosis, No edema Skin: No rashes, No significant lesion Labs LABS Laboratory Tests Test 04/12/17 03:50 White Blood Count 10.7 x10^3/uL (4.0-11.0) Red Blood Count 4.27 x10^6/uL (3.50-5.40) Hemoglobin 12.5 g/dL (12.0-15.5) Hematocrit 38.2 % (36.0-47.0) Mean Corpuscular Volume 89 fL (79-100) Mean Corpuscular Hemoglobin 29 pg (25-35) Mean Corpuscular Hemoglobin Concent 33 g/dL (31-37) Red Cell Distribution Width 14.5 % (11.5-14.5) Platelet Count 172 x10^3/uL (140-400) Neutrophils (%) (Auto) 78 % (31-73) Lymphocytes (%) (Auto) 15 % (24-48) Monocytes (%) (Auto) 7 % (0-9) Eosinophils (%) (Auto) 0 % (0-3) Basophils (%) (Auto) 0 % (0-3) Neutrophils # (Auto) 8.4 x10^3uL (1.8-7.7) Lymphocytes # (Auto) 1.5 x10^3/uL (1.0-4.8) Monocytes # (Auto) 0.8 x10^3/uL (0.0-1.1) Eosinophils # (Auto) 0.0 x10^3/uL (0.0-0.7) Basophils # (Auto) 0.0 x10^3/uL (0.0-0.2) Segmented Neutrophils % 67 % (35-66) Band Neutrophils % 4 % (0-9) Lymphocytes % 18 % (24-48) Atypical Lymphocytes % (Manual) 2 % (0-0) Monocytes % 8 % (0-10) Myelocytes % 1 % (0-0) Platelet Estimate Adequate (ADEQUATE) Sodium Level 141 mmol/L (136-145) Potassium Level 3.7 mmol/L (3.5-5.1) Chloride Level 102 mmol/L (98-107) Carbon Dioxide Level 29 mmol/L (21-32) Anion Gap 10 (6-14) Blood Urea Nitrogen 12 mg/dL (7-20) Creatinine 0.9 mg/dL (0.6-1.0) Estimated GFR (Cockcroft-Gault) 80.9 Glucose Level 184 mg/dL (70-99) Calcium Level 8.4 mg/dL (8.5-10.1) Review of Systems Review of Systems post prandial abd pain, severe pain after minimal food, pain 8/10 today Assessment and Plan Assessmemt and Plan Problems Medical Problems: (1) Asthma exacerbation Status: Acute Problems: Comment Review of Relevant I have reviewed the following items meghna (where applicable) has been applied. Labs Laboratory Tests Test 04/11/17 03:50 04/12/17 03:50 White Blood Count 10.4 x10^3/uL (4.0-11.0) 10.7 x10^3/uL (4.0-11.0) Red Blood Count 4.04 x10^6/uL (3.50-5.40) 4.27 x10^6/uL (3.50-5.40) Hemoglobin 12.0 g/dL (12.0-15.5) 12.5 g/dL (12.0-15.5) Hematocrit 35.6 % (36.0-47.0) 38.2 % (36.0-47.0) Mean Corpuscular Volume 88 fL (79-100) 89 fL (79-100) Mean Corpuscular Hemoglobin 30 pg (25-35) 29 pg (25-35) Mean Corpuscular Hemoglobin Concent 34 g/dL (31-37) 33 g/dL (31-37) Red Cell Distribution Width 14.9 % (11.5-14.5) 14.5 % (11.5-14.5) Platelet Count 178 x10^3/uL (140-400) 172 x10^3/uL (140-400) Neutrophils (%) (Auto) 85 % (31-73) 78 % (31-73) Lymphocytes (%) (Auto) 10 % (24-48) 15 % (24-48) Monocytes (%) (Auto) 5 % (0-9) 7 % (0-9) Eosinophils (%) (Auto) 0 % (0-3) 0 % (0-3) Basophils (%) (Auto) 0 % (0-3) 0 % (0-3) Neutrophils # (Auto) 8.8 x10^3uL (1.8-7.7) 8.4 x10^3uL (1.8-7.7) Lymphocytes # (Auto) 1.0 x10^3/uL (1.0-4.8) 1.5 x10^3/uL (1.0-4.8) Monocytes # (Auto) 0.5 x10^3/uL (0.0-1.1) 0.8 x10^3/uL (0.0-1.1) Eosinophils # (Auto) 0.0 x10^3/uL (0.0-0.7) 0.0 x10^3/uL (0.0-0.7) Basophils # (Auto) 0.0 x10^3/uL (0.0-0.2) 0.0 x10^3/uL (0.0-0.2) Segmented Neutrophils % 78 % (35-66) 67 % (35-66) Band Neutrophils % 4 % (0-9) 4 % (0-9) Lymphocytes % 10 % (24-48) 18 % (24-48) Atypical Lymphocytes % (Manual) 1 % (0-0) 2 % (0-0) Monocytes % 7 % (0-10) 8 % (0-10) Platelet Estimate Adequate (ADEQUATE) Adequate (ADEQUATE) Sodium Level 140 mmol/L (136-145) 141 mmol/L (136-145) Potassium Level 4.2 mmol/L (3.5-5.1) 3.7 mmol/L (3.5-5.1) Chloride Level 104 mmol/L (98-107) 102 mmol/L (98-107) Carbon Dioxide Level 27 mmol/L (21-32) 29 mmol/L (21-32) Anion Gap 9 (6-14) 10 (6-14) Blood Urea Nitrogen 13 mg/dL (7-20) 12 mg/dL (7-20) Creatinine 1.0 mg/dL (0.6-1.0) 0.9 mg/dL (0.6-1.0) Estimated GFR (Cockcroft-Gault) 71.6 80.9 Glucose Level 157 mg/dL (70-99) 184 mg/dL (70-99) Calcium Level 8.5 mg/dL (8.5-10.1) 8.4 mg/dL (8.5-10.1) Myelocytes % 1 % (0-0) Laboratory Tests Test 04/12/17 03:50 White Blood Count 10.7 x10^3/uL (4.0-11.0) Red Blood Count 4.27 x10^6/uL (3.50-5.40) Hemoglobin 12.5 g/dL (12.0-15.5) Hematocrit 38.2 % (36.0-47.0) Mean Corpuscular Volume 89 fL (79-100) Mean Corpuscular Hemoglobin 29 pg (25-35) Mean Corpuscular Hemoglobin Concent 33 g/dL (31-37) Red Cell Distribution Width 14.5 % (11.5-14.5) Platelet Count 172 x10^3/uL (140-400) Neutrophils (%) (Auto) 78 % (31-73) Lymphocytes (%) (Auto) 15 % (24-48) Monocytes (%) (Auto) 7 % (0-9) Eosinophils (%) (Auto) 0 % (0-3) Basophils (%) (Auto) 0 % (0-3) Neutrophils # (Auto) 8.4 x10^3uL (1.8-7.7) Lymphocytes # (Auto) 1.5 x10^3/uL (1.0-4.8) Monocytes # (Auto) 0.8 x10^3/uL (0.0-1.1) Eosinophils # (Auto) 0.0 x10^3/uL (0.0-0.7) Basophils # (Auto) 0.0 x10^3/uL (0.0-0.2) Segmented Neutrophils % 67 % (35-66) Band Neutrophils % 4 % (0-9) Lymphocytes % 18 % (24-48) Atypical Lymphocytes % (Manual) 2 % (0-0) Monocytes % 8 % (0-10) Myelocytes % 1 % (0-0) Platelet Estimate Adequate (ADEQUATE) Sodium Level 141 mmol/L (136-145) Potassium Level 3.7 mmol/L (3.5-5.1) Chloride Level 102 mmol/L (98-107) Carbon Dioxide Level 29 mmol/L (21-32) Anion Gap 10 (6-14) Blood Urea Nitrogen 12 mg/dL (7-20) Creatinine 0.9 mg/dL (0.6-1.0) Estimated GFR (Cockcroft-Gault) 80.9 Glucose Level 184 mg/dL (70-99) Calcium Level 8.4 mg/dL (8.5-10.1) Microbiology 04/10/17 Fecal Leukocyte Stain - Final, Complete Medications Current Medications Albuterol/ Ipratropium (Duoneb) 3 ml 1X ONCE NEB Last administered on 10:35; Start 04/08/17 at 10:30; Stop 04/08/17 at 10:31; Status DC Methylprednisolone Sodium Succinate (SOLU-Medrol 125MG VIAL) 125 mg 1X ONCE IM Last administered on 04/08/17 10:52; Start 04/08/17 at 10:30; Stop 04/08/17 at 10:31; Status DC Albuterol Sulfate (Ventolin Neb Soln) 10 mg 1X ONCE CONT NEB Last administered on 04/08/17 11:23; Start 04/08/17 at 11:15; Stop 04/08/17 at 11:16 ; Status DC Ondansetron HCl (Zofran Odt) 4 mg 1X ONCE PO Last administered on 04/08/17 11 :18; Start 04/08/17 at 11:15; Stop 04/08/17 at 11:16; Status DC Sodium Chloride 1,000 ml @ 100 mls/hr Q10H IV Last administered on 04/08/17 13:20; Start 04/08/17 at 12:31; Stop 04/08/17 at 22:30; Status DC Albuterol Sulfate (Ventolin Neb Soln) 2.5 mg PRN Q2HR PRN NEB SHORTNESS OF BREATH; Start 04/08/17 at 13:45; Stop 04/08/17 at 13:45; Status DC Alprazolam (Xanax) 0.5 mg BID PO Last administered on 04/12/17 07:34; Start at 21:00 Doxazosin Mesylate (Cardura) 4 mg DAILY PO ; Start 04/08/17 at 14:00; Stop 04/08 at 16:54; Status DC EZETIMIBE (Zetia) 10 mg QHS PO Last administered on 04/11/17 20:43; Start at 21:00 Acetaminophen/ Hydrocodone Bitart (Lortab 7.5/325) 1 tab PRN TID PRN PO MODERATE PAIN Last administered on 04/09/17 20:58; Start 04/08/17 at 13:45 Losartan Potassium (Cozaar) 50 mg DAILY PO Last administered on 04/12/17 07:36 ; Start 04/08/17 at 14:00 Metoprolol Succinate (Toprol Xl) 50 mg DAILY PO Last administered on 04/12/17 07:35; Start 04/08/17 at 14:00 Pantoprazole Sodium (Protonix) 40 mg DAILYAC PO Last administered on 04/12/17 07:34; Start 04/09/17 at 07:30 Non-Formulary Medication 2 puff BID PRN INH SHORTNESS OF BREATH; Start at 13:45; Stop 04/08/17 at 13:56; Status DC Atorvastatin Calcium (Lipitor) 80 mg QHS PO Last administered on 04/11/17 20: 43; Start 04/08/17 at 21:00 Oxycodone HCl (Roxicodone) 10 mg PRN QID PRN PO SEVERE PAIN Last administered on 04/11/17 15:11; Start 04/08/17 at 14:00 Promethazine HCl/ Codeine (Phenergan With Codeine) 5 ml PRN Q6HRS PRN PO COUGH Last administered on 04/11/17 21:55; Start 04/08/17 at 14:00 Acetaminophen (Tylenol) 650 mg PRN Q6HRS PRN PO FEVER Last administered on 04/12 11:30; Start 04/08/17 at 13:45 Ondansetron HCl (Zofran) 4 mg PRN Q6HRS PRN IV NAUSEA/VOMITING Last administered on 04/12/17 06:25; Start 04/08/17 at 13:45 Morphine Sulfate 2 mg PRN Q2HR PRN IV PAIN Last administered on 04/12/17 11:31 ; Start 04/08/17 at 13:45 Tramadol HCl (Ultram) 50 mg PRN Q6HRS PRN PO MILD PAIN; Start 04/08/17 at 13:45 Hydralazine HCl (Apresoline) 10 mg PRN Q4HRS PRN IVP ELEVATED BP, SEE COMMENTS Last administered on 04/12/17 11:31; Start 04/08/17 at 13:45 Docusate Sodium (Colace) 100 mg PRN DAILY PRN PO CONSTIPATION; Start 04/08/17 at 13:45 Albuterol/ Ipratropium (Duoneb) 3 ml RTQID NEB Last administered on 04/12/17 11:26; Start 04/08/17 at 16:00 Albuterol Sulfate (Ventolin Neb Soln) 2.5 mg PRN Q2HR PRN NEB SHORTNESS OF BREATH Last administered on 04/10/17 02:00; Start 04/08/17 at 13:45 Guaifenesin (Mucinex) 600 mg BID PO Last administered on 04/12/17 07:35; Start 04/08/17 at 21:00 Methylprednisolone Sodium Succinate (SOLU-Medrol 40MG VIAL) 60 mg Q12HR IV Last administered on 04/12/17 07:36; Start 04/08/17 at 21:00; Stop 04/12/17 at 08:41; Status DC Enoxaparin Sodium (Lovenox 40mg Syringe) 40 mg Q24H SQ Last administered on 14:54; Start 04/08/17 at 14:00 Albuterol Sulfate (Ventolin Neb Soln) 2.5 mg PRN BID PRN NEB SHORTNESS OF BREATH; Start 04/08/17 at 14:00; Stop 04/08/17 at 14:00; Status DC Ondansetron HCl (Zofran) 4 mg PRN Q8HRS PRN IV NAUSEA/VOMITING; Start 04/08/17 at 15:30; Stop 04/09/17 at 15:29; Status DC Albuterol/ Ipratropium (Duoneb) 3 ml RTQID NEB ; Start 04/08/17 at 16:00; Stop 04/09/17 at 15:59; Status UNV Methylprednisolone Sodium Succinate (SOLU-Medrol 40MG VIAL) 60 mg Q6HRS IV ; Start 04/08/17 at 18:00; Status UNV Doxazosin Mesylate (Cardura) 4 mg QHS PO Last administered on 04/11/17 20:43; Start 04/08/17 at 21:00 Diphenhydramine HCl (Benadryl) 25 mg PRN Q6HRS PRN PO ITCHING Last administered on 04/11/17 00:13; Start 04/08/17 at 19:45 Prochlorperazine Edisylate (Compazine) 10 mg PRN Q6HRS PRN IV NAUSEA/VOMITING; Start 04/09/17 at 12:15 Sodium Chloride 1,000 ml @ 75 mls/hr [id number] IV Last administered on 01:54; Start 04/09/17 at 12:45; Stop 04/10/17 at 13:41; Status DC Prochlorperazine Edisylate (Compazine) 10 mg PRN Q6HRS PRN IM NAUSEA/VOMITING; Start 04/09/17 at 12:45 Amino Acids/ Glycerin/ Electrolytes 1,000 ml @ 75 mls/hr [id number] IV Last administered on 04/11/17 02:37; Start 04/10/17 at 13:30; Stop 04/11/17 at 11:30 ; Status DC Dextrose/Sodium Chloride 1,000 ml @ 75 mls/hr 1X ONCE IV Last administered on 04/11/17t 14:53; Start 04/11/17 at 11:30; Stop 04/12/17 at 00:49; Status DC Methylprednisolone Sodium Succinate (SOLU-Medrol 40MG VIAL) 30 mg Q12HR IV ; Start 04/12/17 at 21:00 Iohexol (Omnipaque 240 Mg/ml) 30 ml 1X ONCE PO ; Start 04/12/17 at 13:30; Stop 04/12/17 at 13:31; Status DC Iohexol (Omnipaque 300 Mg/ml) 75 ml 1X ONCE IV ; Start 04/12/17 at 13:30; Stop 04/12/17 at 13:31; Status DC Info (Do NOT chart on this entry -- for MONITORING) 1 each PRN DAILY PRN MC SEE COMMENTS; Start 04/12/17 at 13:30; Stop 04/14/17 at 13:29 Active Scripts Active [Promethazine Hcl/Codeine] 5 ML Syrup 5 Ml PO PRN Q6HRS PRN 10 Days Protonix (Pantoprazole Sodium) 40 Mg Tablet 40 Mg PO DAILYAC Reported Carvedilol 12.5 Mg Tablet 12.5 Mg PO BID Clonidine Hcl 0.1 Mg Tablet 0.1 Mg PO BID Doxazosin Mesylate 4 Mg Tablet 1 Tab PO DAILY Albuterol Sulfate Neb Soln (Albuterol Sulfate) 2.5 Mg/3 Ml Vial.neb 1 Vial NEB QID Proair Hfa Inhaler (Albuterol Sulfate) 8.5 Gm Hfa.aer.ad 2 Puff INH BID PRN Metoprolol Succinate ( Xl ) (Metoprolol Succinate) 25 Mg Tab.er.24h 2 Tab PO DAILY Gave last night Take night Losartan Potassium 50 Mg Tablet 50 Mg PO DAILY Gave this morning Take tomorrow Oxycodone Hcl 10 Mg Tablet 1 Tab PO PRN QID PRN Last dose given last night Take when needed Hydrocodone-Apap 7.5-325 (Hydrocodone Bit/Acetaminophen) 1 Each Tablet 1 Tab PO PRN TID PRN Not given on this admission Take when needed Xanax (Alprazolam) 0.5 Mg Tablet 1 Tab PO BID Not given on this admission Take when needed Zetia (Ezetimibe) 10 Mg Tablet 1 Tab PO QHS Gave last night Take tonight Atorvastatin Calcium 80 Mg Tablet 80 Mg PO HS Gave last night Take tongiht Vitals/I & O Vital Sign - Last 24 Hours 04/11/17 04/11/17 04/11/17 04/11/17 15:11 15:24 15:40 16:11 Temp 96.1 96.1 Pulse 73 Resp 18 B/P (MAP) 175/103 (127) Pulse Ox 97 99 99 99 O2 Delivery Room Air Room Air Room Air Room Air 04/11/17 04/11/17 04/11/17 04/11/17 16:31 18:54 19:00 19:00 Pulse 79 Resp 16 18 B/P (MAP) 172/94 (120) Pulse Ox 99 99 94 O2 Delivery Room Air Room Air Room Air Room Air 04/11/17 04/11/17 04/11/17 04/11/17 19:38 20:43 21:56 22:48 Temp 97.7 97.7 Pulse 79 67 Resp 18 18 B/P (MAP) 172/94 189/111 (137) Pulse Ox 99 95 O2 Delivery Room Air Room Air Room Air 04/11/17 04/12/17 04/12/17 04/12/17 23:21 03:00 03:54 06:22 Temp 98.1 98.1 Pulse 67 73 Resp 18 16 16 B/P (MAP) 189/111 146/89 (108) Pulse Ox 90 95 95 O2 Delivery Room Air Room Air Room Air 04/12/17 04/12/17 04/12/17 04/12/17 06:45 07:35 07:36 07:57 Temp 98.0 98.0 Pulse 74 74 70 Resp 16 20 B/P (MAP) 179/103 179/103 179/103 (128) Pulse Ox 96 O2 Delivery Room Air 04/12/17 04/12/17 04/12/17 04/12/17 08:00 11:26 11:31 11:31 Pulse 94 B/P (MAP) 209/103 Pulse Ox 96 O2 Delivery Room Air Room Air Room Air 04/12/17 04/12/17 11:41 12:01 Temp 97.7 97.7 Pulse 68 Resp 19 B/P (MAP) 209/136 (160) Pulse Ox 96 96 O2 Delivery Room Air Room Air Intake and Output 04/11/17 04/11/17 04/12/17 15:00 23:00 07:00 Intake Total 950 ml Balance 950 ml VERÓNICA VILLALOBOS MD April 12, 2017 14:38
[2017-04-12 15:26] VITALS: BP 160/100
--- NOTE | 2017-04-12 16:06 | RAD ---
CT abdomen and pelvis with IV contrast History: Abdominal pain. Comparison: CT abdomen pelvis 12/03/2016 Technique: After administration of oral and intravenous contrast, 75 mL Omnipaque 300, helical CT of the abdomen and pelvis was performed from the lung bases through the ischial tuberosities. Axial, sagittal, and coronal reconstructions were obtained. One or more of the following individualized dose reduction techniques were utilized for the study: Automated exposure control Adjustment of mA and/or kV according to patient's size Use of iterative reconstruction technique. Findings: Liver, spleen, pancreas, and bilateral adrenal glands are unremarkable. Bilateral kidneys enhance symmetrically. There is no evidence of bowel obstruction. No free air or free fluid is identified in the abdomen or pelvis. Gallbladder is absent. Uterus is absent. There is interval resolution of previously identified right ovarian cyst. Left ovarian follicles are noted. Small foci of gas are seen in left anterior pelvic subcutaneous soft tissues, probably subcutaneous injection site. Appendix appears within normal limits. Urinary bladder is unremarkable. Impression: No acute abnormality identified in the abdomen or pelvis.
[2017-04-12] MEDS: ENOXAPARIN 40 MG/0.4 ML SYRINGE. SQ SCH (17:27)
[2017-04-12 19:00] VITALS: BP 167/102
[2017-04-12] MEDS: ATORVASTATIN CALCIUM 40 MG TABLET. PO SCH (20:26)
[2017-04-12] MEDS: EZETIMIBE 10 MG TABLET. PO SCH (20:26)
[2017-04-12] MEDS: DOXAZOSIN MESYLATE 4 MG TABLET. PO SCH (20:26)
[2017-04-12] MEDS: HYDROcodone/APAP 7.5/325MG 1 TAB TABLET PO PRN (22:57)
[2017-04-12] MEDS: PROMETH/CODEINE 6.25/10MG 5 ML SYRUP. PO PRN (22:57)
[2017-04-12 23:00] VITALS: BP 121/75
[2017-04-13 03:10] VITALS: BP 125/83
[2017-04-13] MEDS: PANTOPRAZOLE 40 MG TABLET.DR. PO SCH (03:51)
[2017-04-13] MEDS: MORPHINE SULFATE 2 MG/ML DISP.SYRIN. IV PRN ×2 (03:51→08:51)
[2017-04-13 04:54] LABS: BASO % 0 % (0-3); EOS % 0 % (0-3); HEMOGLOBIN 11.9 g/dL (12.0-15.5); LYMPH % 26 % (24-48); MEAN CORPUSCULAR HEMOGLOBIN 29 pg (25-35); MEAN CORPUSCULAR HGB CONC 32 g/dL (31-37); MEAN CORPUSCULAR VOLUME 89 fL (79-100); MONO % 12 % (0-9); NEUT % 62 % (31-73); PLATELET COUNT 174 x10^3/uL (140-400); RED BLOOD COUNT 4.17 x10^6/uL (3.50-5.40); RED CELL DISTRIBUTION WIDTH 14.6 % (11.5-14.5); WHITE BLOOD COUNT 11.6 x10^3/uL (4.0-11.0)
[2017-04-13 05:00] LABS: CALCIUM 8.4 mg/dL (8.5-10.1); CREATININE 0.8 mg/dL (0.6-1.0); GFR 92.6; POTASSIUM 3.7 mmol/L (3.5-5.1)
[2017-04-13 07:00] VITALS: BP 143/93
[2017-04-13] MEDS: IPRATRPIUM/ALBUTEROL 0.5/2.5MG 3 ML NEBU. NEB SCH ×2 (07:55→11:54)
[2017-04-13] MEDS: LOSARTAN POTASSIUM 50 MG TABLET. PO SCH (08:52)
[2017-04-13] MEDS: METOPROLOL SUCC 24HR ER 25 MG TAB.ER.24H. PO SCH (08:53)
[2017-04-13] MEDS: methylPREDNISolone SOD SUCC PF 40 MG/ML VIAL. IV SCH (08:54)
[2017-04-13] MEDS: ALPRAZolam 0.5 MG TABLET PO SCH (08:54)
[2017-04-13 11:00] VITALS: BP 141/92
--- NOTE | 2017-04-13 12:42 | PDOC ---
Subjective: Subjective: Pain is better (but not resolved), tolerating diet, would like to discharge today. Objective: Vital Signs: Vital Signs Date Time Temp Pulse Resp B/P (MAP) Pulse Ox O2 Delivery O2 Flow Rate FiO2 04/13/17 11:00 98.3 77 20 141/92 (108) 96 Room Air 98.3 Labs: Laboratory Tests Test 04/13/17 04:05 White Blood Count 11.6 x10^3/uL Red Blood Count 4.17 x10^6/uL Hemoglobin 11.9 g/dL Hematocrit 37.0 % Mean Corpuscular Volume 89 fL Mean Corpuscular Hemoglobin 29 pg Mean Corpuscular Hemoglobin Concent 32 g/dL Red Cell Distribution Width 14.6 % Platelet Count 174 x10^3/uL Neutrophils (%) (Auto) 62 % Lymphocytes (%) (Auto) 26 % Monocytes (%) (Auto) 12 % Eosinophils (%) (Auto) 0 % Basophils (%) (Auto) 0 % Neutrophils # (Auto) 7.2 x10^3uL Lymphocytes # (Auto) 3.0 x10^3/uL Monocytes # (Auto) 1.4 x10^3/uL Eosinophils # (Auto) 0.0 x10^3/uL Basophils # (Auto) 0.0 x10^3/uL Sodium Level 139 mmol/L Potassium Level 3.7 mmol/L Chloride Level 101 mmol/L Carbon Dioxide Level 32 mmol/L Anion Gap 6 Blood Urea Nitrogen 15 mg/dL Creatinine 0.8 mg/dL Estimated GFR (Cockcroft-Gault) 92.6 Glucose Level 106 mg/dL Calcium Level 8.4 mg/dL Imaging: CT A/P w/ oral and IV contrast 04/12/17 Impression: No acute abnormality identified in the abdomen or pelvis. PE: GEN: NAD, sitting up in bed eating lunch, dressed to leave LUNGS: CTAB HEART: RRR ABD: BS+, periumbilical discomfort NEURO/PSYCH: A & O 3 A/P: Nausea, periumbilical pain - improved -h/o GERD, IBS, multiple abd surgeries -has had a few EGDs and colonoscopies -CT unrevealing as above, now tolerating PO -- DC plans noted, okay per GI. Consider GES as outpt if symptoms persist. SUMI MAJANO April 13, 2017 12:42
== END 2017-04-13 14:00 | disposition home or self-care (01) | DRG 391 ==
LOC: ER 10:04 → 5 NORTH 12:45
PROVIDERS: ADMIT Internal Medicine; ATTEND Internal Medicine
DX: K58.0 Irritable bowel syndrome with diarrhea (principal); N17.0 Acute kidney failure with tubular necrosis; J44.1 Chronic obstructive pulmonary disease with (acute) exacerbation; J45.901 Unspecified asthma with (acute) exacerbation; J20.9 Acute bronchitis, unspecified; D64.9 Anemia, unspecified; E11.43 Type 2 diabetes mellitus with diabetic autonomic (poly)neuropathy; E66.01 Morbid (severe) obesity due to excess calories; E78.00 Pure hypercholesterolemia, unspecified; E78.5 Hyperlipidemia, unspecified; G89.29 Other chronic pain; I10 Essential (primary) hypertension; K31.84 Gastroparesis; K64.9 Unspecified hemorrhoids; M19.90 Unspecified osteoarthritis, unspecified site; F41.9 Anxiety disorder, unspecified; F32.9 Major depressive disorder, single episode, unspecified; K21.9 Gastro-esophageal reflux disease without esophagitis; Z87.891 Personal history of nicotine dependence; Z86.718 Personal history of other venous thrombosis and embolism; Z87.442 Personal history of urinary calculi; Z83.3 Family history of diabetes mellitus; Z82.5 Family history of asthma and other chronic lower respiratory diseases; Z82.49 Family history of ischemic heart disease and other diseases of the circulatory system; Z80.1 Family history of malignant neoplasm of trachea, bronchus and lung; Z80.0 Family history of malignant neoplasm of digestive organs; Z68.39 Body mass index [BMI] 39.0-39.9, adult; Z88.0 Allergy status to penicillin; Z91.018 Allergy to other foods; Z90.49 Acquired absence of other specified parts of digestive tract; Z90.710 Acquired absence of both cervix and uterus; Z98.51 Tubal ligation status
CPT/HCPCS: 36415; 71010; 74177; 80048; 80053; 85007; 85027; 87205; 87324; 94250; 94640; 94644; 94760; 96360; 96372; J0360; J1650; J2270; J2405; J2920; J2930; J7030; J7620; Q0162; Q0163; Q9966; Q9967; 99285-25

== ENCOUNTER 2017-04-17 00:04 | Inpatient (IN) | payer MEDICARE, OTHER ==
[~2017-04-17] VITALS: Ht 149.9 cm; Wt 82.6 kg
[~2017-04-17 00:04] MED LIST changes: +BENZ100C15 PO; -BENZ100C2 PO; +CARV12.52 PO; +CLON0.1T PO; +EZET10TA18 PO; -EZET10TA3 PO; -HYDR-2666 PO; +HYDR-2758 PO
[2017-04-17] MEDS ORDERED: IPRATRPIUM/ALBUTEROL 0.5/2.5MG 3 ML NEBU. NEB ONE (00:30)
--- NOTE | 2017-04-17 00:36 | PHYS DOC ---
Past Medical History Past Medical History: Asthma, COPD, DVT, High Cholesterol, Hypertension, Other Additional Past Medical Histor: ibs Past Surgical History: Cholecystectomy, Hysterectomy, Tubal ligation, Other Additional Past Surgical Histo: neck sx, hernia repair, Alcohol Use: Rarely Drug Use: None Adult General Chief Complaint Chief Complaint: SHORTNESS OF BREATH HPI HPI 47-year-old female who's developed significant shortness of breath has bilateral lower extremity swelling that she noted approximately several hours prior to arrival. Patient was just recently discharged for an asthma exacerbation on Tuesday. She denies any history of heart failure at this time. She denies any chest pain with her symptoms. Review of Systems Review of Systems Constitutional: Denies fever or chills [] Eyes: Denies change in visual acuity, redness, or eye pain [] HENT: Denies nasal congestion or sore throat [] Respiratory: Denies cough, has shortness of breath [] Cardiovascular: No additional information not addressed in HPI [] GI: Denies abdominal pain, nausea, vomiting, bloody stools or diarrhea [] : Denies dysuria or hematuria [] Musculoskeletal: Denies back pain or joint pain [] Integument: Denies rash or skin lesions [] Neurologic: Denies headache, focal weakness or sensory changes [] Endocrine: Denies polyuria or polydipsia [] Current Medications Current Medications Current Medications Medications (Trade) Dose Ordered Sig/Guillermina Start Time Stop Time Status Last Admin Dose Admin Albuterol/ Ipratropium (Duoneb) 3 ml 1X ONCE 04/17/17 00:30 04/17/17 00:39 DC 04/17/17 00:37 3 ML Diphenhydramine HCl (Benadryl) 50 mg 1X ONCE 04/17/17 01:15 04/17/17 01:21 DC Furosemide (Lasix) 40 mg 1X ONCE 04/17/17 03:00 04/17/17 03:01 DC 04/17/17 03:23 40 MG Info (Do NOT chart on this entry -- for MONITORING) 1 each PRN DAILY PRN 04/17/17 03:45 04/19/17 03:44 DC Iohexol (Omnipaque 300 Mg/ml) 75 ml 1X ONCE 04/17/17 04:45 04/17/17 04:46 DC Iohexol (Omnipaque 350 Mg/ml) 75 ml 1X ONCE 04/17/17 03:45 04/17/17 03:46 DC Methylprednisolone Sodium Succinate (SOLU-Medrol 125MG VIAL) 125 mg 1X ONCE 04/17/17 00:45 04/17/17 00:46 DC 04/17/17 00:56 125 MG Ondansetron HCl (Zofran) 4 mg 1X ONCE 04/17/17 01:00 04/17/17 01:18 DC 04/17/17 00:56 4 MG Promethazine HCl 12.5 mg/Sodium Chloride 50.5 ml @ 151.5 mls/ hr PRN Q6HRS PRN 04/17/17 04:00 04/19/17 13:13 DC 04/18/17 15:52 151.5 MLS/HR Allergies Allergies Allergies Coded Allergies Type Severity Reaction Last Updated Verified mustard Allergy Severe ANGIOEDEMA/HIVES 02/24/17 Yes poppyseed oil Allergy Severe Hives 02/11/17 Yes Penicillins Allergy Intermediate HIVES 02/11/17 Yes Physical Exam Physical Exam Constitutional: Well developed, well nourished, no acute distress, non-toxic appearance. [] HENT: Normocephalic, atraumatic, bilateral external ears normal, oropharynx moist, no oral exudates, nose normal. [] Eyes: PERRLA, EOMI, conjunctiva normal, no discharge. [] Neck: Normal range of motion, no tenderness, supple, no stridor. [] Cardiovascular:Heart rate regular rhythm, no murmur [] Lungs & Thorax: Bilateral breath sounds clear to auscultation [] Abdomen: Bowel sounds normal, soft, no tenderness, no masses, no pulsatile masses. [] Skin: Warm, dry, no erythema, no rash. [] Back: No tenderness, no CVA tenderness. [] Extremities: No tenderness, no cyanosis, no clubbing, ROM intact, bilateral lower extremity edema. [] Neurologic: Alert and oriented X 3, normal motor function, normal sensory function, no focal deficits noted. [] Psychologic: Affect normal, judgement normal, mood normal. [] Current Patient Data Vital Signs Vital Signs Date Time Temp Pulse Resp B/P (MAP) Pulse Ox O2 Delivery O2 Flow Rate FiO2 04/17/17 04:30 162/75 (104) 04/17/17 04:00 92 20 97 Room Air 04/17/17 00:10 98.0 98.0 Lab Values Laboratory Tests Test 04/17/17 00:15 04/17/17 00:26 White Blood Count 9.8 x10^3/uL (4.0-11.0) Red Blood Count 4.36 x10^6/uL (3.50-5.40) Hemoglobin 12.8 g/dL (12.0-15.5) Hematocrit 38.9 % (36.0-47.0) Mean Corpuscular Volume 89 fL (79-100) Mean Corpuscular Hemoglobin 29 pg (25-35) Mean Corpuscular Hemoglobin Concent 33 g/dL (31-37) Red Cell Distribution Width 14.9 % (11.5-14.5) H Platelet Count 198 x10^3/uL (140-400) Neutrophils (%) (Auto) 48 % (31-73) Lymphocytes (%) (Auto) 41 % (24-48) Monocytes (%) (Auto) 8 % (0-9) Eosinophils (%) (Auto) 3 % (0-3) Basophils (%) (Auto) 1 % (0-3) Neutrophils # (Auto) 4.7 x10^3uL (1.8-7.7) Lymphocytes # (Auto) 4.0 x10^3/uL (1.0-4.8) Monocytes # (Auto) 0.8 x10^3/uL (0.0-1.1) Eosinophils # (Auto) 0.3 x10^3/uL (0.0-0.7) Basophils # (Auto) 0.1 x10^3/uL (0.0-0.2) D-Dimer (Merlene) 0.51 ug/mlFEU (0.00-0.50) H Sodium Level 140 mmol/L (136-145) Potassium Level 3.7 mmol/L (3.5-5.1) Chloride Level 102 mmol/L (98-107) Carbon Dioxide Level 30 mmol/L (21-32) Anion Gap 8 (6-14) Blood Urea Nitrogen 18 mg/dL (7-20) Creatinine 0.9 mg/dL (0.6-1.0) Estimated GFR (Cockcroft-Gault) 80.9 Glucose Level 110 mg/dL (70-99) H Calcium Level 9.6 mg/dL (8.5-10.1) Troponin I Quantitative 0.027 ng/mL (0.000-0.055) PV-Dnw-G-Type Natriuretic Peptide 21 pg/mL (0-124) Laboratory Tests 04/17/17 00:15 Laboratory Tests 04/17/17 00:15 EKG EKG EKG as interpreted by me shows a sinus rhythm with rate of 95 bpm. There is a leftward axis. There is no acute injury pattern. Intervals are normal. Radiology/Procedures Radiology/Procedures CT angiogram of the chest with contrast: Reason for examination: Shortness of breath and chest pain. Evaluate for pulmonary embolus. Helical images were obtained through the chest with intravenous administration of 75 cc Omnipaque 300 using PE protocol. 3-D MIPS reconstruction was performed in sagittal and coronal planes. Exposure: One or more of the following individualized dose reduction techniques were utilized for this examination: 1. Automated exposure control 2. Adjustment of the mA and/or kV according to patient size 3. Use of iterative reconstruction technique. No abnormality seen at the thyroid gland. The trachea and mainstem bronchi show no intraluminal lesions. No abnormality seen at the esophagus. The thoracic aorta shows no aneurysmal dilatation or dissection. The heart size is normal. No pulmonary embolus is evident. The lung zendejas show no pulmonary nodules, infiltrates, pleural effusions or pneumothorax. No abnormalities seen at the liver, spleen or adrenal glands. IMPRESSION: No evidence pulmonary embolus. No gross infiltrates or pleural effusions. Electronically signed by: Robina Call MD (04/17/2017 5:46 AM) Indication: Shortness of breath. Time of exam 0052 hours. Correlation is made with prior chest from 04/08/2017. FINDINGS: The heart size is normal. The lungs are clear. No pleural effusion or pneumothorax is identified. The pulmonary vascularity is normal. IMPRESSION: No acute abnormality detected. Course & Med Decision Making Course & Med Decision Making Pertinent Labs and Imaging studies reviewed. (See chart for details) 47-year-old female who has significant lower externally swelling and sore shortness of breath that she noted several hours prior to arrival of full laboratory workup including a chest x-ray, EKG and a set of cardiac enzymes. Her EKG at this time is fairly unremarkable. A DuoNeb treatment will be given. Upon my reassessment, patient continues to remain short of breath with ambulation and will be admitted for likely COPD exacerbation. Her CTA of the chest and her chest film did not demonstrate any acute abnormality. Her case was discussed with the hospitalist, Dr. Ontiveros, who agreed to accept the patient for further evaluation and treatment. Dragon Disclaimer Dragon Disclaimer This electronic medical record was generated, in whole or in part, using a voice recognition dictation system. Departure Departure Impression: Primary Impression: COPD exacerbation Disposition: ADMITTED INPATIENT Admitting Physician: Jarret Ontiveros Condition: STABLE Referrals: SHARMIN ESQUEDA (PCP) SABINA AVELAR DO Apr 17, 2017 00:36
[2017-04-17] MEDS ORDERED: methylPREDNISolone SOD SUCC PF 125 MG/2 ML VIAL. IV ONE (00:45)
[2017-04-17] MEDS ORDERED: ONDANSETRON PF 4 MG/2 ML VIAL. IV ONE (01:00)
[2017-04-17 01:11] LABS: BASO # 0.1 x10^3/uL (0.0-0.2); BASO % 1 % (0-3); EOS % 3 % (0-3); HEMATOCRIT 38.9 % (36.0-47.0); HEMOGLOBIN 12.8 g/dL (12.0-15.5); LYMPH % 41 % (24-48); MEAN CORPUSCULAR HEMOGLOBIN 29 pg (25-35); MEAN CORPUSCULAR HGB CONC 33 g/dL (31-37); MEAN CORPUSCULAR VOLUME 89 fL (79-100); MONO % 8 % (0-9); NEUT % 48 % (31-73); PLATELET COUNT 198 x10^3/uL (140-400); RED BLOOD COUNT 4.36 x10^6/uL (3.50-5.40); RED CELL DISTRIBUTION WIDTH 14.9 % (11.5-14.5); WHITE BLOOD COUNT 9.8 x10^3/uL (4.0-11.0)
[2017-04-17] MEDS ORDERED: diphenhydrAMINE 50 MG/ML VIAL IVP ONE (01:15)
[2017-04-17 01:24] LABS: CALCIUM 9.6 mg/dL (8.5-10.1); CREATININE 0.9 mg/dL (0.6-1.0); GFR 80.9; POTASSIUM 3.7 mmol/L (3.5-5.1)
[2017-04-17] MEDS ORDERED: FUROSEMIDE 40 MG/4 ML VIAL. IVP ONE (03:00)
[2017-04-17] MEDS ORDERED: CONTRAST GIVEN MC PRN (03:45)
[2017-04-17] MEDS ORDERED: IOHEXOL 350 MG/ML 75ML VIAL. IV ONE (03:45)
[2017-04-17] MEDS ORDERED: IOHEXOL 300 MG/ML 75 ML VIAL IV ONE ×2 (04:45→05:30)
[2017-04-17] MEDS ORDERED: ONDANSETRON PF 4 MG/2 ML VIAL. IV PRN ×2 (05:30→09:15)
--- NOTE | 2017-04-17 05:38 | ACF ---
Admission Forms Criteria COPD Clinical Indications for Admission to Inpatient Care (Place 'X' for any and all applicable criteria): Admission is indicated for ANY ONE of the following (1)(2)(3): [X]I. Acute exacerbation by high-risk comorbidity (e.g., pneumonia, dysrhythmia, heart failure, pleural effusion, pneumothorax) or severe underlying COPD (e.g., steroid dependent) [ ]II. Inpatient admission required rather than observation care (see Chronic Obstructive Pulmonary Disease: Observation Care) because of ANY ONE of the following: [ ]a) New or pre-existing signs or symptoms of COPD (eg, dyspnea or Tachypnea at rest or with minimal activity) that persist despite outpatient and observation care treatment [ ]b) New-onset hypoxemia (room air SaO2 less than 90%, PO2 less than 60 mm Hg (8.0 kPa)) that persists despite outpatient and observation care treatment [ ]c) Worsening of pre-existing hypoxemia (eg, new or increased requirement for supplemental oxygen to maintain oxygenation at baseline level) that persists despite outpatient and observation care treatment, with oxygen treatment needs performable only in acute inpatient setting [ ]d) Hypercarbia (PCO2 greater than 40 mm Hg (5.3 kPa))-induced respiratory acidosis (pH less than 7.35) that persists despite outpatient and observation care treatment [ ]e) Supplemental oxygen or respiratory treatments for over 24 hours that are performable only in acute inpatient setting [ ]f) Chest tube placement with active evacuation (e.g., suction, drainage) (5) [ ]g) Other condition, treatment or monitoring requiring inpatient admission [ ]III. Planned invasive surgical or diagnostic procedures requiring acute- care hospitalization [ ]IV. Acute respiratory failure (e.g., uncompensated hypercarbia, severe hypoxemia) [ ]V. Severe comorbid condition (e.g., severe steroid myopathy, acute vertebral fracture) that has acutely worsened pulmonary function [ ]. Confusion state, lethargy, obtundation, stupor or coma Extended stay beyond goal length of stay may be needed for (31)(32): [ ]a ) Respiratory Failure. [ ]b) Severe or persisting hypoxemia or hypercarbia [ ]c) Severe or persistent dyspnea [ ]d) Comorbidities (e.g. chronic heart failure, atrial fibrillation with rapid response, pneumonia) [ ]e) Malnutrition The original [facility] content created by [facility] has been revised. The portions of the content which have been revised are identified through the use of italic text or in bold, and [facility] has neither reviewed nor approved the modified material. All other unmodified content is copyright [facility]. Please see references footnoted in the original [facility] edition 2016 Admission Criteria Met?: Yes CARSON COMBS Apr 17, 2017 05:38
--- NOTE | 2017-04-17 05:49 | RAD ---
CT angiogram of the chest with contrast: Reason for examination: Shortness of breath and chest pain. Evaluate for pulmonary embolus. Helical images were obtained through the chest with intravenous administration of 75 cc Omnipaque 300 using PE protocol. 3-D MIPS reconstruction was performed in sagittal and coronal planes. Exposure: One or more of the following individualized dose reduction techniques were utilized for this examination: 1. Automated exposure control 2. Adjustment of the mA and/or kV according to patient size 3. Use of iterative reconstruction technique. No abnormality seen at the thyroid gland. The trachea and mainstem bronchi show no intraluminal lesions. No abnormality seen at the esophagus. The thoracic aorta shows no aneurysmal dilatation or dissection. The heart size is normal. No pulmonary embolus is evident. The lung zendejas show no pulmonary nodules, infiltrates, pleural effusions or pneumothorax. No abnormalities seen at the liver, spleen or adrenal glands. IMPRESSION: No evidence pulmonary embolus. No gross infiltrates or pleural effusions. Electronically signed by: Robina Call MD (04/17/2017 5:46 AM)
[2017-04-17 07:00] VITALS: BP 124/72
--- NOTE | 2017-04-17 07:36 | RAD ---
Indication: Shortness of breath. Time of exam 0052 hours. Correlation is made with prior chest from 04/08/2017. FINDINGS: The heart size is normal. The lungs are clear. No pleural effusion or pneumothorax is identified. The pulmonary vascularity is normal. IMPRESSION: No acute abnormality detected.
[2017-04-17] MEDS: IPRATRPIUM/ALBUTEROL 0.5/2.5MG 3 ML NEBU. NEB SCH ×4 (08:00→20:17)
[2017-04-17] MEDS: PROMETHAZINE 12.5 MG in IV NORMAL SALINE 50ML 50 ML IV PRN (08:17)
[2017-04-17] MEDS ORDERED: ACETAMINOPHEN 500 MG TABLET PO PRN (09:15)
--- NOTE | 2017-04-17 09:16 | PDOC ---
Provider Note Provider Note dictated KHALIF ROLLINS MD Apr 17, 2017 09:16
[2017-04-17] MEDS ORDERED: PROMETH/CODEINE 6.25/10MG 5 ML SYRUP. PO PRN (09:30)
--- NOTE | 2017-04-17 09:34 | CONS ---
DATE OF CONSULTATION: ATTENDING PHYSICIAN: Dr. Jarret Ontiveros. REASON FOR CONSULTATION: Dyspnea. HISTORY OF PRESENT ILLNESS: The patient was recently discharged from the hospital. She has history of asthma. She smoked minimally for about 10 years in the past. She started to have some swelling of lower extremities. She states she was short of breath and had some wheezing. The patient has a mild cough. No fever, no chills. She was evaluated in the Emergency Room and underwent CT of the chest, which was reviewed by me. There was no evidence of pulmonary embolism and no evidence of any infiltrates. She has been hospitalized and started on bronchodilators. She received steroids as well. She feels better. PAST MEDICAL HISTORY: Minimal history of tobacco use. History of COPD, history of DVT, history of dyslipidemia, hypertension, history of irritable bowel syndrome. PAST SURGICAL HISTORY: Cholecystectomy, hysterectomy, tubal ligation, and hernia repairs. ALLERGIES: PENICILLIN, MUSTARD AND POPPY SEED OIL. MEDICATIONS: Reviewed as listed in the MRAD. REVIEW OF SYSTEMS: Twelve-point systems obtained, pertinent positives discussed in history of present illness, otherwise noncontributory. All systems that were negative were reviewed as well. SOCIAL HISTORY: Smoked for 10 years before quitting. PHYSICAL EXAMINATION: VITAL SIGNS: Blood pressure 162/75, afebrile, and pulse ox 94% on room air. NECK: Supple. LUNGS: With diminished breath sounds posteriorly and some sustained injuries. CARDIOVASCULAR: Regular rate and rhythm. ABDOMEN: Soft. EXTREMITIES: No pitting edema in the calf, trace in the ankles. LABORATORY DATA: Reviewed. White cell count 9.8, hemoglobin 12.8 and platelets are 198. BUN is 18, creatinine 0.9. D-dimer is 0.51. IMPRESSION: 1. Dyspnea secondary to acute asthma exacerbation triggered by possible viral bronchitis. 2. No evidence of pulmonary embolism. D-dimer at the borderline level of 0.5. We will obtain venous Dopplers of lower extremities. RECOMMENDATION: 1. Continue with DuoNeb. 2. Steroids taper. 3. Obtain venous Dopplers of lower extremities. 4. No need for antibiotics. CT chest with no evidence of pulmonary embolism and no evidence of any pneumonia. 5. Possible discharge in the next 24 hours. KHALIF ROLLINS MD DR: JESS/darien JOB#: [id number] / [id number]
[2017-04-17] MEDS: methylPREDNISolone SOD SUCC PF 125 MG/2 ML VIAL. IV SCH ×2 (09:51→20:43)
[2017-04-17] MEDS: MORPHINE SULFATE 2 MG/ML DISP.SYRIN. IV PRN ×2 (09:51→15:35)
[2017-04-17] MEDS: LOSARTAN POTASSIUM 50 MG TABLET. PO SCH (09:52)
[2017-04-17] MEDS: PANTOPRAZOLE 40 MG TABLET.DR. PO SCH (09:52)
[2017-04-17] MEDS: ALPRAZolam 0.5 MG TABLET PO SCH ×2 (09:53→20:41)
[2017-04-17] MEDS: METOPROLOL SUCC 24HR ER 50 MG TAB.ER.24H. PO SCH (09:53)
[2017-04-17] MEDS ORDERED: cloNIDine HCL 0.1 MG TABLET PO SCH (10:00)
[2017-04-17] MEDS ORDERED: DOXAZOSIN MESYLATE 4 MG TABLET. PO SCH (10:00)
[2017-04-17 11:00] VITALS: BP 122/70
--- NOTE | 2017-04-17 11:23 | PDOC1 ---
History and Physical Date of Admission Date of Admission DATE: 04/17/17 TIME: 11:19 Identification/Chief Complaint Chief Complaint SOA Problems: Source Source: Caregiver, Chart review, Patient History of Present Illness History of Present Illness 47 y.o AA female, obese was just dcd 5 days ago here for the ff: 1. Acute asthma exacerbation. improved 2. Acute nonspecific bronchitis. 3. Abnormal CT of the chest revealing some nodules. The patient is due to follow up with Dr Manuel in office in 05/2017. 4. Seasonal allergies. 5. Allergic rhinitis. 6. Abd. pain/ h/o IBS BAck again bec of SOA, some low sats hence admitted, CXR neg, LAbs ok, no white ct, no fevers, CTA neg for PE, US legs now about to do to r/o clots. NO wheezing I heard,. IF neg home. Pt likes to be admitted seems like, Prev smoker, quit 1990s CLaims compliant with singulair, nebs etc at home. NO recent travels or sick contacts Past Medical History Cardiovascular: HTN Pulmonary: Asthma, COPD Heme/Onc: Anemia NOS, Other Psych: Anxiety Musculoskeletal: Osteoarthritis, Other Renal/: Other Endocrine: Diabetes Past Surgical History Past Surgical History: Cholecystectomy, Hernia Repair, Tubal Ligation, Hysterectomy, Other Family History Family History: Cancer, Diabetes, Hypertension, Other Social History Smoke: Quit ALCOHOL: social Drugs: None Current Problem List Problem List Problems Medical Problems: (1) COPD exacerbation Status: Acute Problems: Current Medications Current Medications Current Medications Albuterol/ Ipratropium (Duoneb) 3 ml 1X ONCE NEB Last administered on 00:37; Start 04/17/17 at 00:30; Stop 04/17/17 at 00:39; Status DC Methylprednisolone Sodium Succinate (SOLU-Medrol 125MG VIAL) 125 mg 1X ONCE IV Last administered on 04/17/17 00:56; Start 04/17/17 at 00:45; Stop 04/17/17 at 00:46; Status DC Ondansetron HCl (Zofran) 4 mg 1X ONCE IV Last administered on 04/17/17 00:56; Start 04/17/17 at 01:00; Stop 04/17/17 at 01:18; Status DC Diphenhydramine HCl (Benadryl) 50 mg 1X ONCE IVP ; Start 04/17/17 at 01:15; Stop 04/17/17 at 01:21; Status DC Furosemide (Lasix) 40 mg 1X ONCE IVP Last administered on 04/17/17 03:23; Start 04/17/17 at 03:00; Stop 04/17/17 at 03:01; Status DC Iohexol (Omnipaque 350 Mg/ml) 75 ml 1X ONCE IV ; Start 04/17/17 at 03:45; Stop 04/17/17 at 03:46; Status DC Info (Do NOT chart on this entry -- for MONITORING) 1 each PRN DAILY PRN MC SEE COMMENTS; Start 04/17/17 at 03:45; Stop 04/19/17 at 03:44 Promethazine HCl 12.5 mg/Sodium Chloride 50.5 ml @ 151.5 mls/ hr PRN Q6HRS PRN IV NAUSEA/VOMITING Last administered on 04/17/17 08:17; Start 04/17/17 at 04: 00 Iohexol (Omnipaque 300 Mg/ml) 75 ml 1X ONCE IV ; Start 04/17/17 at 04:45; Stop 04/17/17 at 04:46; Status DC Iohexol (Omnipaque 300 Mg/ml) 75 ml 1X ONCE IV ; Start 04/17/17 at 05:30; Stop 04/17/17 at 05:31; Status DC Ondansetron HCl (Zofran) 4 mg PRN Q8HRS PRN IV NAUSEA/VOMITING; Start 04/17/17 at 05:30; Stop 04/17/17 at 09:18; Status DC Albuterol/ Ipratropium (Duoneb) 3 ml RTQID NEB ; Start 04/17/17 at 08:00; Stop at 07:59 Ondansetron HCl (Zofran) 4 mg PRN Q6HRS PRN IV NAUSEA/VOMITING; Start 04/17/17 at 09:15; Stop 04/18/17 at 09:14 Morphine Sulfate 2 mg PRN Q2HR PRN IV PAIN Last administered on 04/17/17 09:51 ; Start 04/17/17 at 09:15 Acetaminophen (Tylenol) 500 mg PRN Q6HRS PRN PO MILD PAIN / TEMP; Start at 09:15 Benzonatate (Tessalon Perle) 100 mg SNB616 PO ; Start 04/17/17 at 14:00 Alprazolam (Xanax) 0.5 mg BID PO Last administered on 04/17/17 09:53; Start 04/17/17 at 10:00 Clonidine HCl (Catapres) 0.1 mg BID PO ; Start 04/17/17 at 10:00; Stop 04/17/17 at 10:03; Status DC Doxazosin Mesylate (Cardura) 4 mg DAILY PO ; Start 04/17/17 at 10:00; Stop at 10:03; Status DC EZETIMIBE (Zetia) 10 mg QHS PO ; Start 04/17/17 at 21:00 Acetaminophen/ Hydrocodone Bitart (Lortab 7.5/325) 1 tab PRN TID PRN PO PAIN; Start 04/17/17 at 09:15 Losartan Potassium (Cozaar) 50 mg DAILY PO Last administered on 04/17/17 09:52 ; Start 04/17/17 at 10:00 Metoprolol Succinate (Toprol Xl) 50 mg DAILY PO Last administered on 04/17/17 09:53; Start 04/17/17 at 10:00 Pantoprazole Sodium (Protonix) 40 mg DAILYAC PO Last administered on 04/17/17 09:52; Start 04/17/17 at 10:00 Atorvastatin Calcium (Lipitor) 80 mg QHS PO ; Start 04/17/17 at 21:00 Oxycodone HCl (Roxicodone) 10 mg PRN Q6HRS PRN PO PAIN; Start 04/17/17 at 09:30 Promethazine HCl/ Codeine (Phenergan With Codeine) 5 ml PRN Q6HRS PRN PO COUGH ; Start 04/17/17 at 09:30 Methylprednisolone Sodium Succinate (SOLU-Medrol 125MG VIAL) 60 mg BID IV Last administered on 04/17/17 09:51; Start 04/17/17 at 10:00 Clonidine HCl (Catapres) 0.1 mg PRN BID PRN PO ELEVATED BP, SEE COMMENTS; Start 04/18/17 at 10:00 Doxazosin Mesylate (Cardura) 4 mg HS PO ; Start 04/17/17 at 21:00 Active Scripts Active [Promethazine Hcl/Codeine] 5 ML Syrup 5 Ml PO PRN Q6HRS PRN 10 Days Protonix (Pantoprazole Sodium) 40 Mg Tablet 40 Mg PO DAILYAC Reported Clonidine Hcl 0.1 Mg Tablet 0.1 Mg PO BID Doxazosin Mesylate 4 Mg Tablet 1 Tab PO DAILY Albuterol Sulfate Neb Soln (Albuterol Sulfate) 2.5 Mg/3 Ml Vial.neb 1 Vial NEB QID Proair Hfa Inhaler (Albuterol Sulfate) 8.5 Gm Hfa.aer.ad 2 Puff INH BID PRN Metoprolol Succinate ( Xl ) (Metoprolol Succinate) 25 Mg Tab.er.24h 2 Tab PO DAILY Gave last night Take night Losartan Potassium 50 Mg Tablet 50 Mg PO DAILY Gave this morning Take tomorrow Oxycodone Hcl 10 Mg Tablet 1 Tab PO PRN QID PRN Last dose given last night Take when needed Hydrocodone-Apap 7.5-325 (Hydrocodone Bit/Acetaminophen) 1 Each Tablet 1 Tab PO PRN TID PRN Not given on this admission Take when needed Xanax (Alprazolam) 0.5 Mg Tablet 1 Tab PO BID Not given on this admission Take when needed Zetia (Ezetimibe) 10 Mg Tablet 1 Tab PO QHS Gave last night Take tonight Atorvastatin Calcium 80 Mg Tablet 80 Mg PO HS Gave last night Take tongiht Allergies Allergies: Coded Allergies: mustard (Verified Allergy, Severe, ANGIOEDEMA/HIVES, 02/24/17) MUSTARD SEED poppyseed oil (Verified Allergy, Severe, Hives, 02/11/17) POPPYSEEDS Penicillins (Verified Allergy, Intermediate, HIVES, 02/11/17) ROS General: No: Chills, Night Sweats, Fatigue, Malaise, Appetite, Other PSYCHOLOGICAL ROS: No: Anxiety, Behavioral Disorder, Concentration difficultie , Decreased libido, Depression, Disorientation, Hallucinations, Hostility, Irritablity, Memory difficulties, Mood Swings, Obsessive thoughts, Physical abuse, Sexual abuse, Sleep disturbances, Suicidal ideation, Other Eyes: No Blurry vision, No Decreased vision, No Double vision, No Dry eyes, No Excessive tearing, No Eye Pain, No Itchy Eyes, No Loss of vision, No Photophobia , No Scotomata, No Uses contacts, No Uses glasses, No Other HEENT: No: Heacaches, Visual Changes, Hearing change, Nasal congestion, Nasal discharge, Oral lesions, Sinus pain, Sore Throat, Epistaxis, Sneezing, Snoring, Tinnitus, Vertigo, Vocal changes, Other ALLERGY AND IMMUNOLOGY: No: Hives, Insect Bite Sensitivity, Itchy/Watery Eyes, Nasal Congestion, Post Nasal Drip, Seasonal Allergies, Other Hematological and Lymphatic: No: Bleeding Problems, Blood Clots, Blood Transfusions, Brusing, Night Sweats, Pallor, Swollen Lymph Nodes, Other ENDOCRINE: No: Breast Changes, Galactorrhea, Hair Pattern Changes, Hot Flashes , Malaise/lethargy, Mood Swings, Palpitations, Polydipsia/polyuria, Skin Changes , Temperature Intolerance, Unexpected Weight Changes, Other Breast: No New/Changing Breast Lumps, No Nipple changes, No Nipple discharge, No Other Respiratory: YES: Shortness of breath, SOB with excertion Cardiovascular: No Chest Pain, No Palpitations, No Orthopnea, No Paroxysmal Noc. Dyspnea, No Edema, No Lt Headedness, No Other Gastrointestinal: No Nausea, No Vomiting, No Abdominal Pain, No Diarrhea, No Constipation, No Melena, No Hematochezia, No Other Genitourinary: No Dysuria, No Frequency, No Incontinence, No Hematuria, No Retention, No Discharge, No Urgency, No Pain, No Flank Pain, No Other, No , No , No , No , No , No , No Musculoskeletal: No Gait Disturbance, No Joint Pain, No Joint Stiffness, No Joint Swelling, No Muscle Pain, No Muscular Weakness, No Pain In:, No Swelling In:, No Other Neurological: No Behavorial Changes, No Bowel/Bladder ControlChng, No Confusion , No Dizziness, No Gait Disturbance, No Headaches, No Impaired Coord/balance, No Memory Loss, No Numbness/Tingling, No Seizures, No Speech Problems, No Tremors, No Visual Changes, No Weakness, No Other Skin: No Dry Skin, No Eczema, No Hair Changes, No Lumps, No Mole Changes, No Mottling, No Nail Changes, No Pruritus, No Rash, No Skin Lesion Changes, No Other, No Acne Physical Exam General: Alert, Oriented X3, Cooperative, No acute distress HEENT: Atraumatic, PERRLA Lungs: Normal air movement, Other (no wheezes or crackles) Heart: S1S2, RRR, no thrills, no rubs, no gallops Cardiovascular: S1, S2 Breasts: Normal, Rt breast nml w/o mass, Lt breast nml w/o mass, Nipples normal Abdomen: Normal bowel sounds, Soft, No tenderness, No hepatosplenomegaly, No masses Rectal Exam: not examined, mass PELVIC: Nml ext genitalia, Nml ext vulva, Nml ext vagina Extremities: No clubbing, No cyanosis, No edema, Normal pulses, No tenderness/ swelling Skin: No rashes, No breakdown, No significant lesion Neuro: Normal gait, Normal speech, Strength at 5/5 X4 ext, Normal tone, Sensation intact, Cranial nerves 3-12 NL, Reflexes 2+ Psych/Mental Status: Mental status NL, Mood NL Vitals Vitals Vital Signs Date Time Temp Pulse Resp B/P (MAP) Pulse Ox O2 Delivery O2 Flow Rate FiO2 04/17/17 11:00 97.4 106 18 122/70 (87) 95 Room Air 97.4 Labs Labs Laboratory Tests Test 04/17/17 00:15 04/17/17 00:26 White Blood Count 9.8 x10^3/uL (4.0-11.0) Red Blood Count 4.36 x10^6/uL (3.50-5.40) Hemoglobin 12.8 g/dL (12.0-15.5) Hematocrit 38.9 % (36.0-47.0) Mean Corpuscular Volume 89 fL (79-100) Mean Corpuscular Hemoglobin 29 pg (25-35) Mean Corpuscular Hemoglobin Concent 33 g/dL (31-37) Red Cell Distribution Width 14.9 % (11.5-14.5) Platelet Count 198 x10^3/uL (140-400) Neutrophils (%) (Auto) 48 % (31-73) Lymphocytes (%) (Auto) 41 % (24-48) Monocytes (%) (Auto) 8 % (0-9) Eosinophils (%) (Auto) 3 % (0-3) Basophils (%) (Auto) 1 % (0-3) Neutrophils # (Auto) 4.7 x10^3uL (1.8-7.7) Lymphocytes # (Auto) 4.0 x10^3/uL (1.0-4.8) Monocytes # (Auto) 0.8 x10^3/uL (0.0-1.1) Eosinophils # (Auto) 0.3 x10^3/uL (0.0-0.7) Basophils # (Auto) 0.1 x10^3/uL (0.0-0.2) D-Dimer (Merlene) 0.51 ug/mlFEU (0.00-0.50) Sodium Level 140 mmol/L (136-145) Potassium Level 3.7 mmol/L (3.5-5.1) Chloride Level 102 mmol/L (98-107) Carbon Dioxide Level 30 mmol/L (21-32) Anion Gap 8 (6-14) Blood Urea Nitrogen 18 mg/dL (7-20) Creatinine 0.9 mg/dL (0.6-1.0) Estimated GFR (Cockcroft-Gault) 80.9 Glucose Level 110 mg/dL (70-99) Calcium Level 9.6 mg/dL (8.5-10.1) Troponin I Quantitative 0.027 ng/mL (0.000-0.055) OH-Qlg-Y-Type Natriuretic Peptide 21 pg/mL (0-124) Laboratory Tests Test 04/17/17 00:15 04/17/17 00:26 White Blood Count 9.8 x10^3/uL (4.0-11.0) Red Blood Count 4.36 x10^6/uL (3.50-5.40) Hemoglobin 12.8 g/dL (12.0-15.5) Hematocrit 38.9 % (36.0-47.0) Mean Corpuscular Volume 89 fL (79-100) Mean Corpuscular Hemoglobin 29 pg (25-35) Mean Corpuscular Hemoglobin Concent 33 g/dL (31-37) Red Cell Distribution Width 14.9 % (11.5-14.5) Platelet Count 198 x10^3/uL (140-400) Neutrophils (%) (Auto) 48 % (31-73) Lymphocytes (%) (Auto) 41 % (24-48) Monocytes (%) (Auto) 8 % (0-9) Eosinophils (%) (Auto) 3 % (0-3) Basophils (%) (Auto) 1 % (0-3) Neutrophils # (Auto) 4.7 x10^3uL (1.8-7.7) Lymphocytes # (Auto) 4.0 x10^3/uL (1.0-4.8) Monocytes # (Auto) 0.8 x10^3/uL (0.0-1.1) Eosinophils # (Auto) 0.3 x10^3/uL (0.0-0.7) Basophils # (Auto) 0.1 x10^3/uL (0.0-0.2) D-Dimer (Merlene) 0.51 ug/mlFEU (0.00-0.50) Sodium Level 140 mmol/L (136-145) Potassium Level 3.7 mmol/L (3.5-5.1) Chloride Level 102 mmol/L (98-107) Carbon Dioxide Level 30 mmol/L (21-32) Anion Gap 8 (6-14) Blood Urea Nitrogen 18 mg/dL (7-20) Creatinine 0.9 mg/dL (0.6-1.0) Estimated GFR (Cockcroft-Gault) 80.9 Glucose Level 110 mg/dL (70-99) Calcium Level 9.6 mg/dL (8.5-10.1) Troponin I Quantitative 0.027 ng/mL (0.000-0.055) ZT-Nub-E-Type Natriuretic Peptide 21 pg/mL (0-124) VTE Prophylaxis Ordered VTE Prophylaxis Devices: Yes VTE Pharmacological Prophylaxi: Yes Assessment/Plan Assessment/Plan 1. Asthma exacerbation.bronchitis 2. 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 Ex smoker PLAN: US sono OBS IF neg home JOSE WILLIAMSON MD Apr 17, 2017 11:23
--- NOTE | 2017-04-17 11:24 | EKG ---
[facility] [address] [place] [address] Test Date: 2017-04-17 Test Time: 00:13:29 Pat Name: GABRIELE MUHAMMAD Department: Room: 420 Gender: F Program Supervisor: [place] EMT : 1970 Requested By: SABINA AVELAR Order Number: [id number] Reading MD: Jack Burr Measurements Intervals [place] Rate: 95 P: 52 IA: 126 QRS: -2 QRSD: 78 T: 2 QT: 342 QTc: 433 Interpretive Statements SINUS RHYTHM LEFT ATRIAL ABNORMALITY LEFTWARD AXIS RI6.01 Unconfirmed report Compared to ECG 02/22/2017 22:28:19 Atrial abnormality now present Left-axis deviation now present Electronically Signed On 04-20-2017 9:50:15 CDT by Jack Burr
--- NOTE | 2017-04-17 11:30 | RAD ---
Indication: Lower extremity edema. Grayscale, color-flow and duplex Doppler evaluation of bilateral lower extremity deep venous systems was performed. FINDINGS: There is no evidence of right or left lower extremity DVT. Both lower extremity deep venous systems showed normal compressibility with normal response to augmentation and Valsalva. No fluid collection or mass is detected. IMPRESSION: No evidence of right or left lower extremity DVT.
[2017-04-17] MEDS: BENZONATATE 100 MG CAPSULE. PO SCH ×2 (13:00→21:00)
[2017-04-17 15:00] VITALS: BP 148/85
[2017-04-17 19:45] VITALS: BP 144/71
[2017-04-17] MEDS: oxyCODONE IR 5 MG TABLET PO PRN (20:40)
[2017-04-17] MEDS: ATORVASTATIN CALCIUM 40 MG TABLET. PO SCH (20:41)
[2017-04-17] MEDS: EZETIMIBE 10 MG TABLET. PO SCH (20:42)
[2017-04-17] MEDS: DOXAZOSIN MESYLATE 4 MG TABLET. PO SCH (20:42)
[2017-04-17 23:45] VITALS: BP 156/86
[2017-04-18] VITALS (12 sets, daily range): BP systolic 108–196; BP diastolic 63–109
[2017-04-18] MEDS: oxyCODONE IR 5 MG TABLET PO PRN ×2 (03:22→13:07)
[2017-04-18] MEDS: ALBUTEROL SULFATE 2.5 MG/3 ML NEBU. NEB PRN ×2 (04:56→09:29)
[2017-04-18] MEDS: MORPHINE SULFATE 2 MG/ML DISP.SYRIN. IV PRN ×2 (04:57→08:17)
[2017-04-18] MEDS: IPRATRPIUM/ALBUTEROL 0.5/2.5MG 3 ML NEBU. NEB SCH ×4 (07:37→19:16)
[2017-04-18] MEDS: BENZONATATE 100 MG CAPSULE. PO SCH ×3 (08:08→20:51)
[2017-04-18] MEDS: METOPROLOL SUCC 24HR ER 50 MG TAB.ER.24H. PO SCH (08:09)
[2017-04-18] MEDS: LOSARTAN POTASSIUM 50 MG TABLET. PO SCH (08:10)
[2017-04-18] MEDS: PANTOPRAZOLE 40 MG TABLET.DR. PO SCH (08:10)
[2017-04-18] MEDS: ALPRAZolam 0.5 MG TABLET PO SCH ×2 (08:10→20:51)
[2017-04-18] MEDS: methylPREDNISolone SOD SUCC PF 125 MG/2 ML VIAL. IV SCH ×2 (08:11→20:51)
--- NOTE | 2017-04-18 11:42 | PDOC ---
PULMONARY PROGRESS NOTES Subjective c/o SO with exertion no wheezing Vitals Vital Signs Date Time Temp Pulse Resp B/P (MAP) Pulse Ox O2 Delivery O2 Flow Rate FiO2 04/18/17 11:25 Room Air 04/18/17 11:00 98.4 79 22 150/99 (116) 94 98.4 04/18/17 04:57 2.0 General: Alert, No acute distress HEENT: Other Lungs: Clear Cardiovascular: S1, S2 Abdomen: Soft Neuro Exam: Alert Extremities: No Edema Skin: Warm Labs Laboratory Tests Test 04/17/17 00:15 04/17/17 00:26 White Blood Count 9.8 x10^3/uL (4.0-11.0) Red Blood Count 4.36 x10^6/uL (3.50-5.40) Hemoglobin 12.8 g/dL (12.0-15.5) Hematocrit 38.9 % (36.0-47.0) Mean Corpuscular Volume 89 fL (79-100) Mean Corpuscular Hemoglobin 29 pg (25-35) Mean Corpuscular Hemoglobin Concent 33 g/dL (31-37) Red Cell Distribution Width 14.9 % (11.5-14.5) Platelet Count 198 x10^3/uL (140-400) Neutrophils (%) (Auto) 48 % (31-73) Lymphocytes (%) (Auto) 41 % (24-48) Monocytes (%) (Auto) 8 % (0-9) Eosinophils (%) (Auto) 3 % (0-3) Basophils (%) (Auto) 1 % (0-3) Neutrophils # (Auto) 4.7 x10^3uL (1.8-7.7) Lymphocytes # (Auto) 4.0 x10^3/uL (1.0-4.8) Monocytes # (Auto) 0.8 x10^3/uL (0.0-1.1) Eosinophils # (Auto) 0.3 x10^3/uL (0.0-0.7) Basophils # (Auto) 0.1 x10^3/uL (0.0-0.2) D-Dimer (Merlene) 0.51 ug/mlFEU (0.00-0.50) Sodium Level 140 mmol/L (136-145) Potassium Level 3.7 mmol/L (3.5-5.1) Chloride Level 102 mmol/L (98-107) Carbon Dioxide Level 30 mmol/L (21-32) Anion Gap 8 (6-14) Blood Urea Nitrogen 18 mg/dL (7-20) Creatinine 0.9 mg/dL (0.6-1.0) Estimated GFR (Cockcroft-Gault) 80.9 Glucose Level 110 mg/dL (70-99) Calcium Level 9.6 mg/dL (8.5-10.1) Troponin I Quantitative 0.027 ng/mL (0.000-0.055) SK-Wzl-H-Type Natriuretic Peptide 21 pg/mL (0-124) Medications Active Scripts Medications Dose Route/Sig Max Daily Dose Days Date Category Dose Instructions Clonidine Hcl 0.1 Mg Tablet 0.1 Mg PO BID 04/12/17 Reported Doxazosin Mesylate 4 Mg Tablet 1 Tab PO DAILY 02/23/17 Reported Albuterol Sulfate Neb Soln (Albuterol Sulfate) 2.5 Mg/3 Ml Vial.neb 1 Vial NEB QID 02/23/17 Reported Proair Hfa Inhaler (Albuterol Sulfate) 8.5 Gm Hfa.aer.ad 2 Puff INH BID PRN 02/23/17 Reported [Promethazine Hcl/Codeine] 5 ML Syrup 5 Ml PO PRN Q6HRS PRN 10 12/05/16 Rx Metoprolol Succinate ( Xl ) (Metoprolol Succinate) 25 Mg Tab.er.24h 2 Tab PO DAILY 12/04/16 Reported Gave last night Take night Losartan Potassium 50 Mg Tablet 50 Mg PO DAILY 12/04/16 Reported Gave this morning Take tomorrow Oxycodone Hcl 10 Mg Tablet 1 Tab PO PRN QID PRN 12/04/16 Reported Last dose given last night Take when needed Hydrocodone-Apap 7.5-325 (Hydrocodone Bit/Acetaminophen) 1 Each Tablet 1 Tab PO PRN TID PRN 07/26/16 Reported Not given on this admission Take when needed Xanax (Alprazolam) 0.5 Mg Tablet 1 Tab PO BID 03/17/15 Reported Not given on this admission Take when needed Zetia (Ezetimibe) 10 Mg Tablet 1 Tab PO QHS 03/17/15 Reported Gave last night Take tonight Protonix (Pantoprazole Sodium) 40 Mg Tablet 40 Mg PO DAILYAC 05/04/14 Rx Atorvastatin Calcium 80 Mg Tablet 80 Mg PO HS 05/03/14 Reported Gave last night Take mahogany Impression . 1. Dyspnea secondary to acute asthma exacerbation triggered by possible viral bronchitis. dyspnea persist despite no wheezing. No PE on ct chest, no infiltrates. will need echo to r/o pulmonary HTN 2. No evidence of pulmonary embolism. D-dimer at the borderline level of 0.5. 3. Neg venous Dopplers of lower extremities. Plan . 1. Continue with DuoNeb. 2. Steroids taper. 3. Neg venous Dopplers of lower extremities. 4. No need for antibiotics. CT chest with no evidence of pulmonary embolism and no evidence of any pneumonia. 5. Need further w/u of dyspnea. Echo to r/o pulmonary HTN./ PFT and 6 Min walk KHALIF ROLLINS MD Apr 18, 2017 11:42
[2017-04-18] MEDS: PROMETHAZINE 12.5 MG in IV NORMAL SALINE 50ML 50 ML IV PRN (15:52)
--- NOTE | 2017-04-18 16:31 | CARD ---
APPROVED REPORT EXAM: Two-dimensional and M-mode echocardiogram with Doppler and color Doppler. Other Information Quality : Good INDICATION Pulmonary Hypertention 2D DIMENSIONS RVDd2.5 (2.9-3.5cm)Left Atrium(2D)3.0 (1.6-4.0cm) IVSd1.4 (0.7-1.1cm)Aortic Root(2D)2.2 (2.0-3.7cm) LVDd4.1 (3.9-5.9cm)LVOT Diameter1.9 (1.8-2.4cm) PWd1.1 (0.7-1.1cm)LVDs2.4 (2.5-4.0cm) FS (%) 30.0 %SV55.5 ml LVEF(%)60.0 (>50%) Aortic Valve AoV Peak Sea.199.2cm/sAoV VTI37.3cm AO Peak GR.15.9mmHgLVOT Peak Sea.131.0cm/s LVOT VTI 27.82cmAO Mean GR.9mmHg JASMYN (VMAX)1.55ax6KXX (VTI)2.04cm2 Mitral Valve MV E Oylrpbwn576.0cm/sMV DECEL [id number] MV A Kzyrrjho127.8cm/sMV FAX37rk E/A Ratio0.9MVA (PHT)4.04cm2 TDI E/Lateral E'11.1E/Medial E'15.0 Tricuspid Valve TR P. Dcqvmxqu545dg/sRAP [id number] TR Peak Gr.87rtHwILMW72hyPy Pulmonary Vein S1 Ocbtmxou82.2cm/sD2 Prbzkdwl89.3cm/s PVa aewvdurj37grse LEFT VENTRICLE The left ventricle is normal size. There is mild to moderate asymmetric septal left ventricular hyper trophy. The left ventricular systolic function is normal and the ejection fraction is within normal r cleve. The Ejection Fraction is 60-65%. There is normal LV segmental wall motion. Transmitral Doppler flow pattern is Grade I-abnormal relaxation pattern. RIGHT VENTRICLE The right ventricle is normal size. The right ventricular systolic function is normal. ATRIA The left atrium size is normal. The right atrium size is normal. The interatrial septum is intact wit h no evidence for an atrial septal defect or patent foramen ovale as noted on 2-D or Doppler imaging. AORTIC VALVE The aortic valve is mildly thickened but opens well. Doppler and Color Flow revealed no significant a ortic regurgitation. There is no significant aortic valvular stenosis. MITRAL VALVE The mitral valve is normal in structure and function. There is no evidence of mitral valve prolapse. There is no mitral valve stenosis. Doppler and Color-flow revealed trace to mild mitral regurgitation . TRICUSPID VALVE The tricuspid valve is normal in structure and function. Doppler and Color Flow revealed mild tricusp id regurgitation.The PA pressure was estimated at 41 mmHg. There is no tricuspid valve stenosis. PULMONIC VALVE The pulmonary valve is normal in structure and function. Doppler and Color Flow revealed no pulmonic valvular regurgitation. There is no pulmonic valvular stenosis. GREAT VESSELS The aortic root is normal in size. The ascending aorta is normal in size. The IVC is normal in size a nd collapses >50% with inspiration. PERICARDIAL EFFUSION There is no evidence of significant pericardial effusion. Critical Notification Critical Value: No <Conclusion> The left ventricular systolic function is normal and the ejection fraction is within normal range. Th e Ejection Fraction is 60-65%. There is normal LV segmental wall motion. Doppler and Color Flow revealed mild tricuspid regurgitation.The PA pressure was estimated at 41 mmHg .
--- NOTE | 2017-04-18 19:22 | PDOC ---
PROGRESS NOTES Chief Complaint Chief Complaint Asthma exacerbation ASSESSMENT AND PLAN: 1. Asthma exacerbation: slowly improving. cont steroids, nebs, suppl O2 PRN. appreciate Dr Johnson's help with management 2. Bronchitis, ?viral: 3. SOB/VALENTIN: incongruent with asthma only; NEg CTA/LE US for DVT, PE. echo pending to r/o pHTN . 6min walk for ?home O2 History of Present Illness History of Present Illness breathig improved. c/o pain requiring IV narcotics... Vitals Vitals Vital Signs Date Time Temp Pulse Resp B/P (MAP) Pulse Ox O2 Delivery O2 Flow Rate FiO2 04/18/17 17:07 83 18 165/102 (123) Room Air 04/18/17 15:00 98.2 92 98.2 04/18/17 04:57 2.0 Physical Exam General: Alert, Oriented X3, Cooperative, No acute distress Heart: Regular rate Lungs: Clear Abdomen: Normal bowel sounds, Soft, No tenderness Extremities: No edema Skin: No rashes RE WALLACE MD Apr 18, 2017 19:22
[2017-04-18] MEDS: DOXAZOSIN MESYLATE 4 MG TABLET. PO SCH (20:49)
[2017-04-18] MEDS: ATORVASTATIN CALCIUM 40 MG TABLET. PO SCH (20:49)
[2017-04-18] MEDS: EZETIMIBE 10 MG TABLET. PO SCH (20:49)
[2017-04-19] VITALS (7 sets, daily range): BP systolic 124–176; BP diastolic 82–110
[2017-04-19] MEDS: IPRATRPIUM/ALBUTEROL 0.5/2.5MG 3 ML NEBU. NEB SCH ×4 (07:22→20:04)
[2017-04-19] MEDS: HYDROcodone/APAP 7.5/325MG 1 TAB TABLET PO PRN ×2 (08:46→16:23)
[2017-04-19] MEDS: oxyCODONE IR 5 MG TABLET PO PRN ×3 (08:46→23:55)
[2017-04-19] MEDS: ALPRAZolam 0.5 MG TABLET PO SCH ×2 (08:46→19:13)
[2017-04-19] MEDS: METOPROLOL SUCC 24HR ER 50 MG TAB.ER.24H. PO SCH (08:47)
[2017-04-19] MEDS: LOSARTAN POTASSIUM 50 MG TABLET. PO SCH (08:47)
[2017-04-19] MEDS: PANTOPRAZOLE 40 MG TABLET.DR. PO SCH (08:47)
[2017-04-19] MEDS: methylPREDNISolone SOD SUCC PF 125 MG/2 ML VIAL. IV SCH ×2 (08:48→19:12)
[2017-04-19] MEDS: BENZONATATE 100 MG CAPSULE. PO SCH (08:48)
--- NOTE | 2017-04-19 12:56 | PDOC ---
PROGRESS NOTES Chief Complaint Chief Complaint Asthma exacerbation ASSESSMENT AND PLAN: 1. Asthma exacerbation: much improved. cont steroids, nebs, suppl O2 PRN. appreciate Dr Johnson's help with management. 6 min walk with pOx 95% at lowest. 2. Bronchitis, ?viral: cough improving 3. SOB/VALENTIN: incongruent with asthma only; neg CTA/LE US for DVT, PE. echo with mild diastolic CHF, pA pressure 41, but CTA w/o infiltrate or pulm abn. PFTs pending 4. Chronic pain syndrome: has lortab and oxy at home, but would prefer IV narcotics here. d/w her that this would be inappropriate use of high dose meds. she is agreeable 5. Dispo: anticipate home in Am if cleared by pulm History of Present Illness History of Present Illness breathing improved. c/o pain requiring IV narcotics... Vitals Vitals Vital Signs Date Time Temp Pulse Resp B/P (MAP) Pulse Ox O2 Delivery O2 Flow Rate FiO2 04/19/17 11:00 98.2 77 20 149/86 (107) 93 Room Air 98.2 Physical Exam General: Alert, Oriented X3, Cooperative, No acute distress Heart: Regular rate Lungs: Clear Abdomen: Normal bowel sounds, Soft, No tenderness Extremities: No edema Skin: No rashes RE WALLACE MD Apr 19, 2017 12:56
--- NOTE | 2017-04-19 13:01 | RESP ---
DATE OF SERVICE: 04/18/2017 The patient underwent spirometry dated 04/18/2017. The FEV1 to FVC ratio was 114%, FEV1 was 79% of predicted, FVC was 69% of predicted at 1.65 liters. There was no significant bronchodilator response. IMPRESSION: Spirometry revealing no significant evidence of obstructive disorder. AIDA OSHEA MD DR: FRANC/darien JOB#: [id number] / [id number] SHARMIN Suero MD
[2017-04-19] MEDS ORDERED: ONDANSETRON ODT 4 MG TAB.RAPDIS. PO PRN (13:15)
--- NOTE | 2017-04-19 17:16 | PDOC ---
PULMONARY PROGRESS NOTES Subjective Pt states she is soa while speaking Vitals Vital Signs Date Time Temp Pulse Resp B/P (MAP) Pulse Ox O2 Delivery O2 Flow Rate FiO2 04/19/17 15:13 Room Air 04/19/17 15:00 98.1 83 20 139/87 (104) 96 98.1 General: Alert, No acute distress HEENT: Other Lungs: Clear Cardiovascular: S1, S2 Abdomen: Soft Neuro Exam: Alert Extremities: No Edema Skin: Warm Medications Active Scripts Medications Dose Route/Sig Max Daily Dose Days Date Category Dose Instructions Clonidine Hcl 0.1 Mg Tablet 0.1 Mg PO BID 04/12/17 Reported Doxazosin Mesylate 4 Mg Tablet 1 Tab PO DAILY 02/23/17 Reported Albuterol Sulfate Neb Soln (Albuterol Sulfate) 2.5 Mg/3 Ml Vial.neb 1 Vial NEB QID 02/23/17 Reported Proair Hfa Inhaler (Albuterol Sulfate) 8.5 Gm Hfa.aer.ad 2 Puff INH BID PRN 02/23/17 Reported [Promethazine Hcl/Codeine] 5 ML Syrup 5 Ml PO PRN Q6HRS PRN 10 12/05/16 Rx Metoprolol Succinate ( Xl ) (Metoprolol Succinate) 25 Mg Tab.er.24h 2 Tab PO DAILY 12/04/16 Reported Gave last night Take night Losartan Potassium 50 Mg Tablet 50 Mg PO DAILY 12/04/16 Reported Gave this morning Take tomorrow Oxycodone Hcl 10 Mg Tablet 1 Tab PO PRN QID PRN 12/04/16 Reported Last dose given last night Take when needed Hydrocodone-Apap 7.5-325 (Hydrocodone Bit/Acetaminophen) 1 Each Tablet 1 Tab PO PRN TID PRN 07/26/16 Reported Not given on this admission Take when needed Xanax (Alprazolam) 0.5 Mg Tablet 1 Tab PO BID 03/17/15 Reported Not given on this admission Take when needed Zetia (Ezetimibe) 10 Mg Tablet 1 Tab PO QHS 03/17/15 Reported Gave last night Take tonight Protonix (Pantoprazole Sodium) 40 Mg Tablet 40 Mg PO DAILYAC 05/04/14 Rx Atorvastatin Calcium 80 Mg Tablet 80 Mg PO HS 05/03/14 Reported Gave last night Take calt Impression . 1. Dyspnea 2. No evidence of pulmonary embolism. D-dimer at the borderline level of 0.5. 3. Neg venous Dopplers of lower extremities. Plan . PFT essentially normal may need a sleep study as outpt PAP sec to ? RADHIKA 6 min walk prior to d/c in am suspect some of dyspnea is psychological in nature ECHO report The left ventricular systolic function is normal and the ejection fraction is within normal range. The Ejection Fraction is 60-65%. There is normal LV segmental wall motion. Doppler and Color Flow revealed mild tricuspid regurgitation.The PA pressure was estimated at 41 mmHg. AIDA OSHEA MD Apr 19, 2017 17:16
[2017-04-19] MEDS: ATORVASTATIN CALCIUM 40 MG TABLET. PO SCH (19:13)
[2017-04-19] MEDS: EZETIMIBE 10 MG TABLET. PO SCH (19:13)
[2017-04-19] MEDS: cloNIDine HCL 0.1 MG TABLET PO PRN (19:14)
[2017-04-19] MEDS: DOXAZOSIN MESYLATE 4 MG TABLET. PO SCH (19:14)
[2017-04-20] MEDS: LABETALOL 20 MG/4 ML DISP.SYRIN. IVP PRN ×3 (00:16→11:11)
[2017-04-20] MEDS: PROMETH/CODEINE 6.25/10MG 5 ML SYRUP. PO PRN ×3 (00:16→13:27)
[2017-04-20 02:09] VITALS: BP 182/99
[2017-04-20 03:15] VITALS: BP 154/82
[2017-04-20] MEDS: HYDROcodone/APAP 7.5/325MG 1 TAB TABLET PO PRN ×2 (04:04→13:27)
[2017-04-20 07:00] VITALS: BP 183/117
[2017-04-20] MEDS: IPRATRPIUM/ALBUTEROL 0.5/2.5MG 3 ML NEBU. NEB SCH ×2 (07:00→10:49)
[2017-04-20] MEDS: methylPREDNISolone SOD SUCC PF 125 MG/2 ML VIAL. IV SCH (07:51)
[2017-04-20] MEDS: ALPRAZolam 0.5 MG TABLET PO SCH (07:52)
[2017-04-20] MEDS: oxyCODONE IR 5 MG TABLET PO PRN ×2 (07:52→13:27)
[2017-04-20] MEDS: PANTOPRAZOLE 40 MG TABLET.DR. PO SCH (07:52)
[2017-04-20] MEDS: METOPROLOL SUCC 24HR ER 50 MG TAB.ER.24H. PO SCH (07:53)
[2017-04-20] MEDS: cloNIDine HCL 0.1 MG TABLET PO PRN ×2 (07:54→13:53)
[2017-04-20] MEDS: LOSARTAN POTASSIUM 50 MG TABLET. PO SCH (07:54)
--- NOTE | 2017-04-20 09:19 | PDOC ---
PULMONARY PROGRESS NOTES Subjective Pt states she is soa while speaking Vitals Vital Signs Date Time Temp Pulse Resp B/P (MAP) Pulse Ox O2 Delivery O2 Flow Rate FiO2 04/20/17 07:54 78 183/117 04/20/17 07:01 99 Room Air 04/20/17 07:00 97.7 20 97.7 General: Alert, No acute distress HEENT: Other Lungs: Clear Cardiovascular: S1, S2 Abdomen: Soft Neuro Exam: Alert Extremities: No Edema Skin: Warm Medications Active Scripts Medications Dose Route/Sig Max Daily Dose Days Date Category Dose Instructions Clonidine Hcl 0.1 Mg Tablet 0.1 Mg PO BID 04/12/17 Reported Doxazosin Mesylate 4 Mg Tablet 1 Tab PO DAILY 02/23/17 Reported Albuterol Sulfate Neb Soln (Albuterol Sulfate) 2.5 Mg/3 Ml Vial.neb 1 Vial NEB QID 02/23/17 Reported Proair Hfa Inhaler (Albuterol Sulfate) 8.5 Gm Hfa.aer.ad 2 Puff INH BID PRN 02/23/17 Reported [Promethazine Hcl/Codeine] 5 ML Syrup 5 Ml PO PRN Q6HRS PRN 10 12/05/16 Rx Metoprolol Succinate ( Xl ) (Metoprolol Succinate) 25 Mg Tab.er.24h 2 Tab PO DAILY 12/04/16 Reported Gave last night Take night Losartan Potassium 50 Mg Tablet 50 Mg PO DAILY 12/04/16 Reported Gave this morning Take tomorrow Oxycodone Hcl 10 Mg Tablet 1 Tab PO PRN QID PRN 12/04/16 Reported Last dose given last night Take when needed Hydrocodone-Apap 7.5-325 (Hydrocodone Bit/Acetaminophen) 1 Each Tablet 1 Tab PO PRN TID PRN 07/26/16 Reported Not given on this admission Take when needed Xanax (Alprazolam) 0.5 Mg Tablet 1 Tab PO BID 03/17/15 Reported Not given on this admission Take when needed Zetia (Ezetimibe) 10 Mg Tablet 1 Tab PO QHS 03/17/15 Reported Gave last night Take tonight Protonix (Pantoprazole Sodium) 40 Mg Tablet 40 Mg PO DAILYAC 05/04/14 Rx Atorvastatin Calcium 80 Mg Tablet 80 Mg PO HS 05/03/14 Reported Gave last night Take tongiht Impression . 1. Dyspnea 2. No evidence of pulmonary embolism. D-dimer at the borderline level of 0.5. 3. Neg venous Dopplers of lower extremities. Plan . PFT essentially normal may need a sleep study as outpt PAP sec to ? RADHIKA 6 min walk prior to d/c in am suspect some of dyspnea is psychological in nature ECHO report The left ventricular systolic function is normal and the ejection fraction is within normal range. The Ejection Fraction is 60-65%. There is normal LV segmental wall motion. Doppler and Color Flow revealed mild tricuspid regurgitation.The PA pressure was estimated at 41 mmHg. AIDA OSHEA MD Apr 20, 2017 09:19
[2017-04-20 11:00] VITALS: BP 168/101
[2017-04-20 13:53] VITALS: BP 195/126
[2017-04-20] MEDS ORDERED: PRED-220 PO (14:38)
--- NOTE | 2017-04-22 03:14 | DS ---
DATE OF DISCHARGE: 04/20/2017 CHIEF COMPLAINT: Shortness of breath. HOSPITAL COURSE: The patient is a 47-year-old -[place] woman with past medical history of asthma who presented to the Emergency Room in exacerbation. She was started on steroids, nebulizers and supplemental O2 and improved significantly. She was seen by Pulmonology, Dr. Johnson and Dr. Manuel who helped with management. Her shortness of breath was somewhat incongruent with asthma symptoms without any wheezing, etc. Further workup was undertaken with a CTA which ruled out PE. An echo also obtained showed mild diastolic CHF with a PA pressure of 41. CTA; however, had not shown any infiltrate or other pulmonary abnormalities. PFTs likewise did not show any significant abnormalities and the patient was deemed stable for discharge on a steroid taper. Second issue was her chronic pain syndrome for which she sought narcotics. Her preference for IV narcotics was denied and she was placed on Lortab and Percocet per her home regimen. She was finally agreeable to discharge on 04/20/2017. PHYSICAL EXAMINATION: VITAL SIGNS: Blood pressure of 149/86, heart rate of 77, respiratory rate 20. She is afebrile. GENERAL: This is a 47-year-old obese -[place] woman, alert and oriented, no acute distress. LUNGS: Clear. HEART: Regular rate and rhythm. ABDOMEN: Has positive bowel sounds, soft, nontender. EXTREMITIES: Show no edema. DISCHARGE DATE: 04/20/2017 DISCHARGE DIAGNOSIS: Asthma exacerbation. DISCHARGE DISPOSITION: To home. DISCHARGE CONDITION: Improved. DISCHARGE MEDICATIONS: Please refer to MAR. DISCHARGE INSTRUCTIONS: The patient will follow up with her PCP in 1-2 weeks. RE WALLACE MD DR: UR/nts JOB#: [id number] / [id number] SHARMIN Suero MD
== END 2017-04-20 14:45 | disposition home or self-care (01) | DRG 189 ==
LOC: ER 00:04 → 4 NORTH 05:16
PROVIDERS: ADMIT Internal Medicine; ATTEND Internal Medicine
DX: J96.91 Respiratory failure, unspecified with hypoxia (principal); J45.901 Unspecified asthma with (acute) exacerbation; I50.30 Unspecified diastolic (congestive) heart failure; J44.1 Chronic obstructive pulmonary disease with (acute) exacerbation; J20.8 Acute bronchitis due to other specified organisms; E11.9 Type 2 diabetes mellitus without complications; E66.9 Obesity, unspecified; E78.00 Pure hypercholesterolemia, unspecified; F41.9 Anxiety disorder, unspecified; M19.90 Unspecified osteoarthritis, unspecified site; E78.5 Hyperlipidemia, unspecified; G89.4 Chronic pain syndrome; I11.0 Hypertensive heart disease with heart failure; K58.9 Irritable bowel syndrome, unspecified; Z82.49 Family history of ischemic heart disease and other diseases of the circulatory system; Z86.718 Personal history of other venous thrombosis and embolism; Z87.891 Personal history of nicotine dependence; Z83.3 Family history of diabetes mellitus; Z68.36 Body mass index [BMI] 36.0-36.9, adult; Z98.51 Tubal ligation status; Z90.710 Acquired absence of both cervix and uterus; Z90.49 Acquired absence of other specified parts of digestive tract; Z88.0 Allergy status to penicillin; Z91.018 Allergy to other foods; Z91.09 Other allergy status, other than to drugs and biological substances; I50.9 Heart failure, unspecified
CPT/HCPCS: 36415; 71010; 71275; 80048; 83880; 84484; 85027; 85379; 93005; 93306; 93970; 94060; 94250; 94620; 94640; 94760; 94799; 96374; 96375; J1940; J2270; J2405; J2550; J2930; J3490; J7620; Q0162; 99285-25

== ENCOUNTER 2017-05-02 18:19 | Emergency (ER) | payer MEDICARE, OTHER ==
[~2017-05-02] VITALS: Ht 149.9 cm; Wt 86.2 kg
[2017-05-02] MEDS ORDERED: KETOROLAC TROMETHAMINE 60 MG/2 ML INJ. IM ONE (19:15)
[2017-05-02] MEDS: DEXAMETHASONE SOD PHOS 20 MG/5 ML VIAL. IM ONE ×2 (19:15→19:29)
[2017-05-02] MEDS ORDERED: CYCLOBENZAPRINE 10 MG TABLET. PO ONE (19:15)
--- NOTE | 2017-05-02 20:32 | PHYS DOC ---
Past Medical History Past Medical History: Asthma, COPD, DVT, High Cholesterol, Hypertension, Other Additional Past Medical Histor: ibs Past Surgical History: Cholecystectomy, Hysterectomy, Tubal ligation, Other Additional Past Surgical Histo: neck sx, hernia repair, Alcohol Use: Rarely Drug Use: None Adult General Chief Complaint Chief Complaint: BACK PAIN - NO INJURY HPI HPI Patient is a 47 year old female who presents with acute on chronic atraumatic lower thoracic and upper lumbar back pain bilaterally that is associated with weakness of her right lower extremity. States she is still able to move her right lower extremity and can walk, but she feels her leg will give out on her. She also notes 1 episode of loose diarrhea that she did not make it to the restroom on time and had some fecal incontinence. She has no fecal incontinence since that time. She has no prior history of constipation or urinary dysfunction recently. She denies sensory changes. She denies saddle anesthesia. She denies trauma, rash, abdominal pain, fever or chills, nausea or vomiting, neck pain, dizziness, chest pain, dyspnea. States she called her neurosurgeon, Dr. Amos, and was recommended to come to the emergency department for evaluation. Review of Systems Review of Systems Constitutional: Denies fever or chills [] Eyes: Denies change in visual acuity, redness, or eye pain [] HENT: Denies nasal congestion or sore throat [] Respiratory: Denies cough or shortness of breath [] Cardiovascular: No additional information not addressed in HPI [] GI: Denies abdominal pain, nausea, vomiting, bloody stools or diarrhea [] : Denies dysuria or hematuria [] Musculoskeletal: Denies joint pain [] Integument: Denies rash or skin lesions [] Neurologic: Denies headache or sensory changes [] Endocrine: Denies polyuria or polydipsia [] Current Medications Current Medications Current Medications Medications (Trade) Dose Ordered Sig/Guillermina Start Time Stop Time Status Last Admin Dose Admin Acetaminophen/ Hydrocodone Bitart (Lortab 10/325) 1 tab 1X ONCE 05/02/17 21:00 05/02/17 21:01 DC 05/02/17 21:55 1 TAB Cyclobenzaprine HCl (Flexeril) 5 mg 1X ONCE 05/02/17 19:15 05/02/17 19:16 DC 05/02/17 19:28 5 MG Dexamethasone Sodium Phosphate (Decadron) 10 mg 1X ONCE 05/02/17 19:15 05/02/17 19:16 DC Ketorolac Tromethamine (Toradol Im) 15 mg 1X ONCE 05/02/17 19:15 05/02/17 19:16 DC 05/02/17 19:29 15 MG Allergies Allergies Allergies Coded Allergies Type Severity Reaction Last Updated Verified mustard Allergy Severe ANGIOEDEMA/HIVES 02/24/17 Yes poppyseed oil Allergy Severe Hives 02/11/17 Yes Penicillins Allergy Intermediate HIVES 02/11/17 Yes Physical Exam Physical Exam Constitutional: Well developed, well nourished, no acute distress, non-toxic appearance. [] HENT: Normocephalic, atraumatic, bilateral external ears normal, oropharynx moist, nose normal. [] Eyes: PERRLA, EOMI. [] Neck: Normal range of motion, no tenderness, supple. [] Cardiovascular:Heart rate regular rhythm [] Lungs & Thorax: Bilateral breath sounds clear to auscultation [] Abdomen: Bowel sounds normal, soft, no tenderness. Appropriate sphincter tone additional rectal exam, normal perineum sensation [] Skin: Warm, dry, no erythema, no rash. [] Back: No midline spinal tenderness, no CVA tenderness. Has lower thoracic and upper lumbar bilateral paraspinal muscle tenderness with no visual or palpable abnormality. She is able to twist on her axis without eliciting severe symptoms. [] Extremities: No tenderness, ROM intact, no edema. Can raise right lower extremity off the bed, but not very high; 5-/5. Can raise left leg high off the bed; 5/5. Negative straight leg raise [] Neurologic: Alert and oriented X 3, normal sensory function, no focal deficits noted, cranial nerves II through XII intact. [] Psychologic: Affect normal, judgement normal, mood normal. [] Current Patient Data Vital Signs Vital Signs Date Time Temp Pulse Resp B/P (MAP) Pulse Ox O2 Delivery O2 Flow Rate FiO2 05/02/17 21:55 Room Air 05/02/17 18:48 98.5 82 18 156/103 (120) 100 98.5 Course & Med Decision Making Course & Med Decision Making Pertinent Labs and Imaging studies reviewed. (See chart for details) 1919: Discussed case with Dr. Amos, neurosurgery, who recommends MRI T and L spine. 2100: Transition care to leonard Osorio pending imaging. -Tristian Ocampo MD 1030p; MRI report reviewed. No evidence of emergent pathology noted on the T- spine or L-spine MRI. MRI report discussed with Dr. Amos as well as the patient. Patient be given a copy of the MRI report. Patient is clinically and hemodynamically stable. Dr. Amos agrees with the plan for the patient to be discharged home. There is no emergent need for admission at this time the hospital. MRI report reveals a significant amount of degenerative disc disease. There is no cause for the weakness to the right lower extremity that the patient experiencing noted on the MRI. Dr. Amos agrees with the plan to discharge her to home and have her follow-up with him for further evaluation of her pain and weakness to her right lower extremity. Patient will likely need physical therapy which will be arranged as an outpatient. Plan has been discussed with the patient and she is in agreement with the current course of action. All questions were answered. Patient has been referred for outpatient evaluation and management. Repeat neurological examination at 10 PM confirms the exam of Dr. Ocampo. Patient is able lift her right lower extremity against gravity. Patient's strength is 5 out of 5 in her upper and lower extremities. Dragon Disclaimer Dragon Disclaimer This electronic medical record was generated, in whole or in part, using a voice recognition dictation system. Departure Departure Impression: Primary Impression: Back pain Additional Impression: Right leg weakness Disposition: HOME, SELF-CARE Condition: IMPROVED Referrals: SHARMIN ESQUEDA (PCP) Patient Instructions: Chronic Back Pain, Weakness Additional Instructions: Please follow up with Dr. Amos as well as her primary care physician for evaluation as an outpatient for physical therapy and for further management of your back pain. Return to the ER for any further concerns. Problem Qualifiers Primary Impression: Back pain Back pain location: back pain in unspecified location Chronicity: unspecified Back pain laterality: bilateral Qualified Codes: M54.9 - Dorsalgia, unspecified Gale OCAMPO MD May 02, 2017 20:32 RAUL CHIRINOS MD May 02, 2017 22:45
[2017-05-02] MEDS ORDERED: HYDROcodone/APAP 10/325 1 TAB TABLET PO ONE (21:00)
--- NOTE | 2017-05-02 21:40 | RAD ---
EXAM: Thoracic spine MRI without contrast. HISTORY: Acute on chronic mid and lower back pain with new right lower extremity weakness. Incontinence. History of falls. TECHNIQUE: Multiplanar, multisequence magnetic resonance imaging of the thoracic spine was performed without contrast. COMPARISON: None. FINDINGS: There is no significant thoracic listhesis. Thoracic vertebral bodies are normal in height. No suspicious osseous lesion is seen. There is no acute or subacute thoracic vertebral fracture. There is degenerative endplate remodeling with associated signal change at the majority of the thoracic vertebral levels. There is anterolateral predominant spurring and Schmorl's node formation at multiple levels. There are multiple disc bulges and protrusions, described in detail below. There is focal kyphosis and multilevel degenerative change within the cervical spine, incompletely evaluated on the current exam. There are suspected laminectomy decompression changes at the mid and lower cervical levels and there are postoperative changes involving the lumbar spine, predominantly excluded from the [id number]. The conus terminates at L1. At T1-T2, there is a disc bulge and endplate remodeling. There is mild facet arthropathy. There is mild right foraminal stenosis. At T2-T3, there are bilateral paracentral to foraminal disc protrusions superimposed on a disc bulge and endplate remodeling. There is mild right facet arthropathy. There is abutment of the ventral aspect of the spinal cord without significant central canal stenosis. There is moderate lateral foraminal stenosis. At T3-T4, there is a broad-based left paracentral to foraminal disc protrusion superimposed on a disc bulge and endplate remodeling. There is abutment of the ventral aspect of the spinal cord without significant central canal stenosis. There is mild viral foraminal stenosis. At T4-T5, there is a left foraminal disc protrusion with slight superior extrusion. There is mild facet arthropathy. There is mild left foraminal stenosis. At T5-T6, there are bilateral paracentral to foraminal disc protrusions with slight superior extrusions superimposed on a disc bulge and endplate remodeling. There is abutment of the ventral aspect of the spinal cord without significant central canal stenosis. At T6-T7, T7-T8, T8-T9 and T9-T10, there is a disc bulge and endplate remodeling. At T10-T11 and T11-T12 and T12-L1, there is no stenosis. IMPRESSION: 1. Multilevel degenerative changes of the thoracic spine, described in detail above. This results in foraminal stenosis at multiple thoracic levels. There is abutment of the ventral aspect of the spinal cord at multiple levels, without significant central canal stenosis or spinal cord signal at [place]. 2. Degenerative and postoperative changes involving the cervical and lumbar spine, incompletely evaluated on the current exam. Electronically signed by: Nessa Riggins MD (05/02/2017 9:37 PM)
--- NOTE | 2017-05-02 21:48 | RAD ---
EXAM: Lumbar spine MRI without contrast. HISTORY: Acute on chronic mid and lower back pain and right lower extremity weakness. Incontinence. Falls. TECHNIQUE: Multiplanar, multisequence magnetic resonance imaging of the lumbar spine was performed without contrast. COMPARISON: None. FINDINGS: There is no significant listhesis. The vertebral bodies are normal in height and demonstrate normal marrow signal intensity. There is minimal disc desiccation at L2-L3, L3-L4 and L4-L5. The conus terminates at L1. At L1-L2, there is no stenosis. At L2-L3, there is a disc bulge. There is no stenosis. At L3-L4, there is a disc bulge. There is no stenosis. At L4-L5, there is a disc bulge with suspected tiny left foraminal disc extra foraminal disc protrusion. There is no stenosis. L5-S1, there is no stenosis. IMPRESSION: 1. Minimal multilevel degenerative change involving the lumbar spine, without significant foraminal or central canal stenosis. 2. No acute finding. Electronically signed by: Nessa Riggins MD (05/02/2017 9:45 PM)
[2017-05-02 21:53] VITALS: BP 170/91
== END 2017-05-02 22:55 | disposition home or self-care (01) ==
LOC: EEVIPCON 18:19 → ER 18:19
DX: M54.5 Low back pain (principal); M54.6 Pain in thoracic spine; R53.1 Weakness; R19.7 Diarrhea, unspecified; E78.00 Pure hypercholesterolemia, unspecified; K58.9 Irritable bowel syndrome, unspecified; J44.9 Chronic obstructive pulmonary disease, unspecified; Z86.718 Personal history of other venous thrombosis and embolism; I10 Essential (primary) hypertension; Z90.49 Acquired absence of other specified parts of digestive tract; Z90.710 Acquired absence of both cervix and uterus; Z98.51 Tubal ligation status; Z88.0 Allergy status to penicillin; Z91.018 Allergy to other foods
CPT/HCPCS: 72146; 72148; 96372; 99284; J1885; J1100

== ENCOUNTER 2017-06-04 09:14 | Emergency (ER) | payer MEDICARE, OTHER ==
[~2017-06-04] VITALS: Ht 149.9 cm; Wt 85.3 kg
[2017-06-04] MEDS ORDERED: MUPI15CR TP (10:12)
[2017-06-04] MEDS ORDERED: ONDA4TAB10 SL (10:12)
--- NOTE | 2017-06-04 10:13 | PHYS DOC ---
Past Medical History Past Medical History: Asthma, COPD, DVT, High Cholesterol, Hypertension, Other Additional Past Medical Histor: ibs Past Surgical History: Cholecystectomy, Hysterectomy, Tubal ligation, Other Additional Past Surgical Histo: neck sx, hernia repair, Alcohol Use: Rarely Drug Use: None Adult General Chief Complaint Chief Complaint: NAUSEA/VOMITING/DIARRHA HPI HPI Patient is a 47 year old female presents to the emergency department with a 2 day history of nausea, vomiting, diarrhea. Patient reports that she has not had diarrhea for 24 hours. She states she has chills without measured fever. She complains of mild abdominal cramping before an episode of diarrhea or vomiting. She reports no sick contacts or exposures. Review of Systems Review of Systems Constitutional: Chills Eyes: Denies change in visual acuity, redness, or eye pain [] HENT: Denies nasal congestion or sore throat [] Respiratory: Denies cough or shortness of breath [] Cardiovascular: Denies chest pain, dizziness, no edema GI: Cramping abdominal pain prior to vomiting or diarrhea stool. : Denies dysuria or hematuria [] Musculoskeletal: Denies back pain or joint pain [] Integument: Rash to the right second toe Neurologic: Denies headache, focal weakness or sensory changes [] Endocrine: Denies polyuria or polydipsia [] Current Medications Current Medications Current Medications Medications (Trade) Dose Ordered Sig/Guillermina Start Time Stop Time Status Last Admin Dose Admin Ondansetron HCl (Zofran Odt) 4 mg 1X ONCE 06/04/17 11:45 06/04/17 11:46 DC 06/04/17 11:44 4 MG Allergies Allergies Allergies Coded Allergies Type Severity Reaction Last Updated Verified mustard Allergy Severe ANGIOEDEMA/HIVES 02/24/17 Yes poppyseed oil Allergy Severe Hives 02/11/17 Yes Penicillins Allergy Intermediate HIVES 02/11/17 Yes adhesive tape Allergy Intermediate RASH 06/04/17 Yes Physical Exam Physical Exam Constitutional: Well developed, well nourished, no acute distress, non-toxic appearance. [] HENT: Normocephalic, atraumatic, bilateral external ears normal, oropharynx moist, no oral exudates, nose normal. [] Eyes: PERRLA, EOMI, conjunctiva normal, no discharge. [] Neck: Normal range of motion, no tenderness, supple, no lymphadenopathy Cardiovascular:Heart rate regular rhythm, no murmur [] Lungs & Thorax: Bilateral breath sounds clear to auscultation [] Abdomen: Bowel sounds normal, soft, diffuse tenderness to light palpation Skin: Right second toe, non-circumferential dry scaling rash with pustules. There is no erythema. Back: No tenderness, no CVA tenderness. [] Extremities: No tenderness, no cyanosis, no clubbing, ROM intact, no edema. [] Neurologic: Alert and oriented X 3, normal motor function, normal sensory function, no focal deficits noted. [] Psychologic: Affect normal, judgement normal, mood normal. [] Current Patient Data Vital Signs Vital Signs Date Time Temp Pulse Resp B/P (MAP) Pulse Ox O2 Delivery O2 Flow Rate FiO2 06/04/17 12:13 71 16 157/83 (107) 99 Room Air 06/04/17 10:00 98.3 98.3 Lab Values Laboratory Tests Test 06/04/17 09:56 06/04/17 10:30 06/04/17 10:45 06/04/17 11:38 POC Urine HCG, Qualitative Hcg negative (Negative) Urine Collection Type Unknown Urine Color Yellow Urine Clarity Turbid Urine pH 5.5 Urine Specific [place] >=1.030 Urine Protein 30 mg/dL (NEG-TRACE) Urine Glucose (UA) Negative mg/dL (NEG) Urine Ketones (Stick) Negative mg/dL (NEG) Urine Blood Moderate (NEG) Urine Nitrite Negative (NEG) Urine Bilirubin Small (NEG) Urine Urobilinogen Dipstick 1.0 mg/dL (0.2 mg/dL) Urine Leukocyte Esterase Negative (NEG) Urine RBC Rare /HPF (0-2) Urine WBC 0 /HPF (0-4) Urine Squamous Epithelial Cells Occ /LPF Urine Amorphous Sediment Present /HPF Urine Bacteria Few /HPF (0-FEW) Urine Mucus Slight /LPF POC Hemoglobin 14.3 g/dL (12-15) POC Hematocrit 42 % (36-40) H POC Sodium 143 mmol/L (135-145) POC Potassium 3.5 mmol/L (3.5-5.0) POC Chloride 105 mmol/L (98-110) POC Total CO2 24 mmol/L (23-32) Anion Gap 18 mmol/L (6-14) H POC Blood Urea Nitrogen 10 mg/dL (8-26) POC Creatinine 0.8 mg/dL (0.5-1.4) Glucose Level 115 mg/dL (70-99) H POC Ionized Calcium (Davy) 1.18 mmol/L (1.13-1.32) White Blood Count 7.4 x10^3/uL (4.0-11.0) Red Blood Count 4.50 x10^6/uL (3.50-5.40) Hemoglobin 13.0 g/dL (12.0-15.5) Hematocrit 39.5 % (36.0-47.0) Mean Corpuscular Volume 88 fL (79-100) Mean Corpuscular Hemoglobin 29 pg (25-35) Mean Corpuscular Hemoglobin Concent 33 g/dL (31-37) Red Cell Distribution Width 14.5 % (11.5-14.5) Platelet Count 197 x10^3/uL (140-400) Neutrophils (%) (Auto) 51 % (31-73) Lymphocytes (%) (Auto) 35 % (24-48) Monocytes (%) (Auto) 11 % (0-9) H Eosinophils (%) (Auto) 1 % (0-3) Basophils (%) (Auto) 1 % (0-3) Neutrophils # (Auto) 3.8 x10^3uL (1.8-7.7) Lymphocytes # (Auto) 2.6 x10^3/uL (1.0-4.8) Monocytes # (Auto) 0.8 x10^3/uL (0.0-1.1) Eosinophils # (Auto) 0.1 x10^3/uL (0.0-0.7) Basophils # (Auto) 0.1 x10^3/uL (0.0-0.2) Laboratory Tests 06/04/17 11:38 Laboratory Tests 06/04/17 10:45 EKG EKG [] Radiology/Procedures Radiology/Procedures [] Course & Med Decision Making Course & Med Decision Making Patient states that she feels relief from nausea. She is taking by mouth ice chips in the emergency department without difficulty. She has had no vomiting or diarrhea while in the emergency department. Plan will be to discharge home. Return to the emergency department new symptoms or concerns or worsening of current condition. Pertinent Labs and Imaging studies reviewed. (See chart for details) [] Dragon Disclaimer Dragon Disclaimer This electronic medical record was generated, in whole or in part, using a voice recognition dictation system. Departure Departure Impression: Primary Impression: Gastroenteritis Additional Impressions: Dermatitis Infective dermatitis Disposition: 01 HOME, SELF-CARE Condition: STABLE Referrals: SHARMIN ESQUEDA (PCP) Patient Instructions: Contact Dermatitis, Viral Gastroenteritis Scripts Mupirocin Calcium (BACTROBAN CREAM) 15 Gm Cream..g. 1 MELISSA TP TID, #15 GM Prov: PATY BRAND APRN 06/04/17 Ondansetron (ZOFRAN ODT) 4 Mg Tab.rapdis 1 TAB SL Q8HRS Y for NAUSEA, #15 TAB Prov: PATY BRAND APRN 06/04/17 Problem Qualifiers PATY BRAND APRN Jun 04, 2017 10:13
[2017-06-04] MEDS ORDERED: ONDANSETRON ODT 4 MG TAB.RAPDIS. PO ONE ×2 (10:15→11:45)
[2017-06-04 10:49] LABS: POTASSIUM ISTAT 3.5 mmol/L (3.5-5.0)
[2017-06-04 11:53] LABS: BILIRUBIN,URINE SMALL (NEG); GLUCOSE,URINE NEGATIVE (NEG); NITRITE,URINE NEGATIVE (NEG); PH,URINE 5.5; PROTEIN,URINE 30 mg/dL (NEG-TRACE)
[2017-06-04 11:55] LABS: BACTERIA,URINE FEW /HPF (0-FEW); RBC,URINE RARE /HPF (0-2); SQUAMOUS EPITHELIAL CELL,UR OCC /LPF; WBC,URINE 0 /HPF (0-4)
[2017-06-04 11:58] LABS: BASO # 0.1 x10^3/uL (0.0-0.2); BASO % 1 % (0-3); EOS % 1 % (0-3); HEMATOCRIT 39.5 % (36.0-47.0); LYMPH # 2.6 x10^3/uL (1.0-4.8); LYMPH % 35 % (24-48); MEAN CORPUSCULAR HEMOGLOBIN 29 pg (25-35); MEAN CORPUSCULAR HGB CONC 33 g/dL (31-37); MEAN CORPUSCULAR VOLUME 88 fL (79-100); MONO % 11 % (0-9); NEUT % 51 % (31-73); PLATELET COUNT 197 x10^3/uL (140-400); RED CELL DISTRIBUTION WIDTH 14.5 % (11.5-14.5); WHITE BLOOD COUNT 7.4 x10^3/uL (4.0-11.0)
[2017-06-04 12:13] VITALS: BP 157/83
== END 2017-06-04 12:24 | disposition home or self-care (01) ==
LOC: ER 09:14
DX: K52.9 Noninfective gastroenteritis and colitis, unspecified (principal); L30.3 Infective dermatitis; E78.00 Pure hypercholesterolemia, unspecified; I10 Essential (primary) hypertension; J44.9 Chronic obstructive pulmonary disease, unspecified; K58.9 Irritable bowel syndrome, unspecified; Z88.0 Allergy status to penicillin; Z86.718 Personal history of other venous thrombosis and embolism; Z90.49 Acquired absence of other specified parts of digestive tract; Z90.710 Acquired absence of both cervix and uterus; Z98.51 Tubal ligation status; Z88.8 Allergy status to other drugs, medicaments and biological substances
CPT/HCPCS: 36415; 80047; 81001; 81025; 85027; 99284; Q0162

== ENCOUNTER 2017-06-08 13:13 | Emergency (ER) | payer MEDICARE, OTHER ==
[~2017-06-08] VITALS: Ht 149.9 cm; Wt 85.3 kg
[~2017-06-08 13:13] MED LIST changes: +MUPI15CR TP; +ONDA4TAB10 SL
[2017-06-08] MEDS ORDERED: ONDANSETRON PF 4 MG/2 ML VIAL. IV ONE (14:15)
[2017-06-08] MEDS ORDERED: IV NORMAL SALINE 1000ML BAG 1,000 ML IV ONE (14:15)
[2017-06-08] MEDS ORDERED: diphenhydrAMINE 50 MG/ML VIAL IVP ONE (14:15)
[2017-06-08] MEDS ORDERED: KETOROLAC TROMETHAMINE 30 MG/ML INJ. IV ONE (14:15)
--- NOTE | 2017-06-08 14:25 | EKG ---
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
[2017-06-08 14:35] LABS: BILIRUBIN,URINE NEGATIVE (NEG); GLUCOSE,URINE NEGATIVE (NEG); NITRITE,URINE NEGATIVE (NEG); PH,URINE 5.5; PROTEIN,URINE NEGATIVE (NEG-TRACE); UROBILINOGEN,URINE 0.2 mg/dL (0.2 mg/dL)
[2017-06-08 14:42] LABS: BACTERIA,URINE MODERATE /HPF (0-FEW); RBC,URINE RARE /HPF (0-2); SQUAMOUS EPITHELIAL CELL,UR MANY /LPF; WBC,URINE RARE /HPF (0-4)
--- NOTE | 2017-06-08 14:52 | RAD ---
Acute abdomen series with chest, 3 views, 06/08/2017: History: Abdominal pain, nausea and vomiting The abdominal gas pattern is unremarkable. No free air is seen in the abdomen. Surgical clips are present in the right upper quadrant. Several pelvic calcifications are probably phleboliths. The heart size and pulmonary vascularity are normal. No pulmonary infiltrates are seen. There is no evidence of pleural fluid. IMPRESSION: No acute abdominal abnormality is detected.
[2017-06-08 14:58] LABS: BASO # 0.2 x10^3/uL (0.0-0.2); BASO % 3 % (0-3); EOS % 2 % (0-3); HEMATOCRIT 37.2 % (36.0-47.0); HEMOGLOBIN 12.3 g/dL (12.0-15.5); LYMPH # 2.5 x10^3/uL (1.0-4.8); LYMPH % 35 % (24-48); MEAN CORPUSCULAR HEMOGLOBIN 29 pg (25-35); MEAN CORPUSCULAR HGB CONC 33 g/dL (31-37); MEAN CORPUSCULAR VOLUME 88 fL (79-100); MONO % 9 % (0-9); NEUT % 52 % (31-73); PLATELET COUNT 200 x10^3/uL (140-400); RED BLOOD COUNT 4.24 x10^6/uL (3.50-5.40); RED CELL DISTRIBUTION WIDTH 14.5 % (11.5-14.5); WHITE BLOOD COUNT 7.1 x10^3/uL (4.0-11.0)
--- NOTE | 2017-06-08 15:15 | PHYS DOC ---
Past Medical History Past Medical History: Asthma, COPD, DVT, High Cholesterol, Hypertension, Other Additional Past Medical Histor: ibs, ECZEMA Past Surgical History: Cholecystectomy, Hysterectomy, Tubal ligation, Other Additional Past Surgical Histo: neck sx, hernia repair, Alcohol Use: Rarely Drug Use: Marijuana Adult General Chief Complaint Chief Complaint: NAUSEA/VOMITING/DIARRHA HPI HPI Patient is a 47 year old female who presents with abdominal pain. The patient reports six-day history of generalized/upper abdominal pain associated with nausea and vomiting, 3 episodes today, poorly tolerating oral intake. Reports 3 episodes of diarrhea today. Denies fevers or chills, hematemesis, hematochezia or melena, dysuria or hematuria, vaginal bleeding or discharge. Seen here 4 days ago for similar symptoms, did not improve with treatments at home and continues to vomit and have pain. She also states that she took a sip of her sister's smoothie right before she came to the ED & now she has a pruritic rash to torso & extremities, no face/tongue/lip swelling, no shortness of breath. She has history of cholecystectomy and hysterectomy as well as chronic abdominal pain. Review of Systems Review of Systems Constitutional: Denies fever or chills HENT: Denies nasal congestion or sore throat Respiratory: Denies cough or shortness of breath Cardiovascular: Denies chest pain or edema GI: Reports abdominal pain, nausea, vomiting, and diarrhea, denies bloody stools : Denies dysuria or hematuria Musculoskeletal: Denies back pain or joint pain Integument: Denies rash or skin lesions Neurologic: Denies headache, focal weakness or sensory changes Current Medications Current Medications Current Medications Medications (Trade) Dose Ordered Sig/Guillermina Start Time Stop Time Status Last Admin Dose Admin Diphenhydramine HCl (Benadryl) 25 mg 1X ONCE 06/08/17 14:15 06/08/17 14:16 DC 06/08/17 14:15 25 MG Ketorolac Tromethamine (Toradol) 30 mg 1X ONCE 06/08/17 14:15 06/08/17 14:16 DC 06/08/17 14:15 30 MG Ondansetron HCl (Zofran) 4 mg 1X ONCE 06/08/17 14:15 06/08/17 14:16 DC 06/08/17 14:15 4 MG Sodium Chloride 1,000 ml @ 1,000 mls/hr 1X ONCE 06/08/17 14:15 06/08/17 15:14 DC 06/08/17 14:15 1,000 MLS/HR Allergies Allergies Allergies Coded Allergies Type Severity Reaction Last Updated Verified mustard Allergy Severe ANGIOEDEMA/HIVES 02/24/17 Yes poppyseed oil Allergy Severe Hives 02/11/17 Yes Penicillins Allergy Intermediate HIVES 02/11/17 Yes adhesive tape Allergy Intermediate RASH 06/04/17 Yes Physical Exam Physical Exam Constitutional: Obese, no acute distress, non-toxic appearance. HENT: Normocephalic, atraumatic, bilateral external ears normal, oropharynx moist, nose normal. no face/tongue/lip swelling. Eyes: PERRLA, EOMI, conjunctiva normal, no discharge. Neck: supple, no stridor. Cardiovascular: RRR, no murmurs, no edema. Lungs & Thorax: LCTAB, no wheezing, no respiratory distress. Abdomen: soft, no focal abdominal tenderness with palpation, no masses or pulsatile masses, no rebound or guarding, nondistended. Skin: torso & extremities particularly right flank & thigh with streaky urticaria. Back: No CVA tenderness. Extremities: No tenderness, no edema. Neurologic: Alert and oriented X 3, no focal deficits noted. Psychologic: Affect normal, judgement normal, mood normal. Current Patient Data Vital Signs Vital Signs Date Time Temp Pulse Resp B/P (MAP) Pulse Ox O2 Delivery O2 Flow Rate FiO2 06/08/17 16:11 72 16 148/66 (93) 96 Room Air 06/08/17 13:47 97.9 97.9 Lab Values Laboratory Tests Test 06/08/17 13:25 06/08/17 14:15 06/08/17 14:50 POC Urine HCG, Qualitative Hcg negative (Negative) Urine Collection Type Void Urine Color Yellow Urine Clarity Clear Urine pH 5.5 Urine Specific [place] 1.020 Urine Protein Negative mg/dL (NEG-TRACE) Urine Glucose (UA) Negative mg/dL (NEG) Urine Ketones (Stick) Negative mg/dL (NEG) Urine Blood Trace (NEG) Urine Nitrite Negative (NEG) Urine Bilirubin Negative (NEG) Urine Urobilinogen Dipstick 0.2 mg/dL (0.2 mg/dL) Urine Leukocyte Esterase Negative (NEG) Urine RBC Rare /HPF (0-2) Urine WBC Rare /HPF (0-4) Urine Squamous Epithelial Cells Many /LPF Urine Bacteria Moderate /HPF (0-FEW) Urine Hyaline Casts Few /HPF Urine Mucus Marked /LPF White Blood Count 7.1 x10^3/uL (4.0-11.0) Red Blood Count 4.24 x10^6/uL (3.50-5.40) Hemoglobin 12.3 g/dL (12.0-15.5) Hematocrit 37.2 % (36.0-47.0) Mean Corpuscular Volume 88 fL (79-100) Mean Corpuscular Hemoglobin 29 pg (25-35) Mean Corpuscular Hemoglobin Concent 33 g/dL (31-37) Red Cell Distribution Width 14.5 % (11.5-14.5) Platelet Count 200 x10^3/uL (140-400) Neutrophils (%) (Auto) 52 % (31-73) Lymphocytes (%) (Auto) 35 % (24-48) Monocytes (%) (Auto) 9 % (0-9) Eosinophils (%) (Auto) 2 % (0-3) Basophils (%) (Auto) 3 % (0-3) Neutrophils # (Auto) 3.7 x10^3uL (1.8-7.7) Lymphocytes # (Auto) 2.5 x10^3/uL (1.0-4.8) Monocytes # (Auto) 0.6 x10^3/uL (0.0-1.1) Eosinophils # (Auto) 0.1 x10^3/uL (0.0-0.7) Basophils # (Auto) 0.2 x10^3/uL (0.0-0.2) Sodium Level 144 mmol/L (136-145) Potassium Level 3.7 mmol/L (3.5-5.1) Chloride Level 107 mmol/L (98-107) Carbon Dioxide Level 30 mmol/L (21-32) Anion Gap 7 (6-14) Blood Urea Nitrogen 13 mg/dL (7-20) Creatinine 0.9 mg/dL (0.6-1.0) Estimated GFR (Cockcroft-Gault) 80.9 BUN/Creatinine Ratio 14 (6-20) Glucose Level 95 mg/dL (70-99) Calcium Level 8.3 mg/dL (8.5-10.1) L Total Bilirubin 0.3 mg/dL (0.2-1.0) Aspartate Amino Transferase (AST) 15 U/L (15-37) Alanine Aminotransferase (ALT) 26 U/L (14-59) Alkaline Phosphatase 54 U/L (46-116) Troponin I Quantitative < 0.017 ng/mL (0.000-0.055) Total Protein 6.5 g/dL (6.4-8.2) Albumin 3.5 g/dL (3.4-5.0) Albumin/Globulin Ratio 1.2 (1.0-1.7) Lipase 148 U/L (73-393) Laboratory Tests 06/08/17 14:50 Laboratory Tests 06/08/17 14:50 EKG EKG Interpreted by me: Normal sinus rhythm rate 68, no acute ST or T wave changes, normal intervals, no ectopy. [] Radiology/Procedures Radiology/Procedures PROCEDURE: ACUTE ABDOMEN SERIES Acute abdomen series with chest, 3 views, 06/08/2017: History: Abdominal pain, nausea and vomiting The abdominal gas pattern is unremarkable. No free air is seen in the abdomen. Surgical clips are present in the right upper quadrant. Several pelvic calcifications are probably phleboliths. The heart size and pulmonary vascularity are normal. No pulmonary infiltrates are seen. There is no evidence of pleural fluid. IMPRESSION: No acute abdominal abnormality is detected. DICTATED and SIGNED BY: KEREN MCDANIELS MD DATE: 06/08/17 1448[] Course & Med Decision Making Course & Med Decision Making Pertinent Labs and Imaging studies reviewed. (See chart for details) Patient presents with abdominal pain & vomiting. Also has urticarial rash. Well appearing with stable vitals. Gave benadryl for urticaria, IV fluids/ zofran/toradol for abdominal pain & vomiting. Obtained labs & UA which are normal. Abdominal exam not impressive for peritoneal signs or focal tenderness , acute abd series shows no acute abnormality. Patient felt better after treatment. Recommend rest, PO hydration with small sips of clear liquid, reglan for nausea, gave prescriptions for bentyl & zantac. Follow up with PCP in 2-3 days if not improving. Come back for high fever, severe pain, uncontrolled vomiting, any otherwise worsening condition. Discharged home in stable & improved condition. [] Dragon Disclaimer Dragon Disclaimer This electronic medical record was generated, in whole or in part, using a voice recognition dictation system. Departure Departure Impression: Primary Impression: Abdominal pain Additional Impressions: Nausea & vomiting Urticaria Disposition: 01 HOME, SELF-CARE Condition: STABLE Referrals: SHARMIN ESQUEDA (PCP) Patient Instructions: Abdominal Pain, [id number] Additional Instructions: You were seen in the emergency department today for abdominal pain. Tests did not show serious cause of symptoms. Please rest, drink small sips of clear liquids to stay hydrated. Use Reglan for nausea. Take Zantac and Bentyl as needed. Follow-up with primary care physician in 2-3 days if not improving. Return to the emergency department for high fever, severe pain, uncontrolled vomiting, any otherwise worsening condition. Scripts Dicyclomine Hcl (BENTYL) 10 Mg Capsule 1 CAP PO TID Y for INDIGESTION, #15 CAP 1 Refill Prov: GENNY BRYANT MD 06/08/17 Ranitidine Hcl (ZANTAC) 150 Mg Tablet 150 MG PO DAILY, #14 TAB Prov: GENNY BRYANT MD 06/08/17 Ondansetron (ZOFRAN ODT) 4 Mg Tab.rapdis 1 TAB SL Q8HRS Y for NAUSEA, #10 TAB Prov: GENNY BRYANT MD 06/08/17 Problem Qualifiers GENNY BRYANT MD Jun 08, 2017 15:15
[2017-06-08 15:19] LABS: CALCIUM 8.3 mg/dL (8.5-10.1); CREATININE 0.9 mg/dL (0.6-1.0); GFR 80.9; POTASSIUM 3.7 mmol/L (3.5-5.1)
[2017-06-08 15:25] LABS: ALBUMIN 3.5 g/dL (3.4-5.0); ALBUMIN/GLOBULIN RATIO 1.2 (1.0-1.7); TOTAL BILIRUBIN 0.3 mg/dL (0.2-1.0); TOTAL PROTEIN 6.5 g/dL (6.4-8.2)
[2017-06-08] MEDS ORDERED: DICY10CA53 PO (15:46)
[2017-06-08] MEDS ORDERED: RANI150T6 PO (15:46)
[2017-06-08] MEDS ORDERED: ONDA4TAB10 SL (15:46)
[2017-06-08 16:11] VITALS: BP 148/66
== END 2017-06-08 16:13 | disposition home or self-care (01) ==
LOC: EEVIPCON 13:13 → ER 13:13
DX: R11.2 Nausea with vomiting, unspecified (principal); L50.9 Urticaria, unspecified; J44.9 Chronic obstructive pulmonary disease, unspecified; E78.00 Pure hypercholesterolemia, unspecified; K58.0 Irritable bowel syndrome with diarrhea; G89.29 Other chronic pain; I10 Essential (primary) hypertension; F12.10 Cannabis abuse, uncomplicated; Z86.718 Personal history of other venous thrombosis and embolism; Z90.49 Acquired absence of other specified parts of digestive tract; Z90.710 Acquired absence of both cervix and uterus; Z98.51 Tubal ligation status; Z88.0 Allergy status to penicillin; Z88.8 Allergy status to other drugs, medicaments and biological substances; Z91.018 Allergy to other foods; Z91.048 Other nonmedicinal substance allergy status
CPT/HCPCS: 36415; 74022; 80053; 81001; 81025; 83690; 84484; 85027; 87086; 93005; 96361; 96374; 96375; 99285; J1200; J1885; J2405; J7030

== ENCOUNTER 2017-07-20 20:13 | Observation (INO) | payer MEDICARE, OTHER ==
[~2017-07-20] VITALS: Ht 149.9 cm; Wt 91.4 kg
[~2017-07-20 20:13] MED LIST changes: +DICY10CA53 PO; +METO-239 PO; -METO25TA9 PO; +RANI150T6 PO
[2017-07-20 21:36] LABS: BASO # 0.2 x10^3/uL (0.0-0.2); BASO % 2 % (0-3); EOS % 1 % (0-3); HEMATOCRIT 35.9 % (36.0-47.0); HEMOGLOBIN 11.9 g/dL (12.0-15.5); LYMPH # 2.6 x10^3/uL (1.0-4.8); LYMPH % 35 % (24-48); MEAN CORPUSCULAR HEMOGLOBIN 29 pg (25-35); MEAN CORPUSCULAR HGB CONC 33 g/dL (31-37); MEAN CORPUSCULAR VOLUME 88 fL (79-100); MONO % 7 % (0-9); NEUT % 56 % (31-73); PLATELET COUNT 145 x10^3/uL (140-400); RED BLOOD COUNT 4.09 x10^6/uL (3.50-5.40); WHITE BLOOD COUNT 7.6 x10^3/uL (4.0-11.0)
[2017-07-20 21:51] LABS: CALCIUM 8.9 mg/dL (8.5-10.1); CREATININE 0.9 mg/dL (0.6-1.0); GFR 80.9; POTASSIUM 3.1 mmol/L (3.5-5.1)
[2017-07-20 21:57] LABS: ALBUMIN 3.5 g/dL (3.4-5.0); MAGNESIUM 1.7 mg/dL (1.8-2.4); TOTAL BILIRUBIN 0.1 mg/dL (0.2-1.0); TOTAL PROTEIN 6.9 g/dL (6.4-8.2)
[2017-07-20] MEDS ORDERED: ONDANSETRON ODT 4 MG TAB.RAPDIS. PO ONE (22:00)
--- NOTE | 2017-07-20 22:24 | PHYS DOC ---
Past Medical History Past Medical History: Asthma, COPD, DVT, High Cholesterol, Hypertension, Other Additional Past Medical Histor: ibs, ECZEMA Past Surgical History: Cholecystectomy, Hysterectomy, Tubal ligation, Other Additional Past Surgical Histo: neck sx, hernia repair, Alcohol Use: Rarely Drug Use: Marijuana Adult General Chief Complaint Chief Complaint: MUSCLE SPASM/CRAMP HPI HPI Patient is a 47 year old -Mal[place] female with history of cervical spine surgery and herniated disks who presents with generalized weakness with progressive weakness of bilateral upper extremities for the past 3 days. Patient states symptoms first began feeling generally weak 7 days ago. She states she is normally able to ambulate with assistance but has had to some difficulty walking for the past 3 days. She also reports urinary incontinence and use of diapers. No headache, neck pain, fever, rash. Patient was evaluated by her physician Dr. Sharmin Howe 2 days ago for these symptoms and is tentatively awaiting an outpatient EMG. She reports recent MRI of her thoracic and lumbar spine. No other acute symptoms or complaints. She lives by herself and was able to dress herself and drive herself to the emergency department. Review of Systems Review of Systems ROS as per HPI. All other ROS are negative. Current Medications Current Medications Current Medications Medications (Trade) Dose Ordered Sig/Guillermina Start Time Stop Time Status Last Admin Dose Admin Albuterol/ Ipratropium (Duoneb) 3 ml 1X ONCE 07/20/17 23:00 07/20/17 23:01 DC 07/20/17 23:14 3 ML Ketorolac Tromethamine (Toradol) 15 mg 1X ONCE 07/20/17 23:30 07/20/17 23:31 DC 07/21/17 00:08 15 MG Ondansetron HCl (Zofran Odt) 4 mg 1X ONCE 07/20/17 22:00 07/20/17 22:01 DC 07/20/17 22:22 4 MG Ondansetron HCl (Zofran) 4 mg 1X ONCE 07/20/17 22:45 07/20/17 22:46 DC Potassium Chloride/Sodium Chloride 1,000 ml @ 75 mls/hr 1X ONCE 07/20/17 22:45 07/21/17 12:04 07/20/17 22:49 75 MLS/HR Potassium Chloride (Klor-Con) 40 meq 1X ONCE 07/20/17 22:45 07/20/17 22:46 DC 07/21/17 00:17 20 MEQ Allergies Allergies Allergies Coded Allergies Type Severity Reaction Last Updated Verified mustard Allergy Severe ANGIOEDEMA/HIVES 02/24/17 Yes poppyseed oil Allergy Severe Hives 02/11/17 Yes Penicillins Allergy Intermediate HIVES 02/11/17 Yes adhesive tape Allergy Intermediate RASH 06/04/17 Yes Physical Exam Physical Exam Constitutional: Well developed, well nourished, no acute distress, non-toxic appearance. [] HENT: Normocephalic, atraumatic, bilateral external ears normal, oropharynx moist, no oral exudates, nose normal. [] Eyes: PERRLA, EOMI, conjunctiva normal. [] Neck: Normal range of motion, no tenderness, supple, no stridor. [] Cardiovascular:Heart rate regular rhythm.[] Lungs & Thorax: Bilateral breath sounds clear to auscultation [] Abdomen: Bowel sounds normal, soft, .[] Skin: Warm, dry, no erythema, no rash. [] Back: No tenderness.[] Extremities: No tenderness, no cyanosis, no clubbing, ROM intact, no edema. [] Neurologic: Alert and oriented X 3, normal motor function, cranial nerves II through XII grossly intact, no pronator drift, patient was symmetric motor weakness of intrinsic muscles of hands, lower extremity, no motor weakness or loss of sensation, upper extremity reflexes 2+, lower extremity reflexes 1+ and symmetric. No sensory level deficit levels.[] Psychologic: Affect normal, judgement normal, mood normal. [] Current Patient Data Vital Signs Vital Signs Date Time Temp Pulse Resp B/P (MAP) Pulse Ox O2 Delivery O2 Flow Rate FiO2 07/21/17 00:15 90 18 106/73 (84) 96 07/20/17 23:15 Room Air 07/20/17 20:25 98.1 98.1 Lab Values Laboratory Tests Test 07/20/17 21:20 07/20/17 22:40 White Blood Count 7.6 x10^3/uL (4.0-11.0) Red Blood Count 4.09 x10^6/uL (3.50-5.40) Hemoglobin 11.9 g/dL (12.0-15.5) L Hematocrit 35.9 % (36.0-47.0) L Mean Corpuscular Volume 88 fL (79-100) Mean Corpuscular Hemoglobin 29 pg (25-35) Mean Corpuscular Hemoglobin Concent 33 g/dL (31-37) Red Cell Distribution Width 14.0 % (11.5-14.5) Platelet Count 145 x10^3/uL (140-400) Neutrophils (%) (Auto) 56 % (31-73) Lymphocytes (%) (Auto) 35 % (24-48) Monocytes (%) (Auto) 7 % (0-9) Eosinophils (%) (Auto) 1 % (0-3) Basophils (%) (Auto) 2 % (0-3) Neutrophils # (Auto) 4.2 x10^3uL (1.8-7.7) Lymphocytes # (Auto) 2.6 x10^3/uL (1.0-4.8) Monocytes # (Auto) 0.5 x10^3/uL (0.0-1.1) Eosinophils # (Auto) 0.1 x10^3/uL (0.0-0.7) Basophils # (Auto) 0.2 x10^3/uL (0.0-0.2) Sodium Level 143 mmol/L (136-145) Potassium Level 3.1 mmol/L (3.5-5.1) L Chloride Level 105 mmol/L (98-107) Carbon Dioxide Level 28 mmol/L (21-32) Anion Gap 10 (6-14) Blood Urea Nitrogen 9 mg/dL (7-20) Creatinine 0.9 mg/dL (0.6-1.0) Estimated GFR (Cockcroft-Gault) 80.9 BUN/Creatinine Ratio 10 (6-20) Glucose Level 98 mg/dL (70-99) Calcium Level 8.9 mg/dL (8.5-10.1) Magnesium Level 1.7 mg/dL (1.8-2.4) L Total Bilirubin 0.1 mg/dL (0.2-1.0) L Aspartate Amino Transferase (AST) 19 U/L (15-37) Alanine Aminotransferase (ALT) 34 U/L (14-59) Alkaline Phosphatase 64 U/L (46-116) Creatine Kinase 115 U/L (26-192) Troponin I Quantitative < 0.017 ng/mL (0.000-0.055) C-Reactive Protein, Quantitative 3.1 mg/L (0-3.3) Total Protein 6.9 g/dL (6.4-8.2) Albumin 3.5 g/dL (3.4-5.0) Albumin/Globulin Ratio 1.0 (1.0-1.7) Thyroid Stimulating Hormone (TSH) 0.619 uIU/mL (0.358-3.74) Urine Opiates Screen Neg (NEG) Urine Methadone Screen Neg (NEG) Urine Barbiturates Neg (NEG) Urine Phencyclidine Screen Neg (NEG) Urine Amphetamine/Methamphetamine Neg (NEG) Urine Benzodiazepines Screen Pos (NEG) Urine Cocaine Screen Neg (NEG) Urine Cannabinoids Screen Neg (NEG) Urine Ethyl Alcohol Pos (NEG) Laboratory Tests 07/20/17 21:20 Laboratory Tests 07/20/17 21:20 EKG EKG [] Radiology/Procedures Radiology/Procedures [] Course & Med Decision Making Course & Med Decision Making Pertinent Labs and Imaging studies reviewed. (See chart for details) [Patient with multiple medical complaints. Reports generalized weakness. Potassium is 3.1. Patient with nausea and vomiting and states she is unable to swallow potassium. IV potassium given. 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 No midline neck pain. Patient will at times use her hands adeptly when not being evaluated, but will have difficulty performing some simple tasks on examination.Patient is able stand walk in obtaining urine sample without assistance. Postvoid bladder scan is less than [address] spine surgery per Dr. Amos. Admit to the hospital service for further evaluation and treatment. Dr. Fierro to admit. Dragon Disclaimer Dragon Disclaimer This electronic medical record was generated, in whole or in part, using a voice recognition dictation system. Departure Departure Impression: Primary Impression: Hypokalemia Additional Impressions: Nausea & vomiting Hand muscle weakness Disposition: ADMITTED INPATIENT Admitting Physician: Adin Fierro Condition: STABLE Referrals: SHARMIN ESQUEDA (PCP) Problem Qualifiers GLORIAGUNNER ORELLANA Jul 20, 2017 22:24
[2017-07-20] MEDS ORDERED: ONDANSETRON PF 4 MG/2 ML VIAL. ONE (22:26)
[2017-07-20] MEDS ORDERED: ONDANSETRON PF 4 MG/2 ML VIAL. IV ONE ×2 (22:30→22:45)
[2017-07-20] MEDS ORDERED: POTASSIUM CL 40MEQ IN 0.9%NACL 1,000 ML IV ONE (22:45)
[2017-07-20 22:55] LABS: BARBITURATES NEG (NEG); BENZODIAZEPINES POS (NEG); CANNABINOIDS NEG (NEG); COCAINE NEG (NEG); METHADONE NEG (NEG); OPIATES NEG (NEG); PHENCYCLIDINE NEG (NEG)
[2017-07-20] MEDS ORDERED: IPRATRPIUM/ALBUTEROL 0.5/2.5MG 3 ML NEBU. NEB ONE (23:00)
[2017-07-20] MEDS ORDERED: KETOROLAC 15 MG/ML VIAL. IV ONE (23:30)
[2017-07-21] MEDS: POTASSIUM CHLORIDE 20 MEQ TABLET.ER. PO ONE ×2 (00:08→00:17)
[2017-07-21] MEDS ORDERED: ONDANSETRON PF 4 MG/2 ML VIAL. IV PRN ×2 (01:00→09:00)
[2017-07-21] MEDS ORDERED: OXYC10TA PO (04:42)
[2017-07-21] MEDS ORDERED: HYDR-2766 PO (04:43)
[2017-07-21] MEDS ORDERED: LOSA1TAB17 PO (04:43)
[2017-07-21] MEDS ORDERED: HYDROcodone/APAP 10/325 1 TAB TABLET PO PRN ×2 (05:30→09:00)
[2017-07-21] MEDS ORDERED: oxyCODONE IR 5 MG TABLET PO SCH ×2 (06:00→12:00)
--- NOTE | 2017-07-21 06:11 | RAD ---
INDICATION: speech difficulty, weakness x 3 days COMPARISON: April 2014 TECHNIQUE: Axial CT images obtained through the head without intravenous contrast. One or more of the following individualized dose reduction techniques were utilized for this examination: 1. Automated exposure control; 2. Adjustment of the mA and/or kV according to patient size; 3. Use of iterative reconstruction technique. FINDINGS: No intracranial hemorrhage. No midline shift. Basal cisterns patents. Ventricles and sulci are unremarkable No acute osseous abnormality. Orbits and paranasal sinuses unremarkable. Scattered foci of low attenuation within the white matter. IMPRESSION: 1. No acute intracranial hemorrhage. 2. Scattered regions of low attenuation within the white matter. Non-specific in nature but frequently secondary to chronic small vessel ischemic disease. If there is clinical concern for acute etiology MRI could further evaluate to ensure that none of these foci are acute. Electronically signed by: Asif Hook MD (07/21/2017 6:08 AM) [id number]
[2017-07-21 07:00] VITALS: BP 133/77
[2017-07-21] MEDS ORDERED: ASPIRIN 325 MG TABLET PO ONE (07:15)
--- NOTE | 2017-07-21 07:23 | EKG ---
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
[2017-07-21] MEDS: IPRATRPIUM/ALBUTEROL 0.5/2.5MG 3 ML NEBU. NEB SCH ×2 (07:24→11:12)
[2017-07-21] MEDS ORDERED: POTASSIUM CHLORIDE 20 MEQ TABLET.ER. PO SCH (08:00)
[2017-07-21] MEDS ORDERED: cloNIDine HCL 0.1 MG TABLET PO SCH (09:00)
[2017-07-21] MEDS ORDERED: ACETAMINOPHEN 500 MG TABLET PO PRN (09:00)
[2017-07-21] MEDS ORDERED: DOXAZOSIN MESYLATE 4 MG TABLET. PO SCH (09:00)
[2017-07-21] MEDS ORDERED: KETOROLAC 15 MG/ML VIAL. IV PRN (09:00)
[2017-07-21] MEDS ORDERED: ALPRAZolam 0.5 MG TABLET PO SCH (09:00)
[2017-07-21] MEDS ORDERED: MORPHINE SULFATE 2 MG/ML DISP.SYRIN. IV PRN (09:00)
[2017-07-21] MEDS ORDERED: DEXTROSE 50% 25 GM / 50ML DISP.SYRIN. IV PRN (09:00)
[2017-07-21] MEDS ORDERED: PANTOPRAZOLE 40 MG TABLET.DR. PO SCH (10:30)
[2017-07-21] MEDS ORDERED: METOPROLOL SUCC 24HR ER 50 MG TAB.ER.24H. PO SCH (10:30)
[2017-07-21] MEDS ORDERED: LOSARTAN POTASSIUM 50 MG TABLET. PO SCH (10:30)
[2017-07-21 11:01] VITALS: BP 146/83
[2017-07-21] MEDS ORDERED: INSULIN ASPART 300 UNITS/3 ML INSULN.PEN SQ SCH (12:00)
--- NOTE | 2017-07-21 12:26 | PDOC ---
Provider Note Provider Note Pt left AMA before I could see her as she wa not getting the IV dilaudid she requested Pt drove herself to the ER last night NO H and P or dc summ needed JOSE WILLIAMSON MD Jul 21, 2017 12:26
[2017-07-21] MEDS ORDERED: EZETIMIBE 10 MG TABLET. PO SCH (21:00)
[2017-07-21] MEDS ORDERED: ATORVASTATIN CALCIUM 40 MG TABLET. PO SCH (21:00)
[2017-07-22] MEDS ORDERED: oxyCODONE IR 5 MG TABLET PO ONE (08:00)
== END 2017-07-21 11:50 | disposition left against medical advice (07) ==
LOC: ER 20:13 → EEVIPCON 07-21 00:30 → 2 NORTH 07-21 00:30
PROVIDERS: ADMIT Internal Medicine; ATTEND Internal Medicine
DX: R53.1 Weakness (principal); E87.6 Hypokalemia; E78.00 Pure hypercholesterolemia, unspecified; J44.9 Chronic obstructive pulmonary disease, unspecified; I10 Essential (primary) hypertension; K58.9 Irritable bowel syndrome, unspecified; R32 Unspecified urinary incontinence; Z90.710 Acquired absence of both cervix and uterus; Z86.718 Personal history of other venous thrombosis and embolism
CPT/HCPCS: 36415; 70450; 80053; 80307; 82550; 83735; 84443; 84484; 85025; 86140; 93005; 94250; 94640; 96365; 96366; 96375; 96376; 99285; G0378; J1885; J2405; J3480; J7620; Q0162; G0379; J1815; G0479

== ENCOUNTER 2017-08-04 10:24 | Emergency (ER) | payer MEDICARE, OTHER ==
[~2017-08-04] VITALS: Ht 149.9 cm; Wt 93.9 kg
[~2017-08-04 10:24] MED LIST changes: +HYDR-2766 PO; +LOSA1TAB17 PO
--- NOTE | 2017-08-04 11:19 | PHYS DOC ---
Past Medical History Past Medical History: Asthma, COPD, DVT, High Cholesterol, Hypertension, Other Additional Past Medical Histor: ibs, ECZEMA Past Surgical History: Cholecystectomy, Hysterectomy, Tubal ligation, Other Additional Past Surgical Histo: neck sx, hernia repair Alcohol Use: Rarely Drug Use: Marijuana Adult General Chief Complaint Chief Complaint: SHORTNESS OF BREATH HPI HPI Patient is a 47 year old female who presents with three-day history gradual onset leg swelling dyspnea was admitted 2 days ago with possible COPD/CHF/ chest discomfort and left AMA since then she has been placed on a diuretic Lasix with some improvement. She's come back now for reevaluation/readmission. Review of Systems Review of Systems Constitutional: Denies fever or chills [] Eyes: Denies change in visual acuity, redness, or eye pain [] HENT: Denies nasal congestion or sore throat [] Respiratory: Denies cough or shortness of breath [] Cardiovascular: No additional information not addressed in HPI [] GI: Denies abdominal pain, nausea, vomiting, bloody stools or diarrhea [] : Denies dysuria or hematuria [] Musculoskeletal: Denies back pain or joint pain [] Integument: Denies rash or skin lesions [] Neurologic: Denies headache, focal weakness or sensory changes [] Endocrine: Denies polyuria or polydipsia [] Allergies Allergies Allergies Coded Allergies Type Severity Reaction Last Updated Verified mustard Allergy Severe ANGIOEDEMA/HIVES 02/24/17 Yes poppyseed oil Allergy Severe Hives 02/11/17 Yes Penicillins Allergy Intermediate HIVES 02/11/17 Yes adhesive tape Allergy Intermediate RASH 06/04/17 Yes Physical Exam Physical Exam Constitutional: Well developed, well nourished, no acute distress, non-toxic appearance. [] HENT: Normocephalic, atraumatic, bilateral external ears normal, oropharynx moist, no oral exudates, nose normal. [] Eyes: PERRLA, EOMI, conjunctiva normal, no discharge. [] Neck: Normal range of motion, no tenderness, supple, no stridor. [] Cardiovascular:Heart rate regular rhythm, no murmur [] Lungs & Thorax: Bilateral breath sounds clear to auscultation [] Abdomen: Bowel sounds normal, soft, no tenderness, no masses, no pulsatile masses. [] Skin: Warm, dry, no erythema, no rash. [] Back: No tenderness, no CVA tenderness. [] Extremities: No tenderness, no cyanosis, no clubbing, ROM intact, trace edema. [ ] Neurologic: Alert and oriented X 3, normal motor function, normal sensory function, no focal deficits noted. [] Psychologic: Affect normal, judgement normal, mood normal. [] Current Patient Data Vital Signs Vital Signs Date Time Temp Pulse Resp B/P (MAP) Pulse Ox O2 Delivery O2 Flow Rate FiO2 08/04/17 12:47 78 22 172/89 (116) 94 Room Air 08/04/17 10:45 98.1 98.1 Lab Values Laboratory Tests Test 08/04/17 10:49 08/04/17 10:52 POC Urine HCG, Qualitative Hcg negative (Negative) White Blood Count 6.2 x10^3/uL (4.0-11.0) Red Blood Count 3.93 x10^6/uL (3.50-5.40) Hemoglobin 11.4 g/dL (12.0-15.5) L Hematocrit 33.7 % (36.0-47.0) L Mean Corpuscular Volume 86 fL (79-100) Mean Corpuscular Hemoglobin 29 pg (25-35) Mean Corpuscular Hemoglobin Concent 34 g/dL (31-37) Red Cell Distribution Width 14.5 % (11.5-14.5) Platelet Count 164 x10^3/uL (140-400) Neutrophils (%) (Auto) 57 % (31-73) Lymphocytes (%) (Auto) 33 % (24-48) Monocytes (%) (Auto) 8 % (0-9) Eosinophils (%) (Auto) 2 % (0-3) Basophils (%) (Auto) 1 % (0-3) Neutrophils # (Auto) 3.5 x10^3uL (1.8-7.7) Lymphocytes # (Auto) 2.0 x10^3/uL (1.0-4.8) Monocytes # (Auto) 0.5 x10^3/uL (0.0-1.1) Eosinophils # (Auto) 0.1 x10^3/uL (0.0-0.7) Basophils # (Auto) 0.1 x10^3/uL (0.0-0.2) Sodium Level 140 mmol/L (136-145) Potassium Level 3.3 mmol/L (3.5-5.1) L Chloride Level 102 mmol/L (98-107) Carbon Dioxide Level 30 mmol/L (21-32) Anion Gap 8 (6-14) Blood Urea Nitrogen 15 mg/dL (7-20) Creatinine 0.7 mg/dL (0.6-1.0) Estimated GFR (Cockcroft-Gault) 108.1 BUN/Creatinine Ratio 21 (6-20) H Glucose Level 103 mg/dL (70-99) H Calcium Level 9.0 mg/dL (8.5-10.1) Total Bilirubin 0.2 mg/dL (0.2-1.0) Aspartate Amino Transferase (AST) 20 U/L (15-37) Alanine Aminotransferase (ALT) 28 U/L (14-59) Alkaline Phosphatase 53 U/L (46-116) Troponin I Quantitative < 0.017 ng/mL (0.000-0.055) Total Protein 6.9 g/dL (6.4-8.2) Albumin 3.5 g/dL (3.4-5.0) Albumin/Globulin Ratio 1.0 (1.0-1.7) Laboratory Tests 08/04/17 10:52 Laboratory Tests 08/04/17 10:52 EKG EKG [] Radiology/Procedures Radiology/Procedures [] Course & Med Decision Making Course & Med Decision Making Pertinent Labs and Imaging studies reviewed. (See chart for details) The patient looks completely medically stable with minimal edema if at all. Plan to check labs chest x-ray to rule out MS and pneumonia and patient may actually be stable now for outpatient follow-up. [Labs are unremarkable chest x-ray was clear patient appears stable to follow up as an outpatient and continue her diuretic.] Dragon Disclaimer Dragon Disclaimer This electronic medical record was generated, in whole or in part, using a voice recognition dictation system. Departure Departure Impression: Primary Impression: Bilateral leg edema Additional Impression: COPD (chronic obstructive pulmonary disease) Disposition: 01 HOME, SELF-CARE Condition: STABLE Referrals: SHARMIN ESQUEDA (PCP) Patient Instructions: Chronic Obstructive Pulmonary Disease Problem Qualifiers GEOVANNY CELESTIN MD Aug 04, 2017 11:19
--- NOTE | 2017-08-04 11:22 | EKG ---
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
--- NOTE | 2017-08-04 11:44 | RAD ---
Portable chest, 08/04/2017: History: Chest pain, cough, dyspnea Comparison is made to a study from 08/02/2017. The heart size and pulmonary vascularity are normal. The lungs are clear. There is no evidence of pleural fluid. IMPRESSION: No acute cardiopulmonary abnormality is detected.
[2017-08-04 11:48] LABS: BASO # 0.1 x10^3/uL (0.0-0.2); BASO % 1 % (0-3); EOS % 2 % (0-3); HEMATOCRIT 33.7 % (36.0-47.0); HEMOGLOBIN 11.4 g/dL (12.0-15.5); LYMPH % 33 % (24-48); MEAN CORPUSCULAR HEMOGLOBIN 29 pg (25-35); MEAN CORPUSCULAR HGB CONC 34 g/dL (31-37); MEAN CORPUSCULAR VOLUME 86 fL (79-100); MONO % 8 % (0-9); NEUT % 57 % (31-73); PLATELET COUNT 164 x10^3/uL (140-400); RED BLOOD COUNT 3.93 x10^6/uL (3.50-5.40); RED CELL DISTRIBUTION WIDTH 14.5 % (11.5-14.5); WHITE BLOOD COUNT 6.2 x10^3/uL (4.0-11.0)
[2017-08-04 11:54] LABS: CREATININE 0.7 mg/dL (0.6-1.0); GFR 108.1; POTASSIUM 3.3 mmol/L (3.5-5.1)
[2017-08-04 12:00] LABS: ALBUMIN 3.5 g/dL (3.4-5.0); TOTAL BILIRUBIN 0.2 mg/dL (0.2-1.0); TOTAL PROTEIN 6.9 g/dL (6.4-8.2)
[2017-08-04 12:47] VITALS: BP 172/89
== END 2017-08-04 13:08 | disposition home or self-care (01) ==
LOC: ER 10:24
DX: R60.0 Localized edema (principal); J44.9 Chronic obstructive pulmonary disease, unspecified; I10 Essential (primary) hypertension; E78.00 Pure hypercholesterolemia, unspecified; K58.9 Irritable bowel syndrome, unspecified; Z86.718 Personal history of other venous thrombosis and embolism; Z88.0 Allergy status to penicillin; Z88.8 Allergy status to other drugs, medicaments and biological substances; Z91.018 Allergy to other foods
CPT/HCPCS: 36415; 71010; 80053; 81025; 84484; 85025; 93005; 99285-25

== ENCOUNTER 2017-08-13 08:18 | Emergency (ER) | payer MEDICARE, OTHER ==
[~2017-08-13] VITALS: Ht 149.9 cm; Wt 84.8 kg
[~2017-08-13 08:18] MED LIST changes: -LOSA1TAB17 PO; +LOSA1TAB22 PO
[2017-08-13 08:31] VITALS: BP 173/87
--- NOTE | 2017-08-13 08:44 | PHYS DOC ---
Past Medical History Past Medical History: Asthma, COPD, DVT, High Cholesterol, Hypertension, Other Additional Past Medical Histor: ibs, ECZEMA Past Surgical History: Cholecystectomy, Hysterectomy, Tubal ligation, Other Additional Past Surgical Histo: neck sx, hernia repair Smoking: Quit Greater Than 1 Year Alcohol Use: Rarely Drug Use: None, Marijuana Adult General Chief Complaint Chief Complaint: Congestion HPI HPI Patient is a 47 year old female presents to the emergency department with nonproductive cough, and congestion. Patient states she has been on Levaquin and prednisone in which she states she did not seem to get any better. She states has had fevers to 102. She has been using mucinex without relief. She has been using her nebulizer and inhalers with minimal relief. She has a hx of asthma and COPD. Patient denies increase SOA. Review of Systems Review of Systems Constitutional: Denies fever or chills [] Eyes: Denies change in visual acuity, redness, or eye pain [] HENT: Denies nasal congestion or sore throat [] Respiratory: cough and congestion denies shortness of breath [] Cardiovascular: No additional information not addressed in HPI [] GI: Denies abdominal pain, nausea, vomiting, bloody stools or diarrhea [] : Denies dysuria or hematuria [] Musculoskeletal: Denies back pain or joint pain [] Integument: Denies rash or skin lesions [] Neurologic: Denies headache, focal weakness or sensory changes [] Endocrine: Denies polyuria or polydipsia [] Current Medications Current Medications Current Medications Medications (Trade) Dose Ordered Sig/Guillermina Start Time Stop Time Status Last Admin Dose Admin Albuterol/ Ipratropium (Duoneb) 3 ml 1X ONCE 08/13/17 08:45 08/13/17 08:46 DC 08/13/17 08:49 3 ML Prednisone (Prednisone) 40 mg 1X ONCE 08/13/17 08:45 08/13/17 08:46 DC 08/13/17 08:52 40 MG Allergies Allergies Allergies Coded Allergies Type Severity Reaction Last Updated Verified mustard Allergy Severe ANGIOEDEMA/HIVES 02/24/17 Yes poppyseed oil Allergy Severe Hives 02/11/17 Yes Penicillins Allergy Intermediate HIVES 02/11/17 Yes adhesive tape Allergy Intermediate RASH 06/04/17 Yes Physical Exam Physical Exam Constitutional: Well developed, well nourished, no acute distress, non-toxic appearance. [] HENT: Normocephalic, atraumatic, bilateral external ears normal, oropharynx moist, no oral exudates, nose normal. [] Eyes: PERRLA, EOMI, conjunctiva normal, no discharge. [] Neck: Normal range of motion, no tenderness, supple, no stridor. [] Cardiovascular:Heart rate regular rhythm, no murmur [] Lungs & Thorax: Bilateral breath sounds wheezes and coarseness noted Skin: Warm, dry, no erythema, no rash. [] Extremities: No tenderness, no cyanosis, no clubbing, ROM intact, no edema. [] Neurologic: Alert and oriented X 3, normal motor function, normal sensory function, no focal deficits noted. [] Psychologic: Affect normal, judgement normal, mood normal. [] Current Patient Data Vital Signs Vital Signs Date Time Temp Pulse Resp B/P (MAP) Pulse Ox O2 Delivery O2 Flow Rate FiO2 08/13/17 08:51 97 Room Air 08/13/17 08:31 98.5 97 22 98.5 EKG EKG [] Radiology/Procedures Radiology/Procedures [][facility] [address] [place] [address] IMAGING REPORT Signed PATIENT: GABRIELE COLLINS ACCOUNT: [id number] : 1970 LOCATION: ER AGE: 47 SEX: F EXAM STATUS: PRE ER ORD. PHYSICIAN: MELO العراقي APRN REASON: cough and congestion- BREATHING TREATMENT @ 850 PROCEDURE: CHEST PA & LATERAL PA and lateral chest. History: Cough and congestion, short of breath PA and lateral views were taken of the chest. Lungs are clear. Heart is normal in size. There is no pleural effusion. Impression: 1. No acute chest disease. DICTATED and SIGNED BY: DAVIE ABRAMS MD DATE: 08/13/17924 CC: SHARMIN ESQUEDA; MELO العراقي APRN ~ Course & Med Decision Making Course & Med Decision Making Pertinent Labs and Imaging studies reviewed. (See chart for details) Patient was provided with duoneb treatmetn and prednisone. CXR negative for infiltrated per radiology. Patient was also noted to have open sores on the top of her feet. Patient states they itch and become painful. Patient was recommended to keep the area clean and dry and apply antibiotics over the area. Patient will be placed on doxy. and prednisone. She will be discharged home in stable condition. Signs and symptoms to return to emergency department has been provided. All questions and concerns have been answered at bedside. [] Dragon Disclaimer Dragon Disclaimer This electronic medical record was generated, in whole or in part, using a voice recognition dictation system. Departure Departure Impression: Primary Impression: Upper respiratory infection Disposition: HOME, SELF-CARE Condition: STABLE Referrals: SHARMIN ESQUEDA (PCP) Patient Instructions: Upper Respiratory Infection, Adult, [id number] Additional Instructions: Activity as tolerated Medication as prescribed Continue you respiratory treatments at home Tylenol or Ibuprofen for fever, chills or generalized body aches Followup with primary care provider in 3-5 days Return to emergency department as needed for signs and symptoms that become worse. Scripts Guaifenesin/Dextromethorphan (TUSSIN DM 400-20 MG TABLET) 1 Each Tablet 1 EACH PO Q12HR for 7 Days, #14 TAB Prov: MELO العراقي APRN 08/13/17 Prednisone (PREDNISONE) 20 Mg Tablet 40 MG PO DAILY for 6 Days, #12 TAB Prov: MELO العراقي APRN 08/13/17 Doxycycline Hyclate (DOXYCYCLINE HYCLATE) 100 Mg Capsule 1 CAP PO BID, #20 CAP Prov: MELO العراقي APRN 08/13/17 Problem Qualifiers Primary Impression: Upper respiratory infection URI type: unspecified URI Qualified Codes: J06.9 - Acute upper respiratory infection, unspecified MELO العراقي APRN Aug 13, 2017 08:44
[2017-08-13] MEDS: IPRATRPIUM/ALBUTEROL 0.5/2.5MG 3 ML NEBU. NEB ONE (08:49)
[2017-08-13] MEDS: predniSONE 20 MG TABLET PO ONE (08:52)
--- NOTE | 2017-08-13 09:28 | RAD ---
PA and lateral chest. History: Cough and congestion, short of breath PA and lateral views were taken of the chest. Lungs are clear. Heart is normal in size. There is no pleural effusion. Impression: 1. No acute chest disease.
[2017-08-13] MEDS ORDERED: DOXY100C2 PO (09:50)
[2017-08-13] MEDS ORDERED: GUAI1TAB PO (09:50)
[2017-08-13] MEDS ORDERED: PRED20TA PO (09:50)
== END 2017-08-13 10:00 | disposition home or self-care (01) ==
LOC: ER 08:18
DX: J06.9 Acute upper respiratory infection, unspecified (principal); I10 Essential (primary) hypertension; E78.00 Pure hypercholesterolemia, unspecified; J44.9 Chronic obstructive pulmonary disease, unspecified; Z86.718 Personal history of other venous thrombosis and embolism; Z87.891 Personal history of nicotine dependence
CPT/HCPCS: 71020; 94640; 99284; J7512; J7620

== ENCOUNTER 2017-08-19 17:08 | Emergency (ER) | payer MEDICARE, OTHER ==
[~2017-08-19 17:08] MED LIST changes: +DOXY100C2 PO; +GUAI1TAB PO
[2017-08-19] MEDS ORDERED: methylPREDNISolone SOD SUCC PF 125 MG/2 ML VIAL. IV ONE (18:00)
[2017-08-19] MEDS ORDERED: FAMOTIDINE 20 MG/2 ML VIAL IVP ONE (18:00)
[2017-08-19] MEDS ORDERED: diphenhydrAMINE 50 MG/ML VIAL IVP ONE (18:00)
[2017-08-19] MEDS ORDERED: IPRATRPIUM/ALBUTEROL 0.5/2.5MG 3 ML NEBU. NEB ONE (18:00)
[2017-08-19] MEDS ORDERED: IV NORMAL SALINE 1000ML BAG 1,000 ML IV ONE (18:00)
[2017-08-19] MEDS ORDERED: EPINEPHrine 1 MG/ML VIAL SQ ONE (18:00)
[2017-08-19 18:15] VITALS: BP 155/85
--- NOTE | 2017-08-19 19:40 | PHYS DOC ---
Past Medical History Past Medical History: Asthma, COPD, DVT, High Cholesterol, Hypertension, Other Additional Past Medical Histor: IBS, ECZEMA Past Surgical History: Cholecystectomy, Hysterectomy, Tubal ligation, Other Additional Past Surgical Histo: neck sx, hernia repair Alcohol Use: Rarely Drug Use: None, Marijuana Adult General Chief Complaint Chief Complaint: INSECT BITE HPI HPI Patient is a 47 year old female with history of hypertension, COPD, asthma, who presents today with shortness of breath. Patient states she got stung by a bee on the left forearm this afternoon. She states her neighbor is also burning some bushes all afternoon. Patient states a combination of these has made her shortness of breath and coughing. Patient states she does not know if the bee sting is contributing to this factors. Patient denies any chest pain. She is speaking in full sentences but his coughing and wheezing. Review of Systems Review of Systems Constitutional: Denies fever or chills [] Eyes: Denies change in visual acuity, redness, or eye pain [] HENT: Denies nasal congestion or sore throat [] Respiratory: Cough and shortness of breath [] Cardiovascular: No additional information not addressed in HPI [] GI: Denies abdominal pain, nausea, vomiting, bloody stools or diarrhea [] : Denies dysuria or hematuria [] Musculoskeletal: Denies back pain or joint pain [] Integument: Bee sting to the left forearm Neurologic: Denies headache, focal weakness or sensory changes [] Current Medications Current Medications Current Medications Medications (Trade) Dose Ordered Sig/Guillermina Start Time Stop Time Status Last Admin Dose Admin Albuterol/ Ipratropium (Duoneb) 3 ml 1X ONCE 08/19/17 18:00 08/19/17 18:01 DC 08/19/17 18:12 3 ML Diphenhydramine HCl (Benadryl) 50 mg 1X ONCE 08/19/17 18:00 08/19/17 18:01 DC 08/19/17 18:17 50 MG Epinephrine HCl (Adrenalin) 0.3 mg 1X ONCE 08/19/17 18:00 08/19/17 18:01 DC 08/19/17 18:18 0.3 MG Famotidine (Pepcid) 20 mg 1X ONCE 08/19/17 18:00 08/19/17 18:01 DC 08/19/17 18:16 20 MG Methylprednisolone Sodium Succinate (SOLU-Medrol 125MG VIAL) 125 mg 1X ONCE 08/19/17 18:00 08/19/17 18:01 DC 08/19/17 18:16 125 MG Ondansetron HCl (Zofran) 4 mg 1X ONCE 08/19/17 19:45 08/19/17 19:46 Sodium Chloride 1,000 ml @ 1,000 mls/hr 1X ONCE 08/19/17 18:00 08/19/17 18:59 DC 08/19/17 18:17 1,000 MLS/HR Allergies Allergies Allergies Coded Allergies Type Severity Reaction Last Updated Verified mustard Allergy Severe ANGIOEDEMA/HIVES 02/24/17 Yes poppyseed oil Allergy Severe Hives 02/11/17 Yes Penicillins Allergy Intermediate HIVES 02/11/17 Yes adhesive tape Allergy Intermediate RASH 06/04/17 Yes Physical Exam Physical Exam Constitutional: Well developed, well nourished, no acute distress, non-toxic appearance. [] HENT: Normocephalic, atraumatic, bilateral external ears normal, oropharynx moist, no oral exudates, nose normal. Airway is open Eyes: PERRLA, EOMI, conjunctiva normal, no discharge. [] Neck: Normal range of motion, no tenderness, supple, no stridor. [] Cardiovascular:Heart rate regular rhythm, no murmur [] Lungs & Thorax: Patient is coughing, and wheezing. Abdomen: Bowel sounds normal, soft, no tenderness, no masses, no pulsatile masses. [] Skin: Warm, dry, left medial forearm with a tiny area of erythema approximately 3 x 3 cm consistent with an insect bite Back: No tenderness, no CVA tenderness. [] Extremities: No tenderness, no cyanosis, no clubbing, ROM intact, no edema. [] Neurologic: Alert and oriented X 3, normal motor function, normal sensory function, no focal deficits noted. [] Psychologic: Affect normal, judgement normal, mood normal. [] Current Patient Data Vital Signs Vital Signs Date Time Temp Pulse Resp B/P (MAP) Pulse Ox O2 Delivery O2 Flow Rate FiO2 08/19/17 18:12 97 Room Air 08/19/17 17:59 97.5 85 22 162/100 (120) 97.5 EKG EKG [] Radiology/Procedures Radiology/Procedures [] Course & Med Decision Making Course & Med Decision Making Pertinent Labs and Imaging studies reviewed. (See chart for details) This is a 47-year-old female patient presenting to the ED today with a bee sting to the left forearm coughing wheezing and shortness of breath. She is also living in a neighborhood that the neighbor has been finding pushes since this afternoon. Patient suspicious that her coughing and wheezing is from the binding bushes. Patient was given epinephrine on arrival to the ED, Solu-Medrol 125 mg, Benadryl, and famotidine. She is also given a liter of fluids. On reevaluation patient states she is feeling better. Her coughing has stopped. I am more suspicious burning bushes causing her asthma/COPD exacerbation than bee sting causing her symptoms. We sent her home with prednisone, famotidine, Benadryl, and she requested some nausea medicine. I gave codeine with promethazine as well. Her vitals are stable. She was provided return precautions and discharged in stable condition. Dragon Disclaimer Dragon Disclaimer This electronic medical record was generated, in whole or in part, using a voice recognition dictation system. Departure Departure Impression: Primary Impression: Bee sting Additional Impression: Asthma exacerbation in COPD Disposition: HOME, SELF-CARE Condition: STABLE Referrals: SHARMIN ESQUEDA (PCP) Follow-up with your doctor on Tuesday Patient Instructions: Asthma Attacks, Prevention, Bee, Wasp, or Hornet Sting, Chronic Obstructive Pulmonary Disease Exacerbation Additional Instructions: You were seen with bee sting to the left forearm as well as symptoms of asthma/ COPD exacerbation. These symptoms could've occurred from the burning bushes or even bee sting. Please take the prescribed medicines as ordered. Return to the emergency room any time symptoms worsen. Follow-up with your doctor on Tuesday. Scripts Cetirizine Hcl (ZYRTEC) 10 Mg Tablet 1 TAB PO DAILY, #30 TAB 2 Refills Prov: MUTUNGACRISTIAN INCUBATOR TENDER 08/19/17 Famotidine (FAMOTIDINE) 20 Mg Tablet 20 MG PO DAILY, #14 TAB Prov: MUTUNGACRISTIAN INCUBATOR TENDER 08/19/17 Albuterol Sulfate (Proair Respiclick) 90 Mcg Aer.pow.ba 1 PUFF IH PRN Q6HRS Y for SHORTNESS OF BREATH, #1 INHALER Prov: MUTUNGACRISTIAN APRN 08/19/17 Prednisone (PREDNISONE) 50 Mg Tablet 1 TAB PO DAILY, #5 TAB Prov: CRISTIAN ALMAGUER APRN 08/19/17 Promethazine Hcl/Codeine (PROMETHAZINE-CODEINE SYRUP) 118 Ml Syrup 5 ML PO Q4-6HRS, #120 ML Prov: CRISTIAN ALMAGUER APRN 08/19/17 Problem Qualifiers Primary Impression: Bee sting Encounter type: initial encounter Injury intent: accidental or unintentional Qualified Codes: T63.441A - Toxic effect of venom of bees, accidental (unintentional), initial encounter CRISTIAN ALMAGUER APRN Aug 19, 2017 19:40
[2017-08-19] MEDS ORDERED: ONDANSETRON PF 4 MG/2 ML VIAL. IV ONE (19:45)
[2017-08-19] MEDS ORDERED: PRED50TA PO (19:49)
[2017-08-19] MEDS ORDERED: PROM118S2 PO (19:49)
[2017-08-19] MEDS ORDERED: FAMO20TA5 PO (19:49)
[2017-08-19] MEDS ORDERED: CETI10TA22 PO (19:49)
[2017-08-19] MEDS ORDERED: PROAIR RESPICL90 MCG IH (19:49)
== END 2017-08-19 20:20 | disposition home or self-care (01) ==
LOC: ER 17:08
DX: T63.441A Toxic effect of venom of bees, accidental (unintentional), initial encounter (principal); J45.901 Unspecified asthma with (acute) exacerbation; J44.9 Chronic obstructive pulmonary disease, unspecified; I10 Essential (primary) hypertension; E78.00 Pure hypercholesterolemia, unspecified; K58.9 Irritable bowel syndrome, unspecified; Z88.0 Allergy status to penicillin; Z88.8 Allergy status to other drugs, medicaments and biological substances; Z91.018 Allergy to other foods; Y93.89 Activity, other specified; Y99.8 Other external cause status; Y92.89 Other specified places as the place of occurrence of the external cause
CPT/HCPCS: 94640; 96361; 96372; 96374; 96375; 99285; J0171; J1200; J2405; J2930; J7030; J7620; S0028

== ENCOUNTER 2017-08-22 01:30 | Inpatient (IN) | payer MEDICARE, OTHER ==
[~2017-08-22] VITALS: Ht 149.9 cm; Wt 92.7 kg
[~2017-08-22 01:30] MED LIST changes: +BENZ-8 PO; -BENZ100C15 PO; +FAMO20TA5 PO; +PRED50TA PO; +PROAIR RESPICL90 MCG IH; +PROM118S2 PO
[2017-08-22] MEDS ORDERED: IPRATRPIUM/ALBUTEROL 0.5/2.5MG 3 ML NEBU. NEB ONE (02:00)
[2017-08-22] MEDS ORDERED: methylPREDNISolone SOD SUCC PF 125 MG/2 ML VIAL. IV ONE (02:15)
[2017-08-22 02:25] LABS: BASO % 0 % (0-3); EOS % 3 % (0-3); HEMATOCRIT 38.9 % (36.0-47.0); HEMOGLOBIN 12.9 g/dL (12.0-15.5); LYMPH # 3.3 x10^3/uL (1.0-4.8); LYMPH % 39 % (24-48); MEAN CORPUSCULAR HEMOGLOBIN 29 pg (25-35); MEAN CORPUSCULAR HGB CONC 33 g/dL (31-37); MEAN CORPUSCULAR VOLUME 88 fL (79-100); MONO % 8 % (0-9); NEUT % 50 % (31-73); PLATELET COUNT 168 x10^3/uL (140-400); RED BLOOD COUNT 4.43 x10^6/uL (3.50-5.40); RED CELL DISTRIBUTION WIDTH 15.2 % (11.5-14.5); WHITE BLOOD COUNT 8.5 x10^3/uL (4.0-11.0)
[2017-08-22] MEDS ORDERED: diphenhydrAMINE 50 MG/ML VIAL IVP ONE (02:30)
[2017-08-22] MEDS ORDERED: IV NORMAL SALINE 1000ML BAG 1,000 ML IV SCH (02:30)
[2017-08-22] MEDS ORDERED: FAMOTIDINE 20 MG/2 ML VIAL IVP ONE (02:30)
[2017-08-22 02:32] LABS: CALCIUM 8.6 mg/dL (8.5-10.1); CREATININE 0.9 mg/dL (0.6-1.0); GFR 80.9; POTASSIUM 4.1 mmol/L (3.5-5.1)
[2017-08-22] MEDS ORDERED: cloNIDine HCL 0.1 MG TABLET ONE (02:36)
[2017-08-22 02:38] LABS: ALBUMIN 3.5 g/dL (3.4-5.0); ALBUMIN/GLOBULIN RATIO 1.1 (1.0-1.7); TOTAL BILIRUBIN 0.2 mg/dL (0.2-1.0); TOTAL PROTEIN 6.7 g/dL (6.4-8.2)
[2017-08-22] MEDS ORDERED: cloNIDine HCL 0.1 MG TABLET PO ONE (02:45)
[2017-08-22 02:49] LABS: CKMB MASS 1.3 ng/mL (0.0-3.6)
[2017-08-22] MEDS ORDERED: fentaNYL PF VIAL 100 MCG/2 ML VIAL IV PRN (03:00)
[2017-08-22] MEDS ORDERED: ONDANSETRON PF 4 MG/2 ML VIAL. IV PRN ×2 (03:00)
[2017-08-22] MEDS ORDERED: ACETAMINOPHEN 325 MG TABLET. PO PRN (03:00)
--- NOTE | 2017-08-22 03:03 | PHYS DOC ---
Past Medical History Past Medical History: Asthma, COPD, DVT, High Cholesterol, Hypertension, Other Additional Past Medical Histor: IBS, ECZEMA Past Surgical History: Cholecystectomy, Hysterectomy, Tubal ligation, Other Additional Past Surgical Histo: neck sx, hernia repair Smoking: Quit Greater Than 1 Year Alcohol Use: Rarely Drug Use: None, Marijuana Adult General Chief Complaint Chief Complaint: SHORTNESS OF BREATH HPI HPI Patient is a 47 year old female who presents with increased shortness of air and left arm continued swelling and redness. Patient was seen here August 19 for a bee sting to her left forearm and resultant anaphylactic reaction. She received epinephrine, Solu-Medrol, Pepcid and Benadryl. She was sent home on steroids. She has been using her nebulizer. She is worse tonight she just cannot breathe she states. The left forearm still red and swollen and now has become a little more painful. She feels that she's had a low-grade temperature at home as well. sHe has been nauseated but no vomiting. Review of Systems Review of Systems Constitutional: LOW GRADE fever and chills Eyes: Denies change in visual acuity, redness, or eye pain HENT: Denies nasal congestion or sore throat Respiratory: POS cough and shortness of breath; INCREASED WHEEZING Cardiovascular: No chest pain GI: Denies abdominal pain, POS nausea, NO vomiting, bloody stools or diarrhea Musculoskeletal: Left forearm with swelling and redness Integument: Denies diffuse rash or skin lesions Neurologic: Denies headache, focal weakness or sensory changes Current Medications Current Medications Current Medications Medications (Trade) Dose Ordered Sig/Guillermina Start Time Stop Time Status Last Admin Dose Admin Albuterol/ Ipratropium (Duoneb) 3 ml 1X ONCE 08/22/17 02:00 08/22/17 02:10 DC 08/22/17 01:54 3 ML Allergies Allergies Allergies Coded Allergies Type Severity Reaction Last Updated Verified mustard Allergy Severe ANGIOEDEMA/HIVES 02/24/17 Yes poppyseed oil Allergy Severe Hives 02/11/17 Yes Penicillins Allergy Intermediate HIVES 02/11/17 Yes adhesive tape Allergy Intermediate RASH 06/04/17 Yes Physical Exam Physical Exam Constitutional: Well developed, well nourished, with conversational dyspnea HENT: Normocephalic, atraumatic, bilateral external ears normal, oropharynx moist, no oral exudates, nose normal. No drooling or stridor. Eyes: PERRLA, EOMI, conjunctiva normal, no discharge. Neck: Normal range of motion, no tenderness, supple, no stridor. Cardiovascular:Heart rate regular rhythm, tachycardic, no murmur Lungs & Thorax: Diffuse wheezing in all lung zendejas. Limited airflow noted. Abdomen: Bowel sounds normal, soft, no tenderness, no masses, no pulsatile masses. Skin: Warm, dry, no erythema, no rash. Back: No tenderness, no CVA tenderness. Extremities: Left forearm: Swelling noted to the ulnar aspect of the forearm with diffuse erythema to that portion as well. Non-circumferential edema. Tender over the area of the sting. No fluctuance or mass palpable. No fluid collection noted. Neurovascularly intact distally, normal capillary refill. No evidence of compartment syndrome. Neurologic: Alert and oriented X 3, normal motor function, normal sensory function, no focal deficits noted. Psychologic: Affect normal, judgement normal, mood normal. Current Patient Data Vital Signs Vital Signs Date Time Temp Pulse Resp B/P (MAP) Pulse Ox O2 Delivery O2 Flow Rate FiO2 08/22/17 01:55 100 Room Air Lab Values Laboratory Tests Test 08/22/17 01:40 White Blood Count 8.5 x10^3/uL (4.0-11.0) Red Blood Count 4.43 x10^6/uL (3.50-5.40) Hemoglobin 12.9 g/dL (12.0-15.5) Hematocrit 38.9 % (36.0-47.0) Mean Corpuscular Volume 88 fL (79-100) Mean Corpuscular Hemoglobin 29 pg (25-35) Mean Corpuscular Hemoglobin Concent 33 g/dL (31-37) Red Cell Distribution Width 15.2 % (11.5-14.5) H Platelet Count 168 x10^3/uL (140-400) Neutrophils (%) (Auto) 50 % (31-73) Lymphocytes (%) (Auto) 39 % (24-48) Monocytes (%) (Auto) 8 % (0-9) Eosinophils (%) (Auto) 3 % (0-3) Basophils (%) (Auto) 0 % (0-3) Neutrophils # (Auto) 4.2 x10^3uL (1.8-7.7) Lymphocytes # (Auto) 3.3 x10^3/uL (1.0-4.8) Monocytes # (Auto) 0.7 x10^3/uL (0.0-1.1) Eosinophils # (Auto) 0.2 x10^3/uL (0.0-0.7) Basophils # (Auto) 0.0 x10^3/uL (0.0-0.2) Sodium Level 140 mmol/L (136-145) Potassium Level 4.1 mmol/L (3.5-5.1) Chloride Level 105 mmol/L (98-107) Carbon Dioxide Level 24 mmol/L (21-32) Anion Gap 11 (6-14) Blood Urea Nitrogen 16 mg/dL (7-20) Creatinine 0.9 mg/dL (0.6-1.0) Estimated GFR (Cockcroft-Gault) 80.9 BUN/Creatinine Ratio 18 (6-20) Glucose Level 107 mg/dL (70-99) H Calcium Level 8.6 mg/dL (8.5-10.1) Total Bilirubin 0.2 mg/dL (0.2-1.0) Aspartate Amino Transferase (AST) 20 U/L (15-37) Alanine Aminotransferase (ALT) 28 U/L (14-59) Alkaline Phosphatase 68 U/L (46-116) Creatine Kinase 171 U/L (26-192) Creatine Kinase MB (Mass) 1.3 ng/mL (0.0-3.6) Creatine Kinase MB Relative Index 0.8 % (0-4) Troponin I Quantitative < 0.017 ng/mL (0.000-0.055) LG-Ieq-K-Type Natriuretic Peptide 61 pg/mL (0-124) Total Protein 6.7 g/dL (6.4-8.2) Albumin 3.5 g/dL (3.4-5.0) Albumin/Globulin Ratio 1.1 (1.0-1.7) Laboratory Tests 08/22/17 01:40 Laboratory Tests 08/22/17 01:40 EKG EKG EKG interpreted by myself at 023 6 AM shows normal sinus rhythm, rate of 90, nonspecific ST changes, no ST elevation. Radiology/Procedures Radiology/Procedures Chest x-ray interpreted by myself at 023 5 AM shows normal cardiac silhouette, poor inspiratory effort, no pleural effusion, no pneumothorax, no pneumonia. Course & Med Decision Making Course & Med Decision Making Patient is having persistent symptoms from the bee sting. Her arm does NOT show evidence of compartment syndrome; however is warm and red. May have developed cellulitis. She is clearly failing outpatient management at this time. Solumedrol IV re-dosed; pepcid IV, Duoneb and benadryl. Blood culture drawn. Ancef 2 gm IV dosed. Her BP is quite elevated so do not feel comfortable dosing with epinephrine at this time (SBP 200); Given Clonidine 0.2 po. Lab reviewed. Patient admitted to DR Dean. I have spoken with the patient and/or caregivers. I have explained the patient' s condition, diagnosis and treatment plan based on the information available to me at this time. I have answered the patient's and/or caregiver's questions and addressed any concerns. The patient and/or caregivers have as good an understanding of the patient's diagnosis, condition and treatment plan as can be expected at this point. The patient has been stabilized within the capability of the emergency department. The patient will be transported for further care and management or will be moved to an observation or inpatient service. I have communicated with the staff or medical practitioner taking over this patient's care. Dragon Disclaimer Dragon Disclaimer This electronic medical record was generated, in whole or in part, using a voice recognition dictation system. Departure Departure Impression: Primary Impression: Acute asthma exacerbation Additional Impressions: Bee sting Left arm cellulitis Disposition: ADMITTED INPATIENT Admitting Physician: Other (Jermaine) Condition: STABLE Referrals: MICHEL NICHOLSON MD (PCP) Problem Qualifiers Primary Impression: Acute asthma exacerbation Asthma severity: moderate Asthma persistence: persistent Qualified Codes: J45.41 - Moderate persistent asthma with (acute) exacerbation Additional Impressions: Bee sting Encounter type: subsequent encounter Injury intent: accidental or unintentional Qualified Codes: T63.441D - Toxic effect of venom of bees, accidental (unintentional), subsequent encounter RASHEL CASTELLANOS MD Aug 22, 2017 03:03
[2017-08-22 03:30] VITALS: BP 149/104
[2017-08-22] MEDS ORDERED: OXYC15TA PO (04:08)
[2017-08-22] MEDS ORDERED: OXYC15TA60 PO (04:08)
[2017-08-22] MEDS ORDERED: TRIA15CR TP (06:33)
--- NOTE | 2017-08-22 06:37 | EKG ---
[facility] [address] [place] [address] Test Date: 2017-08-22 Test Time: 02:36:59 Pat Name: GABRIELE COLLINS Department: Room: 569 Gender: F Admitting Officer: : 1970 Requested By: RASHEL CASTELLANOS Order Number: [id number] Reading MD: Alcira Rock Measurements Intervals [place] Rate: 90 P: 49 SC: 130 QRS: 2 QRSD: 78 T: 11 QT: 360 QTc: 444 Interpretive Statements SINUS RHYTHM LEFT ATRIAL ABNORMALITY ABNORMAL ECG Electronically Signed On 08-22-2017 18:58:57 CDT by Alcira Rock
[2017-08-22 07:00] VITALS: BP 144/100
[2017-08-22] MEDS: IPRATRPIUM/ALBUTEROL 0.5/2.5MG 3 ML NEBU. NEB SCH ×2 (07:18→11:35)
--- NOTE | 2017-08-22 07:32 | RAD ---
Indication difficulty breathing. A single view of the chest was obtained and is compared to an examination 08/13/2017. The heart, pulmonary vessels and mediastinum appear normal. The lungs are clear. There is no pleural fluid or pneumothorax. The bony structures appear grossly intact. A significant change when compared to the previous exam is not seen. IMPRESSION: No acute or focal process. No significant change
[2017-08-22] MEDS ORDERED: FAMOTIDINE 20 MG TABLET. PO SCH (09:00)
[2017-08-22] MEDS ORDERED: diphenhydrAMINE HCL 25 MG CAPSULE PO PRN (09:30)
[2017-08-22] MEDS ORDERED: cloNIDine HCL 0.1 MG TABLET PO PRN (09:30)
[2017-08-22] MEDS ORDERED: ALBUTEROL SULFATE 2.5 MG/3 ML NEBU. NEB PRN (09:30)
[2017-08-22] MEDS ORDERED: METOCLOPRAMIDE HCL 10 MG/2 ML VIAL. IV PRN (09:30)
[2017-08-22] MEDS ORDERED: NON FORMULARY ITEM (Albuterol Sulfate (Proair Hfa Inhaler) 2 PUFF) INH PRN (09:30)
[2017-08-22] MEDS ORDERED: PROMETH/CODEINE 6.25/10MG 5 ML SYRUP. PO PRN (09:30)
[2017-08-22] MEDS ORDERED: oxyCODONE IR 5 MG TABLET PO PRN (10:00)
[2017-08-22] MEDS ORDERED: ALPRAZolam 1 MG TABLET PO SCH (10:30)
[2017-08-22] MEDS ORDERED: CETIRIZINE HCL 10 MG TABLET. PO SCH (10:30)
[2017-08-22] MEDS ORDERED: predniSONE 20 MG TABLET PO SCH (10:30)
[2017-08-22] MEDS ORDERED: CARVEDILOL 12.5 MG TABLET. PO SCH (10:30)
[2017-08-22] MEDS ORDERED: hydroCHLOROthiazide 25 MG TABLET PO SCH (10:30)
[2017-08-22] MEDS ORDERED: LOSARTAN POTASSIUM 50 MG TABLET. PO SCH (10:30)
[2017-08-22] MEDS ORDERED: oxyCODONE ER 15 MG TAB.ER.12H PO SCH (10:30)
[2017-08-22] MEDS ORDERED: PANTOPRAZOLE 40 MG TABLET.DR. PO SCH (10:30)
[2017-08-22] MEDS ORDERED: TRIAMCINOLONE ACETONIDE 0.1% TOPICAL CREAM 15GM TUBE. TP SCH (10:30)
[2017-08-22 11:00] VITALS: BP 130/83
[2017-08-22 12:11] VITALS: BP 130/83
[2017-08-22] MEDS ORDERED: methylPREDNISolone SOD SUCC PF 40 MG/ML VIAL. IV SCH (14:00)
[2017-08-22] MEDS ORDERED: ATORVASTATIN CALCIUM 40 MG TABLET. PO SCH (21:00)
[2017-08-22] MEDS ORDERED: DOXAZOSIN MESYLATE 4 MG TABLET. PO SCH (21:00)
[2017-08-22] MEDS ORDERED: EZETIMIBE 10 MG TABLET. PO SCH (21:00)
[2017-08-23] MEDS ORDERED: NON FORMULARY ITEM (Losartan/Hydrochlorothiazide (Losartan-Hctz 100-25 Mg Tab) 1 TAB) PO SCH (09:00)
--- NOTE | 2017-08-29 13:31 | SSS ---
ADMIT DATE: 08/22/2017 CHIEF COMPLAINT: Shortness of breath. HISTORY OF PRESENT ILLNESS: The patient is a 47-year-old woman who presented to the Emergency Room with increased shortness of breath, asthma exacerbation as well as left arm swelling and redness. She actually had been in the Emergency Room 3 days prior for her arm swelling due to a bee sting. She had received steroids, Pepcid, and Benadryl and was sent home on oral taper of steroids. She relates that since the ER visit her breathing actually has gotten worse. She has been using her inhalers more often. Her forearm is actually much more concerning to her, is still swollen and has become a little bit more painful. She relates that she had some low-grade temperatures at home, has been nauseated, but no vomiting. She was therefore admitted for further evaluation and treatment. PAST MEDICAL HISTORY: Asthma/chronic obstructive pulmonary disease, history of deep venous thrombosis, hypercholesterolemia, hypertension. She is status post cholecystectomy, hysterectomy, tubal ligation as well as neck surgery and hernia repair. SOCIAL HISTORY: Quit smoking 1 year ago. Uses cannabis occasionally, rarely alcohol. ALLERGIES: PENICILLINS, POPPY SEED OIL, MUSTARD AND ADHESIVE TAPE. MEDICATIONS: MAR reconciled with home medications. REVIEW OF SYSTEMS: Positive as per HPI. Rest of organ system review is negative. PHYSICAL EXAMINATION: VITAL SIGNS: Show blood pressure of 130/83, heart rate of 85, respiratory rate at 18. She is afebrile. GENERAL: This is a morbidly obese woman, awake, alert, in no acute distress. HEENT: Shows no scleral icterus. Oral mucosa is pink and moist. NECK: Supple, without any palpable lymphadenopathy. LUNGS: Clear without any wheezes or rales. HEART: Regular rate and rhythm. ABDOMEN: Positive bowel sounds, obese. EXTREMITIES: Show no edema. The left forearm has about a 12 x 8 cm reddened area consistent with bee sting reaction. LABORATORY DATA: CBC with a WBC of 8.5, hemoglobin 12.9, platelets of 168. Chemistries with a BUN and creatinine of 16 and 0.9, normal electrolytes, normal LFTs. IMAGING: Chest x-ray in the Emergency Room revealed no acute or focal process. HOSPITAL COURSE: The patient is a 47-year-old woman who presented with sequelae from bee sting as well as worsening of her asthma. Her breathing actually had completely resolved after 12 hours of IV steroids and inhalers in the Emergency Room. She was concerned about her arm being infected. She was assured that this was an allergic reaction rather than an infection. She therefore insisted on being discharged to home. DISCHARGE DIAGNOSES: Asthma exacerbation, bee sting allergy. DISCHARGE DISPOSITION: To home. DISCHARGE CONDITION: Improved. DISCHARGE MEDICATIONS: Please refer to MAR. DISCHARGE INSTRUCTIONS: The patient will follow up with PCP in 1 week. RE WALLACE MD DR: UR/nts JOB#: [id number] / [id number] MICHEL Dasilva MD
== END 2017-08-22 13:45 | disposition home or self-care (01) | DRG 202 ==
LOC: ER 01:30 → 5 SOUTH 02:00
PROVIDERS: ADMIT Internal Medicine Hematology & Oncology; ATTEND Internal Medicine Hematology & Oncology
DX: J45.901 Unspecified asthma with (acute) exacerbation (principal); L03.114 Cellulitis of left upper limb; E66.01 Morbid (severe) obesity due to excess calories; Z68.41 Body mass index [BMI] 40.0-44.9, adult; K58.9 Irritable bowel syndrome, unspecified; E78.00 Pure hypercholesterolemia, unspecified; I10 Essential (primary) hypertension; J44.9 Chronic obstructive pulmonary disease, unspecified; Z87.891 Personal history of nicotine dependence; Z90.710 Acquired absence of both cervix and uterus; Z98.51 Tubal ligation status; Z90.49 Acquired absence of other specified parts of digestive tract; Z88.0 Allergy status to penicillin; Z91.09 Other allergy status, other than to drugs and biological substances; T63.441A Toxic effect of venom of bees, accidental (unintentional), initial encounter
CPT/HCPCS: 36415; 71010; 80053; 82553; 83880; 84484; 85025; 87040; 93005; 94250; 94640; 94760; 96365; 96375; J0690; J1200; J2405; J2765; J2930; J3010; J7030; J7620; S0028; 99285-25

== ENCOUNTER 2017-09-22 16:03 | Emergency (ER) | payer MEDICARE, OTHER ==
[~2017-09-22] VITALS: Ht 149.9 cm; Wt 84.8 kg
[~2017-09-22 16:03] MED LIST changes: -BENZ-8 PO; +BENZ100C15 PO; +OXYC15TA PO; +OXYC15TA60 PO; +TRIA15CR TP
[2017-09-22] MEDS ORDERED: fentaNYL PF VIAL 100 MCG/2 ML VIAL IV ONE (16:30)
[2017-09-22] MEDS ORDERED: IV NORMAL SALINE 1000ML BAG 1,000 ML IV ONE (16:45)
[2017-09-22] MEDS ORDERED: ONDANSETRON PF 4 MG/2 ML VIAL. IV ONE ×2 (17:00→19:45)
[2017-09-22] MEDS: fentaNYL PF VIAL 100 MCG/2 ML VIAL IV PRN ×3 (17:10→19:46)
--- NOTE | 2017-09-22 17:17 | RAD ---
EXAM: 1. CT head without contrast. 2. CT cervical spine without contrast. HISTORY: Fall with neck pain. TECHNIQUE: Computed tomography of the head and cervical spine was performed without intravenous contrast. COMPARISON: 07/21/2017. FINDINGS: There is no intracranial hemorrhage. Dean-white differentiation is preserved. The ventricles are normal in size and position. The visualized portions of the paranasal sinuses, temporal bones and calvarium are unremarkable. There is moderate bilateral proptosis without an orbital mass. Reversal of the normal cervical lordosis may be positional. There are laminectomy changes from C4 through C6. There is mild osteoarthritis at C1-2. No fractures are identified. Degenerative disc disease is moderate to severe from C4 through C7 and mild at C3-4. There is no prevertebral soft tissue swelling. At C2-3, there is mild left uncovertebral osteoarthritis. Left foraminal stenosis is mild. At C3-4, there is a moderate posterior disc bulge. The central canal is partially decompressed bilateral neck and base. Left uncovertebral osteoarthritis is mild. Left foraminal stenosis is mild to moderate. At C4-5, the central canal is decompressed laminectomies. There is a moderate to large posterior disc-osteophyte complex. Both lateral recesses are narrowed. Uncovertebral osteoarthritis is moderate to severe bilaterally. Foraminal stenosis is moderate bilaterally. At C5-6, the central canal is decompressed by laminectomies. There is a moderate to large posterior disc-osteophyte complex. Both lateral recesses are narrowed. Uncovertebral osteoarthritis is moderate to severe bilaterally. Foraminal stenosis is moderate to severe on the left and mild on the right. At C6-7, the central canal is decompressed by laminectomies. There is a moderate to large posterior disc-osteophyte complex. Both lateral recesses are narrowed. Uncovertebral osteoarthritis is moderate to severe bilaterally. Foraminal stenosis is moderate on the left greater than right. IMPRESSION: 1. No acute intracranial findings. 2. Moderate bilateral proptosis. Correlate for Graves' disease. 3. C4-C6 laminectomies. Bilateral lateral recess stenosis persists at these levels. There is also diffuse multilevel bilateral moderate to severe foraminal stenosis as detailed above. 4. Degenerative disc disease is moderate to severe from C4 through C7. *One or more of the following individualized dose reduction techniques were utilized for this examination: 1. Automated exposure control. 2. Adjustment of the mA and/or kV according to patient size. 3. Use of iterative reconstruction technique.
--- NOTE | 2017-09-22 19:04 | RAD ---
AP and lateral thoracic and lumbar spine radiographs 09/22/2017 CLINICAL HISTORY: Fall with mid and lower back pain. AP, lateral and swimmer's lateral digital radiographs of the thoracic spine were obtained. AP and 2 lateral digital radiographs of lumbar spine were obtained. Minimal S-shaped curvature of the thoracolumbar spine is seen. Surgical clips are seen within the right upper quadrant of the abdomen consistent with a cholecystectomy. Degenerative changes are seen throughout the thoracic disc spaces consisting of disc space narrowing, vertebral endplate sclerosis and minimal to mild anterior and posterior vertebral body osteophyte formation. Degenerative changes are seen involving the facet joints of the lower thoracic spine. No fracture or subluxation of the thoracic vertebrae is seen. No paravertebral soft tissue swelling is noted. No fracture or subluxation of the lumbar vertebrae seen. Degenerative changes are seen scattered throughout the lumbar disc spaces consisting of vertebral endplate sclerosis and minimal to mild anterior vertebral body osteophyte formation. Degenerative changes are seen involving the facet joints of the lower lumbar spine. Calcifications are seen within the pelvis consistent with phleboliths. IMPRESSION: No fracture or subluxation of the thoracic or lumbar vertebrae is seen. Electronically signed by: Faustino Gallegos MD (09/22/2017 7:01 PM) [facility]
--- NOTE | 2017-09-22 19:29 | RAD ---
Right lower extremity venous duplex study 09/22/2017 Clinical History: Right leg pain and swelling. Technique: Using a combination of real time ultrasound imaging and color-flow and pulse Doppler imaging techniques along with graded compression and augmentation, duplex evaluation of the deep venous system of the right lower extremity was performed. Multiple images were obtained. Findings: There is no sonographic evidence of deep venous thrombosis involving the visualized deep venous structures of right lower extremity. Impression: Negative study. Electronically signed by: Faustino Gallegos MD (09/22/2017 7:26 PM) [facility]
[2017-09-22] MEDS ORDERED: HYDR-971 PO (20:30)
[2017-09-22] MEDS ORDERED: IBUP-1007 PO (20:30)
[2017-09-22] MEDS ORDERED: CYCL5TAB PO (20:30)
--- NOTE | 2017-09-22 20:30 | PHYS DOC ---
Past Medical History Past Medical History: Asthma, COPD, DVT, High Cholesterol, Hypertension, Other Additional Past Medical Histor: IBS, ECZEMA Past Surgical History: Cholecystectomy, Hysterectomy, Tubal ligation, Other Additional Past Surgical Histo: neck sx, hernia repair Alcohol Use: Rarely Drug Use: None Adult General Chief Complaint Chief Complaint: MECHANICAL FALL HPI HPI Patient is a 47 year old female who presents with pain after a fall. The patient states 2 days ago she chased her dog & caught her foot in a slip cover sewer drain. She states she fell & hit her head, unsure if she lost consciousness but doesn't remember the events immediately following the fall. She complains of headache, dizziness, back pain, right lower leg pain. Denies nausea, vomiting, extremity numbness/weakness, bowel/bladder incontinence/retention, saddle anesthesia. States she has had so much pain that she has just been lying on her couch & not eating or drinking, since the time of injury. Denies use of blood thinners. Review of Systems Review of Systems Constitutional: Denies fever or chills Eyes: Denies change in visual acuity HENT: Denies nasal congestion or sore throat Respiratory: Denies cough or shortness of breath Cardiovascular: Denies chest pain or edema GI: Denies abdominal pain, nausea, vomiting Musculoskeletal: Reports back & lower extremity pain Integument: Denies rash or skin lesions Neurologic: Reports headache, denies focal weakness or sensory changes All other systems were reviewed and found to be within normal limits, except as documented in this note. Current Medications Current Medications Current Medications Medications (Trade) Dose Ordered Sig/Guillermina Start Time Stop Time Status Last Admin Dose Admin Fentanyl Citrate (Fentanyl 2ml Vial) 50 mcg PRN Q15MIN PRN 09/22/17 17:00 09/22/17 20:59 DC 09/22/17 19:46 50 MCG Ondansetron HCl (Zofran) 4 mg 1X ONCE 09/22/17 19:45 09/22/17 19:46 DC 09/22/17 19:46 4 MG Sodium Chloride 1,000 ml @ 1,000 mls/hr 1X ONCE 09/22/17 16:45 09/22/17 17:44 DC 09/22/17 17:02 1,000 MLS/HR Allergies Allergies Allergies Coded Allergies Type Severity Reaction Last Updated Verified mustard Allergy Severe ANGIOEDEMA/HIVES 09/22/17 Yes poppyseed oil Allergy Severe Hives 09/22/17 Yes Penicillins Allergy Intermediate HIVES 09/22/17 Yes adhesive tape Allergy Intermediate RASH 09/22/17 Yes Physical Exam Physical Exam Constitutional: obese, no acute distress, non-toxic appearance. HENT: Normocephalic, atraumatic, bilateral external ears normal, oropharynx moist, nose normal. Eyes: PERRLA, EOMI, conjunctiva normal, no discharge. Neck: supple, no stridor. midline c-spine tenderness is present. Cardiovascular: RRR, no murmurs, no edema. Lungs & Thorax: LCTAB, no wheezing, no respiratory distress. Abdomen: soft, nontender, nondistended. Skin: Warm, dry, no erythema, no rash. Back: diffuse thoracic & lumbar spine tenderness without step offs, bilateral paraspinous muscle tenderness. Extremities: right lower extremity calf/cooper with ecchymosis & tenderness proximally, no ankle or knee tenderness, dp/pt 2+, normal ROM to ankle, sensation intact to foot Neurologic: Alert and oriented X 3, CN2-12 grossly intact symmetric strength/ sensation to upper & lower extremities, no focal deficits noted. Psychologic: Affect normal, judgement normal, mood normal. Current Patient Data Vital Signs Vital Signs Date Time Temp Pulse Resp B/P (MAP) Pulse Ox O2 Delivery O2 Flow Rate FiO2 09/22/17 20:37 84 18 97 09/22/17 18:21 Room Air 09/22/17 16:20 97.5 13/89 (64) 97.5 EKG EKG [] Radiology/Procedures Radiology/Procedures XR tib/fib left, 2 view: interpreted by me: no fracture, normal alignment, soft tissue swelling. PROCEDURE: LUMBAR SPINE 2-3V AP and lateral thoracic and lumbar spine radiographs 09/22/2017 CLINICAL HISTORY: Fall with mid and lower back pain. AP, lateral and swimmer's lateral digital radiographs of the thoracic spine were obtained. AP and 2 lateral digital radiographs of lumbar spine were obtained. Minimal S-shaped curvature of the thoracolumbar spine is seen. Surgical clips are seen within the right upper quadrant of the abdomen consistent with a cholecystectomy. Degenerative changes are seen throughout the thoracic disc spaces consisting of disc space narrowing, vertebral endplate sclerosis and minimal to mild anterior and posterior vertebral body osteophyte formation. Degenerative changes are seen involving the facet joints of the lower thoracic spine. No fracture or subluxation of the thoracic vertebrae is seen. No paravertebral soft tissue swelling is noted. No fracture or subluxation of the lumbar vertebrae seen. Degenerative changes are seen scattered throughout the lumbar disc spaces consisting of vertebral endplate sclerosis and minimal to mild anterior vertebral body osteophyte formation. Degenerative changes are seen involving the facet joints of the lower lumbar spine. Calcifications are seen within the pelvis consistent with phleboliths. IMPRESSION: No fracture or subluxation of the thoracic or lumbar vertebrae is seen. Electronically signed by: Faustino Gallegos MD (09/22/2017 7:01 PM) [facility] DICTATED and SIGNED BY: FAUSTINO GALLEGOS MD DATE: 09/22/17 [id number] PROCEDURE: CT HEAD AND CERVICAL SPINE WO EXAM: 1. CT head without contrast. 2. CT cervical spine without contrast. HISTORY: Fall with neck pain. TECHNIQUE: Computed tomography of the head and cervical spine was performed without intravenous contrast. COMPARISON: 07/21/2017. FINDINGS: There is no intracranial hemorrhage. Dean-white differentiation is preserved. The ventricles are normal in size and position. The visualized portions of the paranasal sinuses, temporal bones and calvarium are unremarkable. There is moderate bilateral proptosis without an orbital mass. Reversal of the normal cervical lordosis may be positional. There are laminectomy changes from C4 through C6. There is mild osteoarthritis at C1-2. No fractures are identified. Degenerative disc disease is moderate to severe from C4 through C7 and mild at C3-4. There is no prevertebral soft tissue swelling. At C2-3, there is mild left uncovertebral osteoarthritis. Left foraminal stenosis is mild. At C3-4, there is a moderate posterior disc bulge. The central canal is partially decompressed bilateral neck and base. Left uncovertebral osteoarthritis is mild. Left foraminal stenosis is mild to moderate. At C4-5, the central canal is decompressed laminectomies. There is a moderate to large posterior disc-osteophyte complex. Both lateral recesses are narrowed. Uncovertebral osteoarthritis is moderate to severe bilaterally. Foraminal stenosis is moderate bilaterally. At C5-6, the central canal is decompressed by laminectomies. There is a moderate to large posterior disc-osteophyte complex. Both lateral recesses are narrowed. Uncovertebral osteoarthritis is moderate to severe bilaterally. Foraminal stenosis is moderate to severe on the left and mild on the right. At C6-7, the central canal is decompressed by laminectomies. There is a moderate to large posterior disc-osteophyte complex. Both lateral recesses are narrowed. Uncovertebral osteoarthritis is moderate to severe bilaterally. Foraminal stenosis is moderate on the left greater than right. IMPRESSION: 1. No acute intracranial findings. 2. Moderate bilateral proptosis. Correlate for Graves' disease. 3. C4-C6 laminectomies. Bilateral lateral recess stenosis persists at these levels. There is also diffuse multilevel bilateral moderate to severe foraminal stenosis as detailed above. 4. Degenerative disc disease is moderate to severe from C4 through C7. *One or more of the following individualized dose reduction techniques were utilized for this examination: 1. Automated exposure control. 2. Adjustment of the mA and/or kV according to patient size. 3. Use of iterative reconstruction technique. DICTATED and SIGNED BY: BRIAN OSN MD DATE: 09/22/171705 PROCEDURE: VENOUS LOWER EXTREMITY RIGHT Right lower extremity venous duplex study 09/22/2017 Clinical History: Right leg pain and swelling. Technique: Using a combination of real time ultrasound imaging and color-flow and pulse Doppler imaging techniques along with graded compression and augmentation, duplex evaluation of the deep venous system of the right lower extremity was performed. Multiple images were obtained. Findings: There is no sonographic evidence of deep venous thrombosis involving the visualized deep venous structures of right lower extremity. Impression: Negative study. Electronically signed by: Faustino Gallegos MD (09/22/2017 7:26 PM) [facility] DICTATED and SIGNED BY: FAUSTINO GALLEGOS MD DATE: 09/22/171923 [] Course & Med Decision Making Course & Med Decision Making Pertinent Labs and Imaging studies reviewed. (See chart for details) The patient presents with injuries after a fall. Gave pain medication. Obtained imaging of areas of concern. No significant abnormality identified. She felt better after treatment, c-collar was placed initially & is clinically cleared by me after negative imaging. Recommend rest, ice/heat, ibuprofen TID, flexeril & norco PRN. Follow up with PCP in 2-3 days. Come back for AMS, focal neuro deficit, symptoms of cauda equina sydndrome, any otherwise worsening condition. Discharged home in stable condition. [] Dragon Disclaimer Dragon Disclaimer This electronic medical record was generated, in whole or in part, using a voice recognition dictation system. Departure Departure Impression: Primary Impression: Contusion Additional Impression: Head injury Disposition: 01 HOME, SELF-CARE Condition: STABLE Referrals: SHARMIN ESQUEDA (PCP) Patient Instructions: Contusion, [id number], Head Injury, Adult, [id number] Additional Instructions: You were seen in the emergency department today for injuries after your fall. There were no serious findings. Please rest, drink fluids, take ibuprofen, flexeril, norco as needed for pain. Apply ice. Follow up with primary care doctor in 2-3 days if not improving. Come back for confusion, uncontrolled vomiting, trouble walking or talking, any otherwise worsening condition. Scripts Hydrocodone/Apap 5-325 (NORCO 5-325 TABLET) 1 Each Tablet 1 TAB PO PRN Q6HRS Y for PAIN, #10 TAB 0 Refills Prov: GENNY BRYANT MD 09/22/17 Cyclobenzaprine Hcl (CYCLOBENZAPRINE HCL) 5 Mg Tablet 1 TAB PO TID Y for MUSCLE SPASMS, #10 TAB Prov: GENNY BRYANT MD 09/22/17 Ibuprofen (IBUPROFEN) 600 Mg Tablet 600 MG PO PRN Q6HRS Y for INFLAMMATION, #20 TAB Prov: GENNY BRYANT MD 09/22/17 Problem Qualifiers Primary Impression: Contusion Encounter type: initial encounter Contusion area: lower leg Laterality: right Qualified Codes: S80.11XA - Contusion of right lower leg, initial encounter Additional Impression: Head injury Encounter type: initial encounter Qualified Codes: S09.90XA - Unspecified injury of head, initial encounter GENNY BRYANT MD Sep 22, 2017 20:30
[2017-09-22 20:37] VITALS: BP 149/81
--- NOTE | 2017-09-23 07:12 | RAD ---
Two-view study of the right tibia and fibula Indications: Fell 2 days ago. Right lower leg pain Findings: No acute fracture or dislocation or osteolytic process is seen. IMPRESSION: No acute fracture.
== END 2017-09-22 20:59 | disposition home or self-care (01) ==
LOC: ER 16:03
DX: S80.11XA Contusion of right lower leg, initial encounter (principal); S09.90XA Unspecified injury of head, initial encounter; I10 Essential (primary) hypertension; E78.00 Pure hypercholesterolemia, unspecified; K58.9 Irritable bowel syndrome, unspecified; J44.9 Chronic obstructive pulmonary disease, unspecified; Z88.0 Allergy status to penicillin; Z88.8 Allergy status to other drugs, medicaments and biological substances; Z91.018 Allergy to other foods; Z86.718 Personal history of other venous thrombosis and embolism; Z90.49 Acquired absence of other specified parts of digestive tract; Z90.710 Acquired absence of both cervix and uterus; Z98.51 Tubal ligation status; W23.0XXA Caught, crushed, jammed, or pinched between moving objects, initial encounter; Y93.89 Activity, other specified; Y99.8 Other external cause status; Y92.89 Other specified places as the place of occurrence of the external cause
CPT/HCPCS: 70450; 72072; 72100; 72125; 73590; 93971; 96361; 96374; 96375; 96376; 99285; J2405; J3010; J7030

== ENCOUNTER 2017-10-24 18:37 | Emergency (ER) | payer MEDICARE, OTHER ==
[~2017-10-24] VITALS: Ht 152.4 cm; Wt 82.6 kg
[~2017-10-24 18:37] MED LIST changes: +BENZ-8 PO; -BENZ100C15 PO; +CYCL5TAB PO; +HYDR-971 PO; +IBUP-1007 PO
--- NOTE | 2017-10-24 19:40 | PHYS DOC ---
Past Medical History Past Medical History: Asthma, COPD, DVT, High Cholesterol, Hypertension, Other Additional Past Medical Histor: IBS, ECZEMA Past Surgical History: Cholecystectomy, Hysterectomy, Tubal ligation, Other Additional Past Surgical Histo: neck sx, hernia repair Alcohol Use: Rarely Drug Use: None Adult General Chief Complaint Chief Complaint: SHORTNESS OF BREATH HPI HPI Patient is a 47 year old female who presents with over the past month worsening right leg swelling and one hour history of mild to moderate dyspnea and dyspnea on exertion. Remote history of DVTs; not anticoagulated now. Denies chest pain nausea vomiting abdominal pain or fever. No history of coronary artery disease or diabetes. Takes medications multiple for high blood pressure. Review of Systems Review of Systems Constitutional: Denies fever or chills [] Eyes: Denies change in visual acuity, redness, or eye pain [] HENT: Denies nasal congestion or sore throat [] Respiratory: Denies cough or shortness of breath [] Cardiovascular: No additional information not addressed in HPI [] GI: Denies abdominal pain, nausea, vomiting, bloody stools or diarrhea [] : Denies dysuria or hematuria [] Musculoskeletal: Denies back pain or joint pain [] Integument: Denies rash or skin lesions [] Neurologic: Denies headache, focal weakness or sensory changes [] Endocrine: Denies polyuria or polydipsia [] All other systems were reviewed and found to be within normal limits, except as documented in this note. Current Medications Current Medications Current Medications Medications (Trade) Dose Ordered Sig/Guillermina Start Time Stop Time Status Last Admin Dose Admin Info (Do NOT chart on this entry -- for MONITORING) 1 each PRN DAILY PRN 10/24/17 20:15 10/26/17 20:14 Iohexol (Omnipaque 300 Mg/ml) 75 ml 1X ONCE 10/24/17 20:15 10/24/17 20:16 DC 10/24/17 20:38 75 ML Allergies Allergies Allergies Coded Allergies Type Severity Reaction Last Updated Verified mustard Allergy Severe ANGIOEDEMA/HIVES 09/22/17 Yes poppyseed oil Allergy Severe Hives 09/22/17 Yes Penicillins Allergy Intermediate HIVES 09/22/17 Yes adhesive tape Allergy Intermediate RASH 09/22/17 Yes Physical Exam Physical Exam Constitutional: Well developed, well nourished, no acute distress, non-toxic appearance. [] HENT: Normocephalic, atraumatic, bilateral external ears normal, oropharynx moist, no oral exudates, nose normal. [] Eyes: PERRLA, EOMI, conjunctiva normal, no discharge. [] Neck: Normal range of motion, no tenderness, supple, no stridor. [] Cardiovascular:Heart regular rhythm, no murmur , tachycardic rate of 105[] Lungs & Thorax: Bilateral breath sounds clear to auscultation [] Abdomen: Bowel sounds normal, soft, no tenderness, no masses, no pulsatile masses. [] Skin: Warm, dry, no erythema, no rash. [] Back: No tenderness, no CVA tenderness. [] Extremities: No tenderness, no cyanosis, no clubbing, ROM intact, trace edema right lower extremity with palpable cord on the medial calf; 2+ pulses in the foot and ankle left leg is a symptomatically. [] Neurologic: Alert and oriented X 3, normal motor function, normal sensory function, no focal deficits noted. [] Psychologic: Affect normal, judgement normal, mood normal. [] Current Patient Data Vital Signs Vital Signs Date Time Temp Pulse Resp B/P (MAP) Pulse Ox O2 Delivery O2 Flow Rate FiO2 10/24/17 20:15 98 137/82 (100) 99 Room Air 10/24/17 18:37 97.7 20 97.7 Lab Values Laboratory Tests Test 10/24/17 19:49 White Blood Count 8.4 x10^3/uL (4.0-11.0) Red Blood Count 4.40 x10^6/uL (3.50-5.40) Hemoglobin 12.7 g/dL (12.0-15.5) Hematocrit 38.1 % (36.0-47.0) Mean Corpuscular Volume 87 fL (79-100) Mean Corpuscular Hemoglobin 29 pg (25-35) Mean Corpuscular Hemoglobin Concent 33 g/dL (31-37) Red Cell Distribution Width 14.3 % (11.5-14.5) Platelet Count 171 x10^3/uL (140-400) Neutrophils (%) (Auto) 75 % (31-73) H Lymphocytes (%) (Auto) 18 % (24-48) L Monocytes (%) (Auto) 6 % (0-9) Eosinophils (%) (Auto) 0 % (0-3) Basophils (%) (Auto) 1 % (0-3) Neutrophils # (Auto) 6.3 x10^3uL (1.8-7.7) Lymphocytes # (Auto) 1.5 x10^3/uL (1.0-4.8) Monocytes # (Auto) 0.5 x10^3/uL (0.0-1.1) Eosinophils # (Auto) 0.0 x10^3/uL (0.0-0.7) Basophils # (Auto) 0.1 x10^3/uL (0.0-0.2) Sodium Level 138 mmol/L (136-145) Potassium Level 3.4 mmol/L (3.5-5.1) L Chloride Level 99 mmol/L (98-107) Carbon Dioxide Level 27 mmol/L (21-32) Anion Gap 12 (6-14) Blood Urea Nitrogen 17 mg/dL (7-20) Creatinine 1.0 mg/dL (0.6-1.0) Estimated GFR (Cockcroft-Gault) 71.6 BUN/Creatinine Ratio 17 (6-20) Glucose Level 106 mg/dL (70-99) H Calcium Level 9.3 mg/dL (8.5-10.1) Total Bilirubin 0.2 mg/dL (0.2-1.0) Aspartate Amino Transferase (AST) 18 U/L (15-37) Alanine Aminotransferase (ALT) 24 U/L (14-59) Alkaline Phosphatase 64 U/L (46-116) Troponin I Quantitative < 0.017 ng/mL (0.000-0.055) Total Protein 7.9 g/dL (6.4-8.2) Albumin 4.0 g/dL (3.4-5.0) Albumin/Globulin Ratio 1.0 (1.0-1.7) Laboratory Tests 10/24/17 19:49 Laboratory Tests 10/24/17 19:49 EKG EKG EKG shows normal sinus rhythm rate of 94 no STEMI QTC normal my interpretation[] Radiology/Procedures Radiology/Procedures CTA of the chest: neg PE per rads Venous ultrasound right leg:[neg dvt per rads] Course & Med Decision Making Course & Med Decision Making Pertinent Labs and Imaging studies reviewed. (See chart for details) [Negative lab workup CTA of the chest and ultrasound of the leg.] Reexamination 21:32 PM feels better wants to go home. Dragon Disclaimer Dragon Disclaimer This electronic medical record was generated, in whole or in part, using a voice recognition dictation system. Departure Departure Impression: Primary Impression: Dyspnea Disposition: 01 HOME, SELF-CARE Condition: STABLE Referrals: SHARMIN ESQUEDA (PCP) Patient Instructions: Shortness of Breath, Gowh-po-Xris GEOVANNY CELESTIN MD Oct 24, 2017 19:40
[2017-10-24 20:01] LABS: BASO # 0.1 x10^3/uL (0.0-0.2); BASO % 1 % (0-3); EOS % 0 % (0-3); HEMATOCRIT 38.1 % (36.0-47.0); HEMOGLOBIN 12.7 g/dL (12.0-15.5); LYMPH # 1.5 x10^3/uL (1.0-4.8); LYMPH % 18 % (24-48); MEAN CORPUSCULAR HEMOGLOBIN 29 pg (25-35); MEAN CORPUSCULAR HGB CONC 33 g/dL (31-37); MEAN CORPUSCULAR VOLUME 87 fL (79-100); MONO % 6 % (0-9); NEUT % 75 % (31-73); PLATELET COUNT 171 x10^3/uL (140-400); RED CELL DISTRIBUTION WIDTH 14.3 % (11.5-14.5); WHITE BLOOD COUNT 8.4 x10^3/uL (4.0-11.0)
[2017-10-24] MEDS ORDERED: IOHEXOL 300 MG/ML 100ML VIAL. IV ONE (20:15)
[2017-10-24] MEDS ORDERED: CONTRAST GIVEN MC PRN (20:15)
[2017-10-24 20:16] LABS: CALCIUM 9.3 mg/dL (8.5-10.1); GFR 71.6; POTASSIUM 3.4 mmol/L (3.5-5.1)
[2017-10-24 20:20] LABS: TOTAL BILIRUBIN 0.2 mg/dL (0.2-1.0); TOTAL PROTEIN 7.9 g/dL (6.4-8.2)
[2017-10-24 21:00] VITALS: BP 143/76
--- NOTE | 2017-10-24 21:15 | RAD ---
Right Lower Extremity Venous Doppler Ultrasound History: Pain and swelling Comparison: None Procedure: Color flow, duplex, spectral analysis and 2D images are obtained with and without compression in the area of the common femoral vein, superficial femoral vein - femoral vein junction, main femoral vein (superficial femoral vein) and popliteal vein. Veins of the proximal calf are also imaged. Findings: There is normal duplex flow, color flow and compressibility of all visualized vein segments. No evidence of deep venous thrombus is present. There is palpable areas in the right lower leg which are in the subcutaneous fat layer and are echogenic and could be hematomas. There is also complex fluid collection seen in the medial proximal leg that measures 3.0 x 1.4 x 0.8 cm. Impression: No evidence of DVT. Electronically signed by: Gagan Mckeon III, MD (10/24/2017 9:12 PM) [facility]
--- NOTE | 2017-10-24 21:21 | RAD ---
CTA Chest with contrast: Clinical History: dyspnea, shortness of breath
Omni 300 75ml, prior sent Shortness of breath. Axial helical images of the chest were obtained after the administration of 100 cc of IV Omni 300 and timed appropriately for a pulmonary arterial study. Conventional axial reconstruction was performed in addition to coronal, sagittal and bilateral oblique MIP (maximum intensity projection). This study was ordered to detect possible pulmonary embolism. There are no filling defects to suggest pulmonary embolism. The more peripheral subsegmental pulmonary arteries are not well opacified limiting our sensitivity for small peripheral pulmonary emboli. The lungs and pleural margins are clear. There is no mediastinal or hilar lymphadenopathy. The thoracic aorta appears normal. Impression: 1. No evidence of pulmonary embolism. 2. No significant findings. PQRS Compliance Statement: One or more of the following individualized dose reduction techniques were utilized for this examination: 1. Automated exposure control 2. Adjustment of the mA and/or kV according to patient size 3. Use of iterative reconstruction technique Electronically signed by: Gagan Mckeon III, MD (10/24/2017 9:18 PM) [facility]
--- NOTE | 2017-10-25 06:51 | EKG ---
[facility] [address] [place] [address] Test Date: 2017-10-24 Test Time: 19:19:07 Pat Name: GABRIELE COLLINS Department: Room: Gender: F Vp Construction: : 1970 Requested By: GEOVANNY CELESTIN Order Number: [id number] Reading MD: Measurements Intervals [place] Rate: 94 P: 56 MO: 148 QRS: 3 QRSD: 84 T: 6 QT: 346 QTc: 438 Interpretive Statements SINUS RHYTHM LEFT ATRIAL ABNORMALITY ABNORMAL ECG RI6.01 No previous ECG available for comparison
== END 2017-10-24 21:42 | disposition home or self-care (01) ==
LOC: ER 18:37
DX: R06.00 Dyspnea, unspecified (principal); R60.0 Localized edema; J44.9 Chronic obstructive pulmonary disease, unspecified; E78.00 Pure hypercholesterolemia, unspecified; I10 Essential (primary) hypertension; K58.9 Irritable bowel syndrome, unspecified; Z86.718 Personal history of other venous thrombosis and embolism; Z88.0 Allergy status to penicillin; Z90.49 Acquired absence of other specified parts of digestive tract; Z90.710 Acquired absence of both cervix and uterus; Z79.899 Other long term (current) drug therapy; Z91.018 Allergy to other foods; Z91.048 Other nonmedicinal substance allergy status
CPT/HCPCS: 36415; 71275; 80053; 84484; 85025; 93005; 93971; 99285; Q9967

== ENCOUNTER 2017-11-28 17:02 | Emergency (ER) | payer MEDICARE, OTHER ==
[2017-11-28] MEDS: IPRATRPIUM/ALBUTEROL 0.5/2.5MG 3 ML NEBU. NEB (18:08)
[2017-11-28 18:29] LABS: BASO % 1 % (0-3); EOS # 0.1 x10^3/uL (0.0-0.7); EOS % 1 % (0-3); HEMATOCRIT 36.7 % (36.0-47.0); HEMOGLOBIN 12.2 g/dL (12.0-15.5); LYMPH # 0.8 x10^3/uL (1.0-4.8); LYMPH % 16 % (24-48); MEAN CORPUSCULAR HEMOGLOBIN 29 pg (25-35); MEAN CORPUSCULAR HGB CONC 33 g/dL (31-37); MEAN CORPUSCULAR VOLUME 87 fL (79-100); MONO # 0.9 x10^3/uL (0.0-1.1); MONO % 18 % (0-9); NEUT % 64 % (31-73); PLATELET COUNT 184 x10^3/uL (140-400); RED BLOOD COUNT 4.24 x10^6/uL (3.50-5.40); WHITE BLOOD COUNT 4.8 x10^3/uL (4.0-11.0)
[2017-11-28 18:30] LABS: ADD MAN DIFF? YES
[2017-11-28 18:39] LABS: ANION GAP 12 (6-14); BLOOD UREA NITROGEN 14 mg/dL (7-20); CALCIUM 8.7 mg/dL (8.5-10.1); CARBON DIOXIDE 26 mmol/L (21-32); CHLORIDE 102 mmol/L (98-107); CREATININE 0.9 mg/dL (0.6-1.0); GFR 80.9; GLUCOSE 97 mg/dL (70-99); POTASSIUM 3.4 mmol/L (3.5-5.1); SODIUM 140 mmol/L (136-145)
[2017-11-28 18:46] LABS: TROPONINI < 0.017 ng/mL (0.000-0.055)
[2017-11-28 18:46] LABS: ALBUMIN 3.6 g/dL (3.4-5.0); ALK PHOS 58 U/L (46-116); ALT (SGPT) 22 U/L (14-59); AST (SGOT) 18 U/L (15-37); DIRECT BILIRUBIN 0.1 mg/dL (0.0-0.2); LIPASE 153 U/L (73-393); TOTAL BILIRUBIN 0.2 mg/dL (0.2-1.0); TOTAL PROTEIN 7.3 g/dL (6.4-8.2)
[2017-11-28 18:50] LABS: NT-PRO BNP 78 pg/mL (0-124)
[2017-11-28] MEDS: IOHEXOL 300 MG/ML 100ML VIAL. IV (19:17)
[2017-11-28] MEDS: ONDANSETRON PF 4 MG/2 ML VIAL. IV (19:31)
[2017-11-28 19:56] LABS: % LYMPHS 17 % (24-48); % MONOS 16 % (0-10); % SEGS 67 % (35-66); PLT ESTIMATE ADEQUATE (ADEQUATE)
== END 2017-11-28 21:10 | disposition home or self-care (01) ==
LOC: ER 17:02
DX: J45.901 Unspecified asthma with (acute) exacerbation (principal); R07.2 Precordial pain; R42 Dizziness and giddiness; E78.00 Pure hypercholesterolemia, unspecified; I10 Essential (primary) hypertension; J44.9 Chronic obstructive pulmonary disease, unspecified; K58.9 Irritable bowel syndrome, unspecified; Z86.718 Personal history of other venous thrombosis and embolism; Z90.710 Acquired absence of both cervix and uterus; Z98.51 Tubal ligation status; Z90.49 Acquired absence of other specified parts of digestive tract; Z88.0 Allergy status to penicillin; Z88.8 Allergy status to other drugs, medicaments and biological substances; Z91.018 Allergy to other foods
CPT/HCPCS: 36415; 71045; 71275; 80048; 80076; 83690; 83880; 84484; 85007; 85025; 85379; 93005; 94640; 96374; 99285-25; J2405; J7620; Q9967

== ENCOUNTER 2018-05-23 18:30 | Emergency (ER) | payer MEDICARE, OTHER | END 2018-05-23 18:48 | disposition left against medical advice (07) | LOC: ER 18:30 | DX: J45.909 Unspecified asthma, uncomplicated (principal); Z53.21 Procedure and treatment not carried out due to patient leaving prior to being seen by health care provider ==

== ENCOUNTER 2018-07-02 18:33 | Inpatient (IN) | payer OTHER ==
[~2018-07-02] VITALS: Ht 152.4 cm; Wt 87.5 kg
[~2018-07-02 18:33] MED LIST changes: -IPRA3AMP NEB; +IPRA3AMP29 NEB; +OXYC-411 PO; -OXYC1TAB9 PO; -PROM118S2 PO; +PROM118S5 PO; +RANI150T21 PO; -RANI150T6 PO
[2018-07-02] MEDS ORDERED: IV NORMAL SALINE 1000ML BAG 1,000 ML IV ONE (19:15)
--- NOTE | 2018-07-02 19:15 | EKG ---
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
[2018-07-02 19:28] LABS: BASO # 0.1 x10^3/uL (0.0-0.2); BASO % 2 % (0-3); EOS # 0.1 x10^3/uL (0.0-0.7); EOS % 2 % (0-3); HEMATOCRIT 36.2 % (36.0-47.0); HEMOGLOBIN 12.3 g/dL (12.0-15.5); LYMPH # 2.2 x10^3/uL (1.0-4.8); LYMPH % 34 % (24-48); MEAN CORPUSCULAR HEMOGLOBIN 29 pg (25-35); MEAN CORPUSCULAR HGB CONC 34 g/dL (31-37); MEAN CORPUSCULAR VOLUME 87 fL (79-100); MONO # 0.5 x10^3/uL (0.0-1.1); MONO % 8 % (0-9); NEUT # 3.6 x10^3uL (1.8-7.7); NEUT % 54 % (31-73); PLATELET COUNT 204 x10^3/uL (140-400); RED BLOOD COUNT 4.18 x10^6/uL (3.50-5.40); RED CELL DISTRIBUTION WIDTH 14.5 % (11.5-14.5); WHITE BLOOD COUNT 6.5 x10^3/uL (4.0-11.0)
[2018-07-02 19:37] LABS: CALCIUM 9.4 mg/dL (8.5-10.1); GFR 71.3; POTASSIUM 3.5 mmol/L (3.5-5.1); PROTHROMBIN TIME PATIENT 12.5 SEC (11.7-14.0)
[2018-07-02 19:42] LABS: D-DIMER 0.9 ug/mlFEU (0.00-0.50)
[2018-07-02 19:44] LABS: ALBUMIN 3.5 g/dL (3.4-5.0); ALBUMIN/GLOBULIN RATIO 0.9 (1.0-1.7); MAGNESIUM 1.7 mg/dL (1.8-2.4); TOTAL BILIRUBIN 0.2 mg/dL (0.2-1.0); TOTAL PROTEIN 7.4 g/dL (6.4-8.2)
[2018-07-02 20:00] LABS: BILIRUBIN,URINE NEGATIVE (NEG); CLARITY,URINE CLEAR; COLOR,URINE YELLOW; NITRITE,URINE NEGATIVE (NEG); PH,URINE 5.5; PROTEIN,URINE NEGATIVE (NEG-TRACE); UROBILINOGEN,URINE 0.2 mg/dL (0.2 mg/dL)
[2018-07-02 20:09] LABS: BACTERIA,URINE FEW /HPF (0-FEW); SQUAMOUS EPITHELIAL CELL,UR MOD /LPF
[2018-07-02] MEDS ORDERED: CONTRAST GIVEN. MC PRN (20:45)
[2018-07-02] MEDS ORDERED: IOHEXOL 300 MG/ML 100ML VIAL. IV ONE (20:45)
[2018-07-02] MEDS ORDERED: ONDANSETRON PF 4 MG/2 ML VIAL. ONE (20:46)
--- NOTE | 2018-07-02 21:11 | RAD ---
CT HEAD AND CERVICAL SPINE WO Indication: Right neck pain after a fall. Dizziness. Exposure: One or more of the following individualized dose reduction techniques were utilized for this examination: 1. Automated exposure control 2. Adjustment of the mA and/or kV according to patient size 3. Use of iterative reconstruction technique. Comparison: None are available. Contrast: None HEAD Posterior fossa is unremarkable. No evidence of acute intracranial hemorrhage or abnormal extra-axial fluid collection. No evidence of mass effect or midline shift. Ventricles are symmetric in size and configuration. Dean-white matter distinction is intact. Visualized orbits are unremarkable. Visualized paranasal sinuses and mastoids are clear. No acute calvarial abnormality. Impression:Negative for acute intracranial hemorrhage or mass effect. CERVICAL SPINE C1 ring: Intact Cervico-occipital junction: Intact C1-C2 relationship: Within normal limits Fracture: No acute fracture identified. Spondylosis: Multilevel degenerative spondylosis. There has been posterior decompression surgery with laminectomies at C4-C6. There is posterior spurring and multiple levels encroaching upon the spinal canal. Neural foraminal narrowing bilaterally. Alignment: Reversal of the normal cervical lordosis, can be due to muscle spasm or positioning. Facets: No evidence of perched or locked facet. Prevertebral soft tissues: No significant swelling or hematoma Thyroid: Symmetric Lung apices: Clear Impression: 1. Degenerative spondylosis. 2. No evidence of acute fracture. Electronically signed by: Vijay Reyna MD (07/02/2018 9:07 PM) [place] [id number]
--- NOTE | 2018-07-02 21:30 | RAD ---
PQRS Compliance statement: One or more of the following individualized dose reduction techniques were utilized for this examination: 1. Automated exposure control. 2. Adjustment of the mA and/or kV according to patient size. 3. Use of iterative reconstruction technique. Indication:soa, chest pain TECHNIQUE: CT angiogram of the chest with IV contrast with multiplanar MIP reformats. COMPARISON: 11/28/2017 FINDINGS: Slightly suboptimal PE study due to contrast bolus timing. There are no obvious central, segmental, or subsegmental filling defects in the pulmonary arteries. Heart is normal in size. No pericardial or pleural effusion. No axillary, mediastinal or hilar adenopathy. Central airways are patent. 3 mm nodule in the left lower lobe visualized sections through the liver, spleen, adrenals within normal limits. No suspicious bony lesion. IMPRESSION: Slightly suboptimal PE study due to contrast bolus timing. However no obvious evidence of PE. Electronically signed by: Vasiliy Caban DO (07/02/2018 9:26 PM) [facility]
[2018-07-02] MEDS ORDERED: ONDANSETRON PF 4 MG/2 ML VIAL. IV ONE (22:00)
[2018-07-02] MEDS ORDERED: ORPHENADRINE CITRATE 60 MG/2 ML VIAL. IV ONE (22:00)
--- NOTE | 2018-07-02 22:03 | PHYS DOC ---
Past Medical History Past Medical History: Anxiety, Asthma, COPD, High Cholesterol, Hypertension Additional Past Medical Histor: ECZEMA; neck pain Past Surgical History: Cholecystectomy, Hysterectomy, Other Additional Past Surgical Histo: Hernia repair, neck surgery Alcohol Use: Occasionally Drug Use: None Adult General Chief Complaint Chief Complaint: CHEST PAIN HPI HPI 48-year-old female presents with report of chest pain at rest while watching TV which occurred prior to arrival. Patient reports she ended up standing up and subsequently became very dizzy causing her to fall onto her right side. Patient now reports having some pain which shoots from her right shoulder down to her right foot. Reports striking her head. Denies loss of consciousness. Denies leg swelling or calf tenderness. Review of Systems Review of Systems Constitutional: Denies fever or chills [] Eyes: Denies change in visual acuity, redness, or eye pain [] HENT: Denies nasal congestion or sore throat [] Respiratory: Denies cough or shortness of breath [] Cardiovascular: Reports chest pain, denies palpitations GI: Denies abdominal pain, nausea, vomiting, bloody stools or diarrhea [] : Denies dysuria or hematuria [] Musculoskeletal: Reports right sided pain from shoulder to foot Integument: Denies rash or skin lesions [] Neurologic: Denies headache, focal weakness or sensory changes [] Complete systems were reviewed and found to be within normal limits, except as documented in this note. Current Medications Current Medications Current Medications Medications (Trade) Dose Ordered Sig/Guillermina Start Time Stop Time Status Last Admin Dose Admin Fentanyl Citrate (Fentanyl 2ml Vial) 50 mcg PRN Q2HR PRN 07/02/18 22:00 07/03/18 21:59 Info (CONTRAST GIVEN -- Rx MONITORING) 1 each PRN DAILY PRN 07/02/18 20:45 07/04/18 20:44 Iohexol (Omnipaque 300 Mg/ml) 75 ml 1X ONCE 07/02/18 20:45 07/02/18 20:46 DC 07/02/18 20:58 75 ML Ondansetron HCl (Zofran) 4 mg PRN Q8HRS PRN 07/02/18 22:00 07/03/18 21:59 Orphenadrine Citrate (Norflex) 60 mg 1X ONCE 07/02/18 22:00 07/02/18 22:01 DC 07/02/18 21:30 60 MG Sodium Chloride 1,000 ml @ 1,000 mls/hr 1X ONCE 07/02/18 19:15 07/02/18 20:14 DC 07/02/18 19:14 1,000 MLS/HR Allergies Allergies Allergies Coded Allergies Type Severity Reaction Last Updated Verified mustard Allergy Severe ANGIOEDEMA/HIVES 09/22/17 Yes poppyseed oil Allergy Severe Hives 09/22/17 Yes Penicillins Allergy Intermediate HIVES 09/22/17 Yes adhesive tape Allergy Intermediate RASH 09/22/17 Yes Physical Exam Physical Exam Constitutional: Well developed, well nourished, no acute distress, non-toxic appearance. [] HENT: Normocephalic, atraumatic, oropharynx moist Eyes: PERRL, EOMI, conjunctiva normal, no discharge. [] Neck: Normal range of motion, no tenderness, supple, no meningeal signs] Cardiovascular: Heart rate regular rhythm, no murmur [] Lungs & Thorax: Bilateral breath sounds clear to auscultation [] Abdomen: Soft, no tenderness, no masses, no pulsatile masses. [] Skin: Warm, dry, no erythema, no rash. [] Back: No tenderness, no CVA tenderness. [] Extremities: No tenderness, no cyanosis, no clubbing, ROM intact, no edema. [] Neurologic: Alert and oriented X 3, normal motor function, normal sensory function, no focal deficits noted. [] Psychologic: Affect normal, judgement normal, mood normal. [] Current Patient Data Vital Signs Vital Signs Date Time Temp Pulse Resp B/P (MAP) Pulse Ox O2 Delivery O2 Flow Rate FiO2 07/02/18 20:11 80 20 156/77 (103) 99 Room Air 07/02/18 18:33 98.5 98.5 Lab Values Laboratory Tests Test 07/02/18 19:00 07/02/18 19:45 White Blood Count 6.5 x10^3/uL (4.0-11.0) Red Blood Count 4.18 x10^6/uL (3.50-5.40) Hemoglobin 12.3 g/dL (12.0-15.5) Hematocrit 36.2 % (36.0-47.0) Mean Corpuscular Volume 87 fL (79-100) Mean Corpuscular Hemoglobin 29 pg (25-35) Mean Corpuscular Hemoglobin Concent 34 g/dL (31-37) Red Cell Distribution Width 14.5 % (11.5-14.5) Platelet Count 204 x10^3/uL (140-400) Neutrophils (%) (Auto) 54 % (31-73) Lymphocytes (%) (Auto) 34 % (24-48) Monocytes (%) (Auto) 8 % (0-9) Eosinophils (%) (Auto) 2 % (0-3) Basophils (%) (Auto) 2 % (0-3) Neutrophils # (Auto) 3.6 x10^3uL (1.8-7.7) Lymphocytes # (Auto) 2.2 x10^3/uL (1.0-4.8) Monocytes # (Auto) 0.5 x10^3/uL (0.0-1.1) Eosinophils # (Auto) 0.1 x10^3/uL (0.0-0.7) Basophils # (Auto) 0.1 x10^3/uL (0.0-0.2) Prothrombin Time 12.5 SEC (11.7-14.0) Prothrombin Time INR 1.0 (0.8-1.1) D-Dimer (Merlene) 0.90 ug/mlFEU (0.00-0.50) H Sodium Level 141 mmol/L (136-145) Potassium Level 3.5 mmol/L (3.5-5.1) Chloride Level 105 mmol/L (98-107) Carbon Dioxide Level 27 mmol/L (21-32) Anion Gap 9 (6-14) Blood Urea Nitrogen 23 mg/dL (7-20) H Creatinine 1.0 mg/dL (0.6-1.0) Estimated GFR (Cockcroft-Gault) 71.3 BUN/Creatinine Ratio 23 (6-20) H Glucose Level 106 mg/dL (70-99) H Calcium Level 9.4 mg/dL (8.5-10.1) Magnesium Level 1.7 mg/dL (1.8-2.4) L Total Bilirubin 0.2 mg/dL (0.2-1.0) Aspartate Amino Transferase (AST) 13 U/L (15-37) L Alanine Aminotransferase (ALT) 19 U/L (14-59) Alkaline Phosphatase 58 U/L (46-116) Creatine Kinase 89 U/L (26-192) Creatine Kinase MB (Mass) 0.6 ng/mL (0.0-3.6) Creatine Kinase MB Relative Index 0.7 % (0-4) Troponin I Quantitative < 0.017 ng/mL (0.000-0.055) CW-Csp-B-Type Natriuretic Peptide 43 pg/mL (0-124) Total Protein 7.4 g/dL (6.4-8.2) Albumin 3.5 g/dL (3.4-5.0) Albumin/Globulin Ratio 0.9 (1.0-1.7) L Lipase 182 U/L (73-393) Urine Collection Type Unknown Urine Color Yellow Urine Clarity Clear Urine pH 5.5 Urine Specific [place] 1.020 Urine Protein Negative mg/dL (NEG-TRACE) Urine Glucose (UA) Negative mg/dL (NEG) Urine Ketones (Stick) Negative mg/dL (NEG) Urine Blood Negative (NEG) Urine Nitrite Negative (NEG) Urine Bilirubin Negative (NEG) Urine Urobilinogen Dipstick 0.2 mg/dL (0.2 mg/dL) Urine Leukocyte Esterase Trace (NEG) Urine RBC 1-2 /HPF (0-2) Urine WBC 5-10 /HPF (0-4) Urine Squamous Epithelial Cells Mod /LPF Urine Bacteria Few /HPF (0-FEW) Urine Mucus Mod /LPF Laboratory Tests 07/02/18 19:00 Laboratory Tests 07/02/18 19:00 EKG EKG @1838 NSR at 88bpm, NO ST elevation, nonspecific t wave inversion III Radiology/Procedures Radiology/Procedures PROCEDURE: CT HEAD AND CERVICAL SPINE WO CT HEAD AND CERVICAL SPINE WO Indication: Right neck pain after a fall. Dizziness. Exposure: One or more of the following individualized dose reduction techniques were utilized for this examination: 1. Automated exposure control 2. Adjustment of the mA and/or kV according to patient size 3. Use of iterative reconstruction technique. Comparison: None are available. Contrast: None HEAD Posterior fossa is unremarkable. No evidence of acute intracranial hemorrhage or abnormal extra-axial fluid collection. No evidence of mass effect or midline shift. Ventricles are symmetric in size and configuration. Dean-white matter distinction is intact. Visualized orbits are unremarkable. Visualized paranasal sinuses and mastoids are clear. No acute calvarial abnormality. Impression:Negative for acute intracranial hemorrhage or mass effect. CERVICAL SPINE C1 ring: Intact Cervico-occipital junction: Intact C1-C2 relationship: Within normal limits Fracture: No acute fracture identified. Spondylosis: Multilevel degenerative spondylosis. There has been posterior decompression surgery with laminectomies at C4-C6. There is posterior spurring and multiple levels encroaching upon the spinal canal. Neural foraminal narrowing bilaterally. Alignment: Reversal of the normal cervical lordosis, can be due to muscle spasm or positioning. Facets: No evidence of perched or locked facet. Prevertebral soft tissues: No significant swelling or hematoma Thyroid: Symmetric Lung apices: Clear Impression: 1. Degenerative spondylosis. 2. No evidence of acute fracture. Electronically signed by: Vijay Reyna MD (07/02/2018 9:07 PM) [place] [id number] PROCEDURE: CT ANGIOGRAPHY CHEST PQRS Compliance statement: One or more of the following individualized dose reduction techniques were utilized for this examination: 1. Automated exposure control. 2. Adjustment of the mA and/or kV according to patient size. 3. Use of iterative reconstruction technique. Indication:soa, chest pain TECHNIQUE: CT angiogram of the chest with IV contrast with multiplanar MIP reformats. COMPARISON: 11/28/2017 FINDINGS: Slightly suboptimal PE study due to contrast bolus timing. There are no obvious central, segmental, or subsegmental filling defects in the pulmonary arteries. Heart is normal in size. No pericardial or pleural effusion. No axillary, mediastinal or hilar adenopathy. Central airways are patent. 3 mm nodule in the left lower lobe visualized sections through the liver, spleen, adrenals within normal limits. No suspicious bony lesion. IMPRESSION: Slightly suboptimal PE study due to contrast bolus timing. However no obvious evidence of PE. Electronically signed by: Vasiliy Caban DO (07/02/2018 9:26 PM) [facility] Course & Med Decision Making Course & Med Decision Making Pertinent Labs and Imaging studies reviewed. (See chart for details) Patient with significant cardiac risk factors presents with report of chest pain. Patient also became very dizzy causing her to fall striking her right side. Patient neurologically intact. No obvious deformity. CT head/cervical spine without acute process. EKG stable. Labs obtained and posted to chart. Initial troponin within normal limits. D-dimer elevated. CTA chest without acute process.Patient requiring admission for further evaluation and treatment. Discussed with Dr. Ontiveros (hospitalist) who is in agreement with admission. Discussed findings and plan with patient, who acknowledges understanding and agreement. Dragon Disclaimer Dragon Disclaimer This electronic medical record was generated, in whole or in part, using a voice recognition dictation system. Departure Departure Impression: Primary Impression: Chest pain Disposition: 09 ADMITTED INPATIENT Admitting Physician: Jarret Ontiveros Condition: STABLE Referrals: NO PCP (PCP) Problem Qualifiers Primary Impression: Chest pain Chest pain type: unspecified Qualified Codes: R07.9 - Chest pain, unspecified VIJAY CABALLERO DO Jul 02, 2018 22:03
[2018-07-03] VITALS (8 sets, daily range): BP systolic 119–151; BP diastolic 72–109
[2018-07-03] MEDS: fentaNYL PF VIAL 100 MCG/2 ML VIAL IV PRN ×2 (06:39→09:41)
[2018-07-03] MEDS: ONDANSETRON PF 4 MG/2 ML VIAL. IV PRN ×2 (06:39→15:30)
[2018-07-03] MEDS ORDERED: NON FORMULARY ITEM (Albuterol Sulfate (Proair Hfa Inhaler) 2 PUFF) INH PRN (09:15)
--- NOTE | 2018-07-03 09:23 | PDOC1 ---
History and Physical Date of Admission Date of Admission DATE: 07/03/18 TIME: 09:21 History of Present Illness History of Present Illness Ms. Beaver, 48-year-old female presents with report of chest pain at rest while watching TV which occurred prior to arrival. Patient reports she ended up standing up and subsequently became very dizzy causing her to fall onto her right side. Patient now reports having some pain which shoots from her right shoulder down to her right foot. Reports striking her head. Denies loss of consciousness. Denies leg swelling or calf tenderness. Past Medical History Cardiovascular: HTN Pulmonary: Asthma, COPD Heme/Onc: Anemia NOS, Other Psych: Anxiety Musculoskeletal: Osteoarthritis, Other Renal/: Other Endocrine: Diabetes Past Surgical History Past Surgical History: Cholecystectomy, Hernia Repair, Tubal Ligation, Hysterectomy, Other Family History Family History: Cancer, Diabetes, Hypertension, Other Social History ALCOHOL: social Drugs: None Current Problem List Problem List Problems Medical Problems: (1) Chest pain Status: Acute Current Medications Current Medications Current Medications Sodium Chloride 1,000 ml @ 1,000 mls/hr 1X ONCE IV Last administered on at 19:14; Start 07/02/18 at 19:15; Stop 07/02/18 at 20:14; Status DC Iohexol (Omnipaque 300 Mg/ml) 75 ml 1X ONCE IV Last administered on 07/02/18at 20:58; Start 07/02/18 at 20:45; Stop 07/02/18 at 20:46; Status DC Info (CONTRAST GIVEN -- Rx MONITORING) 1 each PRN DAILY PRN MC SEE COMMENTS; Start 07/02/18 at 20:45; Stop 07/04/18 at 20:44 Ondansetron HCl (Zofran) 4 mg STK-MED ONCE .ROUTE ; Start 07/02/18 at 20:46; Stop 07/02/18 at 20:47; Status DC Ondansetron HCl (Zofran) 4 mg 1X ONCE IV Last administered on 07/02/18at 21:30 ; Start 07/02/18 at 22:00; Stop 07/02/18 at 22:01; Status DC Orphenadrine Citrate (Norflex) 60 mg 1X ONCE IV Last administered on at 21:30; Start 07/02/18 at 22:00; Stop 07/02/18 at 22:01; Status DC Ondansetron HCl (Zofran) 4 mg PRN Q8HRS PRN IV NAUSEA/VOMITING 1ST CHOICE Last administered on 07/03/18at 06:39; Start 07/02/18 at 22:00; Stop 07/03/18 at 21:59 Fentanyl Citrate (Fentanyl 2ml Vial) 50 mcg PRN Q2HR PRN IV SEVERE PAIN Last administered on 07/03/18at 06:39; Start 07/02/18 at 22:00; Stop 07/03/18 at 21:59 Alprazolam (Xanax) 1 mg BID PO ; Start 07/03/18 at 21:00; Status UNV Doxazosin Mesylate (Cardura) 4 mg HS PO ; Start 07/03/18 at 21:00; Status UNV EZETIMIBE (Zetia) 10 mg QHS PO ; Start 07/03/18 at 21:00; Status UNV Oxycodone HCl (OxyCONTIN) 15 mg BID PO ; Start 07/03/18 at 21:00; Status UNV Non-Formulary Medication (Albuterol Sulfate (Proair Hfa Inhaler)) 2 puff BID PRN INH SHORTNESS OF BREATH; Start 07/03/18 at 09:15; Status UNV Non-Formulary Medication (Atorvastatin Calcium ) 80 mg HS PO ; Start 07/03/18 at 21:00; Status UNV Non-Formulary Medication (Clobetasol Propionate ) 1 maria isabel BID TP ; Start 07/03/18 at 21:00; Status UNV Non-Formulary Medication (Losartan/ Hydrochlorothiazide (Losartan-Hctz 100-25 Mg Tab)) 1 tab DAILY PO ; Start 07/04/18 at 09:00; Status UNV Non-Formulary Medication (Oxycodone Hcl ) 2 tab PRN QID PRN PO PAIN; Start at 09:15; Status UNV Active Scripts Active Promethazine-Codeine Syrup (Promethazine Hcl/Codeine) 118 Ml Syrup 5 Ml PO Q4- 6HRS Reported Oxycodone Hcl 10 Mg Tablet 2 Tab PO PRN QID PRN Clobetasol Propionate 15 Gm Cream..g. 1 Maria Isabel TP BID Oxycontin (Oxycodone HCl) 15 Mg Tab.er.12h 15 Mg PO BID Losartan-Hctz 100-25 Mg Tab (Losartan/Hydrochlorothiazide) 1 Each Tablet 1 Tab PO DAILY Doxazosin Mesylate 4 Mg Tablet 1 Tab PO HS Albuterol Sulfate Neb Soln (Albuterol Sulfate) 2.5 Mg/3 Ml Vial.neb 1 Vial NEB QID Proair Hfa Inhaler (Albuterol Sulfate) 8.5 Gm Hfa.aer.ad 2 Puff INH BID PRN Xanax (Alprazolam) 0.5 Mg Tablet 1 Mg PO BID Zetia (Ezetimibe) 10 Mg Tablet 1 Tab PO QHS Atorvastatin Calcium 80 Mg Tablet 80 Mg PO HS Allergies Allergies: Coded Allergies: mustard (Verified Allergy, Severe, ANGIOEDEMA/HIVES, 09/22/17) MUSTARD SEED poppyseed oil (Verified Allergy, Severe, Hives, 09/22/17) POPPYSEEDS Penicillins (Verified Allergy, Intermediate, HIVES, 09/22/17) adhesive tape (Verified Allergy, Intermediate, RASH, 09/22/17) Vitals Vitals Vital Signs Date Time Temp Pulse Resp B/P (MAP) Pulse Ox O2 Delivery O2 Flow Rate FiO2 07/03/18 07:40 Room Air 07/03/18 07:00 97.5 70 18 120/77 (91) 100 97.5 Labs Labs Laboratory Tests Test 07/02/18 19:00 07/02/18 19:45 07/03/18 01:00 07/03/18 03:50 White Blood Count 6.5 x10^3/uL (4.0-11.0) Red Blood Count 4.18 x10^6/uL (3.50-5.40) Hemoglobin 12.3 g/dL (12.0-15.5) Hematocrit 36.2 % (36.0-47.0) Mean Corpuscular Volume 87 fL (79-100) Mean Corpuscular Hemoglobin 29 pg (25-35) Mean Corpuscular Hemoglobin Concent 34 g/dL (31-37) Red Cell Distribution Width 14.5 % (11.5-14.5) Platelet Count 204 x10^3/uL (140-400) Neutrophils (%) (Auto) 54 % (31-73) Lymphocytes (%) (Auto) 34 % (24-48) Monocytes (%) (Auto) 8 % (0-9) Eosinophils (%) (Auto) 2 % (0-3) Basophils (%) (Auto) 2 % (0-3) Neutrophils # (Auto) 3.6 x10^3uL (1.8-7.7) Lymphocytes # (Auto) 2.2 x10^3/uL (1.0-4.8) Monocytes # (Auto) 0.5 x10^3/uL (0.0-1.1) Eosinophils # (Auto) 0.1 x10^3/uL (0.0-0.7) Basophils # (Auto) 0.1 x10^3/uL (0.0-0.2) Prothrombin Time 12.5 SEC (11.7-14.0) Prothromb Time International Ratio 1.0 (0.8-1.1) D-Dimer (Merlene) 0.90 ug/mlFEU (0.00-0.50) Sodium Level 141 mmol/L (136-145) Potassium Level 3.5 mmol/L (3.5-5.1) Chloride Level 105 mmol/L (98-107) Carbon Dioxide Level 27 mmol/L (21-32) Anion Gap 9 (6-14) Blood Urea Nitrogen 23 mg/dL (7-20) Creatinine 1.0 mg/dL (0.6-1.0) Estimated GFR (Cockcroft-Gault) 71.3 BUN/Creatinine Ratio 23 (6-20) Glucose Level 106 mg/dL (70-99) Calcium Level 9.4 mg/dL (8.5-10.1) Magnesium Level 1.7 mg/dL (1.8-2.4) Total Bilirubin 0.2 mg/dL (0.2-1.0) Aspartate Amino Transf (AST/SGOT) 13 U/L (15-37) Alanine Aminotransferase (ALT/SGPT) 19 U/L (14-59) Alkaline Phosphatase 58 U/L (46-116) Creatine Kinase 89 U/L (26-192) Creatine Kinase MB (Mass) 0.6 ng/mL (0.0-3.6) Creatine Kinase MB Relative Index 0.7 % (0-4) Troponin I Quantitative < 0.017 ng/mL (0.000-0.055) < 0.017 ng/mL (0.000-0.055) < 0.017 ng/mL (0.000-0.055) MG-Oow-B-Type Natriuretic Peptide 43 pg/mL (0-124) Total Protein 7.4 g/dL (6.4-8.2) Albumin 3.5 g/dL (3.4-5.0) Albumin/Globulin Ratio 0.9 (1.0-1.7) Lipase 182 U/L (73-393) Urine Collection Type Unknown Urine Color Yellow Urine Clarity Clear Urine pH 5.5 Urine Specific [place] 1.020 Urine Protein Negative mg/dL (NEG-TRACE) Urine Glucose (UA) Negative mg/dL (NEG) Urine Ketones (Stick) Negative mg/dL (NEG) Urine Blood Negative (NEG) Urine Nitrite Negative (NEG) Urine Bilirubin Negative (NEG) Urine Urobilinogen Dipstick 0.2 mg/dL (0.2 mg/dL) Urine Leukocyte Esterase Trace (NEG) Urine RBC 1-2 /HPF (0-2) Urine WBC 5-10 /HPF (0-4) Urine Squamous Epithelial Cells Mod /LPF Urine Bacteria Few /HPF (0-FEW) Urine Mucus Mod /LPF Laboratory Tests Test 07/02/18 19:00 07/02/18 19:45 07/03/18 01:00 07/03/18 03:50 White Blood Count 6.5 x10^3/uL (4.0-11.0) Red Blood Count 4.18 x10^6/uL (3.50-5.40) Hemoglobin 12.3 g/dL (12.0-15.5) Hematocrit 36.2 % (36.0-47.0) Mean Corpuscular Volume 87 fL (79-100) Mean Corpuscular Hemoglobin 29 pg (25-35) Mean Corpuscular Hemoglobin Concent 34 g/dL (31-37) Red Cell Distribution Width 14.5 % (11.5-14.5) Platelet Count 204 x10^3/uL (140-400) Neutrophils (%) (Auto) 54 % (31-73) Lymphocytes (%) (Auto) 34 % (24-48) Monocytes (%) (Auto) 8 % (0-9) Eosinophils (%) (Auto) 2 % (0-3) Basophils (%) (Auto) 2 % (0-3) Neutrophils # (Auto) 3.6 x10^3uL (1.8-7.7) Lymphocytes # (Auto) 2.2 x10^3/uL (1.0-4.8) Monocytes # (Auto) 0.5 x10^3/uL (0.0-1.1) Eosinophils # (Auto) 0.1 x10^3/uL (0.0-0.7) Basophils # (Auto) 0.1 x10^3/uL (0.0-0.2) Prothrombin Time 12.5 SEC (11.7-14.0) Prothromb Time International Ratio 1.0 (0.8-1.1) D-Dimer (Merlene) 0.90 ug/mlFEU (0.00-0.50) Sodium Level 141 mmol/L (136-145) Potassium Level 3.5 mmol/L (3.5-5.1) Chloride Level 105 mmol/L (98-107) Carbon Dioxide Level 27 mmol/L (21-32) Anion Gap 9 (6-14) Blood Urea Nitrogen 23 mg/dL (7-20) Creatinine 1.0 mg/dL (0.6-1.0) Estimated GFR (Cockcroft-Gault) 71.3 BUN/Creatinine Ratio 23 (6-20) Glucose Level 106 mg/dL (70-99) Calcium Level 9.4 mg/dL (8.5-10.1) Magnesium Level 1.7 mg/dL (1.8-2.4) Total Bilirubin 0.2 mg/dL (0.2-1.0) Aspartate Amino Transf (AST/SGOT) 13 U/L (15-37) Alanine Aminotransferase (ALT/SGPT) 19 U/L (14-59) Alkaline Phosphatase 58 U/L (46-116) Creatine Kinase 89 U/L (26-192) Creatine Kinase MB (Mass) 0.6 ng/mL (0.0-3.6) Creatine Kinase MB Relative Index 0.7 % (0-4) Troponin I Quantitative < 0.017 ng/mL (0.000-0.055) < 0.017 ng/mL (0.000-0.055) < 0.017 ng/mL (0.000-0.055) DA-Kyv-N-Type Natriuretic Peptide 43 pg/mL (0-124) Total Protein 7.4 g/dL (6.4-8.2) Albumin 3.5 g/dL (3.4-5.0) Albumin/Globulin Ratio 0.9 (1.0-1.7) Lipase 182 U/L (73-393) Urine Collection Type Unknown Urine Color Yellow Urine Clarity Clear Urine pH 5.5 Urine Specific [place] 1.020 Urine Protein Negative mg/dL (NEG-TRACE) Urine Glucose (UA) Negative mg/dL (NEG) Urine Ketones (Stick) Negative mg/dL (NEG) Urine Blood Negative (NEG) Urine Nitrite Negative (NEG) Urine Bilirubin Negative (NEG) Urine Urobilinogen Dipstick 0.2 mg/dL (0.2 mg/dL) Urine Leukocyte Esterase Trace (NEG) Urine RBC 1-2 /HPF (0-2) Urine WBC 5-10 /HPF (0-4) Urine Squamous Epithelial Cells Mod /LPF Urine Bacteria Few /HPF (0-FEW) Urine Mucus Mod /LPF VTE Prophylaxis Ordered VTE Prophylaxis Devices: Yes VTE Pharmacological Prophylaxi: Yes VERÓNICA VILLALOBOS MD Jul 03, 2018 09:23
--- NOTE | 2018-07-03 09:39 | PDOC1 ---
History and Physical Date of Admission Date of Admission DATE: 07/03/18 TIME: 09:32 Source Source: Chart review, Patient History of Present Illness History of Present Illness Evy is a 48-year-old female admit with acute chest pain at rest. She was watching TV, then was sweaty and had chest pain, stood up and was dizzy, then fell. unsuer of LOC, did strike her head on her couch, and otherwise felt injured. right shoulder pain and right leg pain, shooting pain down the leg. she was able to ambulate at her baseline, which is a walker. Patient now reports having some pain which shoots from her right shoulder down to her right foot. Past Medical History Cardiovascular: HTN Pulmonary: Asthma, COPD Heme/Onc: Anemia NOS, Other Psych: Anxiety Musculoskeletal: Osteoarthritis, Other Renal/: Other Endocrine: Diabetes Past Surgical History Past Surgical History: Cholecystectomy, Hernia Repair, Tubal Ligation, Hysterectomy, Other Family History Family History: Cancer, Diabetes, Hypertension, Other Social History Smoke: No ALCOHOL: social Drugs: None Current Problem List Problem List Problems Medical Problems: (1) Chest pain Status: Acute Current Medications Current Medications Current Medications Sodium Chloride 1,000 ml @ 1,000 mls/hr 1X ONCE IV Last administered on at 19:14; Start 07/02/18 at 19:15; Stop 07/02/18 at 20:14; Status DC Iohexol (Omnipaque 300 Mg/ml) 75 ml 1X ONCE IV Last administered on 07/02/18at 20:58; Start 07/02/18 at 20:45; Stop 07/02/18 at 20:46; Status DC Info (CONTRAST GIVEN -- Rx MONITORING) 1 each PRN DAILY PRN MC SEE COMMENTS; Start 07/02/18 at 20:45; Stop 07/04/18 at 20:44 Ondansetron HCl (Zofran) 4 mg STK-MED ONCE .ROUTE ; Start 07/02/18 at 20:46; Stop 07/02/18 at 20:47; Status DC Ondansetron HCl (Zofran) 4 mg 1X ONCE IV Last administered on 07/02/18at 21:30 ; Start 07/02/18 at 22:00; Stop 07/02/18 at 22:01; Status DC Orphenadrine Citrate (Norflex) 60 mg 1X ONCE IV Last administered on at 21:30; Start 07/02/18 at 22:00; Stop 07/02/18 at 22:01; Status DC Ondansetron HCl (Zofran) 4 mg PRN Q8HRS PRN IV NAUSEA/VOMITING 1ST CHOICE Last administered on 07/03/18at 06:39; Start 07/02/18 at 22:00; Stop 07/03/18 at 21:59 Fentanyl Citrate (Fentanyl 2ml Vial) 50 mcg PRN Q2HR PRN IV SEVERE PAIN Last administered on 07/03/18at 06:39; Start 07/02/18 at 22:00; Stop 07/03/18 at 21:59 Alprazolam (Xanax) 1 mg BID PO ; Start 07/03/18 at 21:00; Status UNV Doxazosin Mesylate (Cardura) 4 mg HS PO ; Start 07/03/18 at 21:00; Status UNV EZETIMIBE (Zetia) 10 mg QHS PO ; Start 07/03/18 at 21:00; Status UNV Oxycodone HCl (OxyCONTIN) 15 mg BID PO ; Start 07/03/18 at 21:00; Status UNV Non-Formulary Medication (Albuterol Sulfate (Proair Hfa Inhaler)) 2 puff BID PRN INH SHORTNESS OF BREATH; Start 07/03/18 at 09:15; Status UNV Non-Formulary Medication (Atorvastatin Calcium ) 80 mg HS PO ; Start 07/03/18 at 21:00; Status UNV Non-Formulary Medication (Clobetasol Propionate ) 1 maria isabel BID TP ; Start 07/03/18 at 21:00; Status UNV Non-Formulary Medication (Losartan/ Hydrochlorothiazide (Losartan-Hctz 100-25 Mg Tab)) 1 tab DAILY PO ; Start 07/04/18 at 09:00; Status UNV Non-Formulary Medication (Oxycodone Hcl ) 2 tab PRN QID PRN PO PAIN; Start at 09:15; Status UNV Active Scripts Active Promethazine-Codeine Syrup (Promethazine Hcl/Codeine) 118 Ml Syrup 5 Ml PO Q4- 6HRS Reported Oxycodone Hcl 10 Mg Tablet 2 Tab PO PRN QID PRN Clobetasol Propionate 15 Gm Cream..g. 1 Maria Isabel TP BID Oxycontin (Oxycodone HCl) 15 Mg Tab.er.12h 15 Mg PO BID Losartan-Hctz 100-25 Mg Tab (Losartan/Hydrochlorothiazide) 1 Each Tablet 1 Tab PO DAILY Doxazosin Mesylate 4 Mg Tablet 1 Tab PO HS Albuterol Sulfate Neb Soln (Albuterol Sulfate) 2.5 Mg/3 Ml Vial.neb 1 Vial NEB QID Proair Hfa Inhaler (Albuterol Sulfate) 8.5 Gm Hfa.aer.ad 2 Puff INH BID PRN Xanax (Alprazolam) 0.5 Mg Tablet 1 Mg PO BID Zetia (Ezetimibe) 10 Mg Tablet 1 Tab PO QHS Atorvastatin Calcium 80 Mg Tablet 80 Mg PO HS Allergies Allergies: Coded Allergies: mustard (Verified Allergy, Severe, ANGIOEDEMA/HIVES, 09/22/17) MUSTARD SEED poppyseed oil (Verified Allergy, Severe, Hives, 09/22/17) POPPYSEEDS Penicillins (Verified Allergy, Intermediate, HIVES, 09/22/17) adhesive tape (Verified Allergy, Intermediate, RASH, 09/22/17) ROS General: No: Chills, Night Sweats, Fatigue, Malaise, Appetite, Other PSYCHOLOGICAL ROS: No: Anxiety, Behavioral Disorder, Concentration difficultie , Decreased libido, Depression, Disorientation, Hallucinations, Hostility, Irritablity, Memory difficulties, Mood Swings, Obsessive thoughts, Physical abuse, Sexual abuse, Sleep disturbances, Suicidal ideation, Other Eyes: No Blurry vision, No Decreased vision, No Double vision, No Dry eyes, No Excessive tearing, No Eye Pain, No Itchy Eyes, No Loss of vision, No Photophobia , No Scotomata, No Uses contacts, No Uses glasses, No Other HEENT: No: Heacaches, Visual Changes, Hearing change, Nasal congestion, Nasal discharge, Oral lesions, Sinus pain, Sore Throat, Epistaxis, Sneezing, Snoring, Tinnitus, Vertigo, Vocal changes, Other Respiratory: No: Cough, Hemoptysis, Orthopnea, Pleuritic Pain, Shortness of breath, SOB with excertion, Sputum Changes, Stridor, Tachypnea, Wheezing, Other Cardiovascular: No Chest Pain, No Palpitations, No Orthopnea, No Paroxysmal Noc. Dyspnea, No Edema, No Lt Headedness, No Other Gastrointestinal: Yes Abdominal Pain; No Nausea, No Vomiting, No Diarrhea, No Constipation, No Melena, No Hematochezia, No Other Musculoskeletal: Yes Gait Disturbance, Yes Joint Pain, Yes Joint Stiffness, Yes Joint Swelling Neurological: No Behavorial Changes, No Bowel/Bladder ControlChng, No Confusion , No Dizziness, No Gait Disturbance, No Headaches, No Impaired Coord/balance, No Memory Loss, No Numbness/Tingling, No Seizures, No Speech Problems, No Tremors, No Visual Changes, No Weakness, No Other Skin: Yes Dry Skin Physical Exam General: Alert, Oriented X3, Cooperative, No acute distress HEENT: Atraumatic, PERRLA, EOMI Lungs: Clear to auscultation Heart: S1S2, no gallops, no murmurs Abdomen: Normal bowel sounds, Soft Extremities: No cyanosis, Normal pulses Skin: No rashes, No breakdown Neuro: Normal tone, Sensation intact Psych/Mental Status: Mood NL Vitals Vitals Vital Signs Date Time Temp Pulse Resp B/P (MAP) Pulse Ox O2 Delivery O2 Flow Rate FiO2 07/03/18 07:40 Room Air 07/03/18 07:00 97.5 70 18 120/77 (91) 100 97.5 Labs Labs Laboratory Tests Test 07/02/18 19:00 07/02/18 19:45 07/03/18 01:00 07/03/18 03:50 White Blood Count 6.5 x10^3/uL (4.0-11.0) Red Blood Count 4.18 x10^6/uL (3.50-5.40) Hemoglobin 12.3 g/dL (12.0-15.5) Hematocrit 36.2 % (36.0-47.0) Mean Corpuscular Volume 87 fL (79-100) Mean Corpuscular Hemoglobin 29 pg (25-35) Mean Corpuscular Hemoglobin Concent 34 g/dL (31-37) Red Cell Distribution Width 14.5 % (11.5-14.5) Platelet Count 204 x10^3/uL (140-400) Neutrophils (%) (Auto) 54 % (31-73) Lymphocytes (%) (Auto) 34 % (24-48) Monocytes (%) (Auto) 8 % (0-9) Eosinophils (%) (Auto) 2 % (0-3) Basophils (%) (Auto) 2 % (0-3) Neutrophils # (Auto) 3.6 x10^3uL (1.8-7.7) Lymphocytes # (Auto) 2.2 x10^3/uL (1.0-4.8) Monocytes # (Auto) 0.5 x10^3/uL (0.0-1.1) Eosinophils # (Auto) 0.1 x10^3/uL (0.0-0.7) Basophils # (Auto) 0.1 x10^3/uL (0.0-0.2) Prothrombin Time 12.5 SEC (11.7-14.0) Prothromb Time International Ratio 1.0 (0.8-1.1) D-Dimer (Merlene) 0.90 ug/mlFEU (0.00-0.50) Sodium Level 141 mmol/L (136-145) Potassium Level 3.5 mmol/L (3.5-5.1) Chloride Level 105 mmol/L (98-107) Carbon Dioxide Level 27 mmol/L (21-32) Anion Gap 9 (6-14) Blood Urea Nitrogen 23 mg/dL (7-20) Creatinine 1.0 mg/dL (0.6-1.0) Estimated GFR (Cockcroft-Gault) 71.3 BUN/Creatinine Ratio 23 (6-20) Glucose Level 106 mg/dL (70-99) Calcium Level 9.4 mg/dL (8.5-10.1) Magnesium Level 1.7 mg/dL (1.8-2.4) Total Bilirubin 0.2 mg/dL (0.2-1.0) Aspartate Amino Transf (AST/SGOT) 13 U/L (15-37) Alanine Aminotransferase (ALT/SGPT) 19 U/L (14-59) Alkaline Phosphatase 58 U/L (46-116) Creatine Kinase 89 U/L (26-192) Creatine Kinase MB (Mass) 0.6 ng/mL (0.0-3.6) Creatine Kinase MB Relative Index 0.7 % (0-4) Troponin I Quantitative < 0.017 ng/mL (0.000-0.055) < 0.017 ng/mL (0.000-0.055) < 0.017 ng/mL (0.000-0.055) WX-Sts-Z-Type Natriuretic Peptide 43 pg/mL (0-124) Total Protein 7.4 g/dL (6.4-8.2) Albumin 3.5 g/dL (3.4-5.0) Albumin/Globulin Ratio 0.9 (1.0-1.7) Lipase 182 U/L (73-393) Urine Collection Type Unknown Urine Color Yellow Urine Clarity Clear Urine pH 5.5 Urine Specific [place] 1.020 Urine Protein Negative mg/dL (NEG-TRACE) Urine Glucose (UA) Negative mg/dL (NEG) Urine Ketones (Stick) Negative mg/dL (NEG) Urine Blood Negative (NEG) Urine Nitrite Negative (NEG) Urine Bilirubin Negative (NEG) Urine Urobilinogen Dipstick 0.2 mg/dL (0.2 mg/dL) Urine Leukocyte Esterase Trace (NEG) Urine RBC 1-2 /HPF (0-2) Urine WBC 5-10 /HPF (0-4) Urine Squamous Epithelial Cells Mod /LPF Urine Bacteria Few /HPF (0-FEW) Urine Mucus Mod /LPF Laboratory Tests Test 07/02/18 19:00 07/02/18 19:45 07/03/18 01:00 07/03/18 03:50 White Blood Count 6.5 x10^3/uL (4.0-11.0) Red Blood Count 4.18 x10^6/uL (3.50-5.40) Hemoglobin 12.3 g/dL (12.0-15.5) Hematocrit 36.2 % (36.0-47.0) Mean Corpuscular Volume 87 fL (79-100) Mean Corpuscular Hemoglobin 29 pg (25-35) Mean Corpuscular Hemoglobin Concent 34 g/dL (31-37) Red Cell Distribution Width 14.5 % (11.5-14.5) Platelet Count 204 x10^3/uL (140-400) Neutrophils (%) (Auto) 54 % (31-73) Lymphocytes (%) (Auto) 34 % (24-48) Monocytes (%) (Auto) 8 % (0-9) Eosinophils (%) (Auto) 2 % (0-3) Basophils (%) (Auto) 2 % (0-3) Neutrophils # (Auto) 3.6 x10^3uL (1.8-7.7) Lymphocytes # (Auto) 2.2 x10^3/uL (1.0-4.8) Monocytes # (Auto) 0.5 x10^3/uL (0.0-1.1) Eosinophils # (Auto) 0.1 x10^3/uL (0.0-0.7) Basophils # (Auto) 0.1 x10^3/uL (0.0-0.2) Prothrombin Time 12.5 SEC (11.7-14.0) Prothromb Time International Ratio 1.0 (0.8-1.1) D-Dimer (Merlene) 0.90 ug/mlFEU (0.00-0.50) Sodium Level 141 mmol/L (136-145) Potassium Level 3.5 mmol/L (3.5-5.1) Chloride Level 105 mmol/L (98-107) Carbon Dioxide Level 27 mmol/L (21-32) Anion Gap 9 (6-14) Blood Urea Nitrogen 23 mg/dL (7-20) Creatinine 1.0 mg/dL (0.6-1.0) Estimated GFR (Cockcroft-Gault) 71.3 BUN/Creatinine Ratio 23 (6-20) Glucose Level 106 mg/dL (70-99) Calcium Level 9.4 mg/dL (8.5-10.1) Magnesium Level 1.7 mg/dL (1.8-2.4) Total Bilirubin 0.2 mg/dL (0.2-1.0) Aspartate Amino Transf (AST/SGOT) 13 U/L (15-37) Alanine Aminotransferase (ALT/SGPT) 19 U/L (14-59) Alkaline Phosphatase 58 U/L (46-116) Creatine Kinase 89 U/L (26-192) Creatine Kinase MB (Mass) 0.6 ng/mL (0.0-3.6) Creatine Kinase MB Relative Index 0.7 % (0-4) Troponin I Quantitative < 0.017 ng/mL (0.000-0.055) < 0.017 ng/mL (0.000-0.055) < 0.017 ng/mL (0.000-0.055) MO-Ffq-X-Type Natriuretic Peptide 43 pg/mL (0-124) Total Protein 7.4 g/dL (6.4-8.2) Albumin 3.5 g/dL (3.4-5.0) Albumin/Globulin Ratio 0.9 (1.0-1.7) Lipase 182 U/L (73-393) Urine Collection Type Unknown Urine Color Yellow Urine Clarity Clear Urine pH 5.5 Urine Specific [place] 1.020 Urine Protein Negative mg/dL (NEG-TRACE) Urine Glucose (UA) Negative mg/dL (NEG) Urine Ketones (Stick) Negative mg/dL (NEG) Urine Blood Negative (NEG) Urine Nitrite Negative (NEG) Urine Bilirubin Negative (NEG) Urine Urobilinogen Dipstick 0.2 mg/dL (0.2 mg/dL) Urine Leukocyte Esterase Trace (NEG) Urine RBC 1-2 /HPF (0-2) Urine WBC 5-10 /HPF (0-4) Urine Squamous Epithelial Cells Mod /LPF Urine Bacteria Few /HPF (0-FEW) Urine Mucus Mod /LPF VTE Prophylaxis Ordered VTE Prophylaxis Devices: Yes VTE Pharmacological Prophylaxi: Yes Assessment/Plan Assessment/Plan chest pain, anginal, then possible syncope and fall. not orthostatic htn, risk of CAD, r/o ACS, CV consult obesity , BMI 37 chronic neck and back pain, on disability, opiate tolerance and chronic use admit, consult physiatry for r shoulder and leg pain after fall, Hx of neck surgery, MRI might not be helpful VERÓNICA VILLALOBOS MD Jul 03, 2018 09:39
[2018-07-03] MEDS ORDERED: ALPRAZolam 0.5 MG TABLET PO SCH (10:00)
[2018-07-03] MEDS ORDERED: ALBUTEROL SULFATE 2.5 MG/3 ML NEBU. NEB PRN (10:15)
[2018-07-03] MEDS ORDERED: oxyCODONE IR 5 MG TABLET PO PRN (10:30)
[2018-07-03] MEDS ORDERED: oxyCODONE ER 15 MG TAB.ER.12H PO SCH (10:30)
[2018-07-03] MEDS ORDERED: CLOBETASOL EMOLLIENT 0.05% TOPICAL CREAM 15GM TUBE. TP SCH (11:00)
[2018-07-03] MEDS ORDERED: hydroCHLOROthiazide 25 MG TABLET PO SCH (11:00)
[2018-07-03] MEDS ORDERED: LOSARTAN POTASSIUM 50 MG TABLET. PO SCH (11:00)
[2018-07-03] MEDS ORDERED: MAGNESIUM SULFATE 2GM 50 ML IV ONE (11:00)
--- NOTE | 2018-07-03 11:00 | PDOC2 ---
AL KENDALL MATH AND SCIENCES DEPARTMENT CHAIR 07/03/18 1100: CARDIAC CONSULT DATE OF CONSULT Date of Consult DATE: 07/03/18 TIME: 10:55 REASON FOR CONSULT Reason for Consult: chest pain REFERRING PHYSICIAN Referring Physician: Farshad SOURCE Source: Chart review, Patient HISTORY OF PRESENT ILLNESS HISTORY OF PRESENT ILLNESS 48 year old female who was watching TV yesterday when she became sweaty and developed pain beneath the left breast. She stood up and became lightheaded, falling and striking her right neck on the arm of the couch. Denies missed doses of meds or meals. Pain was initially constant and now is intermittent. Denies exacerbation with inspiration or activity. D-Dimer of 0.90 with CTA negative for pulmonary embolus. EKG with acute changes and troponin levels not consistent with AMI. Orthostasis not demonstrated. Reason for Visit: chest pain PAST MEDICAL HISTORY Past Medical History Cardiovascular: HTN, Hyperlipidemia, Other ("dysrhythmias"?) Pulmonary: Asthma, Other (RLE DVT - 2010), COPD, pulmonary nodules CENTRAL NERVOUS SYSTEM: Other (none) GI: GERD, Irritable bowel disease, Other (? of "spleen bleeding" seen on CT scan 01/2016 @ [facility]) Heme/Onc: Anemia NOS (20 years ago) Hepatobiliary: No pertinent hx Psych: Anxiety, Depression Musculoskeletal: low back pain (chronic; lumbar disease; spinal stenosis; spondylosis), Other (chronic neck pain ) Rheumatologic: No pertinent hx Infectious disease: No pertinent hx ENT: Allergic Rhinitis Renal/: Other (renal calculi), CKD? Endocrine: Diabetes (pre-diabetic), subclinical hyperthyroidism Dermatology: eczema PAST SURGICAL HISTORY Past Surgical History Cholecystectomy, Tubal Ligation, Hysterectomy, Other (cervical neck surgery; hysteroscopy with ablation) FAMILY HISTORY Family History Cancer (lung - father), Other (sarcoidosis - father) SOCIAL HISTORY Social History Smoke: Quit (> 25 years ago) ALCOHOL: social Drugs: None Lives: with Family (son) Cardiovascular: HTN CURRENT MEDICATIONS CURRENT MEDICATIONS Current Medications Medications (Trade) Dose Ordered Sig/Guillermina Route PRN Reason Start Time Stop Time Status Last Admin Dose Admin Sodium Chloride 1,000 ml @ 1,000 mls/hr 1X ONCE IV 07/02/18 19:15 07/02/18 20:14 DC 07/02/18 19:14 Iohexol (Omnipaque 300 Mg/ml) 75 ml 1X ONCE IV 07/02/18 20:45 07/02/18 20:46 DC 07/02/18 20:58 Ondansetron HCl (Zofran) 4 mg 1X ONCE IV 07/02/18 22:00 07/02/18 22:01 DC 07/02/18 21:30 Orphenadrine Citrate (Norflex) 60 mg 1X ONCE IV 07/02/18 22:00 07/02/18 22:01 DC 07/02/18 21:30 Ondansetron HCl (Zofran) 4 mg PRN Q8HRS PRN IV NAUSEA/VOMITING 1ST CHOICE 07/02/18 22:00 07/03/18 21:59 07/03/18 06:39 Fentanyl Citrate (Fentanyl 2ml Vial) 50 mcg PRN Q2HR PRN IV SEVERE PAIN 07/02/18 22:00 07/03/18 21:59 07/03/18 09:41 ALLERGIES ALLERGIES: Coded Allergies: mustard (Verified Allergy, Severe, ANGIOEDEMA/HIVES, 09/22/17) MUSTARD SEED poppyseed oil (Verified Allergy, Severe, Hives, 09/22/17) POPPYSEEDS Penicillins (Verified Allergy, Intermediate, HIVES, 09/22/17) adhesive tape (Verified Allergy, Intermediate, RASH, 09/22/17) ROS Review of System 14 point review with pertinent positives in HPI VITALS VITALS Vital Signs Date Time Temp Pulse Resp B/P (MAP) Pulse Ox O2 Delivery O2 Flow Rate FiO2 07/03/18 09:41 Room Air 07/03/18 07:00 97.5 70 18 120/77 (91) 100 97.5 LABS Lab: Laboratory Tests Test 07/02/18 19:00 07/02/18 19:45 07/03/18 01:00 07/03/18 03:50 White Blood Count 6.5 x10^3/uL (4.0-11.0) Red Blood Count 4.18 x10^6/uL (3.50-5.40) Hemoglobin 12.3 g/dL (12.0-15.5) Hematocrit 36.2 % (36.0-47.0) Mean Corpuscular Volume 87 fL (79-100) Mean Corpuscular Hemoglobin 29 pg (25-35) Mean Corpuscular Hemoglobin Concent 34 g/dL (31-37) Red Cell Distribution Width 14.5 % (11.5-14.5) Platelet Count 204 x10^3/uL (140-400) Neutrophils (%) (Auto) 54 % (31-73) Lymphocytes (%) (Auto) 34 % (24-48) Monocytes (%) (Auto) 8 % (0-9) Eosinophils (%) (Auto) 2 % (0-3) Basophils (%) (Auto) 2 % (0-3) Neutrophils # (Auto) 3.6 x10^3uL (1.8-7.7) Lymphocytes # (Auto) 2.2 x10^3/uL (1.0-4.8) Monocytes # (Auto) 0.5 x10^3/uL (0.0-1.1) Eosinophils # (Auto) 0.1 x10^3/uL (0.0-0.7) Basophils # (Auto) 0.1 x10^3/uL (0.0-0.2) Prothrombin Time 12.5 SEC (11.7-14.0) Prothromb Time International Ratio 1.0 (0.8-1.1) D-Dimer (Merlene) 0.90 ug/mlFEU (0.00-0.50) Sodium Level 141 mmol/L (136-145) Potassium Level 3.5 mmol/L (3.5-5.1) Chloride Level 105 mmol/L (98-107) Carbon Dioxide Level 27 mmol/L (21-32) Anion Gap 9 (6-14) Blood Urea Nitrogen 23 mg/dL (7-20) Creatinine 1.0 mg/dL (0.6-1.0) Estimated GFR (Cockcroft-Gault) 71.3 BUN/Creatinine Ratio 23 (6-20) Glucose Level 106 mg/dL (70-99) Calcium Level 9.4 mg/dL (8.5-10.1) Magnesium Level 1.7 mg/dL (1.8-2.4) Total Bilirubin 0.2 mg/dL (0.2-1.0) Aspartate Amino Transf (AST/SGOT) 13 U/L (15-37) Alanine Aminotransferase (ALT/SGPT) 19 U/L (14-59) Alkaline Phosphatase 58 U/L (46-116) Creatine Kinase 89 U/L (26-192) Creatine Kinase MB (Mass) 0.6 ng/mL (0.0-3.6) Creatine Kinase MB Relative Index 0.7 % (0-4) Troponin I Quantitative < 0.017 ng/mL (0.000-0.055) < 0.017 ng/mL (0.000-0.055) < 0.017 ng/mL (0.000-0.055) LX-Nlg-Y-Type Natriuretic Peptide 43 pg/mL (0-124) Total Protein 7.4 g/dL (6.4-8.2) Albumin 3.5 g/dL (3.4-5.0) Albumin/Globulin Ratio 0.9 (1.0-1.7) Lipase 182 U/L (73-393) Urine Collection Type Unknown Urine Color Yellow Urine Clarity Clear Urine pH 5.5 Urine Specific [place] 1.020 Urine Protein Negative mg/dL (NEG-TRACE) Urine Glucose (UA) Negative mg/dL (NEG) Urine Ketones (Stick) Negative mg/dL (NEG) Urine Blood Negative (NEG) Urine Nitrite Negative (NEG) Urine Bilirubin Negative (NEG) Urine Urobilinogen Dipstick 0.2 mg/dL (0.2 mg/dL) Urine Leukocyte Esterase Trace (NEG) Urine RBC 1-2 /HPF (0-2) Urine WBC 5-10 /HPF (0-4) Urine Squamous Epithelial Cells Mod /LPF Urine Bacteria Few /HPF (0-FEW) Urine Mucus Mod /LPF IMAGES IMAGES 07/02/2018: chest CTA: FINDINGS: Slightly suboptimal PE study due to contrast bolus timing. There are no obvious central, segmental, or subsegmental filling defects in the pulmonary arteries. Heart is normal in size. No pericardial or pleural effusion. No axillary, mediastinal or hilar adenopathy. Central airways are patent. 3 mm nodule in the left lower lobe visualized sections through the liver, spleen, adrenals within normal limits. No suspicious bony lesion. IMPRESSION: Slightly suboptimal PE study due to contrast bolus timing. However no obvious evidence of PE. ECHOCARDIOGRAM ECHOCARDIOGRAM 04/18/2017: TTE: The left ventricular systolic function is normal and the ejection fraction is within normal range. The Ejection Fraction is 60-65%. There is normal LV segmental wall motion. Doppler and Color Flow revealed mild tricuspid regurgitation.The PA pressure was estimated at 41 mmHg. STRESS TEST STRESS TEST 11/04/2016 MPI: Conclusion 1. Regadenoson cardioisotope stress test did not show any evidence of ischemia or infarct. 2. Normal left ventricular systolic function with ejection fraction calculated at 77%. 3. Low risk for cardiac events. MEGAN BULLOCK MD 07/03/18 1620: CARDIAC CONSULT ASSESSMENT/PLAN ASSESSMENT/PLAN Patient seen and examined. Agree with FINANCIAL ADMINISTRATION OFFICER's assessment and plan. Chest pain with atypical features. Myocardial infarction has been ruled out. 2-D echo showed normal LV function and Lexiscan nuclear stress test did not show any significant ischemia. Near syncope most probably vasovagal. Telemetry did not show any significant arrhythmias. Plan for outpatient event monitor for further evaluation. Thank you for your consultation. AL KENDALL APRN Jul 03, 2018 11:00 MEGAN BULLOCK MD Jul 03, 2018 16:20
[2018-07-03] MEDS: IPRATRPIUM/ALBUTEROL 0.5/2.5MG 3 ML NEBU. NEB SCH ×2 (12:34→15:51)
[2018-07-03] MEDS ORDERED: REGADENOSON 0.4 MG/5 ML DISP.SYRIN. IV ONE (12:45)
--- NOTE | 2018-07-03 14:31 | CARD ---
MR#: [id number] Date of Study: 07/03/2018 Ordering Physician: AL KENDALL, Referring Physician: Nathaniel GUNN: PEDRO Resendiz APPROVED REPORT EXAM: Two-dimensional and M-mode echocardiogram with Doppler and color Doppler. Other Information Quality : AverageHR: 88bpm INDICATION Chest Pain 2D DIMENSIONS RVDd3.2 (2.9-3.5cm)Left Atrium(2D)2.7 (1.6-4.0cm) IVSd1.3 (0.7-1.1cm)Aortic Root(2D)2.5 (2.0-3.7cm) LVDd4.0 (3.9-5.9cm)LVOT Diameter1.9 (1.8-2.4cm) PWd1.2 (0.7-1.1cm)LVDs2.3 (2.5-4.0cm) FS (%) 42.5 %SV53.1 ml LVEF(%)74.0 (>50%) Aortic Valve AoV Peak Sea.158.6cm/sAoV VTI29.5cm AO Peak GR.10.1mmHgLVOT Peak Sea.88.1cm/s LVOT VTI 20.56cmAO Mean GR.5mmHg JASMYN (VMAX)1.04xs6BDG (VTI)2.03cm2 Mitral Valve MV E Yansgzwr12.0cm/sMV DECEL UNTG580pr MV A Lbzkuwfj05.3cm/sMV OEX25ft E/A Ratio0.9MVA (PHT)2.63cm2 TDI E/Lateral E'7.5E/Medial E'7.1 Pulmonary Valve PV Peak Rrhahxuk654.6cm/sPV Peak Grad.12mmHg RVOT VTI31.7cm Tricuspid Valve TR P. Oymekiik015pv/sRAP XGHIGTJK7lzNf TR Peak Gr.61fhVwIWOY50zcCv LEFT VENTRICLE The left ventricle is normal size. There is mild concentric left ventricular hypertrophy. The left ve ntricular systolic function is normal and the ejection fraction is within normal range. EF 65% There is normal LV segmental wall motion. Transmitral Doppler flow pattern is Grade I-abnormal relaxation p attern. RIGHT VENTRICLE The right ventricle is normal size. The right ventricular systolic function is normal. ATRIA The left atrium size is normal. The right atrium size is normal. The interatrial septum is intact wit h no evidence for an atrial septal defect or patent foramen ovale as noted on 2-D or Doppler imaging. AORTIC VALVE The aortic valve is normal in structure and function. Doppler and Color Flow revealed no significant aortic regurgitation. There is no significant aortic valvular stenosis. There is no aortic valvular v egetation. MITRAL VALVE The mitral valve is thickened but opens well. There is no evidence of mitral valve prolapse. There is no mitral valve stenosis. Doppler and Color-flow revealed trace mitral regurgitation. TRICUSPID VALVE The tricuspid valve is normal in structure. Doppler and Color Flow revealed trace tricuspid regurgita tion. There is no pulmonary hypertension. The PA pressure was estimated at 24 mmHg. There is no tricu spid valve prolapse or vegetation. There is no tricuspid valve stenosis. PULMONIC VALVE The pulmonic valve is not well visualized. Doppler and Color Flow revealed no pulmonic valvular regur gitation. There is no pulmonic valvular stenosis. GREAT VESSELS The aortic root is normal in size. The IVC is normal in size and collapses <50% with inspiration. PERICARDIAL EFFUSION There is no pleural effusion. There is no evidence of significant pericardial effusion. Critical Notification Critical Value: No <Conclusion> There is mild concentric left ventricular hypertrophy. The left ventricular systolic function is normal and the ejection fraction is within normal range. EF 65% Signed by : Alex Esposito, Electronically Approved : 07/03/2018 14:30:20
[2018-07-03] MEDS ORDERED: tiZANidine 4 MG TABLET. PO SCH (15:30)
[2018-07-03] MEDS ORDERED: PANTOPRAZOLE 40 MG TABLET.DR. PO SCH (15:30)
[2018-07-03] MEDS ORDERED: methylPREDNISolone 4 MG TABLET. PO SCH (15:30)
--- NOTE | 2018-07-03 15:44 | RAD ---
MR#: [id number] Date of Study: 07/03/2018 Ordering Physician: AL KENDALL, Referring Physician: ANGEL GUNN Tech: RT Sammy (R) (N) APPROVED REPORT Test Type: Pharmacological Stress Nurse/Tech: Gale Shipley RN Test Indications: chest pain, diaphoresis Cardiac History: Asthma, COPD, HTN, x-smoker Medications: See Electronic Medical Record Medical History: See Electronic Medical Record Resting ECG: SR T abnormality Resting Heart Rate: 74 bpm Resting Blood Pressure: 112/74mmHg Pretest Chest Pain: None Nurse/Tech Notes Lungs CTA, S1S2 Consent: The procedure was explained to the patient in lay terms. Informed consent was witnessed. Clifford eout was entered into [employer]. History and Stress Test performed by Gale Shipley RN Pharm. Details Pharmacologic stress testing was performed using 0.4mg per 5ml of regadenoson given intravenously ove r 7-10 seconds. Stress Symptoms stomach cramps, no chest pain POST EXERCISE Reason for Termination: Infusion complete Max HR: 111 bpm Max Blood Pressure: 132/72mmHg Blood Pressure response to exercise: Normal blood pressure response during stress. Heart Rate response to exercise: Normal response Chest Pain: No. Arrhythmia: No. ST Change: No. INTERPRETATION Stress EKG Conclusion: Baseline EKG showed sinus rhythm. No ischemic changes at peak stress. No arr hythmias. Rest: Stress: Viability: Radiopharm.Tc99m Sestamibi Dose33.6mCi Duration 14min. Img Date 07/03/2018 Inj-Img [id number]. Stress Admin Site: IV - Right AntecubitalAdministrator: RT Mei (R)(N) STRESS DATA End Diast. Vol.79.0mlAv. Heart Rate78.0bpm LVEDV index BSA43.0mlCardiac Output2.5L/min End Syst. Vol.20.0mlCO Index BSA4.6L/min LVESV index BSA11.0mlMyocardial Mded188.0g Eject. Qgjpiiwg64.0% Stress Scores Regional WT1.00Summed WT9.00 Regional WM0.00Summed WM0.00 LV Perfusion Stress scintigraphic images did not show any significant perfusion defects. Wall Motion Normal left ventricular systolic function with ejection fraction calculated at 75%. LV Perf. Quant 17 Seg. SSS0.00 Stress Defect Extent (% LAD)0.00Rest Defect Extent (% LAD)Rev. Defect Extent (% LAD)0.00 Stress Defect Extent (% LCX) 0.00Rest Defect Extent (% LCX)Rev. Defect Extent (% LCX)0.00 Stress Defect Extent (% RCA)0.00Rest Defect Extent (% RCA)Rev. Defect Extent (% RCA)0.00 Stress Defect Extent (% NUHA)0.00Rest Defect Extent (% NUHA)Rev. Defect Extent (% NUHA)0.00 Conclusion 1. Regadenoson cardioisotope stress test did not show any evidence of ischemia or infarct. 2. Normal left ventricular systolic function with ejection fraction calculated at 75%. 3. Low risk for cardiac events. Signed by : Hawk Hargrove, Electronically Approved : 07/03/2018 15:42:31
[2018-07-03] MEDS: methylPREDNISolone 4 MG TABLET. PO SCH ×2 (15:53→17:30)
[2018-07-03] MEDS ORDERED: PROCHLORPERAZINE 10 MG/2 ML VIAL. IV PRN (16:30)
[2018-07-03] MEDS ORDERED: ATORVASTATIN CALCIUM 40 MG TABLET. PO SCH (21:00)
[2018-07-03] MEDS ORDERED: DOXAZOSIN MESYLATE 4 MG TABLET. PO SCH (21:00)
[2018-07-03] MEDS ORDERED: EZETIMIBE 10 MG TABLET. PO SCH (21:00)
--- NOTE | 2018-07-04 05:34 | CONS ---
DATE OF CONSULTATION: 07/03/2018 ATTENDING PHYSICIAN: Tina Almazan MD REASON FOR CONSULTATION: The patient was seen at the request of Dr. Almazan for rehab evaluation. HISTORY OF PRESENT ILLNESS: This is a 48-year-old right-handed female known to me in the past. The patient is status post cervical spine fusion for treatment of cervical spinal stenosis, getting around, taking care of herself, uses a walker to get around. She has stairs to manage at home. The patient was doing well until 07/02/2018 while watching TV, she developed chest pain and felt sweaty and stood up and was dizzy and then fell on to her right side striking her head on her couch. She complains of pain in her right side of the neck, shoulder, and back with pain radiating to her right upper and lower extremities with associated tingling and numbness sensation in her right thumb. She admits a few episodes of urinary incontinence, but better right now. The patient usually uses a walker to get around. The patient with known hypertension, asthmatic bronchitis, chronic obstructive pulmonary disease, anemia, anxiety, osteoarthritis, diabetes mellitus, status post cholecystectomy, hernia repair, tubal ligation, hysterectomy. ALLERGIES: KNOWN ALLERGIC TO PENICILLIN, ADHESIVE TAPE, MUSTARD AND POPPY SEED OIL. FAMILY HISTORY: Carcinoma, diabetes and hypertension. SOCIAL HISTORY: The patient has not worked since her cervical spine surgery in [address] Amos. PHYSICAL EXAMINATION: Today revealed a middle-aged female. She is alert, in no acute distress. She had painful limited movements of her cervical and thoracolumbar spine with minimal degree of paraspinal muscle spasm, more so on the right side. Tenderness to palpation over cervical paraspinal muscles extending over to posterior shoulder girdle muscles, over anterior aspect of her right shoulder, over right thoracic and lumbar paraspinal muscles extending over to sacroiliac joint area and straight leg raising test is negative bilaterally. She had 5/5 grade muscle strength in her upper and lower extremities. Deep tendon reflexes are 1 to 2+ and symmetrical and she had slightly decreased touch and pinprick sensation over palmar aspect of right thumb. Negative Tinel sign over median nerve at the wrist and over ulnar nerve at the wrist and elbow. The patient is not using proper body mechanics during mobility, but remains independent with her mobility and she is independent walking at bedside. She had some difficulty trying to walk on a straight line, one foot in front of other. Her skin is intact at this time. She had mild crepitus on range of motion of her knee joint without any obvious knee joint effusion. ASSESSMENT: A middle-aged female status post previous cervical spine fusion for treatment of cervical spinal stenosis with residual stiffness of her neck with recent fall, onset 07/02/2018, with cervical, thoracic and lumbar sprain with right cervical radiculitis, residual high level balance problems from previous cervical spinal stenosis, also degenerative joint disease of her knees. The patient with known hypertension, asthmatic bronchitis, chronic obstructive pulmonary disease, anemia, anxiety, diabetes mellitus history, but she denies any history of diabetes mellitus. RECOMMENDATIONS: To obtain MRI scan of her cervical and lumbar vertebrae to rule out any new disk problem. I have looked at CT scan of her cervical spine, which revealed multilevel degenerative disk disease and degenerative joint disease with reversal of normal cervical spine curvature. Dr. Almazan, I appreciate asking me to participate in the care of this interesting patient. I will be glad to follow her with you as needed for her rehabilitation. ORLIN PINEDA MD DR: RICHARD/darien JOB#: [id number] / [id number]
[2018-07-04] MEDS ORDERED: methylPREDNISolone 4 MG TABLET. PO SCH ×2 (08:30→21:00)
[2018-07-05] MEDS ORDERED: methylPREDNISolone 4 MG TABLET. PO SCH (09:00)
[2018-07-06] MEDS ORDERED: methylPREDNISolone 4 MG TABLET. PO SCH (09:00)
[2018-07-07] MEDS ORDERED: methylPREDNISolone 4 MG TABLET. PO SCH (09:00)
[2018-07-08] MEDS ORDERED: methylPREDNISolone 4 MG TABLET. PO SCH (09:00)
== END 2018-07-03 19:29 | disposition home or self-care (01) | DRG 74 ==
LOC: ER 18:33 → ED HOLD 22:11 → 5 NORTH 07-03 00:08
PROVIDERS: ADMIT Internal Medicine; ATTEND Internal Medicine
DX: M54.12 Radiculopathy, cervical region (principal); S23.3XXA Sprain of ligaments of thoracic spine, initial encounter; S13.4XXA Sprain of ligaments of cervical spine, initial encounter; S33.5XXA Sprain of ligaments of lumbar spine, initial encounter; J44.9 Chronic obstructive pulmonary disease, unspecified; E78.00 Pure hypercholesterolemia, unspecified; I10 Essential (primary) hypertension; F41.9 Anxiety disorder, unspecified; E11.9 Type 2 diabetes mellitus without complications; E66.9 Obesity, unspecified; G89.29 Other chronic pain; E78.5 Hyperlipidemia, unspecified; F32.9 Major depressive disorder, single episode, unspecified; M47.9 Spondylosis, unspecified; R32 Unspecified urinary incontinence; M48.02 Spinal stenosis, cervical region; M17.0 Bilateral primary osteoarthritis of knee; W18.39XA Other fall on same level, initial encounter; Z82.49 Family history of ischemic heart disease and other diseases of the circulatory system; Z86.718 Personal history of other venous thrombosis and embolism; Z90.49 Acquired absence of other specified parts of digestive tract; Z90.710 Acquired absence of both cervix and uterus; Z88.0 Allergy status to penicillin; Z91.048 Other nonmedicinal substance allergy status; Z83.3 Family history of diabetes mellitus; Z80.1 Family history of malignant neoplasm of trachea, bronchus and lung; Z68.37 Body mass index [BMI] 37.0-37.9, adult; Z87.442 Personal history of urinary calculi; Z98.1 Arthrodesis status; Y93.89 Activity, other specified; Y92.89 Other specified places as the place of occurrence of the external cause; Y99.8 Other external cause status
CPT/HCPCS: 36415; 70450; 71275; 72125; 78452; 80053; 81001; 82553; 83690; 83735; 83880; 84484; 85025; 85379; 85610; 87086; 93005; 93017; 93306; 94640; 96361; 96374; 96375; A9500; J0780; J2360; J2405; J2785; J3010; J3475; J7030; J7509; J7620; Q9967; 99285-25

== ENCOUNTER 2018-09-04 10:24 | Emergency (ER) | payer OTHER ==
[~2018-09-04] VITALS: Ht 154.9 cm; Wt 82.6 kg
[~2018-09-04 10:24] MED LIST changes: -AMLO10TA2 PO; +AMLO10TA6 PO; -LOSA50TA6 PO; +LOSA50TA7 PO
[2018-09-04 10:36] VITALS: BP 173/112
[2018-09-04] MEDS ORDERED: IPRATRPIUM/ALBUTEROL 0.5/2.5MG 3 ML NEBU. ONE (10:45)
[2018-09-04] MEDS ORDERED: ALBUTEROL SULFATE 2.5 MG/3 ML NEBU. CONT NEB ONE (10:45)
[2018-09-04] MEDS ORDERED: predniSONE 10 MG TABLET PO ONE (10:45)
[2018-09-04] MEDS ORDERED: IPRATRPIUM/ALBUTEROL 0.5/2.5MG 3 ML NEBU. NEB ONE (10:45)
--- NOTE | 2018-09-04 13:17 | PHYS DOC ---
Past Medical History Past Medical History: Anxiety, Asthma, COPD, High Cholesterol, Hypertension Additional Past Medical Histor: ECZEMA; neck pain Past Surgical History: Cholecystectomy, Hysterectomy, Other Additional Past Surgical Histo: Hernia repair, neck surgery Alcohol Use: Occasionally Drug Use: None Adult General Chief Complaint Chief Complaint: ASTHMA HPI HPI Patient is a 48 year old female who presents with an exacerbation of her asthma. The patient states that she has developed severe shortness of breath today. She does have a diagnosis of COPD. She has a nonproductive cough. She denies chest pain. Review of Systems Review of Systems Constitutional: Denies fever or chills [] Eyes: Denies change in visual acuity, redness, or eye pain [] HENT: Denies nasal congestion or sore throat [] Respiratory: See history of present illness Cardiovascular: No additional information not addressed in HPI [] GI: Denies abdominal pain, nausea, vomiting, bloody stools or diarrhea [] : Denies dysuria or hematuria [] Musculoskeletal: Denies back pain or joint pain [] Integument: Denies rash or skin lesions [] Neurologic: Denies headache, focal weakness or sensory changes [] Endocrine: Denies polyuria or polydipsia [] All other systems were reviewed and found to be within normal limits, except as documented in this note. Current Medications Current Medications Current Medications Medications (Trade) Dose Ordered Sig/Guillermina Start Time Stop Time Status Last Admin Dose Admin Albuterol Sulfate (Ventolin Neb Soln) 10 mg 1X ONCE 09/04/18 10:45 09/04/18 10:48 DC Albuterol/ Ipratropium (Duoneb) 3 ml STK-MED ONCE 09/04/18 10:45 09/04/18 10:46 DC Prednisone (Prednisone) 50 mg 1X ONCE 09/04/18 10:45 09/04/18 10:48 DC Allergies Allergies Allergies Coded Allergies Type Severity Reaction Last Updated Verified mustard Allergy Severe ANGIOEDEMA/HIVES 09/22/17 Yes poppyseed oil Allergy Severe Hives 09/22/17 Yes Penicillins Allergy Intermediate HIVES 09/22/17 Yes adhesive tape Allergy Intermediate RASH 09/22/17 Yes Physical Exam Physical Exam Constitutional: Well developed, well nourished, no acute distress, non-toxic appearance. [] HENT: Normocephalic, atraumatic, bilateral external ears normal, oropharynx moist, no oral exudates, nose normal. [] Eyes: PERRLA, EOMI, conjunctiva normal, no discharge. [] Neck: Normal range of motion, no tenderness, supple, no stridor. [] Cardiovascular:Heart rate regular rhythm, no murmur [] Lungs & Thorax: Bilateral breath sounds decreased throughout Abdomen: Bowel sounds normal, soft, no tenderness, no masses, no pulsatile masses. [] Skin: Warm, dry, no erythema, no rash. [] Back: No tenderness, no CVA tenderness. [] Extremities: No tenderness, no cyanosis, no clubbing, ROM intact, no edema. [] Neurologic: Alert and oriented X 3, normal motor function, normal sensory function, no focal deficits noted. [] Psychologic: Affect normal, judgement normal, mood normal. [] Current Patient Data Vital Signs Vital Signs Date Time Temp Pulse Resp B/P (MAP) Pulse Ox O2 Delivery O2 Flow Rate FiO2 09/04/18 10:36 98.3 79 24 173/112 (132) 99 Room Air 98.3 EKG EKG [] Radiology/Procedures Radiology/Procedures [] Course & Med Decision Making Course & Med Decision Making Pertinent Labs and Imaging studies reviewed. 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 She eloped from the facility and has not returned. Dragon Disclaimer Dragon Disclaimer This electronic medical record was generated, in whole or in part, using a voice recognition dictation system. Departure Departure Impression: Primary Impression: Eloped from emergency department Disposition: 07 AGAINST MEDICAL ADVICE Condition: GUARDED DEMI CULP APRN Sep 04, 2018 13:17
== END 2018-09-04 11:12 | disposition left against medical advice (07) ==
LOC: ER 10:24
DX: J45.901 Unspecified asthma with (acute) exacerbation (principal); J44.9 Chronic obstructive pulmonary disease, unspecified; E78.00 Pure hypercholesterolemia, unspecified; I10 Essential (primary) hypertension; F41.9 Anxiety disorder, unspecified; Z88.0 Allergy status to penicillin; Z88.8 Allergy status to other drugs, medicaments and biological substances; Z91.018 Allergy to other foods
CPT/HCPCS: 99281

== ENCOUNTER → 2019-03-02 | Outpatient (CLI) | payer OTHER ==
[~2019-03-02] MED LIST changes: +ALBU2.5V8 IH; +ALBU2.5V8 INH; -AMLO10TA6 PO; +AMLO10TA8 PO; +CARV12.511 PO; -CARV12.52 PO; -HYDR-2758 PO; +HYDR-2761 PO; -HYDR-2762 PO; +HYDR-2765 PO; -HYDR-2766 PO; +HYDR-2769 PO; +HYDR-3164 PO; -HYDR-971 PO; +LOSA-73 PO; -LOSA50TA7 PO; -OXYC15TA60 PO; +OXYC15TA61 PO; -PROAIR HFA8.5 GM INH; -PROVENTIL HFA6.7 GM IH; +RANI-376 PO; -RANI150T21 PO
--- NOTE | 2019-03-05 12:17 | KCIC ---
Bilateral digital screening mammograms with 3-D tomosynthesis: Reason for examination: Routine screening. Comparison is made to previous studies dated 01/19/2016 and 01/27/2016 Bilateral mammograms in CC and oblique projections were obtained with 2-D imaging and 3-D tomosynthesis imaging on a Siemens Inspiration unit and reviewed on the workstation. Interpretation was made with the benefit of CAD. The skin and nipples show no abnormalities. No abnormal axillary lymph nodes are seen. The breast parenchyma is heterogeneously dense. (Breast density: Category C.) There continues to be a nodule at the 12:00 position anteriorly in the right breast containing a biopsy clip. There also continue to be small nodular asymmetries which are unchanged. There are no new dominant masses, suspicious calcifications or architectural distortion. Benign calcifications are present. Impression: No evidence of malignancy. Recommend routine screening. Your patient's mammogram demonstrates that she has dense breast tissue (breast density category C or D), which could hide abnormalities, and if she has other risk factors for breast cancer that have been identified, she might benefit from supplemental screening tests that may be suggested by you as her ordering physician. Dense breast tissue, in and of itself, is a relatively common condition. Therefore, this information is not provided to cause undue concern, but rather to raise your awareness and to promote discussion with your patient regarding the presence of other risk factors, in addition to dense breast tissue. Your patient's mammography results will be sent to her. BI-RAD Category 2: Benign. "Our facility is accredited by the [employer] Mammography Program." This patient's information has been entered into a reminder system for the patient to be notified with the results of her examination and a target date for the next mammogram. Electronically signed by: Robina Call MD (03/05/2019 12:14 PM) [id number]
== END | disposition home or self-care (01) ==
LOC: KCIC MAMMO 12:00
PROVIDERS: ATTEND Nurse Practitioner Family
DX: Z12.31 Encounter for screening mammogram for malignant neoplasm of breast (principal); N63.12 Unspecified lump in the right breast, upper inner quadrant; N64.89 Other specified disorders of breast
CPT/HCPCS: 77063; 77067

== ENCOUNTER → 2019-03-05 | Outpatient (CLI) | payer OTHER ==
--- NOTE | 2019-03-05 15:11 | KCIC ---
MRI of the lumbar spine without contrast 03/05/2019 CLINICAL HISTORY: Low back pain with right leg weakness. TECHNIQUE: Unenhanced T1-weighted and T2-weighted sagittal and axial and inversion recovery sagittal images of the lumbar spine were obtained. FINDINGS: Comparison is made to radiographs lumbar spine dated 09/22/2017. Minimal S-shaped curvature of the thoracolumbar spine is seen. Degenerative signal changes are seen involving the L2-3, L3-4 and L4-5 discs. Degenerative signal changes are seen within the marrow surrounding these discs. The conus medullaris is normal morphology, position, and signal characteristics. The L1-2 disc space is within normal limits. After the L2-3, L3-4, L4-5 and L5-S1 disc spaces there are mild generalized disc bulges. Degenerative changes are seen involving the facet joints bilaterally. There is mild ligamentum flavum hypertrophy bilaterally. These findings when combined do not result in significant central spinal canal or neural foraminal stenosis at any level. IMPRESSION: The changes of mild degenerative disc disease are seen involving the mid and lower lumbar spine. These findings do not result in significant central spinal canal or neural foraminal stenosis. Electronically signed by: Faustino Gallegos MD (03/05/2019 3:08 PM) [facility]
== END | disposition home or self-care (01) ==
LOC: KCIC MRI 13:42
PROVIDERS: ATTEND Family Medicine
DX: M51.36 Other intervertebral disc degeneration, lumbar region (principal); M47.816 Spondylosis without myelopathy or radiculopathy, lumbar region; M51.27 Other intervertebral disc displacement, lumbosacral region; M43.8X5 Other specified deforming dorsopathies, thoracolumbar region
CPT/HCPCS: 72148

== ENCOUNTER 2019-03-06 15:22 | Emergency (ER) | payer OTHER ==
[~2019-03-06] VITALS: Ht 152.4 cm; Wt 82.6 kg
[2019-03-06 15:54] VITALS: BP 152/99
[2019-03-06] MEDS ORDERED: LIDOCAINE (700MG/PATCH) PATCH. TD SCH (16:10)
[2019-03-06] MEDS ORDERED: IBUPROFEN 400 MG TABLET. PO ONE (16:15)
[2019-03-06] MEDS ORDERED: IBUPROFEN 200 MG TABLET. PO ONE (16:15)
--- NOTE | 2019-03-06 16:52 | PHYS DOC ---
Past Medical History Past Medical History: Anxiety, Asthma, COPD, High Cholesterol, Hypertension Additional Past Medical Histor: ECZEMA; neck pain (BRI TAM APRN) Past Surgical History: Cholecystectomy, Hysterectomy, Other Additional Past Surgical Histo: Hernia repair, neck surgery (BRI TAM APRN) Alcohol Use: Occasionally Drug Use: None (BRI TAM APRN) Adult General Chief Complaint Chief Complaint: SHOULDER INJURY HPI HPI 48-year-old female presents to ER via POV for complaints of right shoulder pain since a fall on Tuesday. She reports she tripped over a rug causing her to fall forward. Patient states she fell onto her right upper extremity with her arm extended and since has had right shoulder pain. During initial discussion lucille moise is able to perform range of motion. She states she has had some intermittent tingling in her right arm and pain increases with any movement or palpation of her shoulder. Patient states she took ibuprofen yesterday. She reports she's been out running errands today and has had increased pain. She denies striking her head or having any head, neck, or back pain. Patient reports she has been using her right arm and is right hand dominant. Patient states she took ibuprofen yesterday denies any [id number]-[id number] medications today for pain. Patient denies any other injury from the fall. (BRI TAM APRN) Review of Systems Review of Systems Constitutional: Denies fever or chills [] Eyes: Denies change in visual acuity, redness, or eye pain [] HENT: Denies nasal congestion or sore throat [] Respiratory: Denies cough or shortness of breath [] Cardiovascular: No additional information not addressed in HPI [] GI: Denies abdominal pain, nausea, vomiting, bloody stools or diarrhea [] : Denies dysuria or hematuria [] Musculoskeletal: Denies back pain or joint pain [] Integument: Denies rash or skin lesions [] Neurologic: Denies headache, focal weakness or sensory changes [] Endocrine: Denies polyuria or polydipsia [] All other systems were reviewed and found to be within normal limits, except as documented in this note. (BRI TAM APRN) Current Medications Current Medications Current Medications Medications (Trade) Dose Ordered Sig/Guillermina Start Time Stop Time Status Last Admin Dose Admin Ibuprofen (Motrin) 600 mg 1X ONCE 03/06/19 16:15 03/06/19 16:16 DC 03/06/19 16:25 600 MG Lidocaine (Lidoderm) 1 patch DAILY 03/06/19 16:10 03/06/19 16:59 DC 03/06/19 16:58 1 PATCH (ELISABETH FINLEY MD) Allergies Allergies Allergies Coded Allergies Type Severity Reaction Last Updated Verified mustard Allergy Severe ANGIOEDEMA/HIVES 09/22/17 Yes poppyseed oil Allergy Severe Hives 09/22/17 Yes Penicillins Allergy Intermediate HIVES 09/22/17 Yes adhesive tape Allergy Intermediate RASH 09/22/17 Yes (ELISABETH FINLEY MD) Physical Exam Physical Exam Constitutional: Well developed, well nourished, mild distress/tearful, non-toxic appearance. [] HENT: Normocephalic, atraumatic, oropharynx moist, nose normal. [] Eyes: Pupils equal, conjunctiva normal, no discharge. [] Neck: Normal range of motion, no tenderness, supple, no stridor. [] Cardiovascular: Heart rate regular rhythm, no murmur [] Lungs & Thorax: Bilateral breath sounds clear to auscultation- resp. equal/nonlabored. No chest wall deformity/crepitus or tenderness on palp. Skin: Warm, dry Back: No tenderness on midline spine, no CVA tenderness. [] Extremities: Tender on palp. rt lateral shoulder into top of shoulder- no palp. deformity, no cyanosis, no clubbing, ROM intact, no edema. 2+ radial bilat. Neurologic: Alert and oriented X 3, normal motor function, normal sensory function, no focal deficits noted. [] Psychologic: Affect normal, judgement normal, mood normal. [] (BRI TAM APRN) Current Patient Data Vital Signs Vital Signs Date Time Temp Pulse Resp B/P (MAP) Pulse Ox O2 Delivery O2 Flow Rate FiO2 03/06/19 15:54 98.2 83 18 152/99 (116) 99 Room Air 98.2 (ELISABETH FINLEY MD) EKG EKG [] (BRI TAM APRN) Radiology/Procedures Radiology/Procedures [] (BRI TAM APRN) Course & Med Decision Making Course & Med Decision Making Pertinent Imaging studies reviewed. (See chart for details) 1645: Pt's xray rt shoulder was viewed by Dr. Finley with no obvious acute findings for displaced fx/dislocation. This was discussed with pt. Pt is no distress on re-eval. and is just now having lidoderm patch applied. She is not tearful and is moving rt upper extremity. She remains PMS intact. Discussed plans for home discharge with splint to rt upper extremity. Discussed if symptoms patient to follow-up with orthopedics. Will provide referral information on discharge paperwork. Discussed patient using [id number] Tylenol and/or ibuprofen along with sports cream. Will provide prescription for Lidoderm patch. Education provided on signs and symptoms to return to ER for and discharge instructions were discussed. (BRI TAM APRN) Course & Med Decision Making I was available for consultation regarding this patient's care. I did not see or evaluate the patient unless otherwise specified. (ELISABETH FINLEY MD) Dragon Disclaimer Dragon Disclaimer This electronic medical record was generated, in whole or in part, using a voice recognition dictation system. (BRI TAM APRN) Departure Departure Impression: Primary Impression: Shoulder injury Disposition: HOME, SELF-CARE Condition: STABLE Referrals: MIMI HANSON APRN (PCP) JABARI AGUILERA MD Patient Instructions: Arm Sling Use, [id number], Fall Prevention and Home Safety, Shoulder Pain Additional Instructions: Ibuprofen and/or Tylenol as needed for pain control as directed on container. Wear the sling while walking to help support your right arm to also improve pain. If symptoms persist follow-up with orthopedic doctor for reevaluation and further care. BRI TAM APRN Mar 06, 2019 16:52 ELISABETH FINLEY MD Mar 06, 2019 18:01
--- NOTE | 2019-03-06 17:07 | RAD ---
RIGHT SHOULDER , 3 VIEWS Clinical Indication: ER PATIENT. TRAUMA FALL TODAY. PAIN IN THE RIGHT SHOULDER. Comparison: None. Findings: There is no acute fracture or dislocation. The acromioclavicular and glenohumeral joints are intact. The visualized lung is clear. There is no evidence of a displaced rib fracture. There is no soft tissue abnormality. IMPRESSION: No acute fracture or dislocation. Electronically signed by: Bebeto Lackey MD (03/06/2019 5:04 PM) [id number]
== END 2019-03-06 16:59 | disposition home or self-care (01) ==
LOC: ER 15:22
DX: S49.91XA Unspecified injury of right shoulder and upper arm, initial encounter (principal); J44.9 Chronic obstructive pulmonary disease, unspecified; E78.00 Pure hypercholesterolemia, unspecified; J45.909 Unspecified asthma, uncomplicated; I10 Essential (primary) hypertension; Z88.0 Allergy status to penicillin; Z91.018 Allergy to other foods; Z88.8 Allergy status to other drugs, medicaments and biological substances; W18.09XA Striking against other object with subsequent fall, initial encounter; Y93.89 Activity, other specified; Y92.89 Other specified places as the place of occurrence of the external cause; Y99.8 Other external cause status
CPT/HCPCS: 73030; 99283; 99284

== ENCOUNTER → 2019-03-16 | Outpatient (CLI) | payer OTHER ==
[2019-03-06 15:54] VITALS: BP 152/99
--- NOTE | 2019-03-16 09:55 | KCIC ---
Examination: MRI of the right shoulder without contrast HISTORY: History of pain in the right shoulder, decreased range of motion COMPARISON: None available TECHNIQUE: Multiplanar, multisequence MR imaging of the right shoulder performed without contrast FINDINGS: The long head of the biceps tendon within the bicipital groove. The attachment of the long head the biceps tendon to the superior labral anchor grossly appears intact. The attachment of the subscapularis, tendon grossly appears intact. There is mild increased T2 signal identified about the supraspinatus and infraspinatus tendon likely tendinosis. Examination is limited due to motion artifact particularly on the coronal images. The evaluation of the labrum is limited however grossly no obvious labral tear is evident. There is focal increased T2 signal/trabecular identified in the inferior aspect of the glenoid with subchondral cystic changes probably due to degeneration. The acromion is type II. The inferior aspect of the acromion abuts the superior aspect of the supraspinatus tendon. Questionable minimal bursal sided fraying of the supraspinatus tendon. Limited examination due to motion. IMPRESSION: 1. Limited examination due to motion artifact. 2. Minimal bursal sided fraying of the supraspinatus tendon. The inferior aspect of the acromion about the about the superior aspect of the supraspinatus tendon. Correlate for impingement. 3. Subchondral cystic changes with increased T2 signal identified in the inferior glenoid likely degeneration. Electronically signed by: Rip Banks MD (03/16/2019 9:52 AM) [facility]
== END | disposition home or self-care (01) ==
LOC: KCIC MRI 08:21
PROVIDERS: ATTEND Family Medicine
DX: M25.811 Other specified joint disorders, right shoulder (principal)
CPT/HCPCS: 73221

== ENCOUNTER → 2019-05-24 | Outpatient (CLI) | payer MEDICARE, MEDICAID ==
[~2019-05-24] MED LIST changes: +GADOTERATE 5 MMOL/10ML VIAL. IVP ONE; +MONT10TA49 PO; -MONT10TA9 PO; -PANT40TA3 PO; +PANT40TA77 PO
--- NOTE | 2019-05-24 10:41 | KCIC ---
MRI Cervical Spine with and without contrast History: Neck pain, bilateral upper extremity pain and tingling, previous surgery Technique: Multiplanar, multi sequential pre and postcontrast MR imaging was performed of the cervical spine. Comparison: July 27, 2016 Findings: There are now some foci of more defined, nonexpansile T2 and STIR hyperintense signal of the bilateral cord at C4-C5 and C5-6, no associated enhancement. Cervical vertebral body stature is similar. AP alignment is within normal limits. There is mild reversal of the lordotic curvature centered near C5. There is again moderate degenerative disc disease C5-6, somewhat progressed at C6-7 and C4-5 in the interval. There is also mild degenerative disc disease C3-C4. There is no significant marrow edema. There is no enhancement in the intervertebral disc spaces. C2-C3: Spinal canal and neural foramina are adequate. C3-C4: There is negligible disc osteophyte complex, central canal borderline about 10 mm. Neural foramina are adequate. There is mild uncovertebral and facet degenerative change. C4-C5: There again has been posterior decompression. There is again minimal disc osteophyte complex. Residual AP thecal sac measures about 9 to 10 mm. There is uncovertebral degenerative change greater on the right, also facet degenerative change bilaterally. There is [id number]-xi-[id number] right and likely mild left neural foramina compromise as seen previously. C5-C6: There again has been posterior decompression. There is again disc osteophyte complex. Central canal measures about 10 mm. There is facet degenerative change and uncovertebral degenerative change bilaterally. Right neural foramen is adequate. There is again moderate to severe narrowing of the left neural foramen greater distally. C6-C7: There is again disc osteophyte complex and bulge. There again has been posterior decompression at C6. Central canal is about 10 mm. There is uncovertebral and facet degenerative change bilaterally. Right neural foramen is likely adequate, again likely mild narrowing of the left neural foramen. C7-T1: Central canal is adequate about 12 mm. There is likely right uncovertebral degenerative change resulting in probable mild narrowing of the right neural foramen, left neural foramen not significantly narrowed. Impression: 1. There are now some foci of more defined, nonexpansile T2 and STIR hyperintense signal of the bilateral cord at C4-5 and C5-6, likely myelomalacia. There is no new significant cervical spinal stenosis. There is multilevel degenerative disc disease greatest C4-5 through C6-7, and to a lesser degree at C3-4 somewhat progressed in the interval. There is multilevel spondylosis. There again has been multilevel posterior decompression C3-4 through C6-7. There is multilevel facet and uncovertebral change resulting in multilevel neural foramina compromise greatest on the left at C5-6 and to lesser degree on the right at C4-5, other mild neural foramina compromise. Electronically signed by: Fausto Vergara MD (05/24/2019 10:38 AM) [facility]
== END | disposition home or self-care (01) ==
LOC: EEVIPCON 09:14 → KCIC MRI 09:14
PROVIDERS: ATTEND Pain Medicine Interventional Pain Medicine
DX: M50.31 Other cervical disc degeneration, high cervical region (principal); M48.02 Spinal stenosis, cervical region; M47.812 Spondylosis without myelopathy or radiculopathy, cervical region; M25.78 Osteophyte, vertebrae
CPT/HCPCS: 72156; A9575

== ENCOUNTER 2020-06-28 21:51 | Emergency (ER) | payer MEDICARE, MEDICAID ==
[~2020-06-28] VITALS: Ht 152.4 cm; Wt 95.5 kg
[~2020-06-28 21:51] MED LIST changes: -ALBU2.5V8 IH; -CETI10TA22 PO; +CETI10TA24 PO; +CLOB15OI TOP; -EZET10TA18 PO; +EZET10TA20 PO; +FLUT16SP NAS; -GADOTERATE 5 MMOL/10ML VIAL. IVP ONE; +HYDR12.58 PO; +HYDR25TA PO; +IRBE300T23 PO; +METO-247 PO; -OXYC-411 PO; -OXYC15TA PO; +OXYC15TA3 PO; +OXYC1TAB20 PO; -PREG50CA PO; +PREG50CA91 PO; +PROVENTIL HFA6.7 GM IH
--- NOTE | 2020-06-28 22:40 | PHYS DOC ---
Past Medical History Past Medical History: Anxiety, Asthma, COPD, High Cholesterol, Hypertension, IBS Additional Past Medical Histor: ECZEMA; neck pain Past Surgical History: Cholecystectomy, Hysterectomy, Other Additional Past Surgical Histo: Hernia repair, neck surgery Smoking Status: Former Smoker Alcohol Use: Occasionally Drug Use: None General Adult EDM: Chief Complaint: LOWER EXT PAIN HPI: HPI: Patient is a 50 year old female who presents with right lower extremity pain. Patient reports that for last 3 days she has this pain that starts in the sub- trochanteric area of the right lower extremity and radiates towards the knee. She is also noted a pain in the posterior right calf with some asymmetric edema of the right versus the left leg. Patient states that she has had a blood clot in that leg before but is been over 19 years. She denies any other complaints including back pain, change in sensation of the perineum, incomplete bladder emptying or fecal incontinence. She denied any fever, chills, sweats, chest p ain or shortness of breath. Review of Systems: Review of Systems: Constitutional: Denies fever or chills. [] Eyes: Denies change in visual acuity. [] HENT: Denies nasal congestion or sore throat. [] Respiratory: Denies cough or shortness of breath. [] Cardiovascular: Denies chest pain or edema. [] GI: Denies abdominal pain, nausea, vomiting, bloody stools or diarrhea. [] : Denies dysuria. [] Musculoskeletal: See HPI [] Integument: Denies rash. [] Neurologic: Denies headache, focal weakness or sensory changes. [] Endocrine: Denies polyuria or polydipsia. [] Lymphatic: Denies swollen glands. [] Psychiatric: Denies depression or anxiety. [] Heart Score: Risk Factors: Risk Factors: DM, Current or recent (<one month) smoker, HTN, HLP, family history of CAD, obesity. Risk Scores: Score 0 - 3: 2.5% MACE over next 6 weeks - Discharge Home Score 4 - 6: 20.3% MACE over next 6 weeks - Admit for Clinical Observation Score 7 - 10: 72.7% MACE over next 6 weeks - Early Invasive Strategies Allergies: Allergies: Allergies Coded Allergies Type Severity Reaction Last Updated Verified mustard Allergy Severe ANGIOEDEMA/HIVES 09/22/17 Yes poppyseed oil Allergy Severe Hives 09/22/17 Yes Penicillins Allergy Intermediate HIVES 09/22/17 Yes adhesive tape Allergy Intermediate RASH 09/22/17 Yes Physical Exam: PE: Constitutional: Well developed, well nourished, morbidly obese no acute distress, non-toxic appearance. [] HENT: Normocephalic, atraumatic, bilateral external ears normal, oropharynx moist, no oral exudates, nose normal. [] Eyes: PERRLA, EOMI, conjunctiva normal, no discharge. [] Neck: Normal range of motion, no tenderness, supple, no stridor. [] Cardiovascular:Heart rate regular rhythm, no murmur [] Lungs & Thorax: Bilateral breath sounds clear to auscultation [] Abdomen: Bowel sounds normal, soft, no tenderness, no masses, no pulsatile masses. [] Skin: Warm, dry, no erythema, no rash. [] Back: No tenderness, no CVA tenderness. [] Extremities: No tenderness, right trochanteric bursa tender to palpation, no calor no fluctuance. No cyanosis, no clubbing, ROM intact, no edema. The right is greater than the left with 1 mm of pitting edema on the right and trace on the left, all dermatomes and myotomes of the lower extremities were tested and normal [] Neurologic: Alert and oriented X 3, normal motor function, normal sensory function, no focal deficits noted. [] Psychologic: Affect normal, judgement normal, mood normal. [] EKG: EKG: [] Radiology/Procedures: Radiology/Procedures: Indication: Sub-trochanteric bursitis Consent: Consent given by patient. Procedure: The patient was positioned appropriately and the landmarks were identified. Local anesthesia was not used. The area was then prepped and draped in the usual sterile fashion. A spinal needle was used to reach the sub- trochanteric bursa. 5 mL of 1% lidocaine and 80 mg of Depo-Medrol were instilled into the bursa with pain relief. Patient tolerated procedure well and was able to ambulate with minimal pain. The patient tolerated the procedure well. Complications: none. [] Course & Med Decision Making: Course & Med Decision Making Pertinent Labs and Imaging studies reviewed. (See chart for details) [id number]-patient was seen and examined. Patient had relief after the procedure was performed. No evidence of a DVT is identified today with a normal d-dimer. I discussed with the patient reasons to return, treatment plan and need for follow-up. [] Dragon Disclaimer: Dragon Disclaimer: This electronic medical record was generated, in whole or in part, using a voice recognition dictation system. Departure Departure Impression: Primary Impression: Trochanteric bursitis of right hip Additional Impression: Right hip pain Disposition: HOME, SELF-CARE Condition: IMPROVED Referrals: KEYSHA UPTON MD (PCP) Patient Instructions: Hip Bursitis Justicifation of Admission Dx: Justifications for Admission: Justification of Admission Dx: N/A Angina: New-Onset CAROLE VALENTINO MD Jun 28, 2020 22:40
[2020-06-28 22:48] LABS: BASO # 0.1 x10^3/uL (0.0-0.2); BASO % 1 % (0-3); EOS # 0.2 x10^3/uL (0.0-0.7); EOS % 2 % (0-3); HEMATOCRIT 40.6 % (36.0-47.0); HEMOGLOBIN 13.3 g/dL (12.0-15.5); LYMPH # 3.3 x10^3/uL (1.0-4.8); LYMPH % 42 % (24-48); MEAN CORPUSCULAR HEMOGLOBIN 28 pg (25-35); MEAN CORPUSCULAR HGB CONC 33 g/dL (31-37); MEAN CORPUSCULAR VOLUME 85 fL (79-100); MONO # 0.7 x10^3/uL (0.0-1.1); MONO % 8 % (0-9); NEUT # 3.7 x10^3/uL (1.8-7.7); NEUT % 47 % (31-73); PLATELET COUNT 178 x10^3/uL (140-400); RED BLOOD COUNT 4.76 x10^6/uL (3.50-5.40); RED CELL DISTRIBUTION WIDTH 14.5 % (11.5-14.5)
[2020-06-28 22:57] LABS: CALCIUM 8.6 mg/dL (8.5-10.1); CREATININE 0.9 mg/dL (0.6-1.0); GFR 79.9; POTASSIUM 3.6 mmol/L (3.5-5.1)
[2020-06-28] MEDS ORDERED: LIDOCAINE 1% PF 2 ML VIAL. INJ ONE ×2 (23:00→23:30)
[2020-06-28] MEDS ORDERED: methylPREDNISolone ACETATE 80 MG/ML VIAL. INT ART ONE ×2 (23:00→23:30)
[2020-06-28 23:45] LABS: D-DIMER 0.31 ug/mlFEU (0.00-0.50); PROTHROMBIN TIME PATIENT 12.2 SEC (11.7-14.0)
[2020-06-29 00:08] VITALS: BP 184/111
== END 2020-06-29 00:08 | disposition home or self-care (01) ==
LOC: ER 21:51
DX: M70.61 Trochanteric bursitis, right hip (principal); Y93.89 Activity, other specified; M25.551 Pain in right hip; R60.0 Localized edema; F41.9 Anxiety disorder, unspecified; J44.9 Chronic obstructive pulmonary disease, unspecified; E78.00 Pure hypercholesterolemia, unspecified; I10 Essential (primary) hypertension; Z90.49 Acquired absence of other specified parts of digestive tract; Z90.710 Acquired absence of both cervix and uterus; Z98.890 Other specified postprocedural states; Z87.891 Personal history of nicotine dependence
CPT/HCPCS: 20610; 36415; 80048; 85025; 85379; 85610; 85730; 99283; J1040; J3490

== ENCOUNTER → 2022-02-05 | Outpatient (CLI) | payer MEDICARE, MEDICAID ==
[~2022-02-05] MED LIST changes: +AMLO-187 PO; -AMLO10TA8 PO; -CETI10TA24 PO; +CETI10TA74 PO; -DOXY100C2 PO; +DOXY100C3 PO
--- NOTE | 2022-02-05 16:03 | KCIC ---
Bilateral digital screening mammograms with 3-D tomosynthesis: Reason for examination: Routine screening. Comparison is made to previous studies dated back to 01/19/2016. Bilateral mammograms in CC and oblique projections were obtained with 2-D imaging and 3-D tomosynthes is imaging on a Siemens Inspiration unit and reviewed on the workstation. Interpretation was made robby pulliam the benefit of CAD. The skin and nipples show no abnormalities. No abnormal axillary lymph nodes are seen. The breast par enchyma is heterogeneously dense. (Breast density: Category C.) There continues to be a nodular densi ty anteriorly in the right breast contained a biopsy clip which is stable. There continues to be some parenchymal asymmetry posterior medially in the left breast containing calcifications which appears to be stable. There continue to be small nodular parenchymal densities bilaterally which are stable. There are no new dominant masses, suspicious calcifications or architectural distortion. Impression: No evidence of malignancy. Recommend routine screening. Your patient's mammogram demonstrates that she has dense breast tissue (breast density category C or D), which could hide abnormalities, and if she has other risk factors for breast cancer that have bee n identified, she might benefit from supplemental screening tests that may be suggested by you as her ordering physician. Dense breast tissue, in and of itself, is a relatively common condition. Therefo re, this information is not provided to cause undue concern, but rather to raise your awareness and t o promote discussion with your patient regarding the presence of other risk factors, in addition to d ense breast tissue. Your patient's mammography results will be sent to her. BI-RAD Category 2: Benign. "Our facility is accredited by the [employer] Mammography Program." This patient's information has been entered into a reminder system for the patient to be notified wit h the results of her examination and a target date for the next mammogram. Electronically signed by: Robina Call MD (02/05/2022 4:01 PM) [id number]
--- NOTE | 2022-02-05 16:58 | KCIC ---
MR CERVICAL SPINE WO History:Reason: CERVICALGIA WITH RADICULOPATHY / Spl. Instructions: Prior surgery 2012. / History: Ne ck pain with new RUE pain, numbness and tingling. NKI. Technique: Multiplanar, multi sequential noncontrast MR imaging was performed of the cervical spine. Comparison: May 24, 2019 Findings: Motion degraded evaluation. Reversal the cervical lordosis. No acute fracture. Multilevel degenerative endplate changes. Hyperintense signal within the cervical spinal cord at the C4-C5 level. Postoperative changes posteri or decompression C4-C6. C2-C3: No canal narrowing. Facet arthropathy. No neuroforaminal narrowing. C3-C4: Posterior disc osteophyte complex. Mild canal narrowing. Uncovertebral and facet arthropathy. Mild bilateral neuroforaminal narrowing. C4-C5: Posterior disc osteophyte complex. Posterior decompression. Mild canal narrowing. Cord flatte jose. Uncovertebral and facet arthropathy. Moderate right and mild left neuroforaminal narrowing. C5-C6: Posterior disc osteophyte complex. No canal narrowing. Posterior decompression. Mild cord fla ttening. Uncovertebral and facet arthropathy. Moderate left and mild right neuroforaminal narrowing. C6-C7: Posterior disc osteophyte complex. Mild canal narrowing. Posterior decompression. Cord jono ening. Uncovertebral and facet arthropathy. Moderate bilateral neuroforaminal narrowing. C7-T1: Posterior disc osteophyte complex. No canal narrowing. Facet arthropathy. Right foraminal dis c protrusion. Severe right and moderate left neuroforaminal narrowing, increased compared to prior. T1-T2: No canal narrowing. Facet arthropathy. Mild bilateral neuroforaminal narrowing. T2-3: Small disc extrusion extending superiorly. Mild canal narrowing. Facet arthropathy. Severe righ t and moderate left neuroforaminal narrowing, unchanged. T3-T4: Small posterior disc osteophyte complex. Minimal canal narrowing. Facet arthropathy. Moderate left and mild right neuroforaminal narrowing. When compared the prior examination the degenerative the degenerative findings are increased at C7-T1 and within the upper thoracic spine. Impression: 1. Moderate cervical thoracic spondylosis, progressed compared to prior. 2. Postoperative changes cervical spine with myelomalacia at the C4-C5 level. 3. Mild multilevel cervical and thoracic canal narrowing, as described. 4. Increased C7-T1 right foraminal disc protrusion contributing to severe neuroforaminal narrowing. 5. Additional neuroforaminal narrowing, as described. Electronically signed by: Chu Dsouza DO (02/05/2022 4:56 PM) [id number]
== END ==
LOC: KCIC MRI 12:54
PROVIDERS: ATTEND Nurse Practitioner Family
DX: Z12.31 Encounter for screening mammogram for malignant neoplasm of breast (principal); M47.813 Spondylosis without myelopathy or radiculopathy, cervicothoracic region; G95.89 Other specified diseases of spinal cord; M25.78 Osteophyte, vertebrae; M48.8X2 Other specified spondylopathies, cervical region; M48.03 Spinal stenosis, cervicothoracic region; M50.23 Other cervical disc displacement, cervicothoracic region; Z98.890 Other specified postprocedural states
CPT/HCPCS: 72141; 77063; 77067